=== PATIENT | female | born 1950 | race Caucasian/White ===

== ENCOUNTER 2020-07-14 14:03 | Outpatient (REF) | payer MEDICARE, SELFPAY ==
[2020-07-14 15:29] LABS: Estimated Average Glucose 97 mg/dL
[2020-07-14 15:34] LABS: Alanine Aminotransferase 9 U/L (0-31); Albumin Level 4.1 g/dL (3.5-5.0); Alkaline Phosphatase 87 U/L (39-117); Anion Gap 11 (12-20); Aspartate Amino Transferase 11 U/L (5-31); Bilirubin Total 0.4 mg/dL (0.0-1.0); Blood Urea Nitrogen 20 mg/dL (9-16); Calcium 9.4 mg/dL (8.4-10.2); Carbon Dioxide 30 mmol/L (22-29); Chloride 101 mmol/L (96-108); Estimated Glomerular Filt Rate > 60; Glucose Random 105 mg/dL (60-115); Potassium 4.7 mmol/L (3.3-5.1); Sodium 137 mmol/L (135-145); Total Protein 6.6 g/dL (6.5-8.0)
[2020-07-14 15:43] LABS: Free T4 (Free Thyroxine) 1.06 ng/dL (0.71-1.85); Thyroid Stimulating Hormone 0.85 uIU/mL (0.32-4.0)
--- NOTE | 2020-07-14 21:21 | P.CONTMS_ITS ---
History of Present Illness General Data Date of Service: 07/14/20 Reason for consult: Tms eval Requesting provider: Delvin Escobedo History of Present Illness The patient is a 70-year-old female with a long history of recurrent depression. She has a history of treatment resistant depression and eventually responded to 75 mg of Nardil and used to be a patient of Dr. Lisa Rosas. the patient had been tapering down on Nardil because of manufacturing issues from the company and perception that it was coming off the market. The patient had hoped to be able to go off MAOI but had generally been stable on Nardil without 6 side this for years. Since coming down to 30 mg the patient severely a is depressed and ruminating. She had difficulty enjoying anything was hopeless helpless and forth frequently despondent. Nardil was increased back up to 60 the patient had some lightheadedness when standing up. Patient awfully bed ridden not sure what to do with herself morbid difficult time since [facility]. She did lose structure during COVID. Her is supportive. 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 she is close with her step grandchildren Substance History: None Mental Status Exam Mental Status Exam Patient Appearance: Well Grooomed and Appropriate Patient Orientation: Person, Place, Time and Situation Level of Consciousness: Appropriate and Restless Patient Behavior: Appropriate, Talkative and Restless Mood Description: Constricted, Depressed, Blunted and Apprehensive Affect Description: Depressed, Anxious and Apprehensive Patient Cognition Impaired: No Ability to Follow Directions: Good Speech Pattern: Perseverating, Excessive and Pressured Memory Description: Intact Hallucinations: None Delusions: Not Present Thought Process: Distracted and Rumination Thought Content: positive for Obsessional Thoughts, positive for Perseveration, positive for Suicidal Ideation and negative for Homicidal Ideation Depressive Symptoms: Increased Anxiety, Insomnia and Hopelessness Judgement: Fair Assessment & Plan Assessment & Plan (1) Major depressive disorder, recurrent severe without psychotic features: Status: Acute Code(s): F33.2 - Major depressive disorder, recurrent severe without psychotic features Recommendations: Continue Nardil start Abilify 2 mg daily for augmentation. Clonazepam up to 1 mg daily for severe anxiety. Patient without history of bruno no medical contraindications to TMS still has severe anxiety irritability reactivity passive suicidality would benefit from augmentation to Nardil No history of metallic fragments above the a head or neck no history of brain surgery no history of cochlear implant cardiac pacemaker no medical contraindi cation to TMS (2) Generalized anxiety disorder: Status: Acute Code(s): F41.1 - Generalized anxiety disorder Recommendations: Continue CBT Nardil low-dose clonazepam Greater than 50% of the session was spent on counseling and/or coordination of care
== END 2020-07-14 14:04 | disposition home or self-care (01) ==
LOC: HO.LAB 14:03
PROVIDERS: PCP Internal Medicine; Visit Provider Psychiatry & Neurology Psychiatry
DX: F32.2 Major depressive disorder, single episode, severe without psychotic features (principal); F41.1 Generalized anxiety disorder; Z79.899 Other long term (current) drug therapy
CPT/HCPCS: 36415; 80053; 83036; 84439; 84443

== ENCOUNTER 2020-09-07 09:45 | Outpatient (RCR) | payer MEDICARE, SELFPAY ==
--- NOTE | 2020-07-15 21:21 | HO.TMSDAILY2 ---
TMS Daily Progress Note Daily TMS Progress Note Date of Service: 07/15/20 Week #: 1 Treatment #(04-10): 1 PHQ-9 Pre-Treatment (04-07): 19 PHQ-9 Most Recent (04-07): 19 Reviewed: TMS Tech Note Reviewed Verification: I have reviewed the TMS Visiting Housekeeper Note and agree with the contents. The patient remains a candidate to continue TMS treatment per protocol. Initial mapping completed
--- NOTE | 2020-07-16 22:17 | HO.TMSDAILY2 ---
TMS Daily Progress Note Daily TMS Progress Note Date of Service: 07/16/20 Week #: 1 Treatment #(04-10): 2 PHQ-9 Pre-Treatment (04-07): 19 PHQ-9 Most Recent (04-07): 19 Reviewed: TMS Tech Note Reviewed Verification: I have reviewed the TMS Melter Supervisor Open Hearth Furnace Note and agree with the contents. The patient remains a candidate to continue TMS treatment per protocol.
--- NOTE | 2020-07-19 22:07 | P.PNPS_ITS ---
TMS Daily Progress Note Daily TMS Progress Note Date of Service: 07/19/20 Week #: 1 Treatment #(04-10): 3 PHQ-9 Pre-Treatment (04-07): 19 PHQ-9 Most Recent (04-07): 19 Reviewed: TMS Tech Note Reviewed Verification: I have reviewed the TMS Processing Archivist Note and agree with the contents. The patient remains a candidate to continue TMS treatment per pro tocol.
--- NOTE | 2020-07-20 21:59 | P.PNPS_ITS ---
TMS Daily Progress Note Daily TMS Progress Note Date of Service: 07/20/20 Week #: 1 Treatment #(04-10): 4 PHQ-9 Pre-Treatment (04-07): 19 PHQ-9 Most Recent (04-07): 19 Reviewed: TMS Tech Note Reviewed Verification: I have reviewed the TMS Director Of Business Services Note and agree with the contents. The patient remains a candidate to continue TMS treatment per pro tocol.
--- NOTE | 2020-07-22 21:38 | HO.TMSDAILY2 ---
TMS Daily Progress Note Daily TMS Progress Note Date of Service: 07/22/20 Week #: 2 Treatment #(04-10): 6 PHQ-9 Pre-Treatment (04-07): 19 PHQ-9 Most Recent (04-07): 19 Reviewed: TMS Tech Note Reviewed Verification: I have reviewed the TMS Speech And Language Clinician Note and agree with the contents. The patient remains a candidate to continue TMS treatment per protocol.
--- NOTE | 2020-07-26 23:05 | HO.TMSDAILY2 ---
TMS Daily Progress Note Daily TMS Progress Note Date of Service: 07/26/20 Week #: 2 Treatment #(04-10): 7 PHQ-9 Pre-Treatment (04-07): 19 PHQ-9 Most Recent (04-07): 19 Reviewed: TMS Tech Note Reviewed Verification: I have reviewed the TMS Cytotechnologist/Histotechnologist Note and agree with the contents. The patient remains a candidate to continue TMS treatment per protocol.
--- NOTE | 2020-07-28 22:09 | HO.TMSDAILY2 ---
TMS Daily Progress Note Daily TMS Progress Note Date of Service: 07/29/20 Week #: 2 Treatment #(04-10): 8 PHQ-9 Pre-Treatment (04-07): 19 PHQ-9 Most Recent (04-07): 19 Reviewed: TMS Tech Note Reviewed Verification: I have reviewed the TMS School Supervisor Note and agree with the contents. The patient remains a candidate to continue TMS treatment per protocol.
--- NOTE | 2020-07-29 22:40 | P.PNPS_ITS ---
TMS Daily Progress Note Daily TMS Progress Note Date of Service: 07/29/20 Week #: 2 Treatment #(04-10): 9 PHQ-9 Pre-Treatment (04-07): 19 PHQ-9 Most Recent (04-07): 19 Reviewed: TMS Tech Note Reviewed Verification: I have reviewed the TMS Duplicating Machine Servicer Note and agree with the contents. The patient remains a candidate to continue TMS treatment per pro tocol.
--- NOTE | 2020-07-30 15:42 | P.PNPS_ITS ---
TMS Daily Progress Note Daily TMS Progress Note Date of Service: 07/30/20 Week #: 3 Treatment #(04-10): 11 PHQ-9 Pre-Treatment (04-07): 19 PHQ-9 Most Recent (04-07): 19 Reviewed: TMS Tech Note Reviewed Verification: I have reviewed the TMS Sql Server Architect Note and agree with the contents. The patient remains a candidate to continue TMS treatment per pr otocol.
--- NOTE | 2020-07-30 16:33 | P.PNPS_ITS ---
TMS Daily Progress Note Daily TMS Progress Note Date of Service: 07/30/20 Week #: 2 Treatment #(04-10): 10 PHQ-9 Pre-Treatment (04-07): 19 PHQ-9 Most Recent (04-07): 19 Reviewed: TMS Tech Note Reviewed Verification: I have reviewed the TMS Varnisher Plasticoater Note and agree with the contents. The patient remains a candidate to continue TMS treatment per pr otocol.
--- NOTE | 2020-08-02 23:08 | HO.TMSDAILY2 ---
TMS Daily Progress Note Daily TMS Progress Note Date of Service: 08/02/20 Week #: 3 Treatment #(04-10): 12 PHQ-9 Pre-Treatment (04-07): 19 PHQ-9 Most Recent (04-07): 19 Reviewed: TMS Tech Note Reviewed Verification: I have reviewed the TMS Mixer Operator Helper Hot Metal Note and agree with the contents. The patient remains a candidate to continue TMS treatment per protocol.
--- NOTE | 2020-08-03 23:05 | P.PNPS_ITS ---
TMS Daily Progress Note Daily TMS Progress Note Date of Service: 08/03/20 Week #: 3 Treatment #(04-10): 13 PHQ-9 Pre-Treatment (04-07): 19 PHQ-9 Most Recent (04-07): 19 Reviewed: TMS Tech Note Reviewed Verification: I have reviewed the TMS Machine Zipper Trimmer Note and agree with the contents. The patient remains a candidate to continue TMS treatment per pr otocol.
--- NOTE | 2020-08-04 07:52 | P.PNPS_ITS ---
TMS Daily Progress Note Daily TMS Progress Note Date of Service: 08/04/20 Week #: 3 Treatment #(04-10): 14 PHQ-9 Pre-Treatment (04-07): 19 PHQ-9 Most Recent (04-07): 19 Reviewed: TMS Tech Note Reviewed Verification: I have reviewed the TMS Geophysics Teacher Note and agree with the contents. The patient remains a candidate to continue TMS treatment per pr otocol.
--- NOTE | 2020-08-05 21:58 | HO.TMSDAILY2 ---
TMS Daily Progress Note Daily TMS Progress Note Date of Service: 08/05/20 Week #: 3 Treatment #(04-10): 15 PHQ-9 Pre-Treatment (04-07): 19 PHQ-9 Most Recent (04-07): 19 Reviewed: TMS Tech Note Reviewed Verification: I have reviewed the TMS Travertine Installer Note and agree with the contents. The patient remains a candidate to continue TMS treatment per protocol.
--- NOTE | 2020-08-06 22:59 | P.PNPS_ITS ---
TMS Daily Progress Note Daily TMS Progress Note Date of Service: 08/06/20 Week #: 4 Treatment #(04-10): 16 PHQ-9 Pre-Treatment (04-07): 19 PHQ-9 Most Recent (04-07): 19 Reviewed: TMS Tech Note Reviewed Verification: I have reviewed the TMS Briquette Machine Operator Helper Note and agree with the contents. The patient remains a candidate to continue TMS treatment per pr otocol.
--- NOTE | 2020-08-10 21:59 | HO.TMSDAILY2 ---
TMS Daily Progress Note Daily TMS Progress Note Date of Service: 08/10/20 Week #: 4 Treatment #(04-10): 17 PHQ-9 Pre-Treatment (04-07): 19 PHQ-9 Most Recent (04-07): 19 Reviewed: TMS Tech Note Reviewed Verification: I have reviewed the TMS Fire Pot Operator Note and agree with the contents. The patient remains a candidate to continue TMS treatment per protocol.
--- NOTE | 2020-08-11 21:48 | P.PNPS_ITS ---
TMS Daily Progress Note Daily TMS Progress Note Date of Service: 08/11/20 Week #: 4 Treatment #(04-10): 18 PHQ-9 Pre-Treatment (04-07): 19 PHQ-9 Most Recent (04-07): 19 Reviewed: TMS Tech Note Reviewed Verification: I have reviewed the TMS Transport Technician Note and agree with the contents. The patient remains a candidate to continue TMS treatment per pr otocol.
--- NOTE | 2020-08-12 20:45 | HO.TMSDAILY2 ---
TMS Daily Progress Note Daily TMS Progress Note Date of Service: 08/12/20 Week #: 4 Treatment #(04-10): 19 PHQ-9 Pre-Treatment (04-07): 19 PHQ-9 Most Recent (04-07): 19 Reviewed: TMS Tech Note Reviewed Verification: I have reviewed the TMS Rn Social Services Note and agree with the contents. The patient remains a candidate to continue TMS treatment per protocol.
--- NOTE | 2020-08-13 22:44 | HO.TMSDAILY2 ---
TMS Daily Progress Note Daily TMS Progress Note Date of Service: 08/13/20 Week #: 4 Treatment #(04-10): 20 PHQ-9 Pre-Treatment (04-07): 19 PHQ-9 Most Recent (04-07): 19 Reviewed: TMS Tech Note Reviewed Verification: I have reviewed the TMS Industrial Cook Note and agree with the contents. The patient remains a candidate to continue TMS treatment per protocol.
--- NOTE | 2020-08-17 21:33 | P.PNPS_ITS ---
TMS Daily Progress Note Daily TMS Progress Note Date of Service: 08/17/20 Week #: 5 Treatment #(04-10): 22 PHQ-9 Pre-Treatment (04-07): 19 PHQ-9 Most Recent (04-07): 19 Reviewed: TMS Tech Note Reviewed Verification: I have reviewed the TMS Casing Builder Note and agree with the contents. The patient remains a candidate to continue TMS treatment per pr otocol.
--- NOTE | 2020-08-18 12:19 | P.PNPS_ITS ---
TMS Daily Progress Note Daily TMS Progress Note Date of Service: 08/18/20 Week #: 4 Treatment #(04-10): 23 PHQ-9 Pre-Treatment (04-07): 19 PHQ-9 Most Recent (04-07): 19 Reviewed: TMS Tech Note Reviewed Verification: I have reviewed the TMS Supervisor Rose Grading Note and agree with the contents. The patient remains a candidate to continue TMS treatment per pr otocol.
--- NOTE | 2020-08-19 22:56 | HO.TMSDAILY2 ---
TMS Daily Progress Note Daily TMS Progress Note Date of Service: 08/19/20 Week #: 4 Treatment #(04-10): 24 PHQ-9 Pre-Treatment (04-07): 19 PHQ-9 Most Recent (04-07): 19 Reviewed: TMS Tech Note Reviewed Verification: I have reviewed the TMS Mounter Automatic Note and agree with the contents. The patient remains a candidate to continue TMS treatment per protocol.
--- NOTE | 2020-08-23 22:06 | HO.TMSDAILY2 ---
TMS Daily Progress Note Daily TMS Progress Note Date of Service: 08/23/20 Week #: 6 Treatment #(04-10): 26 PHQ-9 Pre-Treatment (04-07): 19 PHQ-9 Most Recent (04-07): 19 Reviewed: TMS Tech Note Reviewed Verification: I have reviewed the TMS Hardware Manager Note and agree with the contents. The patient remains a candidate to continue TMS treatment per protocol.
--- NOTE | 2020-08-24 23:44 | P.PNPS_ITS ---
TMS Daily Progress Note Daily TMS Progress Note Date of Service: 08/24/20 Week #: 6 Treatment #(04-10): 27 PHQ-9 Pre-Treatment (04-07): 19 PHQ-9 Most Recent (04-07): 19 Reviewed: TMS Tech Note Reviewed Verification: I have reviewed the TMS Educational Psychology Professor Note and agree with the contents. The patient remains a candidate to continue TMS treatment per pr otocol.
--- NOTE | 2020-08-25 23:23 | HO.TMSDAILY2 ---
TMS Daily Progress Note Daily TMS Progress Note Date of Service: 08/25/20 Week #: 6 Treatment #(04-10): 28 PHQ-9 Pre-Treatment (04-07): 19 PHQ-9 Most Recent (04-07): 19 Reviewed: TMS Tech Note Reviewed Verification: I have reviewed the TMS Forest Fire Fighters Dispatcher Note and agree with the contents. The patient remains a candidate to continue TMS treatment per protocol.
--- NOTE | 2020-08-27 23:16 | HO.TMSDAILY2 ---
TMS Daily Progress Note Daily TMS Progress Note Date of Service: 08/31/20 Week #: 6 Treatment #(04-10): 29 PHQ-9 Pre-Treatment (04-07): 19 PHQ-9 Most Recent (04-07): 19 Reviewed: TMS Tech Note Reviewed Verification: I have reviewed the TMS Conventional Mortgage Underwriter Note and agree with the contents. The patient remains a candidate to continue TMS treatment per protocol.
--- NOTE | 2020-08-31 23:21 | HO.TMSDAILY2 ---
TMS Daily Progress Note Daily TMS Progress Note Date of Service: 08/27/20 Week #: 6 Treatment #(04-10): 30 PHQ-9 Pre-Treatment (04-07): 19 PHQ-9 Most Recent (04-07): 19 Reviewed: TMS Tech Note Reviewed Verification: I have reviewed the TMS Drill Press Operator For Metal Note and agree with the contents. The patient remains a candidate to continue TMS treatment per protocol.
--- NOTE | 2020-08-31 23:22 | HO.TMSDAILY2 ---
TMS Daily Progress Note Daily TMS Progress Note Date of Service: 08/31/20 Week #: 7 Treatment #(04-10): 31 PHQ-9 Pre-Treatment (04-07): 19 PHQ-9 Most Recent (04-07): 19 Reviewed: TMS Tech Note Reviewed Verification: I have reviewed the TMS Certified Medication Aide Note and agree with the contents. The patient remains a candidate to continue TMS treatment per protocol.
--- NOTE | 2020-09-02 11:28 | P.PNPS_ITS ---
TMS Daily Progress Note Daily TMS Progress Note Date of Service: 09/01/20 Week #: 7 Treatment #(04-10): 32 PHQ-9 Pre-Treatment (04-07): 19 PHQ-9 Most Recent (04-07): 19 Reviewed: TMS Tech Note Reviewed Verification: I have reviewed the TMS Personnel Representative Note and agree with the contents. The patient remains a candidate to continue TMS treatment per pr otocol.
--- NOTE | 2020-09-03 22:42 | HO.TMSDAILY2 ---
TMS Daily Progress Note Daily TMS Progress Note Date of Service: 09/03/20 Week #: 7 Treatment #(04-10): 33 PHQ-9 Pre-Treatment (04-07): 19 PHQ-9 Most Recent (04-07): 19 Reviewed: TMS Tech Note Reviewed Verification: I have reviewed the TMS Soaking Tank Worker Note and agree with the contents. The patient remains a candidate to continue TMS treatment per protocol.
--- NOTE | 2020-09-03 22:46 | P.PNPS_ITS ---
TMS Daily Progress Note Daily TMS Progress Note Date of Service: 09/03/20 Week #: 7 Treatment #(04-10): 33 PHQ-9 Pre-Treatment (04-07): 19 PHQ-9 Most Recent (04-07): 19 Reviewed: TMS Tech Note Reviewed Verification: I have reviewed the TMS Personnel Coordinator Note and agree with the contents. The patient remains a candidate to continue TMS treatment per pr otocol.
--- NOTE | 2020-09-07 22:27 | P.PNPS_ITS ---
TMS Daily Progress Note Daily TMS Progress Note Date of Service: 09/07/20 Week #: 8 Treatment #(04-10): 34 PHQ-9 Pre-Treatment (04-07): 19 PHQ-9 Most Recent (04-07): 19 Reviewed: TMS Tech Note Reviewed Verification: I have reviewed the TMS Pad Machine Offbearer Note and agree with the contents. The patient remains a candidate to continue TMS treatment per pr otocol.
--- NOTE | 2020-09-09 23:06 | HO.TMSDCTER ---
TMS Discharge-Termination Chart Review Treatments Completed: 34 Initial MT%: 80% Final MT%: 120% Was Remapping Required: Yes Clinical Evaluation/Review PHQ-9 Pre-Treatment (1-): 19 PHQ-9 Post-Treatment (-): 15 NATE-7 Pre-Treatment (0-21): 14 NATE-7 Most Recent (0-21): 18 CGI-I Initial: 6 = Much Worse CGI-I Post Treatment: 4 = No Change Q-LES-Q-SF Pre-Treatment: na Q-LES-Q-SF Post-Treatment: na Adverse Effects Local Pain/Discomfort: Yes Headache: No Facial Pain: No Seizure: No Impression Impression: pt has not had response to tms Recommendations TMS: Discontinue Medication Changes: abilify Follow-up w/ Prescriber: candice
== END 2020-09-09 15:30 | disposition home or self-care (01) ==
LOC: HO.PTMS 09:45
PROVIDERS: PCP Internal Medicine; Visit Provider Psychiatry & Neurology Psychiatry
DX: F33.2 Major depressive disorder, recurrent severe without psychotic features (principal)
CPT/HCPCS: 90867; 90868; 90869

== ENCOUNTER 2020-09-08 13:06 | Inpatient (IN) | payer MEDICARE, SELFPAY ==
[2020-09-08 13:27] VITALS: BP 116/63; PULSE 76; RESP 16; TEMP 36.7; O2SAT 95; BMI 23.6
--- NOTE | 2020-09-08 14:22 | ECG_ITS ---
Test Reason : MED CLEARANCE Blood Pressure : / mmHG Vent. Rate : 072 BPM Atrial Rate : 072 BPM P-R Int : 172 ms QRS Dur : 084 ms QT Int : 382 ms P-R-T Axes : 072 060 058 degrees QTc Int : 418 ms Normal sinus rhythm Biatrial enlargement Septal infarct , age undetermined Abnormal ECG No previous ECGs available Referred By: Colette Edmonds Electronically Signed By:AL CHRISTOPHER MD
[2020-09-08 14:58] LABS: MANUAL DIFF FLAG NO
[2020-09-08 15:03] LABS: Glucose Urine UA NEG (NEG); Leukocyte Esterase Urine 1+ (NEG); Nitrite Urine NEG (NEG); UACC Culture Trigger YES; Urine Blood TRACE (NEG); Urine Ketones NEG (NEG); Urine Protein NEG (NEG-TRACE)
[2020-09-08 15:06] LABS: Appearance Urine HAZY; Color Urine YELLOW
[2020-09-08 15:07] LABS: Basophils Percent Auto 0.5 % (0-2); Eosinophils Absolute Auto 0.1 X10*3/uL (0.0-0.4); Eosinophils Percent Auto 2.5 % (0-4); Hematocrit 39.2 % (37-47); Hemoglobin 12.6 g/dl (12.0-16.0); Imm Gran Abs Auto 0.01 X10*3/uL (0.00-0.03); Imm Gran Pct Auto 0.2 % (0.0-0.4); Lymphocytes Absolute Auto 1.3 X10*3/uL (1.2-4.9); Lymphocytes Percent Auto 29.2 % (20-40); Mean Corpuscular HGB Conc 32.1 g/dl (31.0-35.0); Mean Corpuscular Hemoglobin 29.8 pg (27.0-33.0); Mean Corpuscular Volume 92.7 fL (80-98); Mean Platelet Volume 10.5 fL (9.4-12.3); Monocytes Absolute Auto 0.4 X10*3/uL (0.1-1.2); Neutrophils Absolute Auto 2.6 X10*3/uL (2.0-8.3); Neutrophils Percent Auto 58.6 % (45-73); Platelet Count 165 X10*3/uL (160-400); Red Blood Count 4.23 X10*6/uL (4.20-5.50); Red Cell Distribution Width 12.8 % (11.0-16.0); White Blood Count 4.4 X10*3/uL (4.8-10.8)
[2020-09-08 15:13] LABS: Bacteria Urine 3+ /LPF; Squamous Epithelial Cell Urine 2+ /LPF
--- NOTE | 2020-09-08 15:15 | HE.PHANOTE ---
med rec complete, no issues
[2020-09-08 15:16] LABS: COVID-19 Test Negative (Negative); IDNOW Serial# 9DD0AD1C
[2020-09-08 15:29] LABS: Ethanol < 10 mg/dL
[2020-09-08 15:31] LABS: Lipase 39 U/L (8-78)
[2020-09-08 15:32] LABS: Amphetamine Screen Urine Not Detected (Not Detect); Barbiturates, Urine Not Detected (Not Detect); Benzodiazepines Screen Urine POSITIVE (Not Detect); Cannabinoid Screen Urine Not Detected (Not Detect); Cocaine Screen Urine Not Detected (Not Detect); Opiate Screen Urine Not Detected (Not Detect); Phencyclidine Screen Urine Not Detected (Not Detect)
[2020-09-08 15:35] LABS: Alanine Aminotransferase 9 U/L (0-31); Albumin Level 4.1 g/dL (3.5-5.0); Alkaline Phosphatase 81 U/L (39-117); Anion Gap 11 (12-20); Aspartate Amino Transferase 11 U/L (5-31); Bilirubin Total 0.3 mg/dL (0.0-1.0); Blood Urea Nitrogen 16 mg/dL (9-16); Calcium 9.2 mg/dL (8.4-10.2); Carbon Dioxide 30 mmol/L (22-29); Chloride 101 mmol/L (96-108); Creatinine Clr Calc Pharmacy 64.6; Estimated Glomerular Filt Rate > 60; Glucose Random 129 mg/dL (60-115); Magnesium 2.2 mg/dL (1.6-2.6); Potassium 4.5 mmol/L (3.3-5.1); Sodium 137 mmol/L (135-145); Total Protein 6.5 g/dL (6.5-8.0)
--- NOTE | 2020-09-08 16:10 | ED.PSYCH ---
HPI - Psych General Chief Complaint: Psychiatric Symptoms Stated Complaint: phychiatric symptoms Time Seen by Provider: 09/08/20 14:22 Source: patient and family Mode of arrival: ambulatory Limitations: no limitations History of Present Illness HPI Narrative: 70-year-old female with a past medical history of generalized anxiety disorder and major depressive disorder without psychosis being followed by Dr. Escobedo presenting to the ED with complaints of increased anxiety/depression over the past few weeks that is progressively worsening. Therefore Dr. Escobedo sent the patient here for medical clearance for direct admission to [place] [id number] for anxiety and depression. She denies any SI/HI/ auditory visual hallucinations or thoughts of self injury. She denies any drug or alcohol usage. She denies recent travel or sick contacts or any other symptoms complaints or concerns at this time. MD complaint: feels depressed and anxiety Onset (ago): week(s) Duration: constant and getting worse History of same: Yes Relieving factors: none Exacerbating factors: none Associated psychiatric symptoms: depression Associated symptoms: denies other symptoms Treatments prior to arrival: none Related Data Home Medications Medication Instructions Recorded Confirmed clonazepam 0.5 mg PO BID PRN 09/08/20 09/08/20 phenelzine 15 mg PO BEDTIME 09/08/20 09/08/20 phenelzine 30 mg PO BID@0800,1200 09/08/20 09/08/20 Allergies Allergy/AdvReac Type Severity Reaction Status Date / Time levofloxacin [From Levaquin] Allergy Rash Verified 09/08/20 14:08 tyramine Allergy Hypertensio Uncoded 09/08/20 14:06 n Review of Systems Review of Systems: Constitutional : No Fever, No Chills ENT/Mouth : No Ear Pain, No Nasal Congestion, No sore throat Eyes: No Eye Pain, No Swelling, No Redness Cardiovascular : No Chest Pain, No SOB Respiratory : No Cough, No Sputum, No Dyspnea Gastrointestinal : No ingestions, No Nausea, No Vomiting, No Diarrhea, No Hematochezia, No Melena Genitourinary : No Dysuria, No Urinary Frequency, No Hematuria Musculoskeletal : No Myalgias Skin : No Skin Lesions, No rash Neuro : No Weakness, No Numbness, No Paresthesias, No Dizziness, No Headache Psych : + Anxiety, + Depression, No SI, No thoughts of self injury, No HI, No AVH, Heme/Lymph: No Lymphadenopathy Endocrine : No Polyuria, No Polydipsia Yes all other systems are reviewed and are negative [facility] Past Medical History Attestation statement: The following information was validated with the patient. Medical History Generalized anxiety disorder Social History Social History Advance Directives: No Advance Directives Information Provided: No Physical Exam Vital Signs: Vital Signs: Last Vital Signs Temp 98.1 F 09/08/20 13:27 Pulse 76 09/08/20 13:27 Resp 16 09/08/20 13:27 BP 116/63 09/08/20 13:27 Pulse Ox 95 09/08/20 13:27 Body Mass Index 23.6 vital signs have been reviewed as normal and appeared to be correct. Blood pressure normal. Heart rate normal. Respiration rate normal. Temperature normal. Oxygen saturation normal. Appearance: Alert. Oriented X3. No acute distress. Head: Normal external exam. Normocephalic. Atraumatic. No Gaviria signs noted. No raccoon eyes noted Eyes: PERRLA. EOMI. Conjunctiva and sclera normal. Eyelids normal. ENT: EAC normal. TM's Normal. Pharynx normal. Uvula midline. Moist mucous membranes. No trismus noted. No drooling noted. No muffled voice noted. Neck: Normal inspection. Neck supple. FROM. No adenopathy. Thyroid Normal. No meningeal signs. No neck mass noted. CVS: Normal heart rate and rhythm. Heart sound normal. No murmurs noted. Pulses normal throughout. Respiratory: No respiratory distress. Painless inspiration. Breath sounds normal. No wheezes/rales/rhonchi noted. Chest nontender. No accessory muscle usage noted or decreased air movement noted. Abdomen: Soft and nontender. Bowel sounds normal in all 4 quadrants. No distention noted. No organomegaly noted. No visible injury noted. Back: No CVA tenderness. Full range of motion noted. Skin: Skin warm and dry. Normal skin color. Normal skin turgor. No rashes/lesions/lacerations noted. Extremities: No lower extremity edema. Extremities exhibit normal range of motion. Extremities nontender. Neuro: Oriented X 3. No motor deficit. No sensory deficit. Reflexes normal. Psych: Appearance grossly normal, well-kept, mental status normal, speech and movement normal, speech clear, patient appears very sad and anxious along with depressed. Is cooperative. Normal thought process. Normal thought content. Normal good insight. Judgment good. 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 Escobedo presenting to the ED with complaints of increased anxiety/depression over the past few weeks that is progressively worsening. Therefore Dr. Escobedo sent the patient here for medical clearance for direct admission to [place] [address] for anxiety and depression. She denies any SI/HI/ auditory visual hallucinations or thoughts of self injury. She denies any drug or alcohol usage. Labs obtained and patient with a white blood cell count 4000. Random glucose 129. Otherwise all other labs are within normal limits. Patient positive for benzos negative for all other drugs. Negative for EtOH. Negative for COVID on 08/12/2020. Therefore patient medically cleared and will be admitted to the [facility] psych unit. Patient and at bedside understand agree with this plan. [facility] - Psych Medical Records Attestation: I reviewed the patient's medical records. Lab Data Attestation: I reviewed the patient's lab results. Result diagrams: 09/08/20 14:53 09/08/20 14:53 Labs: Lab Results 09/08/20 09/08/20 09/08/20 Range/Units 14:49 14:49 14:53 WBC 4.4 L (4.8-10.8) X10*3/uL RBC 4.23 (4.20-5.50) X10*6/uL Hgb 12.6 (12.0-16.0) g/dl Hct 39.2 (37-47) % MCV 92.7 (80-98) fL MCH 29.8 (27.0-33.0) pg MCHC 32.1 (31.0-35.0) g/dl RDW 12.8 (11.0-16.0) % Plt Count 165 (160-400) X10*3/uL MPV 10.5 (9.4-12.3) fL Immature Gran % (Auto) 0.2 (0.0-0.4) % Neut % (Auto) 58.6 (45-73) % Lymph % (Auto) 29.2 (20-40) % [place] % (Auto) 9.0 (2-11) % Eos % (Auto) 2.5 (0-4) % Baso % (Auto) 0.5 (0-2) % Lymph # (Auto) 1.3 (1.2-4.9) X10*3/uL [place] # (Auto) 0.4 (0.1-1.2) X10*3/uL Eos # (Auto) 0.1 (0.0-0.4) X10*3/uL Baso # (Auto) 0.0 (0.0-0.2) X10*3/uL Abs Immat Gran (auto) 0.01 (0.00-0.03) X10*3/uL Absolute Neuts (auto) 2.6 (2.0-8.3) X10*3/uL Absolute Nucleated RBC 0.000 (0.0-0.012) X10*3/uL Nucleated RBC % (auto) 0.0 (0.0-0.2) /100WBC Sodium (135-145) mmol/L Potassium (3.3-5.1) mmol/L Chloride (96-108) mmol/L Carbon Dioxide (22-29) mmol/L Anion Gap (12-20) BUN (9-16) mg/dL Creatinine (0.5-1.4) mg/dL Estim Creat Clear Calc Estimated GFR Random Glucose (60-115) mg/dL Calcium (8.4-10.2) mg/dL Magnesium (1.6-2.6) mg/dL Total Bilirubin (0.0-1.0) mg/dL AST (5-31) U/L ALT (0-31) U/L Alkaline Phosphatase (39-117) U/L Total Protein (6.5-8.0) g/dL Albumin (3.5-5.0) g/dL Lipase (8-78) U/L Urine Color YELLOW Urine Appearance HAZY Urine pH 6.0 (5.0-8.0) Ur Specific [place] 1.010 (1.005-1.025) Urine Protein NEG (NEG-TRACE) MG/DL Urine Glucose (UA) NEG (NEG) MG/DL Urine Ketones NEG (NEG) MG/DL Urine Blood TRACE (NEG) Urine Nitrite NEG (NEG) Ur Leukocyte Esterase 1+ H (NEG) Urine RBC 1-4 (0) /HPF Urine WBC 5-9 H (0-4) /HPF Ur Squamous Epith Cells 2+ /LPF Urine Bacteria 3+ /LPF Urine Opiates Screen Not Detected (Not Detect) Ur Barbiturates Screen Not Detected (Not Detect) Ur Phencyclidine Scrn Not Detected (Not Detect) Ur Amphetamines Screen Not Detected (Not Detect) U Benzodiazepines Scrn POSITIVE H (Not Detect) Urine Cocaine Screen Not Detected (Not Detect) U Marijuana (THC) Screen Not Detected (Not Detect) Ethyl Alcohol mg/dL COVID-19 (JOELLE) (Negative) COVID-19 Clin Com 09/08/20 09/08/20 09/08/20 Range/Units 14:53 14:53 14:53 WBC (4.8-10.8) X10*3/uL RBC (4.20-5.50) X10*6/uL Hgb (12.0-16.0) g/dl Hct (37-47) % MCV (80-98) fL MCH (27.0-33.0) pg MCHC (31.0-35.0) g/dl RDW (11.0-16.0) % Plt Count (160-400) X10*3/uL MPV (9.4-12.3) fL Immature Gran % (Auto) (0.0-0.4) % Neut % (Auto) (45-73) % Lymph % (Auto) (20-40) % [place] % (Auto) (2-11) % Eos % (Auto) (0-4) % Baso % (Auto) (0-2) % Lymph # (Auto) (1.2-4.9) X10*3/uL [place] # (Auto) (0.1-1.2) X10*3/uL Eos # (Auto) (0.0-0.4) X10*3/uL Baso # (Auto) (0.0-0.2) X10*3/uL Abs Immat Gran (auto) (0.00-0.03) X10*3/uL Absolute Neuts (auto) (2.0-8.3) X10*3/uL Absolute Nucleated RBC (0.0-0.012) X10*3/uL Nucleated RBC % (auto) (0.0-0.2) /100WBC Sodium 137 (135-145) mmol/L Potassium 4.5 (3.3-5.1) mmol/L Chloride 101 (96-108) mmol/L Carbon Dioxide 30 H (22-29) mmol/L Anion Gap 11 L (12-20) BUN 16 (9-16) mg/dL Creatinine 0.78 (0.5-1.4) mg/dL Estim Creat Clear Calc 64.6 Estimated GFR > 60 Random Glucose 129 H (60-115) mg/dL Calcium 9.2 (8.4-10.2) mg/dL Magnesium 2.2 (1.6-2.6) mg/dL Total Bilirubin 0.3 (0.0-1.0) mg/dL AST 11 (5-31) U/L ALT 9 (0-31) U/L Alkaline Phosphatase 81 (39-117) U/L Total Protein 6.5 (6.5-8.0) g/dL Albumin 4.1 (3.5-5.0) g/dL Lipase 39 (8-78) U/L Urine Color Urine Appearance Urine pH (5.0-8.0) Ur Specific [place] (1.005-1.025) Urine Protein (NEG-TRACE) MG/DL Urine Glucose (UA) (NEG) MG/DL Urine Ketones (NEG) MG/DL Urine Blood (NEG) Urine Nitrite (NEG) Ur Leukocyte Esterase (NEG) Urine RBC (0) /HPF Urine WBC (0-4) /HPF Ur Squamous Epith Cells /LPF Urine Bacteria /LPF Urine Opiates Screen (Not Detect) Ur Barbiturates Screen (Not Detect) Ur Phencyclidine Scrn (Not Detect) Ur Amphetamines Screen (Not Detect) U Benzodiazepines Scrn (Not Detect) Urine Cocaine Screen (Not Detect) U Marijuana (THC) Screen (Not Detect) Ethyl Alcohol < 10 mg/dL COVID-19 (JOELLE) (Negative) COVID-19 Clin Com 09/08/20 Range/Units 14:54 WBC (4.8-10.8) X10*3/uL RBC (4.20-5.50) X10*6/uL Hgb (12.0-16.0) g/dl Hct (37-47) % MCV (80-98) fL MCH (27.0-33.0) pg MCHC (31.0-35.0) g/dl RDW (11.0-16.0) % Plt Count (160-400) X10*3/uL MPV (9.4-12.3) fL Immature Gran % (Auto) (0.0-0.4) % Neut % (Auto) (45-73) % Lymph % (Auto) (20-40) % [place] % (Auto) (2-11) % Eos % (Auto) (0-4) % Baso % (Auto) (0-2) % Lymph # (Auto) (1.2-4.9) X10*3/uL [place] # (Auto) (0.1-1.2) X10*3/uL Eos # (Auto) (0.0-0.4) X10*3/uL Baso # (Auto) (0.0-0.2) X10*3/uL Abs Immat Gran (auto) (0.00-0.03) X10*3/uL Absolute Neuts (auto) (2.0-8.3) X10*3/uL Absolute Nucleated RBC (0.0-0.012) X10*3/uL Nucleated RBC % (auto) (0.0-0.2) /100WBC Sodium (135-145) mmol/L Potassium (3.3-5.1) mmol/L Chloride (96-108) mmol/L Carbon Dioxide (22-29) mmol/L Anion Gap (12-20) BUN (9-16) mg/dL Creatinine (0.5-1.4) mg/dL Estim Creat Clear Calc Estimated GFR Random Glucose (60-115) mg/dL Calcium (8.4-10.2) mg/dL Magnesium (1.6-2.6) mg/dL Total Bilirubin (0.0-1.0) mg/dL AST (5-31) U/L ALT (0-31) U/L Alkaline Phosphatase (39-117) U/L Total Protein (6.5-8.0) g/dL Albumin (3.5-5.0) g/dL Lipase (8-78) U/L Urine Color Urine Appearance Urine pH (5.0-8.0) Ur Specific [place] (1.005-1.025) Urine Protein (NEG-TRACE) MG/DL Urine Glucose (UA) (NEG) MG/DL Urine Ketones (NEG) MG/DL Urine Blood (NEG) Urine Nitrite (NEG) Ur Leukocyte Esterase (NEG) Urine RBC (0) /HPF Urine WBC (0-4) /HPF Ur Squamous Epith Cells /LPF Urine Bacteria /LPF Urine Opiates Screen (Not Detect) Ur Barbiturates Screen (Not Detect) Ur Phencyclidine Scrn (Not Detect) Ur Amphetamines Screen (Not Detect) U Benzodiazepines Scrn (Not Detect) Urine Cocaine Screen (Not Detect) U Marijuana (THC) Screen (Not Detect) Ethyl Alcohol mg/dL COVID-19 (JOELLE) Negative (Negative) COVID-19 Clin Com See Note ECG Data Attestation: I personally reviewed and interpreted this ECG as follows: ECG interpretation date: 09/08/20 ECG interpretation time: 14:41 Interpretation: Normal sinus rhythm and a ventricular rate of 72 with biatrial enlargement no acute ischemic changes are noted. Discharge Plan Discharge Clinical Impression: Major depressive disorder, recurrent severe without psychotic features, Generalized anxiety disorder Patient Disposition: Admitted As Inpatient Prescriptions: No Action phenelzine 15 mg Tablet 30 mg PO BID@0800,1200 RF: 0 phenelzine 15 mg Tablet 15 mg PO BEDTIME RF: 0 clonazepam 0.5 mg Tablet 0.5 mg PO BID PRN (Reason: Anxiety) RF: 0
[2020-09-08] MEDS: clonazePAM 1 MG TABLET PO (16:21)
[2020-09-08 18:18] VITALS: BP 114/56; PULSE 61; RESP 16; TEMP 36.4; O2SAT 96
--- NOTE | 2020-09-08 19:46 | PC.ADMIT ---
Patient admitted from ER; CV signed. Patient reports worsening of depression and anxiety and lack of interest, increased sleepiness. A&Ox4, calm and cooperative able to complete Admission Assessment with this RN; intermittent tearfulness during assessment; affect depressed and withdrawn. Denies SI/HI; denies thoughts of self-harm; remains hopeful with seeking treatment stating I just want to get better and have energy and again. Reports struggles with family support and family not understanding what she is going through; states positive therapeutic supports with therapist and psychiatrist. Patient contracts for safety and states she will seek out staff for assistance.
[2020-09-08] MEDS: Brexpiprazole 1 MG TABLET 0.5 MG PO (20:28)
[2020-09-09] MEDS: clonazePAM 1 MG TABLET PO ×3 (01:14→18:53)
[2020-09-09 06:31] VITALS: BP 86/48; PULSE 77; RESP 14; TEMP 36.3; O2SAT 97
[2020-09-09 07:00] VITALS: BMI 30.5
[2020-09-09 08:19] LABS: Alanine Aminotransferase 10 U/L (0-31); Albumin Level 4.1 g/dL (3.5-5.0); Alkaline Phosphatase 86 U/L (39-117); Anion Gap 9 (12-20); Aspartate Amino Transferase 15 U/L (5-31); Bilirubin Total 0.5 mg/dL (0.0-1.0); Blood Urea Nitrogen 16 mg/dL (9-16); Calcium 9.3 mg/dL (8.4-10.2); Carbon Dioxide 32 mmol/L (22-29); Chloride 103 mmol/L (96-108); Cholesterol 167 mg/dL; Estimated Glomerular Filt Rate > 60; Glucose Fasting 84 mg/dL (60-99); HDL Cholesterol 70 mg/dL; LDL Cholesterol Calculated 87 mg/dl; Potassium 4.1 mmol/L (3.3-5.1); Sodium 140 mmol/L (135-145); Total Protein 6.6 g/dL (6.5-8.0); Triglycerides 50 mg/dL
[2020-09-09 08:39] LABS: Free T4 (Free Thyroxine) 0.95 ng/dL (0.71-1.85); Thyroid Stimulating Hormone 0.81 uIU/mL (0.32-4.0)
[2020-09-09 09:08] LABS: Folate > 20.0 ng/mL (> or = 4.0); Vitamin B12 250 pg/mL (200-900)
[2020-09-09 13:00] VITALS: BP 110/55; PULSE 67; RESP 16; TEMP 36; O2SAT 96
[2020-09-09] MEDS: Brexpiprazole 1 MG TABLET 0.5 MG PO (14:09)
[2020-09-09 14:56] VITALS: BMI 23.8
--- NOTE | 2020-09-09 15:03 | P.HPPS_ITS ---
HPI Chief Complaint: Severe depression Sources of Information: patient interviewed and chart reviewed HPI Subjective Notes: Conditional Voluntary Narrative: The patient is a 70 year old female, , with no biological children, living with her , with a long history of MDD and NATE, referred from outpatient and TMS service for exacerbation of depression in the context of tapering off of Nardel and no response with TMS. The patient reported that on February 2020, her antidepressant for the last 20 years, Nardel was going to be discontinued in the [place] and her providers tried to cross-tapered off but she relapsed on her depressive symptoms elicited by exacerbation of depressed mood, severe anhedonia, anergia, exacerbation of anxiety, feelings of hopelessness and worthlessness. She denied psychotic symptoms or previous episodes of bruno. Since the patient was unable to take care of herself due to anergia and she was unable to function at her baseline, inpatient level of care was discussed. Past Psychiatric History: Her first psychiatrict contact was on her early 's with several admissions into the hospital. The patient reported that she was fairly stable on Nardel for more than 20 years. 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 she is close with her step grandchildren Diagnostics Vital Signs (24Hr): Vital Signs - 24 hr 09/08/20 18:18 09/09/20 06:31 Temperature 97.5 F 97.4 F Pulse Rate 61 77 Respiratory Rate 16 14 Blood Pressure 114/56 L 86/48 L Pulse Oximetry 96 97 Body Mass Index 23.8 Labs Results: 09/08/20 14:53 09/09/20 07:43 Labs: Laboratory Results - last 48 hr 09/08/20 09/08/20 09/08/20 14:49 14:49 14:53 WBC 4.4 L RBC 4.23 Hgb 12.6 Hct 39.2 MCV 92.7 MCH 29.8 MCHC 32.1 RDW 12.8 Plt Count 165 MPV 10.5 Immature Gran % (Auto) 0.2 Neut % (Auto) 58.6 Lymph % (Auto) 29.2 [place] % (Auto) 9.0 Eos % (Auto) 2.5 Baso % (Auto) 0.5 Lymph # (Auto) 1.3 [place] # (Auto) 0.4 Eos # (Auto) 0.1 Baso # (Auto) 0.0 Abs Immat Gran (auto) 0.01 Absolute Neuts (auto) 2.6 Absolute Nucleated RBC 0.000 Nucleated RBC % (auto) 0.0 Sodium Potassium Chloride Carbon Dioxide Anion Gap BUN Creatinine Estim Creat Clear Calc Estimated GFR Random Glucose Fasting Glucose Calcium Magnesium Total Bilirubin AST ALT Alkaline Phosphatase Total Protein Albumin Triglycerides Cholesterol LDL Cholesterol, Calc HDL Cholesterol Lipase Vitamin B12 Folate TSH Free T4 Urine Color YELLOW Urine Appearance HAZY Urine pH 6.0 Ur Specific [place] 1.010 Urine Protein NEG Urine Glucose (UA) NEG Urine Ketones NEG Urine Blood TRACE Urine Nitrite NEG Ur Leukocyte Esterase 1+ H Urine RBC 1-4 Urine WBC 5-9 H Ur Squamous Epith Cells 2+ Urine Bacteria 3+ Urine Opiates Screen Not Detected Ur Barbiturates Screen Not Detected Ur Phencyclidine Scrn Not Detected Ur Amphetamines Screen Not Detected U Benzodiazepines Scrn POSITIVE H Urine Cocaine Screen Not Detected U Marijuana (THC) Screen Not Detected Ethyl Alcohol COVID-19 (JOELLE) COVID-19 Clin Com 09/08/20 09/08/20 09/08/20 14:53 14:53 14:53 WBC RBC Hgb Hct MCV MCH MCHC RDW Plt Count MPV Immature Gran % (Auto) Neut % (Auto) Lymph % (Auto) [place] % (Auto) Eos % (Auto) Baso % (Auto) Lymph # (Auto) [place] # (Auto) Eos # (Auto) Baso # (Auto) Abs Immat Gran (auto) Absolute Neuts (auto) Absolute Nucleated RBC Nucleated RBC % (auto) Sodium 137 Potassium 4.5 Chloride 101 Carbon Dioxide 30 H Anion Gap 11 L BUN 16 Creatinine 0.78 Estim Creat Clear Calc 64.6 Estimated GFR > 60 Random Glucose 129 H Fasting Glucose Calcium 9.2 Magnesium 2.2 Total Bilirubin 0.3 AST 11 ALT 9 Alkaline Phosphatase 81 Total Protein 6.5 Albumin 4.1 Triglycerides Cholesterol LDL Cholesterol, Calc HDL Cholesterol Lipase 39 Vitamin B12 Folate TSH Free T4 Urine Color Urine Appearance Urine pH Ur Specific [place] Urine Protein Urine Glucose (UA) Urine Ketones Urine Blood Urine Nitrite Ur Leukocyte Esterase Urine RBC Urine WBC Ur Squamous Epith Cells Urine Bacteria Urine Opiates Screen Ur Barbiturates Screen Ur Phencyclidine Scrn Ur Amphetamines Screen U Benzodiazepines Scrn Urine Cocaine Screen U Marijuana (THC) Screen Ethyl Alcohol < 10 COVID-19 (JOELLE) COVID-19 Clin Com 09/08/20 09/09/20 09/09/20 14:54 07:43 07:43 WBC RBC Hgb Hct MCV MCH MCHC RDW Plt Count MPV Immature Gran % (Auto) Neut % (Auto) Lymph % (Auto) [place] % (Auto) Eos % (Auto) Baso % (Auto) Lymph # (Auto) [place] # (Auto) Eos # (Auto) Baso # (Auto) Abs Immat Gran (auto) Absolute Neuts (auto) Absolute Nucleated RBC Nucleated RBC % (auto) Sodium 140 Potassium 4.1 Chloride 103 Carbon Dioxide 32 H Anion Gap 9 L BUN 16 Creatinine 0.80 Estim Creat Clear Calc 63.0 Estimated GFR > 60 Random Glucose Fasting Glucose 84 Calcium 9.3 Magnesium Total Bilirubin 0.5 AST 15 ALT 10 Alkaline Phosphatase 86 Total Protein 6.6 Albumin 4.1 Triglycerides 50 Cholesterol 167 LDL Cholesterol, Calc 87 HDL Cholesterol 70 Lipase Vitamin B12 250 Folate > 20.0 TSH 0.81 Free T4 0.95 Urine Color Urine Appearance Urine pH Ur Specific [place] Urine Protein Urine Glucose (UA) Urine Ketones Urine Blood Urine Nitrite Ur Leukocyte Esterase Urine RBC Urine WBC Ur Squamous Epith Cells Urine Bacteria Urine Opiates Screen Ur Barbiturates Screen Ur Phencyclidine Scrn Ur Amphetamines Screen U Benzodiazepines Scrn Urine Cocaine Screen U Marijuana (THC) Screen Ethyl Alcohol COVID-19 (JOELLE) Negative COVID-19 Clin Com See Note Meds/Allergies Meds Home Medications Acetaminophen (Acetaminophen 325 Mg Tablet) 650 mg PO Q6H PRN PRN Reason: Headache/Pain Mild Scale (1-3) Al Hydroxide/Mg Hydroxide (Magnesium Hydrox/Alum Hydrox 30 Ml Oral.Susp) 30 ml PO Q6H PRN PRN Reason: Heartburn/Nausea Brexpiprazole (Brexpiprazole 1 Mg Tablet) 0.5 mg PO DAILY ROSA Last Admin: 09/09/20 14:09 Dose: 0.5 mg Documented by: Clonazepam (Clonazepam 1 Mg Tablet) 1 mg PO Q6H PRN PRN Reason: anxiety Last Admin: 09/09/20 10:38 Dose: 1 mg Documented by: Hydroxyzine HCl (Hydroxyzine Hcl 25 Mg Tablet) 25 mg PO BEDTIME PRN PRN Reason: Anxiety Magnesium Hydroxide (Milk Of Magnesia 30 Ml Oral.Susp) 30 ml PO DAILY PRN PRN Reason: Constipation Patient Own Medication ( Phenelzine 15 Mg Tabs) 2 each PO BID@0800,1200 [facility] Last Admin: 09/09/20 14:09 Dose: 2 each Documented by: Patient Own Medication ( Phenelzine 15 Mg Tabs) 1 each PO BEDTIME [facility] Last Admin: 09/08/20 20:28 Dose: 1 each Documented by: Allergies Allergies Allergy/AdvReac Type Severity Reaction Status Date / Time levofloxacin [From Levaquin] Allergy Rash Verified 09/08/20 14:08 tyramine Allergy Hypertensio Uncoded 09/08/20 14:06 n Mental Status Exam Mental Status Exam Patient Appearance: Well Grooomed Patient Orientation: Person, Place, Time and Situation Level of Consciousness: Awake Patient Behavior: Appropriate and Passive Mood Description: Withdrawn and Depressed Affect Description: Blunted Patient Cognition Impaired: No Ability to Follow Directions: Good Speech Pattern: Clear Hallucinations: None Delusions: Not Present Thought Process: Goal Oriented Thought Content: positive for Obsessional Thoughts, positive for Circumstantial and positive for Perseveration Depressive Symptoms: Increased Anxiety, Feelings of Worthlessness and Hopelessness Judgement: Fair Assessment & Plan Assessment & Plan (1) Generalized anxiety disorder: Status: Acute Code(s): F41.1 - Generalized anxiety disorder Assessment and Plan: Middle age female with NATE and MDD severe without psychosis with a severe exacerbation of her symptoms in the context of medication changes. Plan: Gather collateral Keep same treatment Consider ECT. (2) Major depressive disorder, recurrent severe without psychotic features: Status: Acute Code(s): F33.2 - Major depressive disorder, recurrent severe without psychotic features Patient educated on: diagnosis, medication risk/benefits, ECT, therapeutic strategies and medical condition Informed Consent: understands Reason for continued inpatient stay Substantial Risk for: inability to function, rapid decompensation and med/psych decompensation
[2020-09-09 18:00] VITALS: BP 101/50; PULSE 78; RESP 17; TEMP 36.6; O2SAT 98
[2020-09-09] MEDS: clonazePAM 0.5 MG TABLET PO (21:08)
[2020-09-10 09:00] VITALS: BP 97/52; PULSE 75; RESP 17; TEMP 36.9; O2SAT 95
[2020-09-10] MEDS: Brexpiprazole 1 MG TABLET 0.5 MG PO (09:13)
[2020-09-10] MEDS: clonazePAM 0.5 MG TABLET PO ×3 (09:14→21:55)
--- NOTE | 2020-09-10 09:44 | P.PNPSI_ITS ---
Subjective Subjective Date of Service: 09/10/20 Reason For Visit: Severe depression Subjective Notes: Conditional Voluntary Guardianship: No Medical Problems Affecting Mental Status: No Interim History: Pt depressed flat anxious ruminating intermittantly hopeless helpless discussed with pt and h regarding rexulti and option of uti Medication Compliance: Yes Side effects from medications: Yes (mild dec bp) Attending Groups: Yes Review of Systems Review of Systems pos urinary bladder fullness stream hesitancy Mental Status Exam Mental Status Exam Patient Appearance: Well Grooomed Patient Orientation: Person, Place, Time and Situation Level of Consciousness: Awake Patient Behavior: Appropriate and Passive Mood Description: Withdrawn, Depressed and Flat Affect Description: Depressed and Blunted Patient Cognition Impaired: No Ability to Follow Directions: Good Speech Pattern: Clear, Monotone and Soft-Spoken Hallucinations: None Delusions: Not Present Thought Process: Rumination and Goal Oriented Thought Content: positive for Obsessional Thoughts, positive for Circumstantial, positive for Perseveration and positive for Poverty of Content Depressive Symptoms: Increased Anxiety, Feelings of Worthlessness, Hopelessness, Thoughts of /Suicide and Difficulty Concentrating Judgement: Fair Judgement and Insight: difficulty taking in information Diagnostics Vital Signs (24Hr): Vital Signs - 24 hr 09/09/20 06:31 09/09/20 13:00 09/09/20 18:00 Temperature 97.4 F 96.8 F 97.9 F Pulse Rate 77 67 78 Respiratory Rate 14 16 17 Blood Pressure 86/48 L 110/55 L 101/50 L Pulse Oximetry 97 96 98 Body Mass Index 23.8 Labs Results: 09/08/20 14:53 09/09/20 07:43 Labs: Laboratory Results - last 48 hr 09/08/20 09/08/20 09/08/20 14:49 14:49 14:53 WBC 4.4 L RBC 4.23 Hgb 12.6 Hct 39.2 MCV 92.7 MCH 29.8 MCHC 32.1 RDW 12.8 Plt Count 165 MPV 10.5 Immature Gran % (Auto) 0.2 Neut % (Auto) 58.6 Lymph % (Auto) 29.2 [place] % (Auto) 9.0 Eos % (Auto) 2.5 Baso % (Auto) 0.5 Lymph # (Auto) 1.3 [place] # (Auto) 0.4 Eos # (Auto) 0.1 Baso # (Auto) 0.0 Abs Immat Gran (auto) 0.01 Absolute Neuts (auto) 2.6 Absolute Nucleated RBC 0.000 Nucleated RBC % (auto) 0.0 Sodium Potassium Chloride Carbon Dioxide Anion Gap BUN Creatinine Estim Creat Clear Calc Estimated GFR Random Glucose Fasting Glucose Calcium Magnesium Total Bilirubin AST ALT Alkaline Phosphatase Total Protein Albumin Triglycerides Cholesterol LDL Cholesterol, Calc HDL Cholesterol Lipase Vitamin B12 Folate TSH Free T4 Urine Color YELLOW Urine Appearance HAZY Urine pH 6.0 Ur Specific [place] 1.010 Urine Protein NEG Urine Glucose (UA) NEG Urine Ketones NEG Urine Blood TRACE Urine Nitrite NEG Ur Leukocyte Esterase 1+ H Urine RBC 1-4 Urine WBC 5-9 H Ur Squamous Epith Cells 2+ Urine Bacteria 3+ Urine Opiates Screen Not Detected Ur Barbiturates Screen Not Detected Ur Phencyclidine Scrn Not Detected Ur Amphetamines Screen Not Detected U Benzodiazepines Scrn POSITIVE H Urine Cocaine Screen Not Detected U Marijuana (THC) Screen Not Detected Ethyl Alcohol COVID-19 (JOELLE) COVID-19 [employer] 09/08/20 09/08/20 09/08/20 14:53 14:53 14:53 WBC RBC Hgb Hct MCV MCH MCHC RDW Plt Count MPV Immature Gran % (Auto) Neut % (Auto) Lymph % (Auto) [place] % (Auto) Eos % (Auto) Baso % (Auto) Lymph # (Auto) [place] # (Auto) Eos # (Auto) Baso # (Auto) Abs Immat Gran (auto) Absolute Neuts (auto) Absolute Nucleated RBC Nucleated RBC % (auto) Sodium 137 Potassium 4.5 Chloride 101 Carbon Dioxide 30 H Anion Gap 11 L BUN 16 Creatinine 0.78 Estim Creat Clear Calc 64.6 Estimated GFR > 60 Random Glucose 129 H Fasting Glucose Calcium 9.2 Magnesium 2.2 Total Bilirubin 0.3 AST 11 ALT 9 Alkaline Phosphatase 81 Total Protein 6.5 Albumin 4.1 Triglycerides Cholesterol LDL Cholesterol, Calc HDL Cholesterol Lipase 39 Vitamin B12 Folate TSH Free T4 Urine Color Urine Appearance Urine pH Ur Specific [place] Urine Protein Urine Glucose (UA) Urine Ketones Urine Blood Urine Nitrite Ur Leukocyte Esterase Urine RBC Urine WBC Ur Squamous Epith Cells Urine Bacteria Urine Opiates Screen Ur Barbiturates Screen Ur Phencyclidine Scrn Ur Amphetamines Screen U Benzodiazepines Scrn Urine Cocaine Screen U Marijuana (THC) Screen Ethyl Alcohol < 10 COVID-19 (JOELLE) COVID-19 [employer] 06/09/09/20 09/09/20 14:54 07:43 07:43 WBC RBC Hgb Hct MCV MCH MCHC RDW Plt Count MPV Immature Gran % (Auto) Neut % (Auto) Lymph % (Auto) [place] % (Auto) Eos % (Auto) Baso % (Auto) Lymph # (Auto) [place] # (Auto) Eos # (Auto) Baso # (Auto) Abs Immat Gran (auto) Absolute Neuts (auto) Absolute Nucleated RBC Nucleated RBC % (auto) Sodium 140 Potassium 4.1 Chloride 103 Carbon Dioxide 32 H Anion Gap 9 L BUN 16 Creatinine 0.80 Estim Creat Clear Calc 63.0 Estimated GFR > 60 Random Glucose Fasting Glucose 84 Calcium 9.3 Magnesium Total Bilirubin 0.5 AST 15 ALT 10 Alkaline Phosphatase 86 Total Protein 6.6 Albumin 4.1 Triglycerides 50 Cholesterol 167 LDL Cholesterol, Calc 87 HDL Cholesterol 70 Lipase Vitamin B12 250 Folate > 20.0 TSH 0.81 Free T4 0.95 Urine Color Urine Appearance Urine pH Ur Specific [place] Urine Protein Urine Glucose (UA) Urine Ketones Urine Blood Urine Nitrite Ur Leukocyte Esterase Urine RBC Urine WBC Ur Squamous Epith Cells Urine Bacteria Urine Opiates Screen Ur Barbiturates Screen Ur Phencyclidine Scrn Ur Amphetamines Screen U Benzodiazepines Scrn Urine Cocaine Screen U Marijuana (THC) Screen Ethyl Alcohol COVID-19 (JOELLE) Negative COVID-19 Clin Com See Note Medications Medications Current Medications Generic Name Dose Route Start Last Admin Trade Name Freq PRN Reason Stop Dose Admin Acetaminophen 650 mg 09/08/20 17:40 Acetaminophen 325 Mg Tablet PO Q6H PRN Headache/Pain Mild Scale (1-3) Al Hydroxide/Mg Hydroxide 30 ml 09/08/20 17:40 Magnesium Hydrox/Alum Hydrox 30 Ml Oral.Susp PO Q6H PRN Heartburn/Nausea Brexpiprazole 0.5 mg 09/09/20 12:00 09/09/20 14:09 Brexpiprazole 1 Mg Tablet PO 0.5 mg DAILY ROSA Administration Clonazepam 1 mg 09/08/20 15:21 09/09/20 18:53 Clonazepam 1 Mg Tablet PO 1 mg Q6H PRN Administration anxiety Hydroxyzine HCl 25 mg 09/08/20 17:40 Hydroxyzine Hcl 25 Mg Tablet PO BEDTIME PRN Anxiety Magnesium Hydroxide 30 ml 09/08/20 17:40 Milk Of Magnesia 30 Ml Oral.Susp PO DAILY PRN Constipation Patient Own 2 each 09/09/20 08:00 09/09/20 14:09 Medication ( PO 2 each Phenelzine 15 Mg BID@0800,1200 ROSA Administration Tabs) Patient Own 1 each 09/08/20 21:00 09/08/20 20:28 Medication ( PO 1 each Phenelzine 15 Mg BEDTIME ROSA Administration Tabs) Allergies Allergies Allergy/AdvReac Type Severity Reaction Status Date / Time levofloxacin [From Levaquin] Allergy Rash Verified 09/08/20 14:08 tyramine Allergy Hypertensio Uncoded 09/08/20 14:06 n Assessment & Plan Assessment & Plan (1) Generalized anxiety disorder: Status: Acute Code(s): F41.1 - Generalized anxiety disorder (2) Major depressive disorder, recurrent severe without psychotic features: Status: Acute Code(s): F33.2 - Major depressive disorder, recurrent severe without psychotic features Assessment and Plan: Middle age female with NATE and MDD severe without psychosis with a severe exacerbation of her symptoms in the context of medication changes. Plan: rexulti started for augmentation Consider ECT. given literature regarding ect given bactrin x 3 days for UTI Greater than 50% of the session was spent on counseling and/or coordination of care Reason for contiued inpatient stay Substantial Risk for: inability to function, rapid decompensation and med/psych decompensation
--- NOTE | 2020-09-10 11:00 | CA_ITS ---
Transthoracic Echocardiogram Patient (Last, First, Middle): Yaneth Mcclendon, Gender: Female Date of : 1950 Age: 70 Procedure Date: 09/10/2020 Procedure Type: Transthoracic Echocardiogram Location: [facility] Height: 167.64 cm Weight: 66.68 kg BSA: 1.75 m2 Heart Rate: bpm BP: 101 / 50 mmHg Auto Salvage Worker: NERY Verma MD: Delvin Escobedo MD Landscape Laborer: Van Peralta MD Symptoms: Abnormal ekg ? ischemic antseptal changes Study Quality: Fair ECG Rhythm: Sinus Conclusions: - Essentially normal study Findings Left Ventricle Normal left ventricular size, thickness, and systolic function. The visually estimated ejection fraction is between 65-70%. There is no evidence of regional wall motion abnormalities. Spectral Doppler is indicative of a normal filling pattern. Wall Motion Rest Echo Findings All wall segments showed normal motion. Right Ventricle Normal right ventricular cavity size and systolic function. Atria Both atria are normal in size. There is lipomatous hypertrophy of the interatrial septum. Interatrial shunt cannot be excluded. Aortic Valve Normal aortic valve structure and function. There is no aortic valve stenosis. There is no aortic valve regurgitation. Mitral Valve There is mild anterior and posterior mitral leaflet thickening. There is trace mitral valve regurgitation. There is no mitral valve stenosis. Pulmonic Valve The pulmonic valve is likely normal. There is trace pulmonic valve regurgitation. Tricuspid Valve Normal tricuspid valve structure. There is mild tricuspid valve regurgitation. The right ventricular systolic pressure is normal. The right ventricular systolic pressure is 35 mmHg. Normal right atrial pressure. There is no evidence of pulmonary hypertension. Great Vessels All visible segments of the aorta are normal in size. The pulmonary artery was not well visualized. Venous The inferior vena cava is normal in size and collapses greater than 50% with inspiration. Pericardium/Pleural There is a trivial loculated pericardial effusion overlying the left ventricle. Prior Study Comparison No prior study available for comparison. Measurements 2D Linear Measurements IVSd: 0.96 0.6-0.9/0.6-1.0 cm LVIDd: 3.85 3.9-5.3/4.2-5.9 cm LVIDd Index: 2.20 2.4-3.2/2.2-3.1 cm/m2 LVIDs: 2.31 2.0-3.6 cm LVPWd: 0.86 0.7-1.1 cm Ao Root: 3.20 2.1-3.5 cm LA Diam: 2.80 2.7-3.8/3.0-4.0 cm LAIDs Index: 1.60 1.5-2.3 cm/m2 LV Mass: 130.43 67-162/88-224 g LV Mass Index: 74.53 43-95/49-115 g/m2 LVOT Diam: 2.00 3.0+(-)1.3 cm 2D Systolic Function EF 4C: 67.00 >55% EF 2C: 75.10 >55% EF BiP: 69.50 >55% Mitral Valve MV Pk E: 1.11 MV PK A: 0.96 MV Decel Time: 264.00 E/A: 1.20 E'Lateral: 8.49 E'Medial: 8.92 E/E' Med: 12.40 E/E' Lat: 13.10 PHT: 77.00 MVA PHT: 2.86 Decel [place]: 4.20 Aortic Valve AoV Pk Perico: 1.43 AoV Mn Perico: 1.02 AoV VTI: 0.36 AoV Pk Grad: 8.00 Aov Mn Grad: 5.00 KEVIN Cont.VTI: 2.73 LVOT LVOT Pk Perico: 1.44 LVOT Mn Perico: 0.87 LVOT VTI: 0.31 LVOT Pk Grad: 8.00 LVOT Mn Grad: 4.00 LVOT Diam: 2.00 LVOT Area: 3.14 Diastolic Function MV Pk E: 1.11 MV Pk A: 0.96 E/A: 1.20 E'Medial: 8.92 E/E' Med: 12.40 E' Laterial: 8.49 E/E' Lat: 13.10 Tricuspid Valve TR Pk Perico: 2.82 TR Pk Grad: 32.00 RA Press: 3.00 RVSP: 35.00 Great Vessels Aorta Ao Root-2D: 3.20 2.0-3.7 cm Ao Asc: 3.20 2.1-3.4 cm Ao Arch: 2.90 Updated in Other Vendor System with Status of Final Van Peralta MD electronically signed on 09/10/2020 10:44:01 AM with status of Final
[2020-09-10 13:00] VITALS: BP 101/52; PULSE 84; TEMP 36.7; O2SAT 95
[2020-09-10 18:00] VITALS: BP 113/55; PULSE 83; TEMP 36.5; O2SAT 95
--- NOTE | 2020-09-10 22:27 | HO.PSYCHPN ---
Subjective Subjective Date of Service: 09/10/20 Reason For Visit: Severe depression Subjective Notes: Conditional Voluntary Guardianship: No Interim History: Patient depressed anxious ruminating. Does feel supported by being in the hospital. On Klonopin 0.5 mg twice a day Rexulti 0.5 mg daily Nardil 75 mg Medication Compliance: Yes Attending Groups: Yes Mental Status Exam Mental Status Exam Patient Appearance: Well Grooomed Patient Orientation: Person, Place, Time and Situation Level of Consciousness: Awake Patient Behavior: Appropriate and Passive Mood Description: Withdrawn, Depressed and Flat Affect Description: Depressed and Blunted Patient Cognition Impaired: No Ability to Follow Directions: Good Speech Pattern: Clear, Monotone and Soft-Spoken Hallucinations: None Delusions: Not Present Thought Process: Rumination and Goal Oriented Thought Content: positive for Obsessional Thoughts, positive for Circumstantial, positive for Perseveration and positive for Poverty of Content Depressive Symptoms: Increased Anxiety, Feelings of Worthlessness, Hopelessness, Thoughts of /Suicide and Difficulty Concentrating Judgement: Fair Judgement and Insight: difficulty taking in information Diagnostics Vital Signs (24Hr): Vital Signs - 24 hr 09/10/20 09:00 09/10/20 13:00 09/10/20 18:00 Temperature 98.5 F 98.1 F 97.7 F Pulse Rate 75 84 83 Respiratory Rate 17 Blood Pressure 97/52 L 101/52 L 113/55 L Pulse Oximetry 95 95 95 Body Mass Index 23.8 Labs Results: 09/08/20 14:53 09/09/20 07:43 Labs: Laboratory Results - last 48 hr 09/09/20 09/09/20 07:43 07:43 Sodium 140 Potassium 4.1 Chloride 103 Carbon Dioxide 32 H Anion Gap 9 L BUN 16 Creatinine 0.80 Estim Creat Clear Calc 63.0 Estimated GFR > 60 Fasting Glucose 84 Calcium 9.3 Total Bilirubin 0.5 AST 15 ALT 10 Alkaline Phosphatase 86 Total Protein 6.6 Albumin 4.1 Triglycerides 50 Cholesterol 167 LDL Cholesterol, Calc 87 HDL Cholesterol 70 Vitamin B12 250 Folate > 20.0 TSH 0.81 Free T4 0.95 Medications Medications Current Medications Generic Name Dose Route Start Last Admin Trade Name Freq PRN Reason Stop Dose Admin Acetaminophen 650 mg 09/08/20 17:40 Acetaminophen 325 Mg Tablet PO Q6H PRN Headache/Pain Mild Scale (1-3) Al Hydroxide/Mg Hydroxide 30 ml 09/08/20 17:40 Magnesium Hydrox/Alum Hydrox 30 Ml Oral.Susp PO Q6H PRN Heartburn/Nausea Brexpiprazole 0.5 mg 09/09/20 12:00 09/10/20 09:13 Brexpiprazole 1 Mg Tablet PO 0.5 mg DAILY ROSA Administration Clonazepam 0.5 mg 09/09/20 19:45 09/10/20 17:51 Clonazepam 0.5 Mg Tablet PO 0.5 mg BID@0800,1800 ROSA Administration Clonazepam 0.5 mg 09/10/20 17:06 09/10/20 21:55 Clonazepam 0.5 Mg Tablet PO 0.5 mg Q6H PRN Administration anxiety Hydroxyzine HCl 25 mg 09/08/20 17:40 Hydroxyzine Hcl 25 Mg Tablet PO BEDTIME PRN Anxiety Magnesium Hydroxide 30 ml 09/08/20 17:40 Milk Of Magnesia 30 Ml Oral.Susp PO DAILY PRN Constipation Patient Own 2 each 09/09/20 08:00 09/10/20 11:26 Medication ( PO 2 each Phenelzine 15 Mg BID@0800,1200 ROSA Administration Tabs) Patient Own 1 each 09/08/20 21:00 09/10/20 20:18 Medication ( PO 1 each Phenelzine 15 Mg BEDTIME ROSA Administration Tabs) Trimethoprim/Sulfamethoxazole 1 tab 09/10/20 10:30 09/10/20 21:55 Sulfamethox/Trimeth 800/160 1 Tab Tablet PO 09/12/20 22:31 1 tab Q12H ROSA Administration Allergies Allergies Allergy/AdvReac Type Severity Reaction Status Date / Time levofloxacin [From Levaquin] Allergy Rash Verified 09/08/20 14:08 tyramine Allergy Hypertensio Uncoded 09/08/20 14:06 n Assessment & Plan Assessment & Plan (1) Generalized anxiety disorder: Status: Acute Code(s): F41.1 - Generalized anxiety disorder (2) Major depressive disorder, recurrent severe without psychotic features: Status: Acute Code(s): F33.2 - Major depressive disorder, recurrent severe without psychotic features Assessment and Plan: Middle age female with NATE and MDD severe without psychosis with a severe exacerbation of her symptoms in the context of medication changes. Plan: rexulti started for augmentation Consider ECT. given literature regarding ect given bactrin x 3 days for UTI increase works all day to 0.5 mg twice a day Greater than 50% of the session was spent on counseling and/or coordination of care Reason for contiued inpatient stay Substantial Risk for: harm to self, inability to function and rapid decompensation
[2020-09-11] MEDS: Acetaminophen 325 MG TABLET 650 MG PO ×2 (04:35→17:31)
[2020-09-11] MEDS: clonazePAM 0.5 MG TABLET PO ×4 (04:40→19:15)
[2020-09-11 08:24] VITALS: BP 89/53; PULSE 86; TEMP 36; O2SAT 96
[2020-09-11] MEDS: Brexpiprazole 1 MG TABLET 0.5 MG PO (08:29)
--- NOTE | 2020-09-11 09:25 | HO.PSYCHPN ---
Subjective Subjective Date of Service: 09/11/20 Reason For Visit: Severe depression Interim History: pt reports she is here for Tx of depression, c/o feeling bored. denies SI. she describes her having gone off of nardil and then back on only to have the effectiveness not return. she reports she is now also on rexulti. she also has UTI. she reports some difficulty sleeping due to urinary frequency and hip pain. she was encouraged to continue UTI Tx and use of tylenol, which was effective for her last night, and reassured that over the next several nights she would likely sleep better. per staff, pt depressed with ineffective nardil, considering ECT, has UTI being treated with bactrim. Mental Status Exam Mental Status Exam Narrative: appropriately dressed and groomed. some mild PMR. cooperative. speech somewhat flat and slow, nml amount and latency and loudness. thoughts linear and logical. affect constricted. mood depressed, no SI. Diagnostics Vital Signs (24Hr): Vital Signs - 24 hr 09/10/20 13:00 09/10/20 18:00 09/11/20 08:24 Temperature 98.1 F 97.7 F 96.8 F Pulse Rate 84 83 86 Blood Pressure 101/52 L 113/55 L 89/53 L Pulse Oximetry 95 95 96 Body Mass Index 23.8 Labs Results: 09/08/20 14:53 09/09/20 07:43 Medications Medications Current Medications Generic Name Dose Route Start Last Admin Trade Name Freq PRN Reason Stop Dose Admin Acetaminophen 650 mg 09/08/20 17:40 09/11/20 04:35 Acetaminophen 325 Mg Tablet PO 650 mg Q6H PRN Administration Headache/Pain Mild Scale (1-3) Al Hydroxide/Mg Hydroxide 30 ml 09/08/20 17:40 Magnesium Hydrox/Alum Hydrox 30 Ml Oral.Susp PO Q6H PRN Heartburn/Nausea Brexpiprazole 0.5 mg 09/09/20 12:00 09/11/20 08:29 Brexpiprazole 1 Mg Tablet PO 0.5 mg DAILY ROSA Administration Clonazepam 0.5 mg 09/09/20 19:45 09/11/20 08:29 Clonazepam 0.5 Mg Tablet PO 0.5 mg BID@0800,1800 ROSA Administration Clonazepam 0.5 mg 09/10/20 17:06 09/11/20 04:40 Clonazepam 0.5 Mg Tablet PO 0.5 mg Q6H PRN Administration anxiety Hydroxyzine HCl 25 mg 09/08/20 17:40 Hydroxyzine Hcl 25 Mg Tablet PO BEDTIME PRN Anxiety Magnesium Hydroxide 30 ml 09/08/20 17:40 Milk Of Magnesia 30 Ml Oral.Susp PO DAILY PRN Constipation Patient Own 2 each 09/09/20 08:00 09/11/20 08:31 Medication ( PO 2 each Phenelzine 15 Mg BID@0800,1200 ROSA Administration Tabs) Patient Own 1 each 09/08/20 21:00 09/10/20 20:18 Medication ( PO 1 each Phenelzine 15 Mg BEDTIME ROSA Administration Tabs) Trimethoprim/Sulfamethoxazole 1 tab 09/10/20 10:30 09/10/20 21:55 Sulfamethox/Trimeth 800/160 1 Tab Tablet PO 09/12/20 22:31 1 tab Q12H ROSA Administration Allergies Allergies Allergy/AdvReac Type Severity Reaction Status Date / Time levofloxacin [From Levaquin] Allergy Rash Verified 09/08/20 14:08 tyramine Allergy Hypertensio Uncoded 09/08/20 14:06 n Assessment & Plan Assessment & Plan (1) Generalized anxiety disorder: Status: Acute Code(s): F41.1 - Generalized anxiety disorder (2) Major depressive disorder, recurrent severe without psychotic features: Status: Acute Code(s): F33.2 - Major depressive disorder, recurrent severe without psychotic features Assessment and Plan: 70 yo female with NATE and MDD severe without psychosis with a severe exacerbation of her symptoms in the context of medication changes. Plan: rexulti started for augmentation Consider ECT. given literature regarding ect given bactrin x 3 days for UTI Greater than 50% of the session was spent on counseling and/or coordination of care Reason for contiued inpatient stay Substantial Risk for: inability to function and rapid decompensation
[2020-09-11 13:00] VITALS: BP 113/56; PULSE 75; RESP 16; TEMP 36.4; O2SAT 98
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
[2020-09-11 18:26] VITALS: BP 98/61; PULSE 79; RESP 16; TEMP 36.4; O2SAT 96
[2020-09-12] MEDS: clonazePAM 0.5 MG TABLET PO ×3 (07:45→20:35)
[2020-09-12] MEDS: Brexpiprazole 1 MG TABLET 0.5 MG PO (07:45)
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
--- NOTE | 2020-09-12 11:46 | HO.PSYCHPN ---
Subjective Subjective Date of Service: 09/12/20 Reason For Visit: Severe depression Interim History: pt reports she slept very well last night, which is a big change for her. she asks if it is because she is feeling more relaxed. she also has UTI. she reports some difficulty sleeping due to urinary frequency. she was reassured that over the next several nights she would likely sleep better. she also c/o a minld head/neck tremor which occurs when she is lying in the supine position. she states that two of her relatives have reported a similar tremor to her. per staff, no notable events overnight. Mental Status Exam Mental Status Exam Narrative: appropriately dressed and groomed. some mild PMR. cooperative. speech somewhat flat and slow, nml amount and latency and loudness. thoughts linear and logical. affect constricted. mood depressed, no SI. Diagnostics Vital Signs (24Hr): Vital Signs - 24 hr 09/11/20 13:00 09/11/20 18:26 Temperature 97.6 F 97.6 F Pulse Rate 75 79 Respiratory Rate 16 16 Blood Pressure 113/56 L 98/61 Pulse Oximetry 98 96 Body Mass Index 23.8 Labs Results: 09/08/20 14:53 09/09/20 07:43 Medications Medications Current Medications Generic Name Dose Route Start Last Admin Trade Name Freq PRN Reason Stop Dose Admin Acetaminophen 650 mg 09/08/20 17:40 09/11/20 17:31 Acetaminophen 325 Mg Tablet PO 650 mg Q6H PRN Administration Headache/Pain Mild Scale (1-3) Al Hydroxide/Mg Hydroxide 30 ml 09/08/20 17:40 Magnesium Hydrox/Alum Hydrox 30 Ml Oral.Susp PO Q6H PRN Heartburn/Nausea Brexpiprazole 0.5 mg 09/09/20 12:00 09/12/20 07:45 Brexpiprazole 1 Mg Tablet PO 0.5 mg DAILY ROSA Administration Clonazepam 0.5 mg 09/09/20 19:45 09/12/20 07:45 Clonazepam 0.5 Mg Tablet PO 0.5 mg BID@0800,1800 ROSA Administration Clonazepam 0.5 mg 09/10/20 17:06 09/11/20 15:11 Clonazepam 0.5 Mg Tablet PO 0.5 mg Q6H PRN Administration anxiety Hydroxyzine HCl 25 mg 09/08/20 17:40 Hydroxyzine Hcl 25 Mg Tablet PO BEDTIME PRN Anxiety Magnesium Hydroxide 30 ml 09/08/20 17:40 Milk Of Magnesia 30 Ml Oral.Susp PO DAILY PRN Constipation Patient Own 2 each 09/09/20 08:00 09/12/20 07:44 Medication ( PO 2 each Phenelzine 15 Mg BID@0800,1200 ROSA Administration Tabs) Patient Own 1 each 09/08/20 21:00 09/11/20 20:13 Medication ( PO 1 each Phenelzine 15 Mg BEDTIME ROSA Administration Tabs) Trimethoprim/Sulfamethoxazole 1 tab 09/10/20 10:30 09/12/20 11:12 Sulfamethox/Trimeth 800/160 1 Tab Tablet PO 09/12/20 22:31 1 tab Q12H ROSA Administration Allergies Allergies Allergy/AdvReac Type Severity Reaction Status Date / Time levofloxacin [From Levaquin] Allergy Rash Verified 09/08/20 14:08 tyramine Allergy Hypertensio Uncoded 09/08/20 14:06 n Assessment & Plan Assessment & Plan (1) Generalized anxiety disorder: Status: Acute Code(s): F41.1 - Generalized anxiety disorder Assessment and Plan: This is a 70-year-old female with history of depression / anxiety admitted to inpatient psychiatric floor for management of worsening depression seen in consultation for pre-ECT evaluation. patient has no history of cardiopulmonary disease. no complaints of chest pain or sob. adequate functional capacity. EKG showing ?atrial enlargement. echo with no atrial enlargement. No obvious contraindication to proceeding with ECT treatment if patient wishes. thank you for allowing us to participate in the care of this patient Attending: Dr. Durbin Greater than 50% of the session was spent on counseling and/or coordination of care Reason for contiued inpatient stay Substantial Risk for: inability to function and rapid decompensation
[2020-09-12 13:00] VITALS: BP 111/51; PULSE 84; TEMP 28; O2SAT 94
[2020-09-12 17:52] VITALS: BP 111/58; PULSE 75; RESP 16; TEMP 36.4; O2SAT 97
[2020-09-13] MEDS: Brexpiprazole 1 MG TABLET 0.5 MG PO ×2 (08:30→21:11)
[2020-09-13] MEDS: clonazePAM 0.5 MG TABLET PO ×2 (08:30→18:24)
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
--- NOTE | 2020-09-13 10:48 | P.PNPSI_ITS ---
Subjective Subjective Date of Service: 09/13/20 Reason For Visit: Severe depression Interim History: pt reports she slept well again last night, which is a big change for her. she reports being up in the night thrice due to urinary frequency, but still feels she got a good sleep. she c/o feeling bored, but notes it is very quiet and peaceful on the unit, which she appreciates. she sta mervat that if she wins $5,000 she will buy TVs for all of the patient rooms... and she's wondering about decorations.... states she has a great appetite as well, that the food is great. c/o a lump or spasm in her left SCM now and again. MD recommended stretching exercise for SCM. no other questions complaints or requests. per staff, no notable events overnight. Mental Status Exam Mental Status Exam Narrative: appropriately dressed and groomed. some mild PMR. cooperative. speech somewhat flat, rate increased from yesterday, nml amount and latency and loudness. thoughts linear and logical. affect constricted. mood depressed, no SI. Diagnostics Vital Signs (24Hr): Vital Signs - 24 hr 09/12/20 13:00 09/12/20 17:52 Temperature 82.4 F L 97.6 F Pulse Rate 84 75 Respiratory Rate 16 Blood Pressure 111/51 L 111/58 L Pulse Oximetry 94 97 Body Mass Index 23.8 Labs Results: 09/08/20 14:53 09/09/20 07:43 Medications Medications Current Medications Generic Name Dose Route Start Last Admin Trade Name Freq PRN Reason Stop Dose Admin Acetaminophen 650 mg 09/08/20 17:40 09/11/20 17:31 Acetaminophen 325 Mg Tablet PO 650 mg Q6H PRN Administration Headache/Pain Mild Scale (1-3) Al Hydroxide/Mg Hydroxide 30 ml 09/08/20 17:40 Magnesium Hydrox/Alum Hydrox 30 Ml Oral.Susp PO Q6H PRN Heartburn/Nausea Brexpiprazole 0.5 mg 09/09/20 12:00 09/13/20 08:30 Brexpiprazole 1 Mg Tablet PO 0.5 mg DAILY ROSA Administration Clonazepam 0.5 mg 09/09/20 19:45 09/13/20 08:30 Clonazepam 0.5 Mg Tablet PO 0.5 mg BID@0800,1800 ROSA Administration Clonazepam 0.5 mg 07/02/21 17:06 09/12/20 14:10 Clonazepam 0.5 Mg Tablet PO 0.5 mg Q6H PRN Administration anxiety Hydroxyzine HCl 25 mg 09/08/20 17:40 Hydroxyzine Hcl 25 Mg Tablet PO BEDTIME PRN Anxiety Magnesium Hydroxide 30 ml 09/08/20 17:40 Milk Of Magnesia 30 Ml Oral.Susp PO DAILY PRN Constipation Patient Own 2 each 09/09/20 08:00 09/13/20 08:30 Medication ( PO 2 each Phenelzine 15 Mg BID@0800,1200 ROSA Administration Tabs) Patient Own 1 each 09/08/20 21:00 09/12/20 20:36 Medication ( PO 1 each Phenelzine 15 Mg BEDTIME ROSA Administration Tabs) Allergies Allergies Allergy/AdvReac Type Severity Reaction Status Date / Time levofloxacin [From Levaquin] Allergy Rash Verified 09/08/20 14:08 tyramine Allergy Hypertensio Uncoded 09/08/20 14:06 n Assessment & Plan Assessment & Plan (1) Generalized anxiety disorder: Status: Acute Code(s): F41.1 - Generalized anxiety disorder Assessment and Plan: 70 yo female with NATE and MDD severe without psychosis with a severe exacerbation of her symptoms in the context of medication changes. Plan: rexulti started for augmentation Consider ECT. given literature regarding ect given bactrin x 3 days for UTI Greater than 50% of the session was spent on counseling and/or coordination of care Greater than 50% of the session was spent on counseling and/or coordination of care Reason for contiued inpatient stay Substantial Risk for: inability to function
[2020-09-13 14:00] VITALS: BP 97/56; PULSE 80; RESP 18; TEMP 36.9; O2SAT 95
[2020-09-13 18:47] VITALS: BP 117/52; PULSE 78; RESP 17; TEMP 35.9; O2SAT 96
[2020-09-13] MEDS: Clotrimazole 1 % Vaginal Cream 45 GM TUBE 1 APPL VAGINAL (21:12)
[2020-09-14] MEDS: Brexpiprazole 1 MG TABLET 0.5 MG PO ×2 (08:13→21:27)
[2020-09-14] MEDS: clonazePAM 0.5 MG TABLET PO ×2 (08:14→18:44)
[2020-09-14 09:00] VITALS: BP 98/52; PULSE 79; TEMP 36.1; O2SAT 96
[2020-09-14] MEDS: Acetaminophen 325 MG TABLET 650 MG PO (11:59)
[2020-09-14 13:00] VITALS: BP 131/63; PULSE 79; TEMP 36.1; O2SAT 98
--- NOTE | 2020-09-14 16:45 | HO.PSYCHPN ---
Subjective Subjective Date of Service: 09/14/20 Reason For Visit: Severe depression Subjective Notes: Conditional Voluntary Healthcare Proxy: Yes Guardianship: No Interim History: pt less depressed remains anxious krishnamurthy affect referral to [facility] setting when more stable Mental Status Exam Mental Status Exam Narrative: appropriately dressed and groomed. some mild PMR. cooperative. speech somewhat flat, rate increased from yesterday, nml amount and latency and loudness. thinking perseverative thoughts , needs much reassurance affect constricted. mood depressed, no SI. Diagnostics Vital Signs (24Hr): Vital Signs - 24 hr 09/13/20 18:47 09/14/20 09:00 09/14/20 13:00 Temperature 96.6 F L 96.9 F 97.0 F Pulse Rate 78 79 79 Respiratory Rate 17 Blood Pressure 117/52 L 98/52 L 131/63 Pulse Oximetry 96 96 98 Body Mass Index 23.8 Labs Results: 09/08/20 14:53 09/09/20 07:43 Medications Medications Current Medications Generic Name Dose Route Start Last Admin Trade Name Freq PRN Reason Stop Dose Admin Acetaminophen 650 mg 09/08/20 17:40 09/14/20 11:59 Acetaminophen 325 Mg Tablet PO 650 mg Q6H PRN Administration Headache/Pain Mild Scale (1-3) Al Hydroxide/Mg Hydroxide 30 ml 09/08/20 17:40 Magnesium Hydrox/Alum Hydrox 30 Ml Oral.Susp PO Q6H PRN Heartburn/Nausea Brexpiprazole 0.5 mg 09/13/20 20:00 09/14/20 08:13 Brexpiprazole 1 Mg Tablet PO 0.5 mg BID ROSA Administration Clonazepam 0.5 mg 09/09/20 19:45 09/14/20 08:14 Clonazepam 0.5 Mg Tablet PO 0.5 mg BID@0800,1800 ROSA Administration Clonazepam 0.5 mg 09/10/20 17:06 09/12/20 14:10 Clonazepam 0.5 Mg Tablet PO 0.5 mg Q6H PRN Administration anxiety Clotrimazole 1 appl 09/13/20 21:00 09/13/20 21:12 Clotrimazole 1 % Vaginal Cream 45 Gm Tube VAGINAL 09/19/20 21:01 1 appl BEDTIME ROSA Administration Hydroxyzine HCl 25 mg 09/08/20 17:40 Hydroxyzine Hcl 25 Mg Tablet PO BEDTIME PRN Anxiety Magnesium Hydroxide 30 ml 09/08/20 17:40 Milk Of Magnesia 30 Ml Oral.Susp PO DAILY PRN Constipation Patient Own 2 each 09/09/20 08:00 09/14/20 12:00 Medication ( PO 2 each Phenelzine 15 Mg BID@0800,1200 ROSA Administration Tabs) Patient Own 1 each 09/08/20 21:00 09/13/20 21:13 Medication ( PO 1 each Phenelzine 15 Mg BEDTIME ROSA Administration Tabs) Allergies Allergies Allergy/AdvReac Type Severity Reaction Status Date / Time levofloxacin [From Levaquin] Allergy Rash Verified 09/08/20 14:08 tyramine Allergy Hypertensio Uncoded 09/08/20 14:06 n Assessment & Plan Assessment & Plan (1) Generalized anxiety disorder: Status: Acute Code(s): F41.1 - Generalized anxiety disorder (2) Major depressive disorder, recurrent severe without psychotic features: Status: Acute Code(s): F33.2 - Major depressive disorder, recurrent severe without psychotic features Assessment and Plan: 70 yo female with NATE and MDD severe without psychosis with a severe exacerbation of her symptoms in the context of medication changes. Plan: Continue Rexulti 0.5 mg b.i.d. number 30 day supply sent to patient's pharmacy to try and determine this will be covered does appear to be on formulary. Referral to [facility] when more stable continue Nardil Greater than 50% of the session was spent on counseling and/or coordination of care Reason for contiued inpatient stay Substantial Risk for: inability to function and rapid decompensation
[2020-09-14 18:00] VITALS: BP 100/51; PULSE 78; TEMP 36.6; O2SAT 95
[2020-09-14] MEDS: Clotrimazole 1 % Vaginal Cream 45 GM TUBE 1 APPL VAGINAL (21:27)
[2020-09-15] MEDS: Brexpiprazole 1 MG TABLET 0.5 MG PO ×2 (07:50→22:10)
[2020-09-15 09:55] VITALS: BP 96/54; PULSE 70; RESP 16; TEMP 36.5; O2SAT 97
--- NOTE | 2020-09-15 16:49 | P.PNPSI_ITS ---
Subjective Subjective Date of Service: 09/15/20 Reason For Visit: Severe depression Subjective Notes: Conditional Voluntary Healthcare Proxy: No Medical Problems Affecting Mental Status: No Interim History: Patient improved remains anxious but significantly better concentration attention less depressed no self-harming thoughts seem safe for discharge tomorrow as discussed option of discharge to [facility] Medication Compliance: Yes Side effects from medications: No Attending Groups: Yes Mental Status Exam Mental Status Exam Narrative: appropriately dressed and groomed. some mild PMR. cooperative. speech somewhat flat, rate increased from yesterday, nml amount and latency and loudness. thinking perseverative thoughts , needs much reassurance affect constricted. mood depressed, no SI. no psychotic symptoms less ruminating better insight and impulse control Diagnostics Vital Signs (24Hr): Vital Signs - 24 hr 09/14/20 18:00 09/15/20 09:55 Temperature 97.9 F 97.7 F Pulse Rate 78 70 Respiratory Rate 16 Blood Pressure 100/51 L 96/54 L Pulse Oximetry 95 97 Body Mass Index 23.8 Labs Results: 09/08/20 14:53 09/09/20 07:43 Medications Medications Current Medications Generic Name Dose Route Start Last Admin Trade Name Freq PRN Reason Stop Dose Admin Acetaminophen 650 mg 09/08/20 17:40 09/14/20 11:59 Acetaminophen 325 Mg Tablet PO 650 mg Q6H PRN Administration Headache/Pain Mild Scale (1-3) Al Hydroxide/Mg Hydroxide 30 ml 09/08/20 17:40 Magnesium Hydrox/Alum Hydrox 30 Ml Oral.Susp PO Q6H PRN Heartburn/Nausea Brexpiprazole 0.5 mg 09/13/20 20:00 09/15/20 07:50 Brexpiprazole 1 Mg Tablet PO 0.5 mg BID ROSA Administration Clonazepam 0.5 mg 09/10/20 17:06 09/12/20 14:10 Clonazepam 0.5 Mg Tablet PO 0.5 mg Q6H PRN Administration anxiety Clotrimazole 1 appl 09/13/20 21:00 09/14/20 21:27 Clotrimazole 1 % Vaginal Cream 45 Gm Tube VAGINAL 09/19/20 21:01 1 appl BEDTIME ROSA Administration Hydroxyzine HCl 25 mg 09/08/20 17:40 Hydroxyzine Hcl 25 Mg Tablet PO BEDTIME PRN Anxiety Magnesium Hydroxide 30 ml 09/08/20 17:40 Milk Of Magnesia 30 Ml Oral.Susp PO DAILY PRN Constipation Patient Own 2 each 09/09/20 08:00 09/15/20 12:56 Medication ( PO 2 each Phenelzine 15 Mg BID@0800,1200 ROSA Administration Tabs) Patient Own 1 each 09/08/20 21:00 09/14/20 21:26 Medication ( PO 1 each Phenelzine 15 Mg BEDTIME ROSA Administration Tabs) Allergies Allergies Allergy/AdvReac Type Severity Reaction Status Date / Time levofloxacin [From Levaquin] Allergy Rash Verified 09/08/20 14:08 tyramine Allergy Hypertensio Uncoded 09/08/20 14:06 n Assessment & Plan Assessment & Plan (1) Generalized anxiety disorder: Status: Acute Code(s): F41.1 - Generalized anxiety disorder (2) Major depressive disorder, recurrent severe without psychotic features: Status: Acute Code(s): F33.2 - Major depressive disorder, recurrent severe without psychotic features Assessment and Plan: 70 yo female with NATE and MDD severe without psychosis with a severe exacerbation of her symptoms in the context of medication changes. Plan: Continue Rexulti 0.5 mg b.i.d. number 30 day supply sent to patient's pharmacy to try and determine this will be covered does appear to be on formulary. patient wishes to be discharged tomorrow if feeling stable and will return to therapy and focus on [facility] at [facility] Greater than 50% of the session was spent on counseling and/or coordination of care Reason for contiued inpatient stay Substantial Risk for: inability to function and rapid decompensation
[2020-09-15 18:00] VITALS: BP 108/54; PULSE 75; RESP 17; TEMP 36.3; O2SAT 95
[2020-09-15] MEDS: Clotrimazole 1 % Vaginal Cream 45 GM TUBE 1 APPL VAGINAL (22:11)
[2020-09-15] MEDS: clonazePAM 0.5 MG TABLET PO (22:26)
[2020-09-16 07:00] VITALS: BMI 25.0
[2020-09-16] MEDS: Brexpiprazole 1 MG TABLET 0.5 MG PO (07:55)
[2020-09-16 09:00] VITALS: BP 97/50; PULSE 82; RESP 16; TEMP 36.3; O2SAT 95
--- NOTE | 2020-09-16 16:16 | P.DS_ITS ---
DS: Providers Provider Date of Service: 09/16/20 Date of admission: 09/08/20 16:35 Primary care physician: Ashok Guerrero MD Consults: 09/10/20 17:02 Consult to Hospitalist Routine Consulting Provider: Hospitalist Reason For Exam: med clearance for ect DS: Diagnosis Discharge Diagnosis (1) Generalized anxiety disorder: Status: Acute (2) Major depressive disorder, recurrent severe without psychotic features: Status: Acute DS: Medications Discharge Medications Home Medications: Home Medications Medication Instructions Recorded Confirmed phenelzine 15 mg PO BEDTIME 09/08/20 09/08/20 phenelzine 30 mg PO BID@0800,1200 09/08/20 09/08/20 Previous Rx's Medication Instructions Recorded brexpiprazole [Rexulti] 0.5 mg PO BID 30 Days #30 tab 09/14/20 clonazepam 0.5 mg PO BID #0 tab 09/16/20 Discharge Plan Discharge Patient Disposition: Home, Self-Care Discharge Diagnosis: major depression recurrent severe generalized anxiety disorder Referrals: Dr. Delvin Escobedo (Psychiatrist) [Other] - 1 Week (Discharge appointment scheduled for Sunday, September 20, 2020 @ 11:30 AM. This is an in person/office appointment.) Geetha Bah [facility] (therapists) [Other] - 1 Week (Discharge appointment scheduled for Monday, September 21, 2020 @ 2 PM via zoom.) [place] [facility] [Other] - 1 Week (Please call to inquire on attending partial program in the future if needed.) Ashok Guerrero MD [Primary Care Provider] - 1 Week Discharge Medications: New Rexulti 1 mg Tablet 0.5 mg PO BID 30 Days Qty: 30 RF: 1 Continued phenelzine 15 mg Tablet 30 mg PO BID@0800,1200 RF: 0 phenelzine 15 mg Tablet 15 mg PO BEDTIME RF: 0 Changed clonazepam 0.5 mg Tablet 0.5 mg PO BID Qty: 0 RF: 0 Discharge Orders: Discharge Order (Routine); Ordered 09/16/20 Ordered By: Delvin Escobedo Diet: other Activity on Discharge: As tolerated Stand Alone Forms: Patient Portal Discharge page Care Plan Goals: stable mood improved concentration and attention better stress tolerance Health Concerns: major depression recurrent generalized anxiety disorder Plan of Treatment: medication Nardil and Rexulti psychotherapy weekly psychiatry follow-up meditation /yoga /daily walks Assessment: patient showing improved mood cognition better able to manage emotions Patient Instructions: Low Tyramine Diet (GEN) Discharge Date/Time: 09/16/20 13:50 Mental Status Exam Mental Status Exam Narrative: Patient had a much krishnamurthy affect there was some anxiety mild depressive symptoms but was significantly relieved her concentration attention were much improved. she was able to relate how she might spend her time Patient Appearance: Well Grooomed Patient Orientation: Person, Place, Time and Situation Level of Consciousness: Appropriate Patient Behavior: Appropriate Data Data Completed and Pending Completed studies during hospitalization [Text1]: 09/08/20 14:49 Urine clean catch - Urine powell top Urine Culture - Final Klebsiella pneumoniae DS: Summary Hospital Course Hospital Course: HPI Chief Complaint: Severe depression Sources of Information: patient interviewed and chart reviewed HPI Subjective Notes: Conditional Voluntary Narrative: The patient is a 70 year old female, , with no biological children, living with her , with a long history of MDD and NATE, referred from outpatient and TMS service for exacerbation of depression in the context of tapering off of Nardel and no response with TMS. The patient reported that on February 2020, her antidepressant for the last 20 years, Nardel was going to be discontinued in the [place] and her providers tried to cross-tapered off but she relapsed on her depressive symptoms elicited by exacerbation of depressed mood, severe anhedonia, anergia, exacerbation of anxiety, feelings of hopelessness and worthlessness. She denied psychotic symptoms or previous episodes of bruno. Since the patient was unable to take care of herself due to anergia and she was unable to function at her baseline, inpatient level of care was discussed. Past Psychiatric History: Her first psychiatrict contact was on her early 20's with several admissions into the hospital. The patient reported that she was fairly stable on Nardel for more than 20 years. 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 she is close with her step grandchildren Diagnostics Vital Signs (24Hr):Vital Signs - 24 hr 09/08/20 18:18 09/09/20 06:31 Temperature 97.5 F 97.4 F Pulse Rate 61 77 Respiratory Rate 16 14 Blood Pressure 114/56 L 86/48 L Pulse Oximetry 96 97 Body Mass Index 23.8 Labs Results: 09/08/20 14:53 document embedded image 09/09/20 07:43 document embedded image Labs:Laboratory Results - last 48 hr 09/08/20 09/08/20 09/08/20 14:49 14:49 14:53 WBC 4.4 L RBC 4.23 Hgb 12.6 Hct 39.2 MCV 92.7 MCH 29.8 MCHC 32.1 RDW 12.8 Plt Count 165 MPV 10.5 Immature Gran % (Auto) 0.2 Neut % (Auto) 58.6 Lymph % (Auto) 29.2 [place] % (Auto) 9.0 Eos % (Auto) 2.5 Baso % (Auto) 0.5 Lymph # (Auto) 1.3 [place] # (Auto) 0.4 Eos # (Auto) 0.1 Baso # (Auto) 0.0 Abs Immat Gran (auto) 0.01 Absolute Neuts (auto) 2.6 Absolute Nucleated RBC 0.000 Nucleated RBC % (auto) 0.0 Sodium Potassium Chloride Carbon Dioxide Anion Gap BUN Creatinine Estim Creat Clear Calc Estimated GFR Random Glucose Fasting Glucose Calcium Magnesium Total Bilirubin AST ALT Alkaline Phosphatase Total Protein Albumin Triglycerides Cholesterol LDL Cholesterol, Calc HDL Cholesterol Lipase Vitamin B12 Folate TSH Free T4 Urine Color YELLOW Urine Appearance HAZY Urine pH 6.0 Ur Specific [place] 1.010 Urine Protein NEG Urine Glucose (UA) NEG Urine Ketones NEG Urine Blood TRACE Urine Nitrite NEG Ur Leukocyte Esterase 1+ H Urine RBC 1-4 Urine WBC 5-9 H Ur Squamous Epith Cells 2+ Urine Bacteria 3+ Urine Opiates Screen Not Detected Ur Barbiturates Screen Not Detected Ur Phencyclidine Scrn Not Detected Ur Amphetamines Screen Not Detected U Benzodiazepines Scrn POSITIVE H Urine Cocaine Screen Not Detected U Marijuana (THC) Screen Not Detected Ethyl Alcohol COVID-19 (JOELLE) COVID-19 Clin Com 09/08/20 09/08/20 09/08/20 14:53 14:53 14:53 WBC RBC Hgb Hct MCV MCH MCHC RDW Plt Count MPV Immature Gran % (Auto) Neut % (Auto) Lymph % (Auto) [place] % (Auto) Eos % (Auto) Baso % (Auto) Lymph # (Auto) [place] # (Auto) Eos # (Auto) Baso # (Auto) Abs Immat Gran (auto) Absolute Neuts (auto) Absolute Nucleated RBC Nucleated RBC % (auto) Sodium 137 Potassium 4.5 Chloride 101 Carbon Dioxide 30 H Anion Gap 11 L BUN 16 Creatinine 0.78 Estim Creat Clear Calc 64.6 Estimated GFR > 60 Random Glucose 129 H Fasting Glucose Calcium 9.2 Magnesium 2.2 Total Bilirubin 0.3 AST 11 ALT 9 Alkaline Phosphatase 81 Total Protein 6.5 Albumin 4.1 Triglycerides Cholesterol LDL Cholesterol, Calc HDL Cholesterol Lipase 39 Vitamin B12 Folate TSH Free T4 Urine Color Urine Appearance Urine pH Ur Specific [place] Urine Protein Urine Glucose (UA) Urine Ketones Urine Blood Urine Nitrite Ur Leukocyte Esterase Urine RBC Urine WBC Ur Squamous Epith Cells Urine Bacteria Urine Opiates Screen Ur Barbiturates Screen Ur Phencyclidine Scrn Ur Amphetamines Screen U Benzodiazepines Scrn Urine Cocaine Screen U Marijuana (THC) Screen Ethyl Alcohol < 10 COVID-19 (JOELLE) COVID-19 [facility] [employer] Com 09/08/20 09/09/20 09/09/20 14:54 07:43 07:43 WBC RBC Hgb Hct MCV MCH MCHC RDW Plt Count MPV Immature Gran % (Auto) Neut % (Auto) Lymph % (Auto) [place] % (Auto) Eos % (Auto) Baso % (Auto) Lymph # (Auto) [place] # (Auto) Eos # (Auto) Baso # (Auto) Abs Immat Gran (auto) Absolute Neuts (auto) Absolute Nucleated RBC Nucleated RBC % (auto) Sodium 140 Potassium 4.1 Chloride 103 Carbon Dioxide 32 H Anion Gap 9 L BUN 16 Creatinine 0.80 Estim Creat Clear Calc 63.0 Estimated GFR > 60 Random Glucose Fasting Glucose 84 Calcium 9.3 Magnesium Total Bilirubin 0.5 AST 15 ALT 10 Alkaline Phosphatase 86 Total Protein 6.6 Albumin 4.1 Triglycerides 50 Cholesterol 167 LDL Cholesterol, Calc 87 HDL Cholesterol 70 Lipase Vitamin B12 250 Folate > 20.0 TSH 0.81 Free T4 0.95 Urine Color Urine Appearance Urine pH Ur Specific [place] Urine Protein Urine Glucose (UA) Urine Ketones Urine Blood Urine Nitrite Ur Leukocyte Esterase Urine RBC Urine WBC Ur Squamous Epith Cells Urine Bacteria Urine Opiates Screen Ur Barbiturates Screen Ur Phencyclidine Scrn Ur Amphetamines Screen U Benzodiazepines Scrn Urine Cocaine Screen U Marijuana (THC) Screen Ethyl Alcohol COVID-19 (JOELLE) Negative COVID-19 Clin Com See Note Meds/Allergies Meds Home Medications Acetaminophen (Acetaminophen 325 Mg Tablet) 650 mg PO Q6H PRN PRN Reason: Headache/Pain Mild Scale (1-3) Al Hydroxide/Mg Hydroxide (Magnesium Hydrox/Alum Hydrox 30 Ml Oral.Susp) 30 ml PO Q6H PRN PRN Reason: Heartburn/Nausea Brexpiprazole (Brexpiprazole 1 Mg Tablet) 0.5 mg PO DAILY [facility] Last Admin: 09/09/20 14:09 Dose: 0.5 mg Documented by: Clonazepam (Clonazepam 1 Mg Tablet) 1 mg PO Q6H PRN PRN Reason: anxiety Last Admin: 09/09/20 10:38 Dose: 1 mg Documented by: Hydroxyzine HCl (Hydroxyzine Hcl 25 Mg Tablet) 25 mg PO BEDTIME PRN PRN Reason: Anxiety Magnesium Hydroxide (Milk Of Magnesia 30 Ml Oral.Susp) 30 ml PO DAILY PRN PRN Reason: Constipation Patient Own Medication ( Phenelzine 15 Mg Tabs) 2 each PO BID@0800,1200 [facility] Last Admin: 09/09/20 14:09 Dose: 2 each Documented by: Patient Own Medication ( Phenelzine 15 Mg Tabs) 1 each PO BEDTIME [facility] Last Admin: 09/08/20 20:28 Dose: 1 each Documented by: Allergies Allergies Allergy/AdvReac Type Severity Reaction Status Date / Time levofloxacin [From Levaquin] Allergy Rash Verified 09/08/20 14:08 tyramine Allergy Hypertensio Uncoded 09/08/20 14:06 n Mental Status Exam Mental Status Exam Patient Appearance: Well Grooomed Patient Orientation: Person, Place, Time and Situation Level of Consciousness: Awake Patient Behavior: Appropriate and Passive Mood Description: Withdrawn and Depressed Affect Description: Blunted Patient Cognition Impaired: No Ability to Follow Directions: Good Speech Pattern: Clear Hallucinations: None Delusions: Not Present Thought Process: Goal Oriented Thought Content: positive for Obsessional Thoughts, positive for Circumstantial and positive for Perseveration Depressive Symptoms: Increased Anxiety, Feelings of Worthlessness and Hopelessness Judgement: Fair Assessment & Plan Assessment & Plan (1) Generalized anxiety disorder: Status: Acute Code(s): F41.1 - Generalized anxiety disorder Assessment and Plan: Middle age female with NATE and MDD severe without psychosis with a severe exacerbation of her symptoms in the context of medication changes. Plan: Gather collateral Keep same treatment Consider ECT. (2) Major depressive disorder, recurrent severe without psychotic features: Status: Acute Code(s): F33.2 - Major depressive disorder, recurrent severe without psychotic features Patient educated on: diagnosis, medication risk/benefits, ECT, therapeutic strategies and medical condition Informed Consent: understands Reason for continued inpatient stay Substantial Risk for: inability to function, rapid decompensation and med/psych decompensation Hospital course Pt Was admitted September [address] [facility]. The patient is a 70-year-old female long history of recurrent depression who relapsed after being on Nardil for many years when and attempted taper was started. Please see above for details of psychiatric admission. Consideration was given to ECT. The patient did respond to the milieu and seemed quite stable after a number of days. She needed much reassurance and support and there were questions at times regarding her 's understanding of the situation. Education was given to the patient and her . We did rectal and transition to a partial hospital setting given the patient's significant lack of stress tolerance strategies but she had refused that it discharge and was going to return to cycled therapy and to psychiatric management with this senior mortgage underwriter. The patient was discharged on 1 mg Rexulti 75 mg Nardil clonazepam 0.5 mg 2 times a day. Patient did seem to have a full affect was much calmer her concentration and attention were significantly improved at the time of discharge. There were concerns regarding the patient not going to the partial hospital program and patient was given the number if she were to change her mind or felt she needed a higher level of care at the partial hospital. Time Spent with Patient Time attestation: Total time spent providing and/or coordinating discharge services:
== END 2020-09-16 13:50 | disposition home or self-care (01) | DRG 885 ==
LOC: HO.ED 16:26 → HO.PGERI 16:42
PROVIDERS: Physician Assistant Medical; Admitting Provider Psychiatry & Neurology Psychiatry; Emergency Provider Emergency Medicine; PCP Internal Medicine; Visit Provider Psychiatry & Neurology Psychiatry
DX: F33.2 Major depressive disorder, recurrent severe without psychotic features (principal); F41.1 Generalized anxiety disorder; Z20.822 Contact with and (suspected) exposure to COVID-19; Z87.891 Personal history of nicotine dependence; Z79.899 Other long term (current) drug therapy
CPT/HCPCS: 36415; 80053; 80061; 80307; 81001; 81003; 82077; 82607; 82746; 83690; 83735; 84439; 84443; 85025; 87086; 87088; 87186; 87635; 93005; 93306; 99285

== ENCOUNTER 2020-09-22 15:09 | Inpatient (IN) | payer MEDICARE, SELFPAY ==
--- NOTE | ~2020-09-22 | CT_ITS ---
EXAMINATION: CT HEAD WITHOUT CONTRAST CLINICAL INFORMATION: Worsening tremor, attention problems. COMPARISON: None TECHNIQUE: Contiguous axial imaging was performed from the skull base to vertex without intravenous administration of contrast. Coronal and sagittal reformatted images were obtained. This CT examination was performed using dose optimization techniques as appropriate, variously including the following: *Automated exposure control *Adjustment of mA and/or kV according to patient size (this includes techniques or standardized protocols for targeted exams where dose is matched to indication/reason for exam; i.e. extremities or head) *Use of iterative reconstruction technique DLP: 691 mGy-cm FINDINGS: There is no evidence of acute intracranial hemorrhage or territorial infarction. No abnormal mass effect or midline shift is seen. Mcdaniel to white matter differentiation is well preserved. No extra-axial fluid collections are identified. The ventricles are normal in size. There is no abnormal attenuation within the brain parenchyma. The osseous structures and soft tissues are normal. Moderate mucosal thickening is seen at the base of the right maxillary sinus. Multiple overhead 6 then into the base of the right maxillary sinus. A retention cyst versus inflammatory polyp seen along the posteromedial margin of the left sphenoid sinus measuring 1.8 cm (image 13, series 2). There are no air-fluid levels. The mastoid air cells are clear. CT/CT head/brain wo con IMPRESSION: 1. No acute intracranial abnormality. 2. Inflammatory changes in the paranasal sinuses as detailed above.
[2020-09-22 16:01] LABS: COVID-19 Test Negative (Negative)
[2020-09-22 16:46] VITALS: BP 121/56; PULSE 79; RESP 17; TEMP 36.6; O2SAT 96
[2020-09-22] MEDS: clonazePAM 0.5 MG TABLET PO (19:49)
[2020-09-22] MEDS: hydrOXYzine HCL 25 MG TABLET PO (21:41)
[2020-09-22] MEDS: traZODone HCL 50 MG TABLET PO (21:41)
[2020-09-22 22:44] LABS: Glucose Urine UA NEG (NEG); Leukocyte Esterase Urine NEG (NEG); Nitrite Urine NEG (NEG); Urine Blood TRACE (NEG); Urine Ketones NEG (NEG); Urine Protein NEG (NEG-TRACE)
[2020-09-22 22:45] LABS: Appearance Urine HAZY; Color Urine YELLOW
[2020-09-22 22:51] LABS: Bacteria Urine 4+ /LPF; Squamous Epithelial Cell Urine 1+ /LPF
[2020-09-22] MEDS: QUEtiapine Fumarate 25 MG TABLET 12.5 MG PO (23:33)
[2020-09-23] MEDS: clonazePAM 0.5 MG TABLET PO ×3 (08:05→20:18)
[2020-09-23 10:00] VITALS: BMI 23.3
[2020-09-23] MEDS: QUEtiapine Fumarate 25 MG TABLET 12.5 MG PO (13:12)
--- NOTE | 2020-09-23 13:35 | HO.PSYADMNOT ---
HPI Chief Complaint: screening Sources of Information: patient interviewed, chart reviewed and crisis/core team assessment reviewed HPI Subjective Notes: Conditional Voluntary Narrative: The patient is a 70 year old female, , living with her , readmitted after been discharged a few days ago for depressive symptoms. Apparently, after discharge, she couldn't fill her Rexulti, her copayment was over $700 and she couldn't afford it. She reported exacerbation of depressive symptoms elicitied by depressed mood, anhedonia, lack of energy, poor sleep, poor appetite, feelings of worthlesness and hopelessness and now, recently, passive suicidal thoughts without a clear plan. We discussed her diagnosis and treatment options. She stated that since Nardel was re-started, she has not been at baseline and so far, medication management has not helped. She denies acute psychotic symptoms Past Psychiatric History: Her first psychiatrict contact was on her early 's with several admissions into the hospital. The patient reported that she was fairly stable on Nardel for more than 20 years. 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 she is close with her step grandchildren Diagnostics Vital Signs (24Hr): Vital Signs - 24 hr 09/22/20 16:46 Temperature 97.8 F Pulse Rate 79 Respiratory Rate 17 Blood Pressure 121/56 L Pulse Oximetry 96 Body Mass Index 23.3 Labs Labs: Laboratory Results - last 48 hr 09/22/20 09/22/20 15:40 22:00 Urine Color YELLOW Urine Appearance HAZY Urine pH 6.0 Ur Specific [place] 1.010 Urine Protein NEG Urine Glucose (UA) NEG Urine Ketones NEG Urine Blood TRACE Urine Nitrite NEG Ur Leukocyte Esterase NEG Urine RBC 1-4 Urine WBC 1-4 Ur Squamous Epith Cells 1+ Urine Bacteria 4+ COVID-19 (JOELLE) Negative COVID-19 Clin Com See Note Meds/Allergies Meds Home Medications Acetaminophen (Acetaminophen 325 Mg Tablet) 650 mg PO Q6H PRN PRN Reason: Headache/Pain Mild Scale (1-3) Al Hydroxide/Mg Hydroxide (Magnesium Hydrox/Alum Hydrox 30 Ml Oral.Susp) 30 ml PO Q6H PRN PRN Reason: Heartburn/Nausea Clonazepam (Clonazepam 0.5 Mg Tablet) 0.5 mg PO TID [facility] Last Admin: 09/23/20 08:05 Dose: 0.5 mg Documented by: Hydroxyzine HCl (Hydroxyzine Hcl 25 Mg Tablet) 25 mg PO BEDTIME PRN PRN Reason: Anxiety Last Admin: 09/22/20 21:41 Dose: 25 mg Documented by: Magnesium Hydroxide (Milk Of Magnesia 30 Ml Oral.Susp) 30 ml PO DAILY PRN PRN Reason: Constipation Pt Own Phenelzine 15 (Mg) 1 each PO BEDTIME [facility] Last Admin: 09/22/20 22:17 Dose: 1 each Documented by: Pt Own Phenelzine 15 (Mg) 2 each PO BID@0800,1200 [facility] Last Admin: 09/23/20 12:01 Dose: 2 each Documented by: Quetiapine Fumarate (Quetiapine Fumarate 25 Mg Tablet) 12.5 mg PO Q4H PRN PRN Reason: Anxiety Last Admin: 09/23/20 13:12 Dose: 12.5 mg Documented by: Trazodone HCl (Trazodone Hcl 50 Mg Tablet) 50 mg PO BEDTIME PRN PRN Reason: Insomnia Last Admin: 09/22/20 21:41 Dose: 50 mg Documented by: Allergies Allergies Allergy/AdvReac Type Severity Reaction Status Date / Time levofloxacin [From Levaquin] Allergy Rash Verified 09/08/20 14:08 tyramine Allergy Hypertensio Uncoded 09/08/20 14:06 n Mental Status Exam Mental Status Exam Patient Appearance: Well Grooomed Patient Orientation: Person, Place, Time and Situation Level of Consciousness: Awake Patient Behavior: Appropriate, Cooperative and Passive Mood Description: Withdrawn and Depressed Affect Description: Constricted Patient Cognition Impaired: No Ability to Follow Directions: Good Speech Pattern: Clear Memory Description: Intact Hallucinations: None Delusions: Not Present Thought Process: Slowed Thinking Thought Content: positive for Poverty of Content Depressive Symptoms: Increased Anxiety, Insomnia, Diff. Making Decisions, Difficulty Sleeping, Changes in Appetite and Crying Spells Judgement: Fair Assessment & Plan Assessment & Plan (1) Major depressive disorder, recurrent severe without psychotic features: Status: Acute Code(s): F33.2 - Major depressive disorder, recurrent severe without psychotic features Assessment and Plan: Adult female with MDD severe with severe neurovegetative symptoms that has not improved with medication management. Plan: 1. Keep same treatment. 2. Consider ECT. 3. Gather collateral information. 4. Family meeting . Patient educated on: diagnosis, medication risk/benefits and ECT Reason for continued inpatient stay Substantial Risk for: inability to function, stable for discharge and med/psych decompensation
[2020-09-23 18:00] VITALS: BP 116/64; PULSE 85; RESP 16; TEMP 36.1; O2SAT 97
[2020-09-24] MEDS: hydrOXYzine HCL 25 MG TABLET PO (03:35)
[2020-09-24 06:00] VITALS: BP 106/56; PULSE 80; RESP 14; TEMP 36.5; O2SAT 95
[2020-09-24 06:31] LABS: MANUAL DIFF FLAG NO
[2020-09-24 06:44] LABS: Basophils Percent Auto 0.9 % (0-2); Eosinophils Absolute Auto 0.2 X10*3/uL (0.0-0.4); Eosinophils Percent Auto 4.5 % (0-4); Hematocrit 39.1 % (37-47); Hemoglobin 12.3 g/dl (12.0-16.0); Imm Gran Abs Auto 0.02 X10*3/uL (0.00-0.03); Imm Gran Pct Auto 0.6 % (0.0-0.4); Lymphocytes Absolute Auto 1.3 X10*3/uL (1.2-4.9); Lymphocytes Percent Auto 40.2 % (20-40); Mean Corpuscular HGB Conc 31.5 g/dl (31.0-35.0); Mean Corpuscular Hemoglobin 29.3 pg (27.0-33.0); Mean Corpuscular Volume 93.1 fL (80-98); Mean Platelet Volume 10.2 fL (9.4-12.3); Monocytes Absolute Auto 0.4 X10*3/uL (0.1-1.2); Monocytes Percent Auto 10.9 % (2-11); Neutrophils Absolute Auto 1.4 X10*3/uL (2.0-8.3); Neutrophils Percent Auto 42.9 % (45-73); Platelet Count 196 X10*3/uL (160-400); Red Cell Distribution Width 13.3 % (11.0-16.0); White Blood Count 3.3 X10*3/uL (4.8-10.8)
[2020-09-24 07:21] LABS: Alanine Aminotransferase 40 U/L (0-31); Alkaline Phosphatase 89 U/L (39-117); Anion Gap 10 (12-20); Aspartate Amino Transferase 18 U/L (5-31); Bilirubin Total 0.5 mg/dL (0.0-1.0); Blood Urea Nitrogen 20 mg/dL (9-16); Calcium 9.3 mg/dL (8.4-10.2); Carbon Dioxide 29 mmol/L (22-29); Chloride 103 mmol/L (96-108); Creatinine Clr Calc Pharmacy 64.6; Estimated Glomerular Filt Rate > 60; Glucose Fasting 89 mg/dL (60-99); Potassium 4.2 mmol/L (3.3-5.1); Sodium 138 mmol/L (135-145); Total Protein 6.5 g/dL (6.5-8.0)
--- NOTE | 2020-09-24 08:00 | ECG_ITS ---
Test Reason : PRE OP ECT Blood Pressure : / mmHG Vent. Rate : 065 BPM Atrial Rate : 065 BPM P-R Int : 160 ms QRS Dur : 086 ms QT Int : 390 ms P-R-T Axes : 068 054 056 degrees QTc Int : 405 ms Normal sinus rhythm Possible Left atrial enlargement Septal infarct (cited on or before 08-SEP-2020) Abnormal ECG When compared with ECG of 08-SEP-2020 14:41, No significant change was found Referred By: Delvin Escobedo Electronically Signed By:Ritesh Ferro
[2020-09-24] MEDS: Acetaminophen 325 MG TABLET 650 MG PO (09:20)
[2020-09-24] MEDS: QUEtiapine Fumarate 25 MG TABLET 12.5 MG PO ×2 (09:21→12:16)
[2020-09-24] MEDS: clonazePAM 0.5 MG TABLET PO ×3 (09:21→20:37)
--- NOTE | 2020-09-24 10:54 | PC.NURSE ---
Patient is alert and oriented x 4. She reports 10/10 Depression and 10/10 Anxiety. Yaneth states, This is the lowest I've ever been. She presents with full body shakes and is tearful throughout the morning hours. Yaneth reports feeling her current medication regime is not effectively treating her anxiety and depression symptoms. She reports significant anxiety about the possibility of starting ECT and then waiting all weekend to have a procedure. Yaneth reports there was tension in the home prior to coming back into the hospital. She reports her , Royal, did not want her to come back into the hospital and made a big deal about it, stating to her You're not going. I'm not driving you. Yaneth reports she told Don she would drive herself to the hospital. Yaneth states, He just doesn't understand what I'm going through. I wish I was as strong as him. Or You. Yaneth reports anxiety about People on the outside getting wind of it. (referring to her hospitalization/depression) She states I'll just lie about it. I'll have to tell Don to lie.
[2020-09-24 12:20] VITALS: BP 138/73; PULSE 72
[2020-09-24 13:33] VITALS: BP 98/50; PULSE 89
--- NOTE | 2020-09-24 21:46 | P.PNPSI_ITS ---
Subjective Subjective Date of Service: 09/24/20 Reason For Visit: screening Subjective Notes: Conditional Voluntary Guardianship: No Interim History: Patient anxious tremulous ruminating remains severely depressed. Participated in meeting with her and brothers has decided to go forward with ECT tremulous poor attention Mental Status Exam Mental Status Exam Patient Appearance: Well Grooomed Patient Orientation: Person, Place, Time and Situation Level of Consciousness: Awake Patient Behavior: Appropriate, Cooperative and Passive Mood Description: Withdrawn and Depressed Affect Description: Constricted Patient Cognition Impaired: No Speech Pattern: Clear Memory Description: Recent Impaired Hallucinations: None Delusions: Not Present Thought Process: Rumination and Slowed Thinking Thought Content: positive for Poverty of Content and positive for Tangential Depressive Symptoms: Increased Anxiety, Insomnia, Diff. Making Decisions, Difficulty Sleeping, Changes in Appetite and Crying Spells Judgement: Fair Diagnostics Vital Signs (24Hr): Vital Signs - 24 hr 09/24/20 06:00 09/24/20 12:20 09/24/20 13:33 Temperature 97.7 F Pulse Rate 80 72 89 Respiratory Rate 14 Blood Pressure 106/56 L 138/73 98/50 L Pulse Oximetry 95 Body Mass Index 23.3 Labs Results: 09/24/20 06:18 09/24/20 06:18 Labs: Laboratory Results - last 48 hr 09/22/20 09/24/20 09/24/20 22:00 06:18 06:18 WBC 3.3 L RBC 4.20 Hgb 12.3 Hct 39.1 MCV 93.1 MCH 29.3 MCHC 31.5 RDW 13.3 Plt Count 196 MPV 10.2 Immature Gran % (Auto) 0.6 H Neut % (Auto) 42.9 L Lymph % (Auto) 40.2 H [place] % (Auto) 10.9 Eos % (Auto) 4.5 H Baso % (Auto) 0.9 Lymph # (Auto) 1.3 [place] # (Auto) 0.4 Eos # (Auto) 0.2 Baso # (Auto) 0.0 Abs Immat Gran (auto) 0.02 Absolute Neuts (auto) 1.4 L Absolute Nucleated RBC 0.000 Nucleated RBC % (auto) 0.0 Sodium 138 Potassium 4.2 Chloride 103 Carbon Dioxide 29 Anion Gap 10 L BUN 20 H Creatinine 0.78 Estim Creat Clear Calc 64.6 Estimated GFR > 60 Fasting Glucose 89 Calcium 9.3 Total Bilirubin 0.5 AST 18 ALT 40 H Alkaline Phosphatase 89 Total Protein 6.5 Albumin 4.0 Urine Color YELLOW Urine Appearance HAZY Urine pH 6.0 Ur Specific [place] 1.010 Urine Protein NEG Urine Glucose (UA) NEG Urine Ketones NEG Urine Blood TRACE Urine Nitrite NEG Ur Leukocyte Esterase NEG Urine RBC 1-4 Urine WBC 1-4 Ur Squamous Epith Cells 1+ Urine Bacteria 4+ Medications Medications Current Medications Generic Name Dose Route Start Last Admin Trade Name Carlosq PRN Reason Stop Dose Admin Acetaminophen 650 mg 09/22/20 16:22 09/24/20 09:20 Acetaminophen 325 Mg Tablet PO 650 mg Q6H PRN Administration Headache/Pain Mild Scale (1-3) Al Hydroxide/Mg Hydroxide 30 ml 09/22/20 16:22 Magnesium Hydrox/Alum Hydrox 30 Ml Oral.Susp PO Q6H PRN Heartburn/Nausea Clonazepam 0.5 mg 09/22/20 21:00 09/24/20 20:37 Clonazepam 0.5 Mg Tablet PO 0.5 mg TID ROSA Administration Hydroxyzine HCl 25 mg 09/22/20 16:22 09/24/20 03:35 Hydroxyzine Hcl 25 Mg Tablet PO 25 mg BEDTIME PRN Administration Anxiety Magnesium Hydroxide 30 ml 09/22/20 16:22 Milk Of Magnesia 30 Ml Oral.Susp PO DAILY PRN Constipation Pt Own Phenelzine 15 1 each 09/22/20 21:00 09/24/20 20:37 Mg PO 1 each BEDTIME ROSA Administration Pt Own Phenelzine 15 2 each 09/23/20 08:00 09/24/20 11:41 Mg PO 2 each BID@0800,1200 ROSA Administration Quetiapine Fumarate 12.5 mg 09/22/20 22:17 09/24/20 09:21 Quetiapine Fumarate 25 Mg Tablet PO 12.5 mg Q4H PRN Administration Anxiety Quetiapine Fumarate 25 mg 09/24/20 21:45 Quetiapine Fumarate 25 Mg Tablet PO BEDTIME ROSA Trazodone HCl 50 mg 09/22/20 16:22 09/22/20 21:41 Trazodone Hcl 50 Mg Tablet PO 50 mg BEDTIME PRN Administration Insomnia Allergies Allergies Allergy/AdvReac Type Severity Reaction Status Date / Time levofloxacin [From Levaquin] Allergy Rash Verified 09/08/20 14:08 tyramine Allergy Hypertensio Uncoded 09/08/20 14:06 n Assessment & Plan Assessment & Plan (1) Major depressive disorder, recurrent severe without psychotic features: Status: Acute Code(s): F33.2 - Major depressive disorder, recurrent severe without psychotic features Assessment and Plan: Adult female with MDD severe with severe neurovegetative symptoms that has not improved with medication management. Plan\ Patient and family able to give informed consent low-dose Seroquel started continue Nardil head CT scan . Greater than 50% of the session was spent on counseling and/or coordination of care Reason for contiued inpatient stay Substantial Risk for: inability to function and rapid decompensation
[2020-09-25 06:00] VITALS: BP 112/54; PULSE 69; RESP 12; TEMP 37.1; O2SAT 95
[2020-09-25] MEDS: clonazePAM 0.5 MG TABLET PO ×3 (07:49→20:42)
[2020-09-25] MEDS: QUEtiapine Fumarate 25 MG TABLET 12.5 MG PO ×2 (07:49→13:38)
--- NOTE | 2020-09-25 10:49 | PM.GPSY.PN ---
Subjective/Objective Subjective Current Medications: Active Medications Generic Name Dose Route Start Last Admin Trade Name Antonio PRN Reason Stop Dose Admin Acetaminophen 650 mg 09/22/20 16:22 09/24/20 09:20 Acetaminophen 325 Mg Tablet PO 650 mg Q6H PRN Administration Headache/Pain Mild Scale (1-3) Al Hydroxide/Mg Hydroxide 30 ml 09/22/20 16:22 Magnesium Hydrox/Alum Hydrox 30 Ml Oral.Susp PO Q6H PRN Heartburn/Nausea Clonazepam 0.5 mg 09/22/20 21:00 09/25/20 07:49 Clonazepam 0.5 Mg Tablet PO 0.5 mg TID ROSA Administration Hydroxyzine HCl 25 mg 09/22/20 16:22 09/24/20 03:35 Hydroxyzine Hcl 25 Mg Tablet PO 25 mg BEDTIME PRN Administration Anxiety Magnesium Hydroxide 30 ml 09/22/20 16:22 Milk Of Magnesia 30 Ml Oral.Susp PO DAILY PRN Constipation Pt Own Phenelzine 15 1 each 09/22/20 21:00 09/24/20 20:37 Mg PO 1 each BEDTIME ROSA Administration Pt Own Phenelzine 15 2 each 09/23/20 08:00 09/25/20 07:50 Mg PO 2 each BID@0800,1200 ROSA Administration Quetiapine Fumarate 12.5 mg 09/22/20 22:17 09/24/20 09:21 Quetiapine Fumarate 25 Mg Tablet PO 12.5 mg Q4H PRN Administration Anxiety Quetiapine Fumarate 25 mg 09/24/20 21:45 09/25/20 04:07 Quetiapine Fumarate 25 Mg Tablet PO Not Given BEDTIME ROSA Quetiapine Fumarate 12.5 mg 09/25/20 08:30 09/25/20 07:49 Quetiapine Fumarate 25 Mg Tablet PO 12.5 mg BID@0830,1330 ROSA Administration Trazodone HCl 50 mg 09/22/20 16:22 09/22/20 21:41 Trazodone Hcl 50 Mg Tablet PO 50 mg BEDTIME PRN Administration Insomnia Data Labs CBC & Chem 7: 09/24/20 06:18 09/24/20 06:18 Labs: Laboratory Results - last 48 hr 09/24/20 09/24/20 06:18 06:18 WBC 3.3 L RBC 4.20 Hgb 12.3 Hct 39.1 MCV 93.1 MCH 29.3 MCHC 31.5 RDW 13.3 Plt Count 196 MPV 10.2 Immature Gran % (Auto) 0.6 H Neut % (Auto) 42.9 L Lymph % (Auto) 40.2 H [place] % (Auto) 10.9 Eos % (Auto) 4.5 H Baso % (Auto) 0.9 Lymph # (Auto) 1.3 [place] # (Auto) 0.4 Eos # (Auto) 0.2 Baso # (Auto) 0.0 Abs Immat Gran (auto) 0.02 Absolute Neuts (auto) 1.4 L Absolute Nucleated RBC 0.000 Nucleated RBC % (auto) 0.0 Sodium 138 Potassium 4.2 Chloride 103 Carbon Dioxide 29 Anion Gap 10 L BUN 20 H Creatinine 0.78 Estim Creat Clear Calc 64.6 Estimated GFR > 60 Fasting Glucose 89 Calcium 9.3 Total Bilirubin 0.5 AST 18 ALT 40 H Alkaline Phosphatase 89 Total Protein 6.5 Albumin 4.0
[2020-09-25 13:41] VITALS: BP 113/54; PULSE 84; O2SAT 95
[2020-09-25] MEDS: hydrOXYzine HCL 10 MG TABLET PO ×2 (16:44→20:42)
[2020-09-25 18:23] VITALS: BP 89/52; PULSE 69; RESP 18; TEMP 36.9; O2SAT 96
[2020-09-25] MEDS: QUEtiapine Fumarate 25 MG TABLET PO (20:42)
--- NOTE | 2020-09-25 20:48 | HO.PSYCHPN ---
Subjective Subjective Date of Service: 09/25/20 Reason For Visit: screening Subjective Notes: Conditional Voluntary Healthcare Proxy: Yes Guardianship: No Medical Problems Affecting Mental Status: No Interim History: admitted for 2nd time, xs anxiety/ xs depression now anticipatory anxiety around fears re decision to start ECT Sunday Reassure by information/ company for provider now just stay with me till Sunday Medication Compliance: Yes Side effects from medications: No Attending Groups: Yes Review of Systems Acute medical concerns: No Mental Status Exam Mental Status Exam Narrative: very anxious, very depressed unsure easily about what path to take - much anticipatory anxiety Patient Appearance: Well Grooomed Patient Orientation: Person, Place, Time and Situation Level of Consciousness: Awake Patient Behavior: Appropriate and Anxious Mood Description: Depressed and Anxious Affect Description: Constricted, Fearful and Anxious Patient Cognition Impaired: No Ability to Follow Directions: Excellent Speech Pattern: Clear Memory Description: Intact and Normal for Patient Hallucinations: None Delusions: Not Present Thought Process: Intact and Rumination Thought Content: positive for Intact and positive for Goal Oriented Depressive Symptoms: Increased Anxiety, Diff. Making Decisions, Crying Spells, Hopelessness, Feelings of Guilt, Unhappiness and Difficulty Concentrating Judgement: Fair Diagnostics Vital Signs (24Hr): Vital Signs - 24 hr 09/25/20 06:00 09/25/20 13:41 09/25/20 18:23 Temperature 98.7 F 98.5 F Pulse Rate 69 84 69 Respiratory Rate 12 18 Blood Pressure 112/54 L 113/54 L 89/52 L Pulse Oximetry 95 95 96 Body Mass Index 23.3 Labs Results: 09/24/20 06:18 09/24/20 06:18 Labs: Laboratory Results - last 48 hr 09/24/20 09/24/20 06:18 06:18 WBC 3.3 L RBC 4.20 Hgb 12.3 Hct 39.1 MCV 93.1 MCH 29.3 MCHC 31.5 RDW 13.3 Plt Count 196 MPV 10.2 Immature Gran % (Auto) 0.6 H Neut % (Auto) 42.9 L Lymph % (Auto) 40.2 H [place]re[place] % (Auto) 10.9 Eos % (Auto) 4.5 H Baso % (Auto) 0.9 Lymph # (Auto) 1.3 [place] # (Auto) 0.4 Eos # (Auto) 0.2 Baso # (Auto) 0.0 Abs Immat Gran (auto) 0.02 Absolute Neuts (auto) 1.4 L Absolute Nucleated RBC 0.000 Nucleated RBC % (auto) 0.0 Sodium 138 Potassium 4.2 Chloride 103 Carbon Dioxide 29 Anion Gap 10 L BUN 20 H Creatinine 0.78 Estim Creat Clear Calc 64.6 Estimated GFR > 60 Fasting Glucose 89 Calcium 9.3 Total Bilirubin 0.5 AST 18 ALT 40 H Alkaline Phosphatase 89 Total Protein 6.5 Albumin 4.0 Imaging Radiology Impressions: ITS Impressions Head CT 09/25/20 09:10 IMPRESSION: 1. No acute intracranial abnormality. 2. Inflammatory changes in the paranasal sinuses as detailed above. Medications Medications Current Medications Generic Name Dose Route Start Last Admin Trade Name Freq PRN Reason Stop Dose Admin Acetaminophen 650 mg 09/22/20 16:22 09/24/20 09:20 Acetaminophen 325 Mg Tablet PO 650 mg Q6H PRN Administration Headache/Pain Mild Scale (1-3) Al Hydroxide/Mg Hydroxide 30 ml 09/22/20 16:22 Magnesium Hydrox/Alum Hydrox 30 Ml Oral.Susp PO Q6H PRN Heartburn/Nausea Clonazepam 0.5 mg 09/22/20 21:00 09/25/20 20:42 Clonazepam 0.5 Mg Tablet PO 0.5 mg TID ROSA Administration Hydroxyzine HCl 25 mg 09/22/20 16:22 09/24/20 03:35 Hydroxyzine Hcl 25 Mg Tablet PO 25 mg BEDTIME PRN Administration Anxiety Hydroxyzine HCl 10 mg 09/25/20 15:00 09/25/20 20:42 Hydroxyzine Hcl 10 Mg Tablet PO 10 mg TID ROSA Administration Magnesium Hydroxide 30 ml 09/22/20 16:22 Milk Of Magnesia 30 Ml Oral.Susp PO DAILY PRN Constipation Pt Own Phenelzine 15 1 each 09/22/20 21:00 09/25/20 20:42 Mg PO 1 each BEDTIME ROSA Administration Pt Own Phenelzine 15 2 each 09/23/20 08:00 09/25/20 11:52 Mg PO 2 each BID@0800,1200 ROSA Administration Quetiapine Fumarate 12.5 mg 09/22/20 22:17 09/24/20 09:21 Quetiapine Fumarate 25 Mg Tablet PO 12.5 mg Q4H PRN Administration Anxiety Quetiapine Fumarate 25 mg 09/24/20 21:45 09/25/20 20:42 Quetiapine Fumarate 25 Mg Tablet PO 25 mg BEDTIME ROSA Administration Quetiapine Fumarate 12.5 mg 09/25/20 08:30 09/25/20 13:38 Quetiapine Fumarate 25 Mg Tablet PO 12.5 mg BID@0830,1330 ROAS Administration Trazodone HCl 50 mg 09/22/20 16:22 09/22/20 21:41 Trazodone Hcl 50 Mg Tablet PO 50 mg BEDTIME PRN Administration Insomnia Allergies Allergies Allergy/AdvReac Type Severity Reaction Status Date / Time levofloxacin [From Levaquin] Allergy Rash Verified 09/08/20 14:08 tyramine Allergy Hypertensio Uncoded 09/08/20 14:06 n Assessment & Plan Assessment & Plan (1) Major depressive disorder, recurrent severe without psychotic features: Status: Acute Code(s): F33.2 - Major depressive disorder, recurrent severe without psychotic features Assessment and Plan: Adult female with MDD severe with severe neurovegetative symptoms that has not improved with medication management. Plan\ Patient and family able to give informed consent low-dose Seroquel started continue Nardil head CT scan . (2) Generalized anxiety disorder: Status: Acute Code(s): F41.1 - Generalized anxiety disorder Assessment and Plan: discussed trial of low dose hydroxyzine 10mg tid for anxiety over weekend- Greater than 50% of the session was spent on counseling and/or coordination of care Reason for contiued inpatient stay Substantial Risk for: inability to function and rapid decompensation
[2020-09-26] MEDS: QUEtiapine Fumarate 25 MG TABLET 12.5 MG PO ×2 (05:24→13:43)
[2020-09-26 06:00] VITALS: BP 89/51; PULSE 69; RESP 12; TEMP 36.6; O2SAT 95
[2020-09-26] MEDS: clonazePAM 0.5 MG TABLET PO ×2 (08:31→15:41)
[2020-09-26] MEDS: hydrOXYzine HCL 10 MG TABLET PO ×2 (08:31→15:41)
[2020-09-26 08:32] VITALS: BP 88/51; PULSE 87; RESP 18; TEMP 36.6; O2SAT 95
--- NOTE | 2020-09-26 11:08 | HO.PSYCHPN ---
Subjective Subjective Date of Service: 09/26/20 Reason For Visit: screening Subjective Notes: Conditional Voluntary Healthcare Proxy: No Guardianship: No Medical Problems Affecting Mental Status: No Interim History: Patient very anxious about her ECT pending as she has never done it We discussed dcing seroquel due to affect on her bp and trying higher hydroxyzine dose for anxiety Medication Compliance: Yes Side effects from medications: Yes (lower bp after seroquel running low bp ) Attending Groups: Yes Review of Systems Review of Systems dizzy and light headed Mental Status Exam Mental Status Exam Patient Appearance: Well Grooomed and Appropriate Patient Orientation: Person, Place, Time and Situation Level of Consciousness: Awake Patient Behavior: Appropriate, Dependent and Passive Mood Description: Anxious Affect Description: Apprehensive Patient Cognition Impaired: No Ability to Follow Directions: Good Speech Pattern: Clear Memory Description: Intact Hallucinations: None Thought Process: Intact Thought Content: positive for Perseveration and positive for Preoccupation Depressive Symptoms: Increased Anxiety, Muscle Tension and Hopelessness Judgement: Fair Diagnostics Vital Signs (24Hr): Vital Signs - 24 hr 09/25/20 13:41 09/25/20 18:23 09/26/20 06:00 Temperature 98.5 F 97.9 F Pulse Rate 84 69 69 Respiratory Rate 18 12 Blood Pressure 113/54 L 89/52 L 89/51 L Pulse Oximetry 95 96 95 09/26/20 08:32 Temperature 97.9 F Pulse Rate 87 Respiratory Rate 18 Blood Pressure 88/51 L Pulse Oximetry 95 Body Mass Index 23.3 Labs Results: 09/24/20 06:18 09/24/20 06:18 Imaging Radiology Impressions: ITS Impressions Head CT 09/25/20 09:10 IMPRESSION: 1. No acute intracranial abnormality. 2. Inflammatory changes in the paranasal sinuses as detailed above. Medications Medications Current Medications Generic Name Dose Route Start Last Admin Trade Name Freq PRN Reason Stop Dose Admin Acetaminophen 650 mg 09/22/20 16:22 09/24/20 09:20 Acetaminophen 325 Mg Tablet PO 650 mg Q6H PRN Administration Headache/Pain Mild Scale (1-3) Al Hydroxide/Mg Hydroxide 30 ml 09/22/20 16:22 Magnesium Hydrox/Alum Hydrox 30 Ml Oral.Susp PO Q6H PRN Heartburn/Nausea Clonazepam 0.5 mg 09/22/20 21:00 09/26/20 08:31 Clonazepam 0.5 Mg Tablet PO 0.5 mg TID ROSA Administration Hydroxyzine HCl 25 mg 09/22/20 16:22 09/24/20 03:35 Hydroxyzine Hcl 25 Mg Tablet PO 25 mg BEDTIME PRN Administration Anxiety Hydroxyzine HCl 10 mg 09/25/20 15:00 09/26/20 08:31 Hydroxyzine Hcl 10 Mg Tablet PO 10 mg TID ROSA Administration Magnesium Hydroxide 30 ml 09/22/20 16:22 Milk Of Magnesia 30 Ml Oral.Susp PO DAILY PRN Constipation Pt Own Phenelzine 15 1 each 09/22/20 21:00 09/25/20 20:42 Mg PO 1 each BEDTIME ROSA Administration Pt Own Phenelzine 15 2 each 09/23/20 08:00 09/26/20 08:31 Mg PO 2 each BID@0800,1200 ROSA Administration Quetiapine Fumarate 12.5 mg 09/22/20 22:17 09/26/20 05:24 Quetiapine Fumarate 25 Mg Tablet PO 12.5 mg Q4H PRN Administration Anxiety Quetiapine Fumarate 25 mg 09/24/20 21:45 09/25/20 20:42 Quetiapine Fumarate 25 Mg Tablet PO 25 mg BEDTIME ROSA Administration Quetiapine Fumarate 12.5 mg 09/25/20 08:30 09/26/20 08:33 Quetiapine Fumarate 25 Mg Tablet PO Not Given BID@0830,1330 ROSA Trazodone HCl 50 mg 09/22/20 16:22 09/22/20 21:41 Trazodone Hcl 50 Mg Tablet PO 50 mg BEDTIME PRN Administration Insomnia Allergies Allergies Allergy/AdvReac Type Severity Reaction Status Date / Time levofloxacin [From Levaquin] Allergy Rash Verified 09/08/20 14:08 tyramine Allergy Hypertensio Uncoded 09/08/20 14:06 n Assessment & Plan Assessment & Plan (1) Major depressive disorder, recurrent severe without psychotic features: Status: Acute Code(s): F33.2 - Major depressive disorder, recurrent severe without psychotic features Assessment and Plan: seroquel does not seem to be helping anxiety and just dropping bp lower (2) Generalized anxiety disorder: Status: Acute Code(s): F41.1 - Generalized anxiety disorder Assessment and Plan: discussed trial of low dose hydroxyzine will inc to 20mg bid (not night as has other then and am gets nardil/clonazepam) for anxiety over weekend- Greater than 50% of the session was spent on counseling and/or coordination of care Reason for contiued inpatient stay Substantial Risk for: inability to function and rapid decompensation
[2020-09-26 13:51] VITALS: BP 125/58; PULSE 67; O2SAT 96
[2020-09-26 15:38] VITALS: BP 112/56; PULSE 68; O2SAT 94
[2020-09-26 18:00] VITALS: BP 119/61; PULSE 63; RESP 16; TEMP 36.4; O2SAT 95
[2020-09-26] MEDS: QUEtiapine Fumarate 25 MG TABLET PO (20:53)
[2020-09-26] MEDS: hydrOXYzine HCL 25 MG TABLET PO (20:59)
[2020-09-27] VITALS (12 sets, daily range): BP systolic 98–177; BP diastolic 36–81; PULSE 57–92; RESP 12–20; TEMP 36–36.6; O2SAT 93–98
--- NOTE | 2020-09-27 06:58 | MHC.SHP ---
Pre-Procedural Eval Section A Date of Service: 09/27/20 The patient is an INPATIENT: Yes Changes since office visit: No Cold of Flu in the past 2 weeks, No New Medical Problems, No Changes in Medication and No Patient answered all questions The History & Physical has been completed within 30 days and I have reviewed it.: Yes Section B Chief Complaint: screening Details of Present Illness: Depression that has failed several medication trails Relevant Family History (Specify if Yes): No Relevant Social History: None Present Medications: see Short Stay Collaborative assessment Medical History: No relevant PMH History of Previous Operations: No relevant previous surgery Allergies: Allergies Allergy/AdvReac Type Severity Reaction Status Date / Time levofloxacin [From Levaquin] Allergy Rash Verified 09/08/20 14:08 tyramine Allergy Hypertensio Uncoded 09/08/20 14:06 n Review of Systems Sugical H&P ROS: Negative: Constitution, Cardiovascular, Respiratory, Neurological, Psychiatric, Hem-Onc, Allergic/Immunologic, Gastrointestinal, Genitourinary, Musculoskeletal, Integumentary, Endocrine and Eyes/Ears/Nose/Throat Exam Surgical H&P Exam: Normal: HEENT, Normal: Heart, Normal: Lungs, Normal: Extremities, Normal: Abdomen, Normal: Skin and Normal: Neurological Plan Diagnosis/Plan: Unchanged I have reviewed the history and physical and performed a pertinent physical examination on my patient. No changes have occurred unless specified.
--- NOTE | 2020-09-27 07:00 | HO.ECTPROC ---
ECT Procedure Note Diagnosis/Treatment Date of Service: 09/27/20 Diagnosis: Major Depressive Disorder Current Treatment Number: 1 Treatment: Series Interval Clinical Notes: The patient remains depressed even thought that several courses of medication trials with limited effect. ECT Settings Device: THYMATRON DGx Electrode Placement: Right Unilateral Program/Pulse Width: 0.25 Energy Percent: 70 Seizure Duration By EEG (in seconds): 35 By Motor Observation (in seconds): 11 Medications Administration General Anesthetic: Etomidate (14) Muscle Relaxant: Succinylcholine (100) Ancillary Medications Analgesics: Torodol - Pre ECT Miscillaneous Medications: Propofol Airway Management Airway Management: Bag Mask Ventilation Treatment Recommendations No Changes Recommended: No change Pt Tolerated Procedure w/o Issue: Yes
--- NOTE | 2020-09-27 07:15 | HO.ANESPROP2 ---
[facility] Active Problems Active Problems: All Active Problems (Updated 09/08/20 @ 16:26 by ROBIN Lacy) Generalized anxiety disorder (Acute) Major depressive disorder, recurrent severe without psychotic features (Acute) Past Medical History Medical History Generalized anxiety disorder Family History Family History Mother Breast cancer HTN (hypertension) Surgical History Surgical History History of appendectomy Social History Social History Household Members: Spouse Housing: House Do you presently have visiting nurse or other home services: No Alcohol intake: never Patient Tobacco Use Status: Never used Tobacco Smoked in Last 30 Days: No e-Cigarette/Vaping Use: Never Used Patient Interested in Nicotine Replacement: No Patient Given Instructions on How to Stop Smoking: No Second Hand Smoke Exposure: No Use of substances other than those prescribed or required for medical reasons: No Currently Displaying Signs/Symptoms of Drug Intoxication Withdrawal: No Any prior treatment program specific to substance use: No Have you been hit, kicked, punched, or otherwise hurt by someone within the past year? If so, by whom?: No Do you feel safe in your current relationship?: Yes Is there a partner from a previous relationship who is making you feel unsafe now?: No Are you made to feel afraid or neglected: No Congregational Healthcare Practices: Quaker Advance Directives: No Advance Directives Information Provided: No Advance Directives on File: No Do you have thoughts of harming others: None Do you have a plan to hurt others: No Plan Recently lost weight without trying: Yes How much weight loss: 2-13 pounds Eating poorly because of decreased appetite: Yes Nutrition screen score: 4 Nutrition Risks: No Nutritional Risk Patient : No : No Poor oral hygiene: No service: No Sexual orientation: Straight/Heterosexual Meds Allergies Allergy/AdvReac Type Severity Reaction Status Date / Time levofloxacin [From Levaquin] Allergy Rash Verified 09/08/20 14:08 tyramine Allergy Hypertensio Uncoded 09/08/20 14:06 n Active Medications: Current Medications Generic Name Dose Route Start Last Admin Trade Name Freq PRN Reason Stop Dose Admin Acetaminophen 650 mg 09/22/20 16:22 09/24/20 09:20 Acetaminophen 325 Mg Tablet PO 650 mg Q6H PRN Administration Headache/Pain Mild Scale (1-3) Al Hydroxide/Mg Hydroxide 30 ml 09/22/20 16:22 Magnesium Hydrox/Alum Hydrox 30 Ml Oral.Susp PO Q6H PRN Heartburn/Nausea Clonazepam 0.5 mg 09/22/20 21:00 09/26/20 21:01 Clonazepam 0.5 Mg Tablet PO Not Given TID ROSA Hydroxyzine HCl 25 mg 09/22/20 16:22 09/26/20 20:59 Hydroxyzine Hcl 25 Mg Tablet PO 25 mg BEDTIME PRN Administration Anxiety Hydroxyzine HCl 10 mg 09/26/20 16:30 09/26/20 16:07 Hydroxyzine Hcl 10 Mg Tablet PO Not Given BID@1300,1630 ROSA Magnesium Hydroxide 30 ml 09/22/20 16:22 Milk Of Magnesia 30 Ml Oral.Susp PO DAILY PRN Constipation Pt Own Phenelzine 15 1 each 09/22/20 21:00 09/26/20 20:56 Mg PO 1 each BEDTIME ROSA Administration Pt Own Phenelzine 15 2 each 09/23/20 08:00 09/26/20 11:43 Mg PO 2 each BID@0800,1200 ROSA Administration Quetiapine Fumarate 12.5 mg 09/22/20 22:17 09/26/20 05:24 Quetiapine Fumarate 25 Mg Tablet PO 12.5 mg Q4H PRN Administration Anxiety Quetiapine Fumarate 25 mg 09/24/20 21:45 09/26/20 20:53 Quetiapine Fumarate 25 Mg Tablet PO 25 mg BEDTIME ROSA Administration Home Medications Medication Instructions Recorded Confirmed Last Taken Type phenelzine 15 mg PO BEDTIME 09/08/20 09/08/20 09/07/20 History phenelzine 30 mg PO BID@0800,1200 09/08/20 09/08/20 09/08/20 History Exam Exam Date and Time: September 27, 202015 Height,Weight and Vital Signs: Height 5 ft 6 in Weight 65.7 kg Last Vital Signs Temp 97.1 F 09/27/20 06:30 Pulse 62 09/27/20 06:30 Resp 20 09/27/20 06:30 BP 105/36 L 09/27/20 06:30 Pulse Ox 98 09/27/20 06:30 Pertinent Lab Results Pertinent Lab Results: Laboratory Tests 09/22/20 09/22/20 09/24/20 15:40 22:00 06:18 WBC 3.3 L RBC 4.20 Hgb 12.3 Hct 39.1 MCV 93.1 MCH 29.3 MCHC 31.5 RDW 13.3 Plt Count 196 MPV 10.2 Immature Gran % (Auto) 0.6 H Neut % (Auto) 42.9 L Lymph % (Auto) 40.2 H [place] % (Auto) 10.9 Eos % (Auto) 4.5 H Baso % (Auto) 0.9 Lymph # (Auto) 1.3 [place] # (Auto) 0.4 Eos # (Auto) 0.2 Baso # (Auto) 0.0 Abs Immat Gran (auto) 0.02 Absolute Neuts (auto) 1.4 L Absolute Nucleated RBC 0.000 Nucleated RBC % (auto) 0.0 Sodium Potassium Chloride Carbon Dioxide Anion Gap BUN Creatinine Estim Creat Clear Calc Estimated GFR Fasting Glucose Calcium Total Bilirubin AST ALT Alkaline Phosphatase Total Protein Albumin Urine Color YELLOW Urine Appearance HAZY Urine pH 6.0 Ur Specific [place] 1.010 Urine Protein NEG Urine Glucose (UA) NEG Urine Ketones NEG Urine Blood TRACE Urine Nitrite NEG Ur Leukocyte Esterase NEG Urine RBC 1-4 Urine WBC 1-4 Ur Squamous Epith Cells 1+ Urine Bacteria 4+ COVID-19 (JOELLE) Negative COVID-19 Clin Com See Note 09/24/20 06:18 WBC RBC Hgb Hct MCV MCH MCHC RDW Plt Count MPV Immature Gran % (Auto) Neut % (Auto) Lymph % (Auto) [place] % (Auto) Eos % (Auto) Baso % (Auto) Lymph # (Auto) [place] # (Auto) Eos # (Auto) Baso # (Auto) Abs Immat Gran (auto) Absolute Neuts (auto) Absolute Nucleated RBC Nucleated RBC % (auto) Sodium 138 Potassium 4.2 Chloride 103 Carbon Dioxide 29 Anion Gap 10 L BUN 20 H Creatinine 0.78 Estim Creat Clear Calc 64.6 Estimated GFR > 60 Fasting Glucose 89 Calcium 9.3 Total Bilirubin 0.5 AST 18 ALT 40 H Alkaline Phosphatase 89 Total Protein 6.5 Albumin 4.0 Urine Color Urine Appearance Urine pH Ur Specific [place] Urine Protein Urine Glucose (UA) Urine Ketones Urine Blood Urine Nitrite Ur Leukocyte Esterase Urine RBC Urine WBC Ur Squamous Epith Cells Urine Bacteria COVID-19 (JOELLE) COVID-19 Clin Com Airway Mallampati Class: II TM Dist: >3cm Neck ROM: Full Assessment and Plan Assessment Anesthesia Assessment: Anesthesia Plan Discussed and Chart Reviewed Final Anesthetic Review NPO: Yes ASA Class: II Final Preanesthetic Review: No Changes in Pt Med Stat, Meds/Allgs Chart Reviewed, Consent Obtained/Reviewed and Anes Risks/Benef Reviewed Patient Risk: Low Procedure Risk: Low Assessment/Block/Sedation in SS: Assess/Block/Sedation-SS Anesthetic Plan Anesthetic Plan: GA Disposition: Standard PACU
--- NOTE | 2020-09-27 08:33 | PC.NURSE ---
PATIENT STATES FEELING FINE AND IS ALERT/ORIENTED X'S 3. NO COMPLAINTS OF PAIN/DISCOMFORT AT THIS TIME.
--- NOTE | 2020-09-27 09:41 | HO.PSYCHPN ---
Subjective Subjective Date of Service: 09/27/20 Reason For Visit: screening Subjective Notes: Conditional Voluntary Interim History: The patient has been depressed with severe neurovegetative symptoms. She had her first ECT today. So far, no new symptoms, still very dysphyoric. Review of Systems Acute medical concerns: No Medical Review of Systems: unchanged Mental Status Exam Mental Status Exam Patient Appearance: Well Grooomed Patient Orientation: Person, Place, Time and Situation Level of Consciousness: Awake Patient Behavior: Appropriate and Cooperative Mood Description: Withdrawn and Depressed Affect Description: Constricted Patient Cognition Impaired: No Ability to Follow Directions: Good Speech Pattern: Clear Memory Description: Intact Hallucinations: None Delusions: Not Present Thought Process: Linear Thought Content: positive for Poverty of Content Depressive Symptoms: Increased Anxiety, Difficulty Sleeping, Hopelessness and Feelings of Guilt Judgement: Fair Diagnostics Vital Signs (24Hr): Vital Signs - 24 hr 09/26/20 13:51 09/26/20 15:38 09/26/20 18:00 Temperature 97.6 F Pulse Rate 67 68 63 Respiratory Rate 16 Blood Pressure 125/58 L 112/56 L 119/61 Pulse Oximetry 96 94 95 09/27/20 05:28 09/27/20 05:51 09/27/20 06:30 Temperature 97.5 F 97.5 F 97.1 F Pulse Rate 58 58 62 Respiratory Rate 18 18 20 Blood Pressure 152/58 H 152/58 H 105/36 L Pulse Oximetry 95 95 98 09/27/20 07:30 09/27/20 07:35 09/27/20 07:39 Temperature 97.9 F 96.8 F Pulse Rate 57 70 61 Respiratory Rate 16 18 18 Blood Pressure 177/81 H 105/36 L 100/53 L Pulse Oximetry 98 94 93 09/27/20 07:45 09/27/20 07:50 09/27/20 08:10 Temperature Pulse Rate 92 70 64 Respiratory Rate 18 18 18 Blood Pressure 133/50 L 117/53 L 114/49 L Pulse Oximetry 93 95 95 09/27/20 08:25 09/27/20 08:40 Temperature 97.2 F Pulse Rate 61 63 Respiratory Rate 18 18 Blood Pressure 113/55 L 107/52 L Pulse Oximetry 94 95 Body Mass Index 23.3 Labs Results: 09/24/20 06:18 09/24/20 06:18 Imaging Radiology Impressions: ITS Impressions Head CT 09/25/20 09:10 IMPRESSION: 1. No acute intracranial abnormality. 2. Inflammatory changes in the paranasal sinuses as detailed above. Medications Medications Current Medications Generic Name Dose Route Start Last Admin Trade Name Freq PRN Reason Stop Dose Admin Acetaminophen 650 mg 09/22/20 16:22 09/24/20 09:20 Acetaminophen 325 Mg Tablet PO 650 mg Q6H PRN Administration Headache/Pain Mild Scale (1-3) Al Hydroxide/Mg Hydroxide 30 ml 09/22/20 16:22 Magnesium Hydrox/Alum Hydrox 30 Ml Oral.Susp PO Q6H PRN Heartburn/Nausea Clonazepam 0.5 mg 09/22/20 21:00 09/26/20 21:01 Clonazepam 0.5 Mg Tablet PO Not Given TID ROSA Hydroxyzine HCl 25 mg 09/22/20 16:22 09/26/20 20:59 Hydroxyzine Hcl 25 Mg Tablet PO 25 mg BEDTIME PRN Administration Anxiety Hydroxyzine HCl 10 mg 09/26/20 16:30 09/26/20 16:07 Hydroxyzine Hcl 10 Mg Tablet PO Not Given BID@1300,1630 ROSA Lactated Ringer's 500 mls @ 20 mls/hr 09/27/20 07:15 Lr IVCONT .Q24H ROSA Magnesium Hydroxide 30 ml 09/22/20 16:22 Milk Of Magnesia 30 Ml Oral.Susp PO DAILY PRN Constipation Pt Own Phenelzine 15 1 each 09/22/20 21:00 09/26/20 20:56 Mg PO 1 each BEDTIME ROSA Administration Pt Own Phenelzine 15 2 each 09/23/20 08:00 09/26/20 11:43 Mg PO 2 each BID@0800,1200 ROSA Administration Quetiapine Fumarate 12.5 mg 09/22/20 22:17 09/26/20 05:24 Quetiapine Fumarate 25 Mg Tablet PO 12.5 mg Q4H PRN Administration Anxiety Quetiapine Fumarate 25 mg 09/24/20 21:45 09/26/20 20:53 Quetiapine Fumarate 25 Mg Tablet PO 25 mg BEDTIME ROSA Administration Allergies Allergies Allergy/AdvReac Type Severity Reaction Status Date / Time levofloxacin [From Levaquin] Allergy Rash Verified 09/08/20 14:08 tyramine Allergy Hypertensio Uncoded 09/08/20 14:06 n Assessment & Plan Assessment & Plan (1) Major depressive disorder, recurrent severe without psychotic features: Status: Acute Code(s): F33.2 - Major depressive disorder, recurrent severe without psychotic features Assessment and Plan: seroquel does not seem to be helping anxiety and just dropping bp lower (2) Generalized anxiety disorder: Status: Acute Code(s): F41.1 - Generalized anxiety disorder Assessment and Plan: discussed trial of low dose hydroxyzine will inc to 20mg bid (not night as has other then and am gets nardil/clonazepam) for anxiety over weekend- Greater than 50% of the session was spent on counseling and/or coordination of care Reason for contiued inpatient stay Substantial Risk for: inability to function, rapid decompensation and med/psych decompensation
[2020-09-27] MEDS: QUEtiapine Fumarate 25 MG TABLET 12.5 MG PO (12:07)
[2020-09-27] MEDS: hydrOXYzine HCL 10 MG TABLET PO (14:13)
[2020-09-27] MEDS: clonazePAM 0.5 MG TABLET PO ×2 (14:13→21:21)
[2020-09-27] MEDS: QUEtiapine Fumarate 25 MG TABLET PO (21:21)
[2020-09-28] MEDS: clonazePAM 0.5 MG TABLET PO ×3 (09:26→21:02)
[2020-09-28 10:00] VITALS: BP 102/58; PULSE 68; TEMP 36.7; O2SAT 98
[2020-09-28] MEDS: hydrOXYzine HCL 10 MG TABLET PO (16:49)
[2020-09-28 17:46] VITALS: BP 115/58; PULSE 68; RESP 18; TEMP 36.7; O2SAT 95
[2020-09-28] MEDS: QUEtiapine Fumarate 25 MG TABLET PO (21:02)
--- NOTE | 2020-09-28 22:26 | HO.PSYCHPN ---
Subjective Subjective Date of Service: 09/28/20 Reason For Visit: screening Subjective Notes: Conditional Voluntary Guardianship: No Medical Problems Affecting Mental Status: No Interim History: Patient significantly calmer tolerated 1st ECT well remains quite depressed Medication Compliance: Yes Side effects from medications: No Mental Status Exam Mental Status Exam Patient Appearance: Well Grooomed Patient Orientation: Person, Place, Time and Situation Level of Consciousness: Awake Patient Behavior: Appropriate and Cooperative Mood Description: Withdrawn and Depressed Affect Description: Constricted Patient Cognition Impaired: No Ability to Follow Directions: Good Speech Pattern: Clear Memory Description: Intact Hallucinations: None Delusions: Not Present Thought Process: Linear Thought Content: positive for Poverty of Content Depressive Symptoms: Increased Anxiety, Difficulty Sleeping, Hopelessness and Feelings of Guilt Judgement: Fair Diagnostics Vital Signs (24Hr): Vital Signs - 24 hr 09/28/20 10:00 09/28/20 17:46 Temperature 98.0 F 98.0 F Pulse Rate 68 68 Respiratory Rate 18 Blood Pressure 102/58 L 115/58 L Pulse Oximetry 98 95 Body Mass Index 23.3 Labs Results: 09/24/20 06:18 09/24/20 06:18 Imaging Radiology Impressions: ITS Impressions Head CT 09/25/20 09:10 IMPRESSION: 1. No acute intracranial abnormality. 2. Inflammatory changes in the paranasal sinuses as detailed above. Medications Medications Current Medications Generic Name Dose Route Start Last Admin Trade Name Freq PRN Reason Stop Dose Admin Acetaminophen 650 mg 09/22/20 16:22 09/24/20 09:20 Acetaminophen 325 Mg Tablet PO 650 mg Q6H PRN Administration Headache/Pain Mild Scale (1-3) Al Hydroxide/Mg Hydroxide 30 ml 09/22/20 16:22 Magnesium Hydrox/Alum Hydrox 30 Ml Oral.Susp PO Q6H PRN Heartburn/Nausea Clonazepam 0.5 mg 09/22/20 21:00 09/28/20 21:02 Clonazepam 0.5 Mg Tablet PO 0.5 mg TID ROSA Administration Clonazepam 0.5 mg 09/27/20 13:48 Clonazepam 0.5 Mg Tablet PO TID PRN Anxiety Hydroxyzine HCl 25 mg 09/22/20 16:22 09/26/20 20:59 Hydroxyzine Hcl 25 Mg Tablet PO 25 mg BEDTIME PRN Administration Anxiety Hydroxyzine HCl 10 mg 09/26/20 16:30 09/28/20 16:49 Hydroxyzine Hcl 10 Mg Tablet PO 10 mg BID@1300,1630 ROSA Administration Lactated Ringer's 500 mls @ 20 mls/hr 09/27/20 07:15 09/28/20 09:28 Lr IVCONT Not Given .Q24H ROSA Magnesium Hydroxide 30 ml 09/22/20 16:22 Milk Of Magnesia 30 Ml Oral.Susp PO DAILY PRN Constipation Pt Own Phenelzine 15 1 each 09/22/20 21:00 09/28/20 21:01 Mg PO 1 each BEDTIME ROSA Administration Pt Own Phenelzine 15 2 each 09/23/20 08:00 09/28/20 12:51 Mg PO 2 each BID@0800,1200 ROSA Administration Quetiapine Fumarate 12.5 mg 09/22/20 22:17 09/27/20 12:07 Quetiapine Fumarate 25 Mg Tablet PO 12.5 mg Q4H PRN Administration Anxiety Quetiapine Fumarate 25 mg 09/24/20 21:45 09/28/20 21:02 Quetiapine Fumarate 25 Mg Tablet PO 25 mg BEDTIME ROSA Administration Allergies Allergies Allergy/AdvReac Type Severity Reaction Status Date / Time levofloxacin [From Levaquin] Allergy Rash Verified 09/08/20 14:08 tyramine Allergy Hypertensio Uncoded 09/08/20 14:06 n Assessment & Plan Assessment & Plan (1) Major depressive disorder, recurrent severe without psychotic features: Status: Acute Code(s): F33.2 - Major depressive disorder, recurrent severe without psychotic features Assessment and Plan: Continue ECT (2) Generalized anxiety disorder: Status: Acute Code(s): F41.1 - Generalized anxiety disorder Greater than 50% of the session was spent on counseling and/or coordination of care Reason for contiued inpatient stay Substantial Risk for: inability to function and rapid decompensation
[2020-09-29] VITALS (11 sets, daily range): BP systolic 104–136; BP diastolic 48–75; PULSE 53–70; RESP 12–17; TEMP 36–36.5; O2SAT 94–99
--- NOTE | 2020-09-29 07:05 | MHC.SHP ---
Pre-Procedural Eval Section A Date of Service: 09/29/20 The patient is an INPATIENT: Yes Changes since office visit: Yes Changes in Medication and Yes Patient answered all questions; No Cold of Flu in the past 2 weeks and No New Medical Problems The History & Physical has been completed within 30 days and I have reviewed it.: Yes Section B Chief Complaint: screening Allergies: Allergies Allergy/AdvReac Type Severity Reaction Status Date / Time levofloxacin [From Levaquin] Allergy Rash Verified 09/08/20 14:08 tyramine Allergy Hypertensio Uncoded 09/08/20 14:06 n Plan I have reviewed the history and physical and performed a pertinent physical examination on my patient. No changes have occurred unless specified.
--- NOTE | 2020-09-29 07:18 | HO.ANESPROP2 ---
[facility] Active Problems Active Problems: All Active Problems (Updated 09/08/20 @ 16:26 by ROBIN Lacy) Generalized anxiety disorder (Acute) Major depressive disorder, recurrent severe without psychotic features (Acute) Past Medical History Medical History Generalized anxiety disorder Family History Family History Mother Breast cancer HTN (hypertension) Surgical History Surgical History History of appendectomy Social History Social History Household Members: Spouse Housing: House Do you presently have visiting nurse or other home services: No Alcohol intake: never Patient Tobacco Use Status: Never used Tobacco Smoked in Last 30 Days: No e-Cigarette/Vaping Use: Never Used Patient Interested in Nicotine Replacement: No Patient Given Instructions on How to Stop Smoking: No Second Hand Smoke Exposure: No Use of substances other than those prescribed or required for medical reasons: No Currently Displaying Signs/Symptoms of Drug Intoxication Withdrawal: No Any prior treatment program specific to substance use: No Have you been hit, kicked, punched, or otherwise hurt by someone within the past year? If so, by whom?: No Do you feel safe in your current relationship?: Yes Is there a partner from a previous relationship who is making you feel unsafe now?: No Are you made to feel afraid or neglected: No Buddhist Healthcare Practices: Yazidism Advance Directives: No Advance Directives Information Provided: No Advance Directives on File: No Do you have thoughts of harming others: None Do you have a plan to hurt others: No Plan Recently lost weight without trying: Yes How much weight loss: 2-13 pounds Eating poorly because of decreased appetite: Yes Nutrition screen score: 4 Nutrition Risks: No Nutritional Risk Patient : No : No Poor oral hygiene: No service: No Sexual orientation: Straight/Heterosexual Meds Allergies Allergy/AdvReac Type Severity Reaction Status Date / Time levofloxacin [From Levaquin] Allergy Rash Verified 09/08/20 14:08 tyramine Allergy Hypertensio Uncoded 09/08/20 14:06 n Active Medications: Current Medications Generic Name Dose Route Start Last Admin Trade Name Freq PRN Reason Stop Dose Admin Acetaminophen 650 mg 09/22/20 16:22 09/24/20 09:20 Acetaminophen 325 Mg Tablet PO 650 mg Q6H PRN Administration Headache/Pain Mild Scale (1-3) Al Hydroxide/Mg Hydroxide 30 ml 09/22/20 16:22 Magnesium Hydrox/Alum Hydrox 30 Ml Oral.Susp PO Q6H PRN Heartburn/Nausea Clonazepam 0.5 mg 09/22/20 21:00 09/28/20 21:02 Clonazepam 0.5 Mg Tablet PO 0.5 mg TID ROSA Administration Clonazepam 0.5 mg 09/27/20 13:48 Clonazepam 0.5 Mg Tablet PO TID PRN Anxiety Hydroxyzine HCl 25 mg 09/22/20 16:22 09/26/20 20:59 Hydroxyzine Hcl 25 Mg Tablet PO 25 mg BEDTIME PRN Administration Anxiety Hydroxyzine HCl 10 mg 09/28/20 22:30 Hydroxyzine Hcl 10 Mg Tablet PO BID@1300,1630 PRN Anxiety Magnesium Hydroxide 30 ml 09/22/20 16:22 Milk Of Magnesia 30 Ml Oral.Susp PO DAILY PRN Constipation Pt Own Phenelzine 15 1 each 09/22/20 21:00 09/28/20 21:01 Mg PO 1 each BEDTIME ROAS Administration Pt Own Phenelzine 15 2 each 09/23/20 08:00 09/28/20 12:51 Mg PO 2 each BID@0800,1200 ROSA Administration Quetiapine Fumarate 12.5 mg 09/22/20 22:17 09/27/20 12:07 Quetiapine Fumarate 25 Mg Tablet PO 12.5 mg Q4H PRN Administration Anxiety Quetiapine Fumarate 25 mg 09/24/20 21:45 09/28/20 21:02 Quetiapine Fumarate 25 Mg Tablet PO 25 mg BEDTIME ROSA Administration Home Medications Medication Instructions Recorded Confirmed Last Taken Type phenelzine 15 mg PO BEDTIME 09/08/20 09/08/20 09/07/20 History phenelzine 30 mg PO BID@0800,1200 09/08/20 09/08/20 09/08/20 History Exam Exam Date and Time: September 29, 202018 Height,Weight and Vital Signs: Height 5 ft 6 in Weight 65.7 kg Last Vital Signs Temp 97.2 F 09/29/20 06:42 Pulse 65 09/29/20 06:42 Resp 16 09/29/20 06:42 BP 105/48 L 09/29/20 06:42 Pulse Ox 96 09/29/20 06:42 Pertinent Lab Results Pertinent Lab Results: Laboratory Tests 09/22/20 09/22/20 09/24/20 15:40 22:00 06:18 WBC 3.3 L RBC 4.20 Hgb 12.3 Hct 39.1 MCV 93.1 MCH 29.3 MCHC 31.5 RDW 13.3 Plt Count 196 MPV 10.2 Immature Gran % (Auto) 0.6 H Neut % (Auto) 42.9 L Lymph % (Auto) 40.2 H [place] % (Auto) 10.9 Eos % (Auto) 4.5 H Baso % (Auto) 0.9 Lymph # (Auto) 1.3 [place] # (Auto) 0.4 Eos # (Auto) 0.2 Baso # (Auto) 0.0 Abs Immat Gran (auto) 0.02 Absolute Neuts (auto) 1.4 L Absolute Nucleated RBC 0.000 Nucleated RBC % (auto) 0.0 Sodium Potassium Chloride Carbon Dioxide Anion Gap BUN Creatinine Estim Creat Clear Calc Estimated GFR Fasting Glucose Calcium Total Bilirubin AST ALT Alkaline Phosphatase Total Protein Albumin Urine Color YELLOW Urine Appearance HAZY Urine pH 6.0 Ur Specific [place] 1.010 Urine Protein NEG Urine Glucose (UA) NEG Urine Ketones NEG Urine Blood TRACE Urine Nitrite NEG Ur Leukocyte Esterase NEG Urine RBC 1-4 Urine WBC 1-4 Ur Squamous Epith Cells 1+ Urine Bacteria 4+ COVID-19 (JOELLE) Negative COVID-19 Clin Com See Note 09/24/20 06:18 WBC RBC Hgb Hct MCV MCH MCHC RDW Plt Count MPV Immature Gran % (Auto) Neut % (Auto) Lymph % (Auto) [place] % (Auto) Eos % (Auto) Baso % (Auto) Lymph # (Auto) [place] # (Auto) Eos # (Auto) Baso # (Auto) Abs Immat Gran (auto) Absolute Neuts (auto) Absolute Nucleated RBC Nucleated RBC % (auto) Sodium 138 Potassium 4.2 Chloride 103 Carbon Dioxide 29 Anion Gap 10 L BUN 20 H Creatinine 0.78 Estim Creat Clear Calc 64.6 Estimated GFR > 60 Fasting Glucose 89 Calcium 9.3 Total Bilirubin 0.5 AST 18 ALT 40 H Alkaline Phosphatase 89 Total Protein 6.5 Albumin 4.0 Urine Color Urine Appearance Urine pH Ur Specific [place] Urine Protein Urine Glucose (UA) Urine Ketones Urine Blood Urine Nitrite Ur Leukocyte Esterase Urine RBC Urine WBC Ur Squamous Epith Cells Urine Bacteria COVID-19 (JOELLE) COVID-19 Clin Com Airway Mallampati Class: II (False teeth on top front) TM Dist: >3cm Neck ROM: Full Heart: RRR Lungs: CTa Assessment and Plan Assessment Anesthesia Assessment: Anesthesia Plan Discussed and Chart Reviewed Final Anesthetic Review NPO: Yes ASA Class: III Final Preanesthetic Review: No Changes in Pt Med Stat and Consent Obtained/Reviewed Patient Risk: Intermediate Procedure Risk: Intermediate Anesthetic Plan Anesthetic Plan: GA Disposition: Standard PACU
--- NOTE | 2020-09-29 08:12 | PC.NURSE ---
Dr. Rogers and Dr. Escobedo aware that patient received last nights dose of Klonopin 0.5mg PO at 2102.
[2020-09-29] MEDS: clonazePAM 0.5 MG TABLET PO ×3 (09:38→21:07)
--- NOTE | 2020-09-29 15:37 | MHC.CLN ---
NUTRITION FOLLOW UP PATIENT REPORTS THAT SHE IS EATING WELL. CONFIRMED WITH STAFF. NO NEW NUTRITION INTERVENTIONS.
[2020-09-29] MEDS: QUEtiapine Fumarate 25 MG TABLET PO (21:07)
--- NOTE | 2020-09-29 21:54 | HO.ECTPROC ---
ECT Procedure Note Diagnosis/Treatment Date of Service: 09/29/20 Diagnosis: Major Depressive Disorder Previous ECT Date: 09/27/20 Current Treatment Number: 2 Treatment: Series Interval Clinical Notes: pt less distraught remains flat ECT Settings Device: THYMATRON DGx Electrode Placement: Right Unilateral Program/Pulse Width: 0.25 Energy Percent: 75 Seizure Duration By EEG (in seconds): 55 Medications Administration General Anesthetic: Etomidate (14) Muscle Relaxant: Succinylcholine (100) Ancillary Medications Miscillaneous Medications: Flumazenil Airway Management Airway Management: Bag Mask Ventilation Treatment Recommendations No Changes Recommended: No change Pt Tolerated Procedure w/o Issue: Yes
[2020-09-30 06:00] VITALS: BP 95/45; PULSE 62; RESP 16; TEMP 36.1; O2SAT 96
[2020-09-30 07:00] VITALS: BMI 22.6
[2020-09-30] MEDS: clonazePAM 0.5 MG TABLET PO ×2 (08:42→14:54)
[2020-09-30 18:00] VITALS: BP 109/53; PULSE 73; RESP 16; TEMP 36.2; O2SAT 97
[2020-09-30] MEDS: QUEtiapine Fumarate 25 MG TABLET PO (21:02)
--- NOTE | 2020-09-30 22:22 | HO.PSYCHPN ---
Subjective Subjective Date of Service: 09/30/20 Reason For Visit: screening Subjective Notes: Conditional Voluntary Guardianship: No Interim History: Patient calmer future oriented seems to be tolerating ECT seen with patient without significant cognitive impairment Medication Compliance: Yes Attending Groups: Intermittent Mental Status Exam Mental Status Exam Patient Appearance: Well Grooomed Patient Orientation: Person, Place, Time and Situation Level of Consciousness: Awake Patient Behavior: Appropriate and Cooperative Mood Description: Withdrawn and Depressed Affect Description: Constricted Patient Cognition Impaired: No Ability to Follow Directions: Good Speech Pattern: Clear Memory Description: Intact Hallucinations: None Delusions: Not Present Thought Process: Linear Thought Content: positive for Poverty of Content Depressive Symptoms: Increased Anxiety, Difficulty Sleeping, Hopelessness and Feelings of Guilt Judgement: Fair Diagnostics Vital Signs (24Hr): Vital Signs - 24 hr 09/30/20 06:00 09/30/20 18:00 Temperature 97.0 F 97.2 F Pulse Rate 62 73 Respiratory Rate 16 16 Blood Pressure 95/45 L 109/53 L Pulse Oximetry 96 97 Body Mass Index 22.6 Labs Results: 09/24/20 06:18 09/24/20 06:18 Imaging Radiology Impressions: ITS Impressions Head CT 09/25/20 09:10 IMPRESSION: 1. No acute intracranial abnormality. 2. Inflammatory changes in the paranasal sinuses as detailed above. Medications Medications Current Medications Generic Name Dose Route Start Last Admin Trade Name Freq PRN Reason Stop Dose Admin Acetaminophen 650 mg 09/22/20 16:22 09/24/20 09:20 Acetaminophen 325 Mg Tablet PO 650 mg Q6H PRN Administration Headache/Pain Mild Scale (1-3) Al Hydroxide/Mg Hydroxide 30 ml 09/22/20 16:22 Magnesium Hydrox/Alum Hydrox 30 Ml Oral.Susp PO Q6H PRN Heartburn/Nausea Clonazepam 0.5 mg 09/22/20 21:00 09/30/20 21:05 Clonazepam 0.5 Mg Tablet PO Not Given TID ROSA Clonazepam 0.5 mg 09/27/20 13:48 Clonazepam 0.5 Mg Tablet PO TID PRN Anxiety Hydroxyzine HCl 25 mg 09/22/20 16:22 09/26/20 20:59 Hydroxyzine Hcl 25 Mg Tablet PO 25 mg BEDTIME PRN Administration Anxiety Hydroxyzine HCl 10 mg 09/28/20 22:30 Hydroxyzine Hcl 10 Mg Tablet PO BID@1300,1630 PRN Anxiety Magnesium Hydroxide 30 ml 09/22/20 16:22 Milk Of Magnesia 30 Ml Oral.Susp PO DAILY PRN Constipation Pt Own Phenelzine 15 1 each 09/22/20 21:00 09/30/20 21:02 Mg PO 1 each BEDTIME ROSA Administration Pt Own Phenelzine 15 2 each 09/23/20 08:00 09/30/20 12:04 Mg PO 2 each BID@0800,1200 ROSA Administration Quetiapine Fumarate 12.5 mg 09/22/20 22:17 09/27/20 12:07 Quetiapine Fumarate 25 Mg Tablet PO 12.5 mg Q4H PRN Administration Anxiety Quetiapine Fumarate 25 mg 09/24/20 21:45 09/30/20 21:02 Quetiapine Fumarate 25 Mg Tablet PO 25 mg BEDTIME ROSA Administration Allergies Allergies Allergy/AdvReac Type Severity Reaction Status Date / Time levofloxacin [From Levaquin] Allergy Rash Verified 09/08/20 14:08 tyramine Allergy Hypertensio Uncoded 09/08/20 14:06 n Assessment & Plan Assessment & Plan (1) Major depressive disorder, recurrent severe without psychotic features: Status: Acute Code(s): F33.2 - Major depressive disorder, recurrent severe without psychotic features Assessment and Plan: Continue ECT low-dose Seroquel Nardil (2) Generalized anxiety disorder: Status: Acute Code(s): F41.1 - Generalized anxiety disorder Greater than 50% of the session was spent on counseling and/or coordination of care Reason for contiued inpatient stay Substantial Risk for: inability to function and rapid decompensation
[2020-10-01] VITALS (11 sets, daily range): BP systolic 96–122; BP diastolic 49–72; PULSE 52–80; RESP 14–18; TEMP 36–36.9; O2SAT 94–98
--- NOTE | 2020-10-01 07:27 | MHC.SHP ---
Pre-Procedural Eval Section A Date of Service: 10/01/20 The patient is an INPATIENT: Yes Changes since office visit: Yes Patient answered all questions; No Cold of Flu in the past 2 weeks, No New Medical Problems and No Changes in Medication The History & Physical has been completed within 30 days and I have reviewed it.: Yes Section B Chief Complaint: screening Allergies: Allergies Allergy/AdvReac Type Severity Reaction Status Date / Time levofloxacin [From Levaquin] Allergy Rash Verified 09/08/20 14:08 tyramine Allergy Hypertensio Uncoded 09/08/20 14:06 n Plan I have reviewed the history and physical and performed a pertinent physical examination on my patient. No changes have occurred unless specified.
--- NOTE | 2020-10-01 07:28 | HO.ECTPROC ---
ECT Procedure Note Diagnosis/Treatment Date of Service: 10/01/20 Diagnosis: Major Depressive Disorder Previous ECT Date: 09/29/20 Current Treatment Number: 3 Treatment: Series Interval Clinical Notes: pt doing well no c/o side effects ECT Settings Device: THYMATRON DGx Electrode Placement: Right Unilateral Program/Pulse Width: 0.50 Energy Percent: 75 Seizure Duration By EEG (in seconds): 41 Medications Administration General Anesthetic: Etomidate (14) Muscle Relaxant: Succinylcholine (100) Ancillary Medications Miscillaneous Medications: Propofol (30 mg ) Airway Management Airway Management: Bag Mask Ventilation Treatment Recommendations Program/Pulse Width: 0.25 Pt Tolerated Procedure w/o Issue: Yes
--- NOTE | 2020-10-01 07:35 | P.CONAN_ITS ---
FORMERLY [facility], [facility] Active Problems Active Problems: All Active Problems (Updated 09/08/20 @ 16:26 by ROBIN Lacy) Generalized anxiety disorder (Acute) Major depressive disorder, recurrent severe without psychotic features (Acute) Past Medical History Medical History Generalized anxiety disorder Family History Family History Mother Breast cancer HTN (hypertension) Surgical History Surgical History History of appendectomy Social History Social History Household Members: Spouse Housing: House Do you presently have visiting nurse or other home services: No Alcohol intake: never Patient Tobacco Use Status: Never used Tobacco Smoked in Last 30 Days: No e-Cigarette/Vaping Use: Never Used Patient Interested in Nicotine Replacement: No Patient Given Instructions on How to Stop Smoking: No Second Hand Smoke Exposure: No Use of substances other than those prescribed or required for medical reasons: No Currently Displaying Signs/Symptoms of Drug Intoxication Withdrawal: No Any prior treatment program specific to substance use: No Have you been hit, kicked, punched, or otherwise hurt by someone within the past year? If so, by whom?: No Do you feel safe in your current relationship?: Yes Is there a partner from a previous relationship who is making you feel unsafe now?: No Are you made to feel afraid or neglected: No [facility] Practices: [facility] Advance Directives: No Advance Directives Information Provided: No Advance Directives on File: No Do you have thoughts of harming others: None Do you have a plan to hurt others: No Plan Recently lost weight without trying: Yes How much weight loss: 2-13 pounds Eating poorly because of decreased appetite: Yes Nutrition screen score: 4 Nutrition Risks: No Nutritional Risk Patient : No : No Poor oral hygiene: No service: No Sexual orientation: Straight/Heterosexual Meds Allergies Allergy/AdvReac Type Severity Reaction Status Date / Time levofloxacin [From Levaquin] Allergy Rash Verified 09/08/20 14:08 tyramine Allergy Hypertensio Uncoded 09/08/20 14:06 n Active Medications: Current Medications Generic Name Dose Route Start Last Admin Trade Name Freq PRN Reason Stop Dose Admin Acetaminophen 650 mg 09/22/20 16:22 09/24/20 09:20 Acetaminophen 325 Mg Tablet PO 650 mg Q6H PRN Administration Headache/Pain Mild Scale (1-3) Al Hydroxide/Mg Hydroxide 30 ml 09/22/20 16:22 Magnesium Hydrox/Alum Hydrox 30 Ml Oral.Susp PO Q6H PRN Heartburn/Nausea Clonazepam 0.5 mg 09/22/20 21:00 09/30/20 21:05 Clonazepam 0.5 Mg Tablet PO Not Given TID ROSA Clonazepam 0.5 mg 09/27/20 13:48 Clonazepam 0.5 Mg Tablet PO TID PRN Anxiety Hydroxyzine HCl 25 mg 09/22/20 16:22 09/26/20 20:59 Hydroxyzine Hcl 25 Mg Tablet PO 25 mg BEDTIME PRN Administration Anxiety Hydroxyzine HCl 10 mg 09/28/20 22:30 Hydroxyzine Hcl 10 Mg Tablet PO BID@1300,1630 PRN Anxiety Magnesium Hydroxide 30 ml 09/22/20 16:22 Milk Of Magnesia 30 Ml Oral.Susp PO DAILY PRN Constipation Pt Own Phenelzine 15 1 each 09/22/20 21:00 09/30/20 21:02 Mg PO 1 each BEDTIME ROSA Administration Pt Own Phenelzine 15 2 each 09/23/20 08:00 09/30/20 12:04 Mg PO 2 each BID@0800,1200 ROSA Administration Quetiapine Fumarate 12.5 mg 09/22/20 22:17 09/27/20 12:07 Quetiapine Fumarate 25 Mg Tablet PO 12.5 mg Q4H PRN Administration Anxiety Quetiapine Fumarate 25 mg 09/24/20 21:45 09/30/20 21:02 Quetiapine Fumarate 25 Mg Tablet PO 25 mg BEDTIME ROSA Administration Home Medications Medication Instructions Recorded Confirmed Last Taken Type phenelzine 15 mg PO BEDTIME 09/08/20 09/08/20 09/07/20 History phenelzine 30 mg PO BID@0800,1200 09/08/20 09/08/20 09/08/20 History Exam Exam Date and Time: October 01, 2020 0735 Height,Weight and Vital Signs: Height 5 ft 6 in Weight 63.7 kg Last Vital Signs Temp 97.7 F 10/01/20 06:45 Pulse 65 10/01/20 06:45 Resp 18 10/01/20 06:45 BP 102/49 L 10/01/20 06:45 Pulse Ox 96 10/01/20 06:45 Pertinent Lab Results Pertinent Lab Results: Laboratory Tests 09/22/20 09/22/20 09/24/20 15:40 22:00 06:18 WBC 3.3 L RBC 4.20 Hgb 12.3 Hct 39.1 MCV 93.1 MCH 29.3 MCHC 31.5 RDW 13.3 Plt Count 196 MPV 10.2 Immature Gran % (Auto) 0.6 H Neut % (Auto) 42.9 L Lymph % (Auto) 40.2 H [place] % (Auto) 10.9 Eos % (Auto) 4.5 H Baso % (Auto) 0.9 Lymph # (Auto) 1.3 [place] # (Auto) 0.4 Eos # (Auto) 0.2 Baso # (Auto) 0.0 Abs Immat Gran (auto) 0.02 Absolute Neuts (auto) 1.4 L Absolute Nucleated RBC 0.000 Nucleated RBC % (auto) 0.0 Sodium Potassium Chloride Carbon Dioxide Anion Gap BUN Creatinine Estim Creat Clear Calc Estimated GFR Fasting Glucose Calcium Total Bilirubin AST ALT Alkaline Phosphatase Total Protein Albumin Urine Color YELLOW Urine Appearance HAZY Urine pH 6.0 Ur Specific [place] 1.010 Urine Protein NEG Urine Glucose (UA) NEG Urine Ketones NEG Urine Blood TRACE Urine Nitrite NEG Ur Leukocyte Esterase NEG Urine RBC 1-4 Urine WBC 1-4 Ur Squamous Epith Cells 1+ Urine Bacteria 4+ COVID-19 (JOELLE) Negative COVID-19 Clin Com See Note 09/24/20 06:18 WBC RBC Hgb Hct MCV MCH MCHC RDW Plt Count MPV Immature Gran % (Auto) Neut % (Auto) Lymph % (Auto) [place] % (Auto) Eos % (Auto) Baso % (Auto) Lymph # (Auto) [place] # (Auto) Eos # (Auto) Baso # (Auto) Abs Immat Gran (auto) Absolute Neuts (auto) Absolute Nucleated RBC Nucleated RBC % (auto) Sodium 138 Potassium 4.2 Chloride 103 Carbon Dioxide 29 Anion Gap 10 L BUN 20 H Creatinine 0.78 Estim Creat Clear Calc 64.6 Estimated GFR > 60 Fasting Glucose 89 Calcium 9.3 Total Bilirubin 0.5 AST 18 ALT 40 H Alkaline Phosphatase 89 Total Protein 6.5 Albumin 4.0 Urine Color Urine Appearance Urine pH Ur Specific [place] Urine Protein Urine Glucose (UA) Urine Ketones Urine Blood Urine Nitrite Ur Leukocyte Esterase Urine RBC Urine WBC Ur Squamous Epith Cells Urine Bacteria COVID-19 (JOELLE) COVID-19 Clin Com Airway Mallampati Class: II TM Dist: >3cm Neck ROM: Full Assessment and Plan Assessment Anesthesia Assessment: Anesthesia Plan Discussed and Chart Reviewed Final Anesthetic Review NPO: Yes ASA Class: II Final Preanesthetic Review: No Changes in Pt Med Stat, Meds/Allgs Chart Reviewed, Consent Obtained/Reviewed and Anes Risks/Benef Reviewed Patient Risk: Low Procedure Risk: Low Assessment/Block/Sedation in SS: Assess/Block/Sedation-SS Anesthetic Plan Anesthetic Plan: GA Disposition: Standard PACU
[2020-10-01] MEDS: Acetaminophen 325 MG TABLET 650 MG PO (09:18)
[2020-10-01] MEDS: clonazePAM 0.5 MG TABLET PO ×3 (09:20→20:56)
[2020-10-01] MEDS: QUEtiapine Fumarate 25 MG TABLET PO (20:56)
--- NOTE | 2020-10-01 23:38 | HO.PSYCHPN ---
Subjective Subjective Date of Service: 10/02/20 Reason For Visit: screening Subjective Notes: Conditional Voluntary Guardianship: No Medical Problems Affecting Mental Status: Yes Interim History: Patient calmer more future focused was agitated tolerating ECT less reactive and irritable Diagnostics Vital Signs (24Hr): Vital Signs - 24 hr 10/01/20 06:00 10/01/20 06:45 10/01/20 07:48 Temperature 97.7 F 97.4 F Pulse Rate 65 52 Respiratory Rate 14 18 16 Blood Pressure 102/49 L 117/52 L Pulse Oximetry 96 98 10/01/20 07:53 10/01/20 07:58 10/01/20 08:03 Temperature Pulse Rate 57 58 66 Respiratory Rate 18 18 18 Blood Pressure 113/53 L 117/72 122/51 L Pulse Oximetry 97 95 95 10/01/20 08:19 10/01/20 08:34 10/01/20 09:00 Temperature 97 F 97.2 F 96.8 F Pulse Rate 63 62 64 Respiratory Rate 18 18 16 Blood Pressure 111/61 110/64 Pulse Oximetry 94 95 97 10/01/20 17:55 10/01/20 20:33 Temperature 98.5 F 96.9 F Pulse Rate 76 80 Respiratory Rate 16 18 Blood Pressure 117/56 L 96/53 L Pulse Oximetry 95 95 Body Mass Index 22.6 Labs Results: 09/24/20 06:18 09/24/20 06:18 Imaging Radiology Impressions: ITS Impressions Head CT 09/25/20 09:10 IMPRESSION: 1. No acute intracranial abnormality. 2. Inflammatory changes in the paranasal sinuses as detailed above. Medications Medications Current Medications Generic Name Dose Route Start Last Admin Trade Name Freq PRN Reason Stop Dose Admin Acetaminophen 650 mg 09/22/20 16:22 10/01/20 09:18 Acetaminophen 325 Mg Tablet PO 650 mg Q6H PRN Administration Headache/Pain Mild Scale (1-3) Al Hydroxide/Mg Hydroxide 30 ml 09/22/20 16:22 Magnesium Hydrox/Alum Hydrox 30 Ml Oral.Susp PO Q6H PRN Heartburn/Nausea Clonazepam 0.5 mg 09/22/20 21:00 10/01/20 20:56 Clonazepam 0.5 Mg Tablet PO 0.5 mg TID ROSA Administration Clonazepam 0.5 mg 09/27/20 13:48 Clonazepam 0.5 Mg Tablet PO TID PRN Anxiety Hydroxyzine HCl 25 mg 09/22/20 16:22 09/26/20 20:59 Hydroxyzine Hcl 25 Mg Tablet PO 25 mg BEDTIME PRN Administration Anxiety Hydroxyzine HCl 10 mg 09/28/20 22:30 Hydroxyzine Hcl 10 Mg Tablet PO BID@1300,1630 PRN Anxiety Magnesium Hydroxide 30 ml 09/22/20 16:22 Milk Of Magnesia 30 Ml Oral.Susp PO DAILY PRN Constipation Pt Own Phenelzine 15 1 each 09/22/20 21:00 10/01/20 20:57 Mg PO 1 each BEDTIME ROSA Administration Pt Own Phenelzine 15 2 each 09/23/20 08:00 10/01/20 12:00 Mg PO 2 each BID@0800,1200 ROSA Administration Quetiapine Fumarate 12.5 mg 09/22/20 22:17 09/27/20 12:07 Quetiapine Fumarate 25 Mg Tablet PO 12.5 mg Q4H PRN Administration Anxiety Quetiapine Fumarate 25 mg 09/24/20 21:45 10/01/20 20:56 Quetiapine Fumarate 25 Mg Tablet PO 25 mg BEDTIME ROSA Administration Allergies Allergies Allergy/AdvReac Type Severity Reaction Status Date / Time levofloxacin [From Levaquin] Allergy Rash Verified 09/08/20 14:08 tyramine Allergy Hypertensio Uncoded 09/08/20 14:06 n Assessment & Plan Assessment & Plan (1) Major depressive disorder, recurrent severe without psychotic features: Status: Acute Code(s): F33.2 - Major depressive disorder, recurrent severe without psychotic features Assessment and Plan: Continue ECT low-dose Seroquel Nardil improving starting discharge plan (2) Generalized anxiety disorder: Status: Acute Code(s): F41.1 - Generalized anxiety disorder Greater than 50% of the session was spent on counseling and/or coordination of care Reason for contiued inpatient stay Substantial Risk for: inability to function and rapid decompensation
--- NOTE | 2020-10-02 00:59 | HO.PSYCHPN ---
Subjective Subjective Date of Service: 10/02/20 Reason For Visit: screening Subjective Notes: Conditional Voluntary Guardianship: No Interim History: HER PATIENT PLEASANT COOPERATIVE COME FUTURE ORIENTED GRADUALLY IMPROVING MOOD AND STRESS TOLERANCE Medication Compliance: Yes Mental Status Exam Mental Status Exam Patient Appearance: Well Grooomed Patient Orientation: Person, Place, Time and Situation Level of Consciousness: Awake Patient Behavior: Appropriate and Cooperative Mood Description: Withdrawn and Depressed Affect Description: Constricted Patient Cognition Impaired: No Ability to Follow Directions: Good Speech Pattern: Clear Memory Description: Intact Hallucinations: None Delusions: Not Present Thought Process: Linear Thought Content: positive for Poverty of Content Depressive Symptoms: Increased Anxiety, Difficulty Sleeping, Hopelessness and Feelings of Guilt Judgement: Fair Diagnostics Vital Signs (24Hr): Vital Signs - 24 hr 10/01/20 06:00 10/01/20 06:45 10/01/20 07:48 Temperature 97.7 F 97.4 F Pulse Rate 65 52 Respiratory Rate 14 18 16 Blood Pressure 102/49 L 117/52 L Pulse Oximetry 96 98 10/01/20 07:53 10/01/20 07:58 10/01/20 08:03 Temperature Pulse Rate 57 58 66 Respiratory Rate 18 18 18 Blood Pressure 113/53 L 117/72 122/51 L Pulse Oximetry 97 95 95 10/01/20 08:19 10/01/20 08:34 10/01/20 09:00 Temperature 97 F 97.2 F 96.8 F Pulse Rate 63 62 64 Respiratory Rate 18 18 16 Blood Pressure 111/61 110/64 Pulse Oximetry 94 95 97 10/01/20 17:55 10/01/20 20:33 Temperature 98.5 F 96.9 F Pulse Rate 76 80 Respiratory Rate 16 18 Blood Pressure 117/56 L 96/53 L Pulse Oximetry 95 95 Body Mass Index 22.6 Labs Results: 09/24/20 06:18 09/24/20 06:18 Imaging Radiology Impressions: ITS Impressions Head CT 09/25/20 09:10 IMPRESSION: 1. No acute intracranial abnormality. 2. Inflammatory changes in the paranasal sinuses as detailed above. Medications Medications Current Medications Generic Name Dose Route Start Last Admin Trade Name Freq PRN Reason Stop Dose Admin Acetaminophen 650 mg 09/22/20 16:22 10/01/20 09:18 Acetaminophen 325 Mg Tablet PO 650 mg Q6H PRN Administration Headache/Pain Mild Scale (1-3) Al Hydroxide/Mg Hydroxide 30 ml 09/22/20 16:22 Magnesium Hydrox/Alum Hydrox 30 Ml Oral.Susp PO Q6H PRN Heartburn/Nausea Clonazepam 0.5 mg 09/22/20 21:00 10/01/20 20:56 Clonazepam 0.5 Mg Tablet PO 0.5 mg TID ROSA Administration Clonazepam 0.5 mg 09/27/20 13:48 Clonazepam 0.5 Mg Tablet PO TID PRN Anxiety Hydroxyzine HCl 25 mg 09/22/20 16:22 09/26/20 20:59 Hydroxyzine Hcl 25 Mg Tablet PO 25 mg BEDTIME PRN Administration Anxiety Hydroxyzine HCl 10 mg 09/28/20 22:30 Hydroxyzine Hcl 10 Mg Tablet PO BID@1300,1630 PRN Anxiety Magnesium Hydroxide 30 ml 09/22/20 16:22 Milk Of Magnesia 30 Ml Oral.Susp PO DAILY PRN Constipation Pt Own Phenelzine 15 1 each 09/22/20 21:00 10/01/20 20:57 Mg PO 1 each BEDTIME ROSA Administration Pt Own Phenelzine 15 2 each 09/23/20 08:00 10/01/20 12:00 Mg PO 2 each BID@0800,1200 ROSA Administration Quetiapine Fumarate 12.5 mg 09/22/20 22:17 09/27/20 12:07 Quetiapine Fumarate 25 Mg Tablet PO 12.5 mg Q4H PRN Administration Anxiety Quetiapine Fumarate 25 mg 09/24/20 21:45 10/01/20 20:56 Quetiapine Fumarate 25 Mg Tablet PO 25 mg BEDTIME ROSA Administration Allergies Allergies Allergy/AdvReac Type Severity Reaction Status Date / Time levofloxacin [From Levaquin] Allergy Rash Verified 09/08/20 14:08 tyramine Allergy Hypertensio Uncoded 09/08/20 14:06 n Assessment & Plan Assessment & Plan (1) Major depressive disorder, recurrent severe without psychotic features: Status: Acute Code(s): F33.2 - Major depressive disorder, recurrent severe without psychotic features Assessment and Plan: Continue ECT low-dose Seroquel Nardil improving starting (2) Generalized anxiety disorder: Status: Acute Code(s): F41.1 - Generalized anxiety disorder Greater than 50% of the session was spent on counseling and/or coordination of care Reason for contiued inpatient stay Substantial Risk for: inability to function and rapid decompensation
[2020-10-02 08:15] VITALS: BP 95/52; PULSE 76; RESP 17; TEMP 36.4; O2SAT 94
[2020-10-02] MEDS: clonazePAM 0.5 MG TABLET PO ×2 (08:24→21:36)
--- NOTE | 2020-10-02 14:32 | HO.PSYCHPN ---
Subjective Subjective Date of Service: 10/02/20 Reason For Visit: screening Interim History: reports she is slowly improving. Reports he was extremely depressed and talked about treatment with [facility] and challenges around dosing and tapering and also manufacturing considerations. Has had 3 ECT treatments and feels that her mood is less up and down, she is isolating less and feeling more hopeful. 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 Reports sleep is largely okay. Appetite okay. Is socializing. Medication Compliance: Yes Review of Systems Review of Systems Unremarkable Mental Status Exam Mental Status Exam Narrative: pleasant and engaged. Fairly presented. Organized. Mood restricted but reports she is getting brighter. No SI. Future oriented. No HI. No psychosis. No agitation. Insight and judgment fair Diagnostics Vital Signs (24Hr): Vital Signs - 24 hr 10/01/20 17:55 10/01/20 20:33 10/02/20 08:15 Temperature 98.5 F 96.9 F 97.5 F Pulse Rate 76 80 76 Respiratory Rate 16 18 17 Blood Pressure 117/56 L 96/53 L 95/52 L Pulse Oximetry 95 95 94 Body Mass Index 22.6 Labs Results: 09/24/20 06:18 09/24/20 06:18 Imaging Radiology Impressions: ITS Impressions Head CT 09/25/20 09:10 IMPRESSION: 1. No acute intracranial abnormality. 2. Inflammatory changes in the paranasal sinuses as detailed above. Medications Medications Current Medications Generic Name Dose Route Start Last Admin Trade Name Freq PRN Reason Stop Dose Admin Acetaminophen 650 mg 09/22/20 16:22 10/01/20 09:18 Acetaminophen 325 Mg Tablet PO 650 mg Q6H PRN Administration Headache/Pain Mild Scale (1-3) Al Hydroxide/Mg Hydroxide 30 ml 09/22/20 16:22 Magnesium Hydrox/Alum Hydrox 30 Ml Oral.Susp PO Q6H PRN Heartburn/Nausea Clonazepam 0.5 mg 09/27/20 13:48 Clonazepam 0.5 Mg Tablet PO TID PRN Anxiety Hydroxyzine HCl 25 mg 09/22/20 16:22 09/26/20 20:59 Hydroxyzine Hcl 25 Mg Tablet PO 25 mg BEDTIME PRN Administration Anxiety Hydroxyzine HCl 10 mg 09/28/20 22:30 Hydroxyzine Hcl 10 Mg Tablet PO BID@1300,1630 PRN Anxiety Magnesium Hydroxide 30 ml 09/22/20 16:22 Milk Of Magnesia 30 Ml Oral.Susp PO DAILY PRN Constipation Pt Own Phenelzine 15 1 each 09/22/20 21:00 10/01/20 20:57 Mg PO 1 each BEDTIME ROSA Administration Pt Own Phenelzine 15 2 each 09/23/20 08:00 10/02/20 11:45 Mg PO 2 each BID@0800,1200 ROSA Administration Quetiapine Fumarate 12.5 mg 09/22/20 22:17 09/27/20 12:07 Quetiapine Fumarate 25 Mg Tablet PO 12.5 mg Q4H PRN Administration Anxiety Quetiapine Fumarate 25 mg 09/24/20 21:45 10/01/20 20:56 Quetiapine Fumarate 25 Mg Tablet PO 25 mg BEDTIME ROSA Administration Allergies Allergies Allergy/AdvReac Type Severity Reaction Status Date / Time levofloxacin [From Levaquin] Allergy Rash Verified 09/08/20 14:08 tyramine Allergy Hypertensio Uncoded 09/08/20 14:06 n Assessment & Plan Assessment & Plan (1) Major depressive disorder, recurrent severe without psychotic features: Status: Acute Code(s): F33.2 - Major depressive disorder, recurrent severe without psychotic features Assessment and Plan: no changes as per primary team's treatment plan on 10/02/2023, which was: Continue ECT low-dose Seroquel Nardil improving starting (2) Generalized anxiety disorder: Status: Acute Code(s): F41.1 - Generalized anxiety disorder Greater than 50% of the session was spent on counseling and/or coordination of care Reason for contiued inpatient stay Substantial Risk for: inability to function
[2020-10-02 18:00] VITALS: BP 157/68; PULSE 69; RESP 18; TEMP 36.7; O2SAT 95
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
[2020-10-02] MEDS: QUEtiapine Fumarate 25 MG TABLET PO (21:36)
--- NOTE | 2020-10-03 14:59 | HO.PSYCHPN ---
Subjective Subjective Date of Service: 10/03/20 Reason For Visit: screening Interim History: reports she is slowly improving- attributes this to ECT and looking forward to 4th session tomorrow. As noted her mood is less tearful and down and she is more social. Reports sleep is largely okay. Appetite okay. Review of Systems Review of Systems Unremarkable Yes all other systems are reviewed and are negative Mental Status Exam Mental Status Exam Narrative: pleasant and engaged. Fairly presented. Organized. Mood restricted but reports she is getting brighter. No SI. Future oriented. No HI. No psychosis. No agitation. Insight and judgment fair Patient Appearance: Well Grooomed Patient Orientation: Person, Place, Time and Situation Level of Consciousness: Awake Patient Behavior: Appropriate and Cooperative Mood Description: Withdrawn and Depressed Affect Description: Constricted Patient Cognition Impaired: No Ability to Follow Directions: Good Speech Pattern: Clear Memory Description: Intact Diagnostics Vital Signs (24Hr): Vital Signs - 24 hr 10/02/20 18:00 Temperature 98.1 F Pulse Rate 69 Respiratory Rate 18 Blood Pressure 157/68 H Pulse Oximetry 95 Body Mass Index 22.6 Labs Results: 09/24/20 06:18 09/24/20 06:18 Imaging Radiology Impressions: ITS Impressions Head CT 09/25/20 09:10 IMPRESSION: 1. No acute intracranial abnormality. 2. Inflammatory changes in the paranasal sinuses as detailed above. Medications Medications Current Medications Generic Name Dose Route Start Last Admin Trade Name Freq PRN Reason Stop Dose Admin Acetaminophen 650 mg 09/22/20 16:22 10/01/20 09:18 Acetaminophen 325 Mg Tablet PO 650 mg Q6H PRN Administration Headache/Pain Mild Scale (1-3) Al Hydroxide/Mg Hydroxide 30 ml 09/22/20 16:22 Magnesium Hydrox/Alum Hydrox 30 Ml Oral.Susp PO Q6H PRN Heartburn/Nausea Clonazepam 0.5 mg 09/27/20 13:48 10/02/20 21:36 Clonazepam 0.5 Mg Tablet PO 0.5 mg TID PRN Administration Anxiety Hydroxyzine HCl 25 mg 09/22/20 16:22 09/26/20 20:59 Hydroxyzine Hcl 25 Mg Tablet PO 25 mg BEDTIME PRN Administration Anxiety Hydroxyzine HCl 10 mg 09/28/20 22:30 Hydroxyzine Hcl 10 Mg Tablet PO BID@1300,1630 PRN Anxiety Magnesium Hydroxide 30 ml 09/22/20 16:22 Milk Of Magnesia 30 Ml Oral.Susp PO DAILY PRN Constipation Pt Own Phenelzine 15 1 each 09/22/20 21:00 10/02/20 21:36 Mg PO 1 each BEDTIME ROSA Administration Pt Own Phenelzine 15 2 each 09/23/20 08:00 10/03/20 12:09 Mg PO 2 each BID@0800,1200 ROSA Administration Quetiapine Fumarate 12.5 mg 09/22/20 22:17 09/27/20 12:07 Quetiapine Fumarate 25 Mg Tablet PO 12.5 mg Q4H PRN Administration Anxiety Quetiapine Fumarate 25 mg 09/24/20 21:45 10/02/20 21:36 Quetiapine Fumarate 25 Mg Tablet PO 25 mg BEDTIME ROSA Administration Allergies Allergies Allergy/AdvReac Type Severity Reaction Status Date / Time levofloxacin [From Levaquin] Allergy Rash Verified 09/08/20 14:08 tyramine Allergy Hypertensio Uncoded 09/08/20 14:06 n Assessment & Plan Assessment & Plan (1) Major depressive disorder, recurrent severe without psychotic features: Status: Acute Code(s): F33.2 - Major depressive disorder, recurrent severe without psychotic features Assessment and Plan: no changes as per primary team's treatment plan on 10/02/2023, which was: Continue ECT low-dose Seroquel Nardil improving starting (2) Generalized anxiety disorder: Status: Acute Code(s): F41.1 - Generalized anxiety disorder Greater than 50% of the session was spent on counseling and/or coordination of care Reason for contiued inpatient stay Substantial Risk for: harm to self and rapid decompensation
[2020-10-03 18:00] VITALS: BP 121/59; PULSE 63; TEMP 36.4; O2SAT 96
[2020-10-03] MEDS: QUEtiapine Fumarate 25 MG TABLET PO (20:55)
[2020-10-04] VITALS (9 sets, daily range): BP systolic 90–127; BP diastolic 50–59; PULSE 50–83; RESP 15–18; TEMP 36.2–36.8; O2SAT 94–98
--- NOTE | 2020-10-04 07:06 | P.CONAN_ITS ---
[facility] Active Problems Active Problems: All Active Problems (Updated 09/08/20 @ 16:26 by ROBIN Lacy) Generalized anxiety disorder (Acute) Major depressive disorder, recurrent severe without psychotic features (Acute) Past Medical History Medical History Generalized anxiety disorder Family History Family History Mother Breast cancer HTN (hypertension) Surgical History Surgical History History of appendectomy Social History Social History Household Members: Spouse Housing: House Do you presently have visiting nurse or other home services: No Alcohol intake: never Patient Tobacco Use Status: Never used Tobacco Smoked in Last 30 Days: No e-Cigarette/Vaping Use: Never Used Patient Interested in Nicotine Replacement: No Patient Given Instructions on How to Stop Smoking: No Second Hand Smoke Exposure: No Use of substances other than those prescribed or required for medical reasons: No Currently Displaying Signs/Symptoms of Drug Intoxication Withdrawal: No Any prior treatment program specific to substance use: No Have you been hit, kicked, punched, or otherwise hurt by someone within the past year? If so, by whom?: No Do you feel safe in your current relationship?: Yes Is there a partner from a previous relationship who is making you feel unsafe now?: No Are you made to feel afraid or neglected: No Hindu Healthcare Practices: Jainism Advance Directives: No Advance Directives Information Provided: No Advance Directives on File: No Do you have thoughts of harming others: None Do you have a plan to hurt others: No Plan Recently lost weight without trying: Yes How much weight loss: 2-13 pounds Eating poorly because of decreased appetite: Yes Nutrition screen score: 4 Nutrition Risks: No Nutritional Risk Patient : No : No Poor oral hygiene: No service: No Sexual orientation: Straight/Heterosexual Meds Allergies Allergy/AdvReac Type Severity Reaction Status Date / Time levofloxacin [From Levaquin] Allergy Rash Verified 09/08/20 14:08 tyramine Allergy Hypertensio Uncoded 09/08/20 14:06 n Active Medications: Current Medications Generic Name Dose Route Start Last Admin Trade Name Freq PRN Reason Stop Dose Admin Acetaminophen 650 mg 09/22/20 16:22 10/01/20 09:18 Acetaminophen 325 Mg Tablet PO 650 mg Q6H PRN Administration Headache/Pain Mild Scale (1-3) Al Hydroxide/Mg Hydroxide 30 ml 09/22/20 16:22 Magnesium Hydrox/Alum Hydrox 30 Ml Oral.Susp PO Q6H PRN Heartburn/Nausea Clonazepam 0.5 mg 09/27/20 13:48 10/02/20 21:36 Clonazepam 0.5 Mg Tablet PO 0.5 mg TID PRN Administration Anxiety Hydroxyzine HCl 25 mg 09/22/20 16:22 09/26/20 20:59 Hydroxyzine Hcl 25 Mg Tablet PO 25 mg BEDTIME PRN Administration Anxiety Hydroxyzine HCl 10 mg 09/28/20 22:30 Hydroxyzine Hcl 10 Mg Tablet PO BID@1300,1630 PRN Anxiety Magnesium Hydroxide 30 ml 09/22/20 16:22 Milk Of Magnesia 30 Ml Oral.Susp PO DAILY PRN Constipation Pt Own Phenelzine 15 1 each 09/22/20 21:00 10/03/20 20:55 Mg PO 1 each BEDTIME ROSA Administration Pt Own Phenelzine 15 2 each 09/23/20 08:00 10/03/20 12:09 Mg PO 2 each BID@0800,1200 ROSA Administration Quetiapine Fumarate 12.5 mg 09/22/20 22:17 09/27/20 12:07 Quetiapine Fumarate 25 Mg Tablet PO 12.5 mg Q4H PRN Administration Anxiety Quetiapine Fumarate 25 mg 09/24/20 21:45 10/03/20 20:55 Quetiapine Fumarate 25 Mg Tablet PO 25 mg BEDTIME ROSA Administration Home Medications Medication Instructions Recorded Confirmed Last Taken Type phenelzine 15 mg PO BEDTIME 09/08/20 10/01/20 09/07/20 History phenelzine 30 mg PO BID@0800,1200 09/08/20 10/01/20 09/08/20 History Exam Exam Date and Time: October 04, 2020705 Height,Weight and Vital Signs: Height 5 ft 6 in Weight 63.7 kg Last Vital Signs Temp 98.2 F 10/04/20 06:28 Pulse 69 10/04/20 06:28 Resp 16 10/04/20 06:28 BP 90/51 L 10/04/20 06:28 Pulse Ox 96 10/04/20 06:28 Pertinent Lab Results Pertinent Lab Results: Laboratory Tests 09/22/20 09/22/20 09/24/20 15:40 22:00 06:18 WBC 3.3 L RBC 4.20 Hgb 12.3 Hct 39.1 MCV 93.1 MCH 29.3 MCHC 31.5 RDW 13.3 Plt Count 196 MPV 10.2 Immature Gran % (Auto) 0.6 H Neut % (Auto) 42.9 L Lymph % (Auto) 40.2 H [place] % (Auto) 10.9 Eos % (Auto) 4.5 H Baso % (Auto) 0.9 Lymph # (Auto) 1.3 [place] # (Auto) 0.4 Eos # (Auto) 0.2 Baso # (Auto) 0.0 Abs Immat Gran (auto) 0.02 Absolute Neuts (auto) 1.4 L Absolute Nucleated RBC 0.000 Nucleated RBC % (auto) 0.0 Sodium Potassium Chloride Carbon Dioxide Anion Gap BUN Creatinine Estim Creat Clear Calc Estimated GFR Fasting Glucose Calcium Total Bilirubin AST ALT Alkaline Phosphatase Total Protein Albumin Urine Color YELLOW Urine Appearance HAZY Urine pH 6.0 Ur Specific [place] 1.010 Urine Protein NEG Urine Glucose (UA) NEG Urine Ketones NEG Urine Blood TRACE Urine Nitrite NEG Ur Leukocyte Esterase NEG Urine RBC 1-4 Urine WBC 1-4 Ur Squamous Epith Cells 1+ Urine Bacteria 4+ COVID-19 ([facility]ELLE) Negative COVID-19 Clin Com See Note 09/24/20 06:18 WBC RBC Hgb Hct MCV MCH MCHC RDW Plt Count MPV Immature Gran % (Auto) Neut % (Auto) Lymph % (Auto) [place] % (Auto) Eos % (Auto) Baso % (Auto) Lymph # (Auto) [place] # (Auto) Eos # (Auto) Baso # (Auto) Abs Immat Gran (auto) Absolute Neuts (auto) Absolute Nucleated RBC Nucleated RBC % (auto) Sodium 138 Potassium 4.2 Chloride 103 Carbon Dioxide 29 Anion Gap 10 L BUN 20 H Creatinine 0.78 Estim Creat Clear Calc 64.6 Estimated GFR > 60 Fasting Glucose 89 Calcium 9.3 Total Bilirubin 0.5 AST 18 ALT 40 H Alkaline Phosphatase 89 Total Protein 6.5 Albumin 4.0 Urine Color Urine Appearance Urine pH Ur Specific [place] Urine Protein Urine Glucose (UA) Urine Ketones Urine Blood Urine Nitrite Ur Leukocyte Esterase Urine RBC Urine WBC Ur Squamous Epith Cells Urine Bacteria COVID-19 ([facility]ELLE) COVID-19 Clin Com Airway Mallampati Class: II TM Dist: >3cm Neck ROM: Full Heart: rrr Lungs: cta Assessment and Plan Assessment Anesthesia Assessment: Anesthesia Plan Discussed and Chart Reviewed Final Anesthetic Review NPO: Yes ASA Class: III Final Preanesthetic Review: No Changes in Pt Med Stat and Consent Obtained/Reviewed Patient Risk: Intermediate Procedure Risk: Intermediate Anesthetic Plan Anesthetic Plan: GA Disposition: Standard PACU
--- NOTE | 2020-10-04 07:09 | MHC.SHP ---
Pre-Procedural Eval Section A Date of Service: 10/04/20 The patient is an INPATIENT: Yes Changes since office visit: No Cold of Flu in the past 2 weeks, No New Medical Problems, No Changes in Medication and No Patient answered all questions The History & Physical has been completed within 30 days and I have reviewed it.: Yes Section B Chief Complaint: screening Allergies: Allergies Allergy/AdvReac Type Severity Reaction Status Date / Time levofloxacin [From Levaquin] Allergy Rash Verified 09/08/20 14:08 tyramine Allergy Hypertensio Uncoded 09/08/20 14:06 n Plan I have reviewed the history and physical and performed a pertinent physical examination on my patient. No changes have occurred unless specified.
--- NOTE | 2020-10-04 07:30 | HO.ECTPROC ---
ECT Procedure Note Diagnosis/Treatment Date of Service: 10/04/20 Diagnosis: Major Depressive Disorder Previous ECT Date: 10/01/20 Current Treatment Number: 4 Treatment: Series Interval Clinical Notes: The patient reported improvement of her dysphoria, mild headache with the last ECT. ECT Settings Device: THYMATRON DGx Electrode Placement: Right Unilateral Program/Pulse Width: 0.50 Energy Percent: 75 Seizure Duration By EEG (in seconds): 49 By Motor Observation (in seconds): 19 Medications Administration General Anesthetic: Etomidate (12) Muscle Relaxant: Succinylcholine (100) Ancillary Medications Miscillaneous Medications: Propofol (30) Airway Management Airway Management: Bag Mask Ventilation Treatment Recommendations No Changes Recommended: No change Pt Tolerated Procedure w/o Issue: Yes
--- NOTE | 2020-10-04 17:57 | HO.PSYCHPN ---
Subjective Subjective Date of Service: 10/04/20 Reason For Visit: screening Subjective Notes: Conditional Voluntary Guardianship: No Medical Problems Affecting Mental Status: No Interim History: pt calm cooperative feeling much better with ect Medication Compliance: Yes Side effects from medications: No Attending Groups: Yes Mental Status Exam Mental Status Exam Narrative: pleasant and engaged. Fairly presented. Organized. Mood restricted but reports she is getting brighter. No SI. Future oriented. No HI. No psychosis. No agitation. Insight and judgment fair Patient Appearance: Well Grooomed Patient Orientation: Person, Place, Time and Situation Level of Consciousness: Awake Patient Behavior: Appropriate and Cooperative Mood Description: Withdrawn and Depressed Affect Description: Constricted Patient Cognition Impaired: No Ability to Follow Directions: Good Speech Pattern: Clear Memory Description: Intact Diagnostics Vital Signs (24Hr): Vital Signs - 24 hr 10/03/20 18:00 10/04/20 06:08 10/04/20 06:28 Temperature 97.6 F 97.5 F 98.2 F Pulse Rate 63 75 69 Respiratory Rate 17 16 Blood Pressure 121/59 L 98/51 L 90/51 L Pulse Oximetry 96 94 96 10/04/20 07:49 10/04/20 07:54 10/04/20 07:59 Temperature 97.1 F Pulse Rate 50 83 72 Respiratory Rate 15 17 18 Blood Pressure 124/53 L 104/53 L 104/53 L Pulse Oximetry 98 97 95 10/04/20 08:04 10/04/20 08:20 10/04/20 09:03 Temperature 97.1 F 97.6 F Pulse Rate 68 67 72 Respiratory Rate 16 16 16 Blood Pressure 112/50 L 112/50 L 115/59 L Pulse Oximetry 95 96 95 Body Mass Index 22.6 Labs Results: 09/24/20 06:18 09/24/20 06:18 Imaging Radiology Impressions: ITS Impressions Head CT 09/25/20 09:10 IMPRESSION: 1. No acute intracranial abnormality. 2. Inflammatory changes in the paranasal sinuses as detailed above. Medications Medications Current Medications Generic Name Dose Route Start Last Admin Trade Name Freq PRN Reason Stop Dose Admin Acetaminophen 650 mg 09/22/20 16:22 10/01/20 09:18 Acetaminophen 325 Mg Tablet PO 650 mg Q6H PRN Administration Headache/Pain Mild Scale (1-3) Al Hydroxide/Mg Hydroxide 30 ml 09/22/20 16:22 Magnesium Hydrox/Alum Hydrox 30 Ml Oral.Susp PO Q6H PRN Heartburn/Nausea Clonazepam 0.5 mg 09/27/20 13:48 10/02/20 21:36 Clonazepam 0.5 Mg Tablet PO 0.5 mg TID PRN Administration Anxiety Hydroxyzine HCl 25 mg 09/22/20 16:22 09/26/20 20:59 Hydroxyzine Hcl 25 Mg Tablet PO 25 mg BEDTIME PRN Administration Anxiety Hydroxyzine HCl 10 mg 09/28/20 22:30 Hydroxyzine Hcl 10 Mg Tablet PO BID@1300,1630 PRN Anxiety Magnesium Hydroxide 30 ml 09/22/20 16:22 Milk Of Magnesia 30 Ml Oral.Susp PO DAILY PRN Constipation Pt Own Phenelzine 15 1 each 09/22/20 21:00 10/03/20 20:55 Mg PO 1 each BEDTIME ROSA Administration Pt Own Phenelzine 15 2 each 09/23/20 08:00 10/04/20 13:55 Mg PO 2 each BID@0800,1200 ROSA Administration Quetiapine Fumarate 12.5 mg 09/22/20 22:17 09/27/20 12:07 Quetiapine Fumarate 25 Mg Tablet PO 12.5 mg Q4H PRN Administration Anxiety Quetiapine Fumarate 25 mg 09/24/20 21:45 10/03/20 20:55 Quetiapine Fumarate 25 Mg Tablet PO 25 mg BEDTIME ROSA Administration Allergies Allergies Allergy/AdvReac Type Severity Reaction Status Date / Time levofloxacin [From Levaquin] Allergy Rash Verified 09/08/20 14:08 tyramine Allergy Hypertensio Uncoded 09/08/20 14:06 n Assessment & Plan Assessment & Plan (1) Major depressive disorder, recurrent severe without psychotic features: Status: Acute Code(s): F33.2 - Major depressive disorder, recurrent severe without psychotic features Assessment and Plan: improved mood and stability consider d/c tomm outpt ect and php (2) Generalized anxiety disorder: Status: Acute Code(s): F41.1 - Generalized anxiety disorder Greater than 50% of the session was spent on counseling and/or coordination of care Reason for contiued inpatient stay Substantial Risk for: inability to function and rapid decompensation
[2020-10-04] MEDS: QUEtiapine Fumarate 25 MG TABLET PO (21:35)
[2020-10-05 06:00] VITALS: BP 118/58; PULSE 75; RESP 18; TEMP 35.8; O2SAT 93
--- NOTE | 2020-10-05 11:37 | PM.PSYDC ---
DS: Providers Provider Date of Service: 10/05/20 Date of admission: 09/22/20 15:09 Date of discharge: 10/05/20 Admitting clinician: Delvin Escobedo Attending physician on admission: Delvin Escobedo Consults: 09/23/20 11:46 Consult to Hospitalist Routine Consulting Provider: Hospitalist Reason For Exam: medical clearance 09/24/20 22:38 Consult to Neurology Routine Consulting Provider: [facility] Reason for consultation: tremor /attentional st memory problems depression DS: Diagnosis Discharge Diagnosis (1) Major depressive disorder, recurrent severe without psychotic features: Status: Acute (2) Generalized anxiety disorder: Status: Acute DS: Medications Discharge Medications Home Medications: Home Medications Medication Instructions Recorded Confirmed phenelzine 15 mg tablet 15 mg PO BEDTIME 09/08/20 10/08/20 phenelzine 15 mg tablet 30 mg PO BID@0800,1200 09/08/20 10/08/20 Previous Rx's Medication Instructions Recorded hydroxyzine HCl 25 mg tablet 25 mg PO BEDTIME PRN 30 Days #45 10/05/20 tab quetiapine 25 mg tablet 25 mg PO BEDTIME 30 Days #45 tab 10/05/20 clonazepam 0.5 mg tablet (Klonopin) 0.5 mg PO TID PRN 7 Days #21 tab 10/08/20 Mental Status Exam Mental Status Exam Narrative: Well-developed, well-nourished female, in no apparent distress. Sitting up at a table during encounter. Patient Appearance: Well Grooomed and Appropriate Patient Orientation: Person, Place, Time and Situation Level of Consciousness: Awake, Appropriate and Alert Patient Behavior: Appropriate and Cooperative Mood Description: Appropriate and Anxious Affect Description: Appropriate, Anxious and Flat Patient Cognition Impaired: No Ability to Follow Directions: Excellent Speech Pattern: Clear and Appropriate Memory Description: Episodic Impaired (Patient receiving scheduled ECT treatments, which appears to have affected memory at times.) Hallucinations: None Delusions: Not Present Thought Process: Intact and Goal Oriented Thought Content: positive for Intact, positive for Preoccupation, negative for Suicidal Ideation or negative for Homicidal Ideation Depressive Symptoms: Increased Anxiety, Diff. Making Decisions, Increased Fatigue and Loss of Energy Judgement: Fair Data Imaging Diagnostic Imaging Impressions Head CT 09/25/20 09:10 IMPRESSION: 1. No acute intracranial abnormality. 2. Inflammatory changes in the paranasal sinuses as detailed above. DS: Summary Hospital Course Hospital Course: [address] [address] Psychiatry Admission Note (In) Signed Patient: Yaneth Mcclendon MR#: [id number] : 1950 Acct:[id number] Age/Sex: 70 / F Loc: HO.PGERI 183-1 ?? ? Attending Dr: Delvin Escobedo MD cc: ~ HPI Chief Complaint: SEVERE DEPRESSION AND ANXIETY Sources of Information: patient interviewed, chart reviewed and crisis/core team assessment reviewed HPI Subjective Notes: Conditional Voluntary Narrative: The patient is a 70 year old female, , living with her , readmitted after been discharged a few days ago for depressive symptoms.? Apparently, after discharge, she couldn't fill her Rexulti, her copayment was over $700 and she couldn't afford it.? She reported exacerbation of depressive symptoms elicitied by depressed mood, anhedonia, lack of energy, poor sleep, poor appetite, feelings of worthlesness and hopelessness and now, recently, passive suicidal thoughts without a clear plan. We discussed her diagnosis and treatment options.? She stated that since Nardel was re-started, she has not been at baseline and so far, medication management has not helped. She denies acute psychotic symptoms Past Psychiatric History: Her first psychiatrict contact was on her early 20's with several admissions into the hospital.? The patient reported that she was fairly stable on Nardel for more than 20 years. She had TMS more than 30 sessions in [id number] with limited improvement Medical Evaluation Reviewed: Hospitalist Gracie Pending (direct admission) [facility] Medical History? Generalized anxiety disorder Surgical History? 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 09/22/20 16:46 Temperature 97.8 F Pulse Rate 79 Respiratory Rate 17 Blood Pressure 121/56 L Pulse Oximetry 96 Body Mass Index ? 23.3? Labs Labs: Laboratory Results - last 48 hr ? 09/22/20 09/22/20 ? 15:40 22:00 Urine Color ? ?YELLOW Urine Appearance ? ?HAZY Urine pH ? ?6.0 Ur Specific [place] ? ?1.010 Urine Protein ? ?NEG Urine Glucose (UA) ? ?NEG Urine Ketones ? ?NEG Urine Blood ? ?TRACE Urine Nitrite ? ?NEG Ur Leukocyte Esterase ? ?NEG Urine RBC ? ?1-4 Urine WBC ? ?1-4 Ur Squamous Epith Cells ? ?1+ Urine Bacteria ? ?4+ COVID-19 (JOELLE) ?Negative ? COVID-19 Clin Com ?See Note ? Meds/Allergies Meds Home Medications Acetaminophen (Acetaminophen 325 Mg Tablet)? 650 mg PO Q6H PRN PRN Reason: Headache/Pain Mild Scale (1-3) Al Hydroxide/Mg Hydroxide (Magnesium Hydrox/Alum Hydrox 30 Ml Oral.Susp)? 30 ml PO Q6H PRN PRN Reason: Heartburn/Nausea Clonazepam (Clonazepam 0.5 Mg Tablet)? 0.5 mg PO TID [facility] Last Admin: 09/23/20 08:05 Dose:? 0.5 mg Documented by: Hydroxyzine HCl (Hydroxyzine Hcl 25 Mg Tablet)? 25 mg PO BEDTIME PRN PRN Reason: Anxiety Last Admin: 09/22/20 21:41 Dose:? 25 mg Documented by: Magnesium Hydroxide (Milk Of Magnesia 30 Ml Oral.Susp)? 30 ml PO DAILY PRN PRN Reason: Constipation Pt Own Phenelzine 15 (Mg)? 1 each PO BEDTIME [facility] Last Admin: 09/22/20 22:17 Dose:? 1 each Documented by: Pt Own Phenelzine 15 (Mg)? 2 each PO BID@0800,1200 [facility] Last Admin: 09/23/20 12:01 Dose:? 2 each Documented by: Quetiapine Fumarate (Quetiapine Fumarate 25 Mg Tablet)? 12.5 mg PO Q4H PRN PRN Reason: Anxiety Last Admin: 09/23/20 13:12 Dose:? 12.5 mg Documented by: Trazodone HCl (Trazodone Hcl 50 Mg Tablet)? 50 mg PO BEDTIME PRN PRN Reason: Insomnia Last Admin: 09/22/20 21:41 Dose:? 50 mg Documented by: Allergies Allergies Allergy/AdvReac Type Severity Reaction Status Date / Time levofloxacin [From Levaquin] Allergy ? Rash Verified 09/08/20 14:08 tyramine Allergy ? Hypertensio Uncoded 09/08/20 14:06 ? ? ? n ? ? Mental Status Exam Mental Status Exam Patient Appearance: Well Grooomed Patient Orientation: Person, Place, Time and Situation Level of Consciousness: Awake Patient Behavior: Appropriate, Cooperative and Passive Mood Description: Withdrawn and Depressed Affect Description: Constricted Patient Cognition Impaired: No Ability to Follow Directions: Good Speech Pattern: Clear Memory Description: Intact Hallucinations: None Delusions: Not Present Thought Process: Slowed Thinking Thought Content: positive for Poverty of Content Depressive Symptoms: Increased Anxiety, Insomnia, Diff. Making Decisions, Difficulty Sleeping, Changes in Appetite and Crying Spells Judgement: Fair Assessment & Plan Assessment & Plan (1) Major depressive disorder, recurrent severe without psychotic features: ?Status:?Acute ?Code(s): F33.2 - Major depressive disorder, recurrent severe without psychotic features ?Assessment and Plan: Adult female with MDD severe with severe neurovegetative symptoms that has not improved with medication management. Plan: 1. Keep same treatment. 2. Consider ECT. 3. Gather collateral information. 4. Family meeting . Patient educated on: diagnosis, medication risk/benefits and ECT Reason for continued inpatient stay Substantial Risk for: inability to function, stable for discharge and med/psych decompensation HOSPITAL COURSE THE PAT[facility]OLUNTARY. AT 1ST THE PATIENT'S WAS QUITE UPSET THAT SHE HAD BEEN HOSPITALIZE SO SOON AFTER HER INITIAL HOSPITALIZATION EVENTUALLY A MEETING WAS HELD WITH THE PATIENT HER AND 2 BROTHERS AND DIAGNOSIS IN POTENTIAL TREATMENT PLANS WERE REVIEWED. THE PATIENT HAD BEEN SIGNIFICANTLY IMPAIRED DEPRESSED ANXIOUS RUMINATING UNABLE TO TOLERATE BEING ALONE WITH INTRUSIVE ANXIETY AGITATION HOPELESSNESS AND HELPLESSNESS. SHE WAS STARTED ON LOW-DOSE QUETIAPINE WHICH SHE DID TOLERATE. CLONAZEPAM WAS ALSO STARTED ON A SCHEDULED BASIS. GIVEN LENGTH OF TIME PATIENT HAD BEEN DEPRESSED AND GIVEN THAT SHE WAS ON AN MAO INHIBITOR WHICH LIMITS TREATMENT OPTIONS EXTENSIVE DISCUSSION WAS HELD REGARDING TREATMENT WITH ECT. THE PATIENT HAD FAILED TMS . THE PATIENT WAS SUCCESSFULLY TREATEDWITH FOUR RIGHT UNILATERAL ECT TREATMENTS. SHE WAS TREATED WITH A TIME IN A 12 MG SUCCINYLCHOLINE 100 MG PROPOFOL 30 MG SEIZURE DURATION OF 49 SECONDS BY EEG THE PLAN WAS TO DO CONTINUE A GOODE TREATMENT AN OUTPATIENT PATIENT AND WERE ON BOARD WITH THIS. SHE DID SHOW A SIGNIFICANT IMPROVEMENT WITH COMBINATION OF ECT TREATMENT NARDIL AND LOW-DOSE SEROQUEL SHE HAS ALSO BEEN REFERRED TO THE [facility] PATIENT WAS MUCH CALMER FUTURE ORIENTED PLEASANT WITH MILD RESIDUAL DEPRESSIVE AND ANXIETY SYMPTOMS AT THE TIME OF DISCHARGE SHE DID DO A LOT OF PLANNING AND THINKING OF HOW HE SHE COULD STRUCTURE HER TIME OUTPATIENT Time Spent with Patient Time attestation: Total time spent providing and/or coordinating discharge services: Discharge Plan Discharge Patient Disposition: Home, Self-Care Discharge Diagnosis: major depression recurrent severe generalized anxiety disorder Referrals: Dr. Delvin Escobedo [Other] - 1 Week (Appointment with psychiatrist scheduled for October @ 11:30 AM in person/ in office.) Geetha NOGUERA (therapists) [Other] - 1 Week (T/kolton spoke with therapists via phone on 10/04/20, she requested Yaneth call her directly or email her to schedule next appointment. T/w spoke with Yaneth and she is in agreement.) [facility] [Other] - 1 Week (PHP will be through telehealth, T/w spoke with Mayra who scheduled intake appointment for , October 07, 2020. They will email link to Yaneth.) Outpatient ECT [facility] [Other] - 1 Week (ECT outpatient appointment scheduled for tomorrow 10/06/20 @ 7 AM.) Discharge Medications: New quetiapine 25 mg Tablet 25 mg PO BEDTIME 30 Days Qty: 45 RF: 2 hydroxyzine HCl 25 mg Tablet 25 mg PO BEDTIME PRN (Reason: Anxiety) 30 Days Qty: 45 RF: 1 Continued phenelzine 15 mg Tablet 30 mg PO BID@0800,1200 RF: 0 phenelzine 15 mg Tablet 15 mg PO BEDTIME RF: 0 Discontinued Rexulti 1 mg Tablet 0.5 mg PO BID 30 Days Qty: 30 RF: 1 clonazepam 0.5 mg Tablet 0.5 mg PO BID Qty: 0 RF: 0 No Action clonazepam [Klonopin] 0.5 mg tablet 0.5 mg PO TID PRN (Reason: anxiety) 7 Days Qty: 21 RF: 0 Discharge Orders: Discharge Order (Routine); Ordered 10/05/20 Ordered By: Delvin Escobedo Diet: advance to usual diet Activity on Discharge: no driving Stand Alone Forms: Patient Portal Discharge page, Community Support Care Plan Goals: stable mood management of anxiety Health Concerns: major depression recurrent generalized anxiety Plan of Treatment: ect scheduled 10/06 come 6 am short stay surgery medication partial hospital ind therapy Assessment: much improved Patient Instructions: Low Tyramine Diet (DC) Discharge Date/Time: 10/05/20 13:20
== END 2020-10-05 13:20 | disposition home or self-care (01) | DRG 885 ==
LOC: HO.PGERI 15:11
PROVIDERS: Internal Medicine; Psychiatry & Neurology Psychiatry; Admitting Provider Psychiatry & Neurology Psychiatry; Visit Provider Psychiatry & Neurology Psychiatry
PROC: GZB4ZZZ Other Electroconvulsive Therapy (ICD-10-PCS; CPT 90870; principal; 2020-09-27 07:30)
DX: F33.2 Major depressive disorder, recurrent severe without psychotic features (principal); R45.851 Suicidal ideations; F41.1 Generalized anxiety disorder; T50.906A Underdosing of unspecified drugs, medicaments and biological substances, initial encounter; Z91.120 Patient's intentional underdosing of medication regimen due to financial hardship; Y92.9 Unspecified place or not applicable; Z20.822 Contact with and (suspected) exposure to COVID-19; Z79.899 Other long term (current) drug therapy
CPT/HCPCS: 36415; 70450; 80053; 81001; 85025; 87635; 90870; 93005; C9803; J0330; J1885; J2405

== ENCOUNTER 2020-10-06 06:08 | Day surgery (SDC) | payer MEDICARE, SELFPAY ==
[2020-10-06] VITALS (8 sets, daily range): BP systolic 105–128; BP diastolic 48–69; PULSE 56–73; RESP 16–20; TEMP 36.2–36.4; O2SAT 95–99; BMI 22.8
--- NOTE | 2020-10-06 06:54 | P.CONAN_ITS ---
[facility] Active Problems Active Problems: All Active Problems (Updated 09/08/20 @ 16:26 by ROBIN Lcay) Generalized anxiety disorder (Acute) Major depressive disorder, recurrent severe without psychotic features (Acute) Past Medical History Medical History Generalized anxiety disorder Family History Family History Mother Breast cancer HTN (hypertension) Family history of problems with anesthesia: No Surgical History Surgical History History of appendectomy History of Problems with Anesthesia: No Social History Social History Household Members: Spouse Housing: House Do you presently have visiting nurse or other home services: No Alcohol intake: never Patient Tobacco Use Status: Never used Tobacco e-Cigarette/Vaping Use: Never Used Second Hand Smoke Exposure: No Advance Directives: No Advance Directives Information Provided: Yes Recently lost weight without trying: No service: No Sexual orientation: Straight/Heterosexual Meds Allergies Allergy/AdvReac Type Severity Reaction Status Date / Time levofloxacin [From Levaquin] Allergy Rash Verified 09/08/20 14:08 tyramine Allergy Hypertensio Uncoded 09/08/20 14:06 n Active Medications: Current Medications Generic Name Dose Route Start Last Admin Trade Name Freq PRN Reason Stop Dose Admin Lactated Ringer's 1,000 mls @ 50 mls/hr 10/06/20 07:00 Lr IVCONT .Q20H [facility] Home Medications Medication Instructions Recorded Confirmed Last Taken Type phenelzine 15 mg tablet 15 mg PO BEDTIME 09/08/20 10/01/20 09/07/20 History phenelzine 15 mg tablet 30 mg PO BID@0800,1200 09/08/20 10/01/20 09/08/20 History Exam Exam Date and Time: October 06, 2020 0654 Height,Weight and Vital Signs: Height 5 ft 7 in Weight 66.224 kg Last Vital Signs Temp 97.1 F 10/06/20 06:24 Pulse 68 10/06/20 06:24 Resp 18 10/06/20 06:24 BP 114/58 L 10/06/20 06:24 Pulse Ox 96 10/06/20 06:24 Airway Mallampati Class: II TM Dist: >3cm Neck ROM: Full Heart: rrr Lungs: cta Assessment and Plan Final Anesthetic Review Family History of Problems with Anesthesia: No History of Problems with Anesthesia: No NPO: Yes ASA Class: III Final Preanesthetic Review: No Changes in Pt Med Stat, Meds/Allgs Chart Reviewed and Consent Obtained/Reviewed Patient Risk: Intermediate Procedure Risk: Intermediate Anesthetic Plan Anesthetic Plan: GA Disposition: Standard PACU
--- NOTE | 2020-10-06 07:05 | MHC.SHP ---
Pre-Procedural Eval Section A Date of Service: 10/06/20 The patient is an INPATIENT: No Changes since office visit: Yes Patient answered all questions; No Cold of Flu in the past 2 weeks, No New Medical Problems and No Changes in Medication The History & Physical has been completed within 30 days and I have reviewed it.: Yes Section B Chief Complaint: Severe Depression Allergies: Allergies Allergy/AdvReac Type Severity Reaction Status Date / Time levofloxacin [From Levaquin] Allergy Rash Verified 09/08/20 14:08 tyramine Allergy Hypertensio Uncoded 09/08/20 14:06 n Plan I have reviewed the history and physical and performed a pertinent physical examination on my patient. No changes have occurred unless specified.
--- NOTE | 2020-10-06 07:26 | HO.ECTPROC ---
ECT Procedure Note Diagnosis/Treatment Date of Service: 10/06/20 Current Treatment Number: 5 Treatment: Series Interval Clinical Notes: pt doing well discharged to home ECT Settings Device: THYMATRON DGx Electrode Placement: Right Unilateral Program/Pulse Width: 0.50 Energy Percent: 100 Seizure Duration By EEG (in seconds): 49 Medications Administration General Anesthetic: Etomidate (14) Muscle Relaxant: Succinylcholine (100) Airway Management Airway Management: Bag Mask Ventilation Treatment Recommendations Program/Pulse Width: 0.25
== END 2020-10-06 08:55 | disposition home or self-care (01) ==
PROVIDERS: PCP Internal Medicine; Visit Provider Psychiatry & Neurology Psychiatry
PROC: (CPT 90870; principal; 2020-10-06 07:00)
DX: F33.2 Major depressive disorder, recurrent severe without psychotic features (principal); F41.1 Generalized anxiety disorder; Z79.899 Other long term (current) drug therapy; Z88.8 Allergy status to other drugs, medicaments and biological substances
CPT/HCPCS: 90870; J0330

== ENCOUNTER 2020-10-20 06:02 | Day surgery (SDC) | payer MEDICARE, SELFPAY ==
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
--- NOTE | 2020-10-19 12:39 | HO.PHPPROGNO ---
Subjective Subjective Date of Service: 10/20/20 Reason For Visit: depression Interim History: The patient reported that she remains depressed, she is back on Nardil 75 mg with no side effects. She is scheduled for ECT tomorrow AM and we will discuss at the end of the week if we have to increase her antidepressant. So far, she is dysphoric but no evidence of safety concerns, attending to the PHP Review of Systems Acute medical concerns: No Medical Review of Systems: unchanged Mental Status Exam Mental Status Exam Patient Appearance: Well Grooomed Patient Orientation: Person, Place, Time and Situation Level of Consciousness: Awake Patient Behavior: Appropriate Mood Description: Calm and Depressed Affect Description: Constricted Patient Cognition Impaired: No Ability to Follow Directions: Good Speech Pattern: Clear Memory Description: Intact Hallucinations: None Delusions: Not Present Thought Process: Intact and Goal Oriented Thought Content: positive for Circumstantial Depressive Symptoms: Increased Anxiety, Insomnia and Diff. Making Decisions Judgement: Fair Assessment & Plan Assessment & Plan (1) Generalized anxiety disorder: Status: Acute Code(s): F41.1 - Generalized anxiety disorder (2) Major depressive disorder, recurrent severe without psychotic features: Status: Acute Code(s): F33.2 - Major depressive disorder, recurrent severe without psychotic features Assessment and Plan: Middle age female with a long history of MDD severe on MAO inhibitors and ECT, referred to [facility] after inpatient treatment. Plan: Keep Nardil on 75 mg ECT Patient educated on: diagnosis, medication risk/benefits, ECT and therapeutic strategies Informed Consent: understands Reason for contiued partial hosp. stay Substantial Risk for: inability to function, rapid decompensation and med/psych decompensation Certification I certify that partial hospital treatment is medically necessary due to the symptoms and problems resulting from the patient's mental illness and the failure to treat the patient at the partial hospital level of care would likely result in the patient requiring inpatient psychiatric care which could not be prevented at a less intensive level of care. Greater than 50% of the session was spent on counseling and/or coordination of care Discharge Plan Discharge Patient Disposition: Home, Self-Care Referrals: Ashok Guerrero MD [Primary Care Provider] - 1 Week Discharge Medications: No Action phenelzine 15 mg Tablet 30 mg PO BID@0800,1200 RF: 0 phenelzine 15 mg Tablet 15 mg PO BEDTIME RF: 0 quetiapine 25 mg Tablet 25 mg PO BEDTIME 30 Days Qty: 45 RF: 2 hydroxyzine HCl 25 mg Tablet 25 mg PO BEDTIME PRN (Reason: Anxiety) 30 Days Qty: 45 RF: 1 clonazepam [Klonopin] 0.5 mg tablet 0.5 mg PO TID PRN (Reason: anxiety) 7 Days Qty: 21 RF: 0 Telehealth Telehealth Location of provider rendering services: practice address Location of patient: address on file Patient Identification confirmed using: Name, : Yes Telehealth method: video Patient verbally consented to treatment: Yes Patient verbally consented to billing insurance company: Yes Patient informed of any privacy concerns related to visit: No Time spent with patient (mins): 15
[2020-10-20] VITALS (9 sets, daily range): BP systolic 109–158; BP diastolic 54–82; PULSE 44–76; RESP 16–18; TEMP 36.4–36.6; O2SAT 94–99; BMI 25.7
--- NOTE | 2020-10-20 07:00 | MHC.SHP ---
Pre-Procedural Eval Section A Date of Service: 10/20/20 The patient is an INPATIENT: No Changes since office visit: No Cold of Flu in the past 2 weeks, No New Medical Problems, No Changes in Medication and No Patient answered all questions The History & Physical has been completed within 30 days and I have reviewed it.: Yes Section B Chief Complaint: depression Allergies: Allergies Allergy/AdvReac Type Severity Reaction Status Date / Time levofloxacin [From Levaquin] Allergy Rash Verified 09/08/20 14:08 phenelzine Allergy Unknown Verified 10/19/20 10:13 tyramine Allergy Hypertensio Uncoded 09/08/20 14:06 n Plan I have reviewed the history and physical and performed a pertinent physical examination on my patient. No changes have occurred unless specified.
--- NOTE | 2020-10-20 07:31 | HO.ANESPROP2 ---
[facility] Active Problems Active Problems: All Active Problems (Updated 09/08/20 @ 16:26 by ROBIN Lacy) Generalized anxiety disorder (Acute) Major depressive disorder, recurrent severe without psychotic features (Acute) Past Medical History Medical History Generalized anxiety disorder Family History Family History Mother Breast cancer HTN (hypertension) Family history of problems with anesthesia: No Surgical History Surgical History History of appendectomy History of Problems with Anesthesia: No Social History Social History Household Members: Spouse Housing: House Do you presently have visiting nurse or other home services: No Alcohol intake: never Patient Tobacco Use Status: Never used Tobacco e-Cigarette/Vaping Use: Never Used Second Hand Smoke Exposure: No Are you DNR?: No Advance Directives: No Advance Directives Information Provided: Yes Recently lost weight without trying: No service: No Sexual orientation: Straight/Heterosexual Meds Allergies Allergy/AdvReac Type Severity Reaction Status Date / Time levofloxacin [From Levaquin] Allergy Rash Verified 09/08/20 14:08 phenelzine Allergy Unknown Verified 10/19/20 10:13 tyramine Allergy Hypertensio Uncoded 09/08/20 14:06 n Home Medications Medication Instructions Recorded Confirmed Last Taken Type phenelzine 15 mg tablet 15 mg PO BEDTIME 09/08/20 10/08/20 10/07/20 22:00 History phenelzine 15 mg tablet 30 mg PO BID@0800,1200 09/08/20 10/08/20 10/08/20 08:00 History Exam Exam Date and Time: October 20, 202031 Height,Weight and Vital Signs: Height 5 ft 6 in Weight 72.364 kg Last Vital Signs Temp 97.6 F 10/20/20 06:58 Pulse 76 10/20/20 06:58 Resp 16 10/20/20 06:58 BP 109/59 L 10/20/20 06:58 Pulse Ox 97 10/20/20 06:58 Airway Mallampati Class: II TM Dist: >3cm Neck ROM: Full Assessment and Plan Assessment Anesthesia Assessment: Anesthesia Plan Discussed Final Anesthetic Review Family History of Problems with Anesthesia: No History of Problems with Anesthesia: No NPO: Yes ASA Class: II Final Preanesthetic Review: No Changes in Pt Med Stat, Meds/Allgs Chart Reviewed, Consent Obtained/Reviewed and Anes Risks/Benef Reviewed Patient Risk: Low Procedure Risk: Low Assessment/Block/Sedation in SS: Assess/Block/Sedation-SS Anesthetic Plan Anesthetic Plan: GA Disposition: Standard PACU
--- NOTE | 2020-10-20 07:44 | P.PCN_ITS ---
ECT Procedure Note Diagnosis/Treatment Date of Service: 10/20/20 Diagnosis: Major Depressive Disorder Treatment: Maintenance Interval Clinical Notes: The patient remains depressed, attending to [facility], no new medication changes ECT Settings Device: THYMATRON DGx Electrode Placement: Right Unilateral Program/Pulse Width: 0.50 Energy Percent: 100 Seizure Duration By EEG (in seconds): 45 By Motor Observation (in seconds): 15 Medications Administration General Anesthetic: Etomidate (16) Muscle Relaxant: Succinylcholine (100) Ancillary Medications Analgesics: Torodol - Pre ECT Anti-emetics: Zofran - Pre ECT Miscillaneous Medications: Propofol Airway Management Airway Management: Bag Mask Ventilation Treatment Recommendations No Changes Recommended: No change Pt Tolerated Procedure w/o Issue: Yes
== END 2020-10-20 09:41 | disposition home or self-care (01) ==
LOC: HO.SSS 06:03
PROVIDERS: PCP Internal Medicine; Visit Provider Psychiatry & Neurology Psychiatry
PROC: (CPT 90870; principal; 2020-10-20 07:00)
DX: F33.2 Major depressive disorder, recurrent severe without psychotic features (principal); F41.1 Generalized anxiety disorder; Z79.899 Other long term (current) drug therapy
CPT/HCPCS: 90870; J0330

== ENCOUNTER 2020-10-22 05:56 | Day surgery (SDC) | payer MEDICARE, SELFPAY ==
[2020-10-22 06:19] VITALS: BP 122/57; PULSE 71; RESP 16; TEMP 36.2; O2SAT 95; BMI 24.2
--- NOTE | 2020-10-22 07:07 | MHC.SHP ---
Pre-Procedural Eval Section A Date of Service: 10/22/20 The patient is an INPATIENT: No Changes since office visit: No Cold of Flu in the past 2 weeks, No New Medical Problems, No Changes in Medication and No Patient answered all questions The History & Physical has been completed within 30 days and I have reviewed it.: Yes Section B Chief Complaint: depression Allergies: Allergies Allergy/AdvReac Type Severity Reaction Status Date / Time levofloxacin [From Levaquin] Allergy Rash Verified 09/08/20 14:08 phenelzine Allergy Unknown Verified 10/19/20 10:13 tyramine Allergy Hypertensio Uncoded 09/08/20 14:06 n Plan I have reviewed the history and physical and performed a pertinent physical examination on my patient. No changes have occurred unless specified.
--- NOTE | 2020-10-22 07:11 | HO.ANESPROP2 ---
[facility] Active Problems Active Problems: All Active Problems (Updated 09/08/20 @ 16:26 by ROBIN Lacy) Generalized anxiety disorder (Acute) Major depressive disorder, recurrent severe without psychotic features (Acute) Past Medical History Medical History Generalized anxiety disorder Family History Family History Mother Breast cancer HTN (hypertension) Family history of problems with anesthesia: No Surgical History Surgical History History of appendectomy History of Problems with Anesthesia: No Social History Social History Household Members: Spouse Housing: House Do you presently have visiting nurse or other home services: No Alcohol intake: never Patient Tobacco Use Status: Never used Tobacco e-Cigarette/Vaping Use: Never Used Second Hand Smoke Exposure: No Are you DNR?: No Advance Directives: No Advance Directives Information Provided: Yes Recently lost weight without trying: No service: No Sexual orientation: Straight/Heterosexual Meds Allergies Allergy/AdvReac Type Severity Reaction Status Date / Time levofloxacin [From Levaquin] Allergy Rash Verified 09/08/20 14:08 phenelzine Allergy Unknown Verified 10/19/20 10:13 tyramine Allergy Hypertensio Uncoded 09/08/20 14:06 n Home Medications Medication Instructions Recorded Confirmed Last Taken Type phenelzine 15 mg tablet 15 mg PO BEDTIME 09/08/20 10/08/20 10/07/20 22:00 History phenelzine 15 mg tablet 30 mg PO BID@0800,1200 09/08/20 10/08/20 10/08/20 08:00 History Exam Exam Date and Time: October 22, 2020 0711 Height,Weight and Vital Signs: Height 5 ft 6 in Weight 68.039 kg Last Vital Signs Temp 97.2 F 10/22/20 06:19 Pulse 71 10/22/20 06:19 Resp 16 10/22/20 06:19 BP 122/57 L 10/22/20 06:19 Pulse Ox 95 10/22/20 06:19 Airway Mallampati Class: II TM Dist: >3cm Neck ROM: Full Assessment and Plan Assessment Anesthesia Assessment: Anesthesia Plan Discussed and Chart Reviewed Final Anesthetic Review Family History of Problems with Anesthesia: No History of Problems with Anesthesia: No NPO: Yes ASA Class: II Final Preanesthetic Review: No Changes in Pt Med Stat, Meds/Allgs Chart Reviewed, Consent Obtained/Reviewed and Anes Risks/Benef Reviewed Patient Risk: Low Procedure Risk: Low Assessment/Block/Sedation in SS: Assess/Block/Sedation-SS Anesthetic Plan Anesthetic Plan: GA Disposition: Standard PACU
--- NOTE | 2020-10-22 07:37 | P.PCN_ITS ---
ECT Procedure Note Diagnosis/Treatment Date of Service: 10/22/20 Diagnosis: Major Depressive Disorder Previous ECT Date: 10/20/20 Treatment: Series Interval Clinical Notes: The patient remains depressed, she is still attending to [facility] ECT Settings Device: THYMATRON DGx Electrode Placement: Right Unilateral Program/Pulse Width: 0.50 Energy Percent: 100 Seizure Duration By EEG (in seconds): 31 By Motor Observation (in seconds): 24 Medications Administration General Anesthetic: Etomidate (12) Muscle Relaxant: Succinylcholine (100) Ancillary Medications Analgesics: Torodol - Pre ECT Anti-emetics: Zofran - Pre ECT Miscillaneous Medications: Propofol and Midazolam Airway Management Airway Management: Bag Mask Ventilation Treatment Recommendations No Changes Recommended: No change Pt Tolerated Procedure w/o Issue: Yes
[2020-10-22 07:50] VITALS: BP 173/71; PULSE 47; RESP 16; TEMP 37.2; O2SAT 99
[2020-10-22 07:55] VITALS: BP 140/69; PULSE 52; RESP 17; O2SAT 99
[2020-10-22 08:00] VITALS: BP 138/72; PULSE 59; RESP 16; O2SAT 99
[2020-10-22 08:05] VITALS: BP 132/57; PULSE 54; RESP 16; O2SAT 97
[2020-10-22 08:21] VITALS: BP 135/61; PULSE 57; O2SAT 95
== END 2020-10-22 08:44 | disposition home or self-care (01) ==
PROVIDERS: PCP Internal Medicine; Visit Provider Psychiatry & Neurology Psychiatry
PROC: (CPT 90870; principal; 2020-10-22 08:00)
DX: F33.2 Major depressive disorder, recurrent severe without psychotic features (principal); F41.1 Generalized anxiety disorder; Z79.899 Other long term (current) drug therapy; Z88.8 Allergy status to other drugs, medicaments and biological substances
CPT/HCPCS: 90870; J0330

== ENCOUNTER 2020-10-25 05:59 | Day surgery (SDC) | payer MEDICARE, SELFPAY ==
[2020-10-25] VITALS (9 sets, daily range): BP systolic 106–141; BP diastolic 48–72; PULSE 47–73; RESP 12–16; TEMP 36.1–36.5; O2SAT 95–100; BMI 25.7; BMI 25.8
--- NOTE | 2020-10-25 06:46 | HO.ANESPROP2 ---
[facility] Active Problems Active Problems: All Active Problems (Updated 09/08/20 @ 16:26 by ROBIN Lacy) Generalized anxiety disorder (Acute) Major depressive disorder, recurrent severe without psychotic features (Acute) Past Medical History Medical History Generalized anxiety disorder Family History Family History Mother Breast cancer HTN (hypertension) Family history of problems with anesthesia: No Surgical History Surgical History History of appendectomy History of Problems with Anesthesia: No Social History Social History Household Members: Spouse Housing: House Do you presently have visiting nurse or other home services: No Alcohol intake: never Patient Tobacco Use Status: Never used Tobacco e-Cigarette/Vaping Use: Never Used Second Hand Smoke Exposure: No Advance Directives: No Advance Directives Information Provided: Yes service: No Sexual orientation: Straight/Heterosexual Meds Allergies Allergy/AdvReac Type Severity Reaction Status Date / Time levofloxacin [From Levaquin] Allergy Rash Verified 09/08/20 14:08 phenelzine Allergy Unknown Verified 10/19/20 10:13 tyramine Allergy Hypertensio Uncoded 09/08/20 14:06 n Active Medications: Current Medications Generic Name Dose Route Start Last Admin Trade Name Freq PRN Reason Stop Dose Admin Lactated Ringer's 1,000 mls @ 50 mls/hr 10/25/20 06:45 Lr IVCONT .Q20H [facility] Home Medications Medication Instructions Recorded Confirmed Last Taken Type phenelzine 15 mg tablet 15 mg PO BEDTIME 09/08/20 10/08/20 10/07/20 22:00 History phenelzine 15 mg tablet 30 mg PO BID@0800,1200 09/08/20 10/08/20 10/08/20 08:00 History Exam Exam Date and Time: October 25, 2020 0646 Height,Weight and Vital Signs: Height 5 ft 6 in Weight 72.5 kg Last Vital Signs Temp 97 F 10/25/20 06:29 Pulse 64 10/25/20 06:29 Resp 16 10/25/20 06:29 BP 119/62 10/25/20 06:29 Pulse Ox 97 10/25/20 06:29 Airway Mallampati Class: II (Missing 2 teeth) TM Dist: >3cm Neck ROM: Full Heart: rrr Lungs: cta bl Assessment and Plan Assessment Anesthesia Assessment: Anesthesia Plan Discussed and Chart Reviewed Final Anesthetic Review Family History of Problems with Anesthesia: No History of Problems with Anesthesia: No ASA Class: III Final Preanesthetic Review: No Changes in Pt Med Stat and Consent Obtained/Reviewed Patient Risk: Intermediate Procedure Risk: Intermediate Anesthetic Plan Anesthetic Plan: GA Disposition: Standard PACU
--- NOTE | 2020-10-25 06:54 | MHC.SHP ---
Pre-Procedural Eval Section A Date of Service: 10/25/20 The patient is an INPATIENT: No Changes since office visit: No Cold of Flu in the past 2 weeks, No New Medical Problems, No Changes in Medication and No Patient answered all questions The History & Physical has been completed within 30 days and I have reviewed it.: Yes Section B Chief Complaint: depression Allergies: Allergies Allergy/AdvReac Type Severity Reaction Status Date / Time levofloxacin [From Levaquin] Allergy Rash Verified 09/08/20 14:08 phenelzine Allergy Unknown Verified 10/19/20 10:13 tyramine Allergy Hypertensio Uncoded 09/08/20 14:06 n Plan I have reviewed the history and physical and performed a pertinent physical examination on my patient. No changes have occurred unless specified.
--- NOTE | 2020-10-25 07:22 | MHC.SHP ---
Pre-Procedural Eval Section A Date of Service: 10/25/20 The patient is an INPATIENT: No Changes since office visit: No Cold of Flu in the past 2 weeks, No New Medical Problems, No Changes in Medication and No Patient answered all questions The History & Physical has been completed within 30 days and I have reviewed it.: Yes Section B Chief Complaint: depression Details of Present Illness: Depressed after stopping Nardil, admitted inpatient and PHP Relevant Family History (Specify if Yes): No Relevant Social History: None Present Medications: None Medical History: No relevant PMH History of Previous Operations: No relevant previous surgery Allergies: Allergies Allergy/AdvReac Type Severity Reaction Status Date / Time levofloxacin [From Levaquin] Allergy Rash Verified 09/08/20 14:08 phenelzine Allergy Unknown Verified 10/19/20 10:13 tyramine Allergy Hypertensio Uncoded 09/08/20 14:06 n Review of Systems Sugical H&P ROS: Negative: Constitution, Cardiovascular, Respiratory, Neurological, Psychiatric, Hem-Onc, Allergic/Immunologic, Gastrointestinal, Genitourinary, Musculoskeletal, Integumentary, Endocrine and Eyes/Ears/Nose/Throat Exam Surgical H&P Exam: Normal: HEENT, Normal: Heart, Normal: Lungs, Normal: Extremities, Normal: Abdomen, Normal: Skin and Normal: Neurological Plan Diagnosis/Plan: Unchanged I have reviewed the history and physical and performed a pertinent physical examination on my patient. No changes have occurred unless specified.
--- NOTE | 2020-10-25 07:23 | HO.ECTPROC ---
ECT Procedure Note Diagnosis/Treatment Date of Service: 10/25/20 Diagnosis: Major Depressive Disorder Previous ECT Date: 10/22/20 Treatment: Series Interval Clinical Notes: The patient reported mild improvement of dysphoria, no side effects with the last ECT. ECT Settings Device: THYMATRON DGx Electrode Placement: Right Unilateral Program/Pulse Width: 0.50 Energy Percent: 100 Seizure Duration By EEG (in seconds): 63 By Motor Observation (in seconds): 12 Medications Administration General Anesthetic: Etomidate (14) Muscle Relaxant: Succinylcholine (100) Ancillary Medications Miscillaneous Medications: Propofol (30) Airway Management Airway Management: Bag Mask Ventilation Treatment Recommendations No Changes Recommended: No change Pt Tolerated Procedure w/o Issue: Yes
[2020-10-25] MEDS: Lactated Ringers 1,000 ML 50 ML IVCONT (07:34)
== END 2020-10-25 09:20 | disposition home or self-care (01) ==
PROVIDERS: PCP Internal Medicine; Visit Provider Psychiatry & Neurology Psychiatry
PROC: (CPT 90870; principal; 2020-10-25 07:30)
DX: F33.8 Other recurrent depressive disorders (principal); F34.1 Dysthymic disorder; Z79.899 Other long term (current) drug therapy
CPT/HCPCS: 90870; J0330

== ENCOUNTER 2020-10-27 06:00 | Day surgery (SDC) | payer MEDICARE, SELFPAY ==
[2020-10-27] VITALS (9 sets, daily range): BP systolic 103–131; BP diastolic 51–73; PULSE 56–70; RESP 18; TEMP 35.8–36.4; O2SAT 96–98; BMI 24.2
--- NOTE | 2020-10-27 06:42 | HO.ANESPROP2 ---
[facility] Active Problems Active Problems: All Active Problems (Updated 09/08/20 @ 16:26 by ROBIN Lacy) Generalized anxiety disorder (Acute) Major depressive disorder, recurrent severe without psychotic features (Acute) Past Medical History Medical History Generalized anxiety disorder Family History Family History Mother Breast cancer HTN (hypertension) Family history of problems with anesthesia: No Surgical History Surgical History History of appendectomy History of Problems with Anesthesia: No Social History Social History Household Members: Spouse Housing: House Do you presently have visiting nurse or other home services: No Alcohol intake: never Patient Tobacco Use Status: Never used Tobacco e-Cigarette/Vaping Use: Never Used Second Hand Smoke Exposure: No Are you DNR?: No Advance Directives: No Advance Directives Information Provided: Yes service: No Sexual orientation: Straight/Heterosexual Meds Allergies Allergy/AdvReac Type Severity Reaction Status Date / Time levofloxacin [From Levaquin] Allergy Rash Verified 09/08/20 14:08 phenelzine Allergy Unknown Verified 10/19/20 10:13 tyramine Allergy Hypertensio Uncoded 09/08/20 14:06 n Home Medications Medication Instructions Recorded Confirmed Last Taken Type phenelzine 15 mg tablet 15 mg PO BEDTIME 09/08/20 10/08/20 10/07/20 22:00 History phenelzine 15 mg tablet 30 mg PO BID@0800,1200 09/08/20 10/08/20 10/08/20 08:00 History Exam Exam Date and Time: October 27, 2020 0643 Height,Weight and Vital Signs: Height 5 ft 6 in Weight 68.039 kg Last Vital Signs Temp 97.5 F 10/27/20 06:16 Pulse 68 10/27/20 06:16 Resp 18 10/27/20 06:16 BP 103/51 L 10/27/20 06:16 Pulse Ox 98 10/27/20 06:16 Airway Mallampati Class: II TM Dist: >3cm Neck ROM: Full Heart: rrr Lungs: cta Assessment and Plan Assessment Anesthesia Assessment: Anesthesia Plan Discussed and Chart Reviewed Final Anesthetic Review Family History of Problems with Anesthesia: No History of Problems with Anesthesia: No NPO: Yes ASA Class: III Final Preanesthetic Review: No Changes in Pt Med Stat, Meds/Allgs Chart Reviewed, Consent Obtained/Reviewed and Anes Risks/Benef Reviewed Patient Risk: Intermediate Procedure Risk: Intermediate Anesthetic Plan Anesthetic Plan: GA Disposition: Standard PACU
--- NOTE | 2020-10-27 06:53 | MHC.SHP ---
Pre-Procedural Eval Section A Date of Service: 10/27/20 The patient is an INPATIENT: No Changes since office visit: Yes Cold of Flu in the past 2 weeks, Yes New Medical Problems, Yes Changes in Medication and Yes Patient answered all questions The History & Physical has been completed within 30 days and I have reviewed it.: Yes Section B Chief Complaint: depression Allergies: Allergies Allergy/AdvReac Type Severity Reaction Status Date / Time levofloxacin [From Levaquin] Allergy Rash Verified 09/08/20 14:08 phenelzine Allergy Unknown Verified 10/19/20 10:13 tyramine Allergy Hypertensio Uncoded 09/08/20 14:06 n Plan I have reviewed the history and physical and performed a pertinent physical examination on my patient. No changes have occurred unless specified.
--- NOTE | 2020-10-27 07:13 | HO.ECTPROC ---
ECT Procedure Note Diagnosis/Treatment Date of Service: 10/27/20 Treatment: Series Interval Clinical Notes: Less dysphoric, still depressed but much better ECT Settings Device: THYMATRON DGx Electrode Placement: Right Unilateral Program/Pulse Width: 0.50 Energy Percent: 100 Seizure Duration By EEG (in seconds): 40 By Motor Observation (in seconds): 12 Medications Administration General Anesthetic: Etomidate (14) Muscle Relaxant: Succinylcholine (100) Ancillary Medications Analgesics: Torodol - Pre ECT Anti-emetics: Zofran - Pre ECT Miscillaneous Medications: Propofol (30) Airway Management Airway Management: Bag Mask Ventilation Treatment Recommendations No Changes Recommended: No change Pt Tolerated Procedure w/o Issue: Yes
== END 2020-10-27 09:00 | disposition home or self-care (01) ==
PROVIDERS: PCP Internal Medicine; Visit Provider Psychiatry & Neurology Psychiatry
PROC: (CPT 90870; principal; 2020-10-27 08:30)
DX: F33.2 Major depressive disorder, recurrent severe without psychotic features (principal); F41.1 Generalized anxiety disorder; Z88.8 Allergy status to other drugs, medicaments and biological substances
CPT/HCPCS: 90870; J0330

== ENCOUNTER 2020-10-29 08:30 | Outpatient (RCR) | payer MEDICARE, SELFPAY ==
[2020-10-08 14:57] VITALS: BMI 23.2
--- NOTE | 2020-10-11 08:35 | PC.ADMIT ---
Patient is a 70 year old female who was referred by [facility] where she was admitted for severe depression and anxiety which required ECT treatment. Patient is at [facility] as a step down for treatment for ongoing depression and anxiety and to learn healthier coping skills and learn to develop daily routine and structure. Patient is alert and oriented x4. calm and cooperative. Presents with depressed mood, flat affect. Denied SI. Denied substance use. Patient has the crisis number if needed. Patient gave verbal permission to email her a copy of her safety plan. Medications reconciled with patient and /5 d/c plan. Patient reports taking medications as prescribed. Medication education provided.
--- NOTE | 2020-10-12 13:52 | P.PNPSP_ITS ---
Subjective Subjective Date of Service: 10/12/20 Reason For Visit: Major Depression Subjective Notes: [place] Warning Guardianship: No Medical Problems Affecting Mental Status: No Interim History: Yaneth reports depression symptoms are improved, but that she is currently feeling 'overwhelmed and anxious . Reports continues with difficulty sleeping, guilt, and some intermitted confusion - impaired memory, which she attributes to the ECT. Denies thoughts of SI or self harm, no safety concerns at this time. Reports the klonopin is helping somewhat with anxiety symptoms. Medication Compliance: Yes Side effects from medications: No Attending Groups: Yes Review of Systems Acute medical concerns: No Medical Review of Systems: unchanged Review of Systems Review of Systems Patient reports she had fallen recently and received 4 sutures over her right eye. Ecchymosis noted surrounding eye. Yes all other systems are reviewed and are negative Constitutional: Reports difficulty sleeping Eyes: Reports no additional eye complaints Reports as per HPI Cardiovascular: Reports no additional cardiovascular complaints Respiratory: Reports no additional respiratory complaints Gastrointestinal: Reports no additional gastrointestinal complaints Genitourinary: Reports no additional female genitourinary complaints Musculoskeletal: Reports no additional musculoskeletal complaints Skin/Breast: Reports change in pigmentation (bruising surrounding right eye, and bandage above eye present.) Reports confusion (intermittent) and Reports memory loss (intermittent) Psychiatric: Reports abnormal sleep pattern, Reports anxiety, Reports confusion (intermittent), Reports depression, Reports difficulty concentrating and Reports memory loss (intermittent) Hematologic/Lymphatic: Reports no additional hematologic/lymphatic complaints Allergic/Immunologic: Reports no additional allergic/immunologic complaints Mental Status Exam Mental Status Exam Narrative: Well-developed, well-nourished female, in no apparent distress. Patient Appearance: Well Grooomed and Appropriate Patient Orientation: Person, Place, Time and Situation Level of Consciousness: Awake and Appropriate Patient Behavior: Appropriate and Cooperative Mood Description: Appropriate, Depressed and Anxious Affect Description: Appropriate, Depressed and Anxious Patient Cognition Impaired: No Ability to Follow Directions: Excellent Speech Pattern: Appropriate, Spontaneous Speech and Soft-Spoken Memory Description: Episodic Impaired (attributes to recent ECT treatments) Hallucinations: None Delusions: Not Present Thought Process: Intact Thought Content: positive for Intact and positive for Goal Oriented Depressive Symptoms: Increased Anxiety, Insomnia, Difficulty Sleeping, Loss of Int. in Activity, Feelings of Worthlessness, Feelings of Guilt and Difficulty Concentrating Judgement: Fair Diagnostics Vital Signs (24Hr): Body Mass Index 23.2 Assessment & Plan Assessment & Plan (1) Generalized anxiety disorder: Status: Acute Code(s): F41.1 - Generalized anxiety disorder Assessment and Plan: Patient reports ongoing anxiety symptoms. A review of her current medications, including p.r.n. Klonopin, p.r.n. Seroquel, p.r.n. hydroxyzine reviewed. Patient encouraged to utilize p.r.n. medications as appropriate. Symptom management Education provided. (2) Major depressive disorder, recurrent severe without psychotic features: Status: Acute Code(s): F33.2 - Major depressive disorder, recurrent severe without psychotic features Assessment and Plan: Patient reports a decrease in depressive symptoms, however she continues with some dysphoria. She reports that this Sunday is her last ECT treatment. Educat ion regarding ECT side effects as well as medication side effects provided. is Satisfied with current medication regimen, denies thoughts of harm to self or others. No safety concerns. No refills needed. Assessment and Plan: Continue current medications as ordered, as she is reporting some improvement regarding depression. No safety concerns. Will continue to follow up as per protocol. Patient educated on: diagnosis, medication risk/benefits, ECT and therapeutic strategies Informed Consent: understands Reason for contiued partial hosp. stay Substantial Risk for: inability to function and med/psych decompensation Certification I certify that partial hospital treatment is medically necessary due to the symptoms and problems resulting from the patient's mental illness and the failure to treat the patient at the partial hospital level of care would likely result in the patient requiring inpatient psychiatric care which could not be prevented at a less intensive level of care. Greater than 50% of the session was spent on counseling and/or coordination of care Discharge Plan Discharge Attending provider: Santy Gamez Medications: No Action phenelzine 15 mg Tablet 30 mg PO BID@0800,1200 RF: 0 phenelzine 15 mg Tablet 15 mg PO BEDTIME RF: 0 quetiapine 25 mg Tablet 25 mg PO BEDTIME 30 Days Qty: 45 RF: 2 hydroxyzine HCl 25 mg Tablet 25 mg PO BEDTIME PRN (Reason: Anxiety) 30 Days Qty: 45 RF: 1 clonazepam [Klonopin] 0.5 mg tablet 0.5 mg PO TID PRN (Reason: anxiety) 7 Days Qty: 21 RF: 0 Stand Alone Forms: Patient Portal Discharge page Telehealth Telehealth Location of provider rendering services: practice address Location of patient: address on file Patient Identification confirmed using: Name, : Yes Telehealth method: video Patient verbally consented to treatment: Yes Patient verbally consented to billing insurance company: Yes Patient informed of any privacy concerns related to visit: Yes Time spent with patient (mins): 20
--- NOTE | 2020-10-12 14:03 | PC.NURSE ---
Case opened in clinical team meeting
--- NOTE | 2020-10-18 16:24 | HO.PHPPROGNO ---
Subjective Subjective Date of Service: 10/18/20 Reason For Visit: Major Depression Subjective Notes: [place] Warning Guardianship: No Medical Problems Affecting Mental Status: No Interim History: Ms. Troy Martin reports I'm okay today. She then elaborated that she feels increased depression over the past few days. Denies any SI, no thoughts of harm to self or others. She also stated that she is still unclear regarding her medications, stating, I need some help sorting them out . We reviewed each medication, including intended purpose, dose, and schedule. Patient reports increased anxiety, and says she has been utilizing her prn clonazepam. She is looking forward to her ECT scheduled for this Sunday, as she feels it is helping. Medication Compliance: Yes Side effects from medications: No Attending Groups: Yes Review of Systems Acute medical concerns: No Medical Review of Systems: unchanged Review of Systems Review of Systems Yes all other systems are reviewed and are negative Mental Status Exam Mental Status Exam Narrative: Well developed, well nourished female, in no apparent distress. Appropriately dressed and groomed. Patient Appearance: Well Grooomed and Appropriate Patient Orientation: Person, Place, Time and Situation Level of Consciousness: Appropriate Patient Behavior: Appropriate, Anxious and Good Eye Contact Mood Description: Appropriate, Depressed and Anxious Affect Description: Appropriate, Depressed, Anxious and Nervous Patient Cognition Impaired: No Ability to Follow Directions: Good Speech Pattern: Clear and Appropriate Memory Description: Episodic Impaired Hallucinations: None Delusions: Not Present Thought Process: Intact Thought Content: positive for Intact Depressive Symptoms: Increased Anxiety, Diff. Making Decisions, Feelings of Worthlessness, Hopelessness, Feelings of Guilt and Difficulty Concentrating Judgement: Fair Diagnostics Vital Signs (24Hr): Body Mass Index 23.2 Assessment & Plan Assessment & Plan (1) Generalized anxiety disorder: Status: Acute Code(s): F41.1 - Generalized anxiety disorder Assessment and Plan: Patient reports she has been feeling increased anxiety. She has been utilizing her p.r.n. medications with positive affect. (2) Major depressive disorder, recurrent severe without psychotic features: Status: Acute Code(s): F33.2 - Major depressive disorder, recurrent severe without psychotic features Assessment and Plan: Patient reports she has been experiencing increased depressive symptoms over the past 3 or 4 days. Patient has been taking medications as prescribed, including phenelzine. She is looking forward to continuing ECT, as she feels that it is helping to alleviate some of her depressive symptoms. Although dysphoric, she states she has no thoughts of harm to self or others. Assessment and Plan: 1. Continue current medications as scheduled. 2. No refills needed at this time. 3. Continue to support and educate regarding medications as well as ECT. 4. Will follow-up as per protocol. Patient educated on: diagnosis, medication risk/benefits, ECT and therapeutic strategies Informed Consent: understands Reason for contiued partial hosp. stay Substantial Risk for: inability to function and med/psych decompensation Certification I certify that partial hospital treatment is medically necessary due to the symptoms and problems resulting from the patient's mental illness and the failure to treat the patient at the partial hospital level of care would likely result in the patient requiring inpatient psychiatric care which could not be prevented at a less intensive level of care. Greater than 50% of the session was spent on counseling and/or coordination of care Discharge Plan Discharge Attending provider: Santy Gamez Medications: No Action phenelzine 15 mg Tablet 30 mg PO BID@0800,1200 RF: 0 phenelzine 15 mg Tablet 15 mg PO BEDTIME RF: 0 quetiapine 25 mg Tablet 25 mg PO BEDTIME 30 Days Qty: 45 RF: 2 hydroxyzine HCl 25 mg Tablet 25 mg PO BEDTIME PRN (Reason: Anxiety) 30 Days Qty: 45 RF: 1 clonazepam [Klonopin] 0.5 mg tablet 0.5 mg PO TID PRN (Reason: anxiety) 7 Days Qty: 21 RF: 0 Stand Alone Forms: Patient Portal Discharge page Telehealth Telehealth Location of provider rendering services: practice address Location of patient: address on file Patient Identification confirmed using: Name, : Yes Telehealth method: video Patient verbally consented to treatment: Yes Patient verbally consented to billing insurance company: Yes Patient informed of any privacy concerns related to visit: Yes Time spent with patient (mins): 15
--- NOTE | 2020-10-22 08:45 | PC.NURSE ---
The client called to inform us that she will be out today, Sunday, and Sunday for ECT treatments
--- NOTE | 2020-10-29 12:50 | HO.PHPPROGNO ---
Subjective Subjective Date of Service: 10/29/20 Reason For Visit: Major Depression Subjective Notes: [place] Warning Guardianship: No Medical Problems Affecting Mental Status: No Interim History: Yaneth reports that she is ?doing okay, I feel good today ?. She does report that her memory is still ?spotty? due to recent ECT treatments. She says that her mood has greatly improved, and she feels ready for discharge from [facility]. Denies any thought of harm to self or others, no safety concerns. Medication Compliance: Yes Side effects from medications: No Attending Groups: Yes Review of Systems Acute medical concerns: No Medical Review of Systems: unchanged Mental Status Exam Mental Status Exam Narrative: Well-developed, well-nourished female, in no apparent distress. Appropriately dressed and groomed, fully attentive during encounter. Speech articulate. Patient Appearance: Well Grooomed and Appropriate Patient Orientation: Person, Place, Time and Situation Level of Consciousness: Awake, Appropriate and Alert Patient Behavior: Appropriate and Cooperative Mood Description: Appropriate Affect Description: Appropriate Patient Cognition Impaired: No Ability to Follow Directions: Excellent Speech Pattern: Clear and Coherent Memory Description: Recent Impaired (Due to recent ECT treatments.) Hallucinations: None Delusions: Not Present Thought Process: Intact, Goal Oriented and Linear Thought Content: positive for Intact, positive for Goal Oriented, positive for Linear and positive for Logical Depressive Symptoms: Diff. Making Decisions Judgement: Good Diagnostics Vital Signs (24Hr): Body Mass Index 23.2 Assessment & Plan Assessment & Plan (1) Generalized anxiety disorder: Status: Acute Code(s): F41.1 - Generalized anxiety disorder Assessment and Plan: Reports overall improvement in her anxiety symptoms, and that she has not needed to use her p.r.n. Klonopin lately. (2) Major depressive disorder, recurrent severe without psychotic features: Status: Acute Code(s): F33.2 - Major depressive disorder, recurrent severe without psychotic features Assessment and Plan: Patient reports overall feeling decrease symptoms of depression and anxiety. States she found groups helpful. No thoughts of harm to self or others, no safety concerns. Reports she does have some intermittent memory loss, which she attributes to recent ECT treatments. States she has a follow-up appointment with her outpatient psychiatrist scheduled for next week. Does not need any refills. Assessment and Plan: 1. Patient appears stable for discharge from [facility]. No safety concerns at this time. No refills for medications needed at this time. 2. Patient to continue current medications, has outpatient provider appointment scheduled for next week. Patient educated on: diagnosis, medication risk/benefits, ECT and therapeutic strategies Informed Consent: understands Reason for contiued partial hosp. stay Substantial Risk for: stable for discharge Certification I certify that partial hospital treatment is medically necessary due to the symptoms and problems resulting from the patient's mental illness and the failure to treat the patient at the partial hospital level of care would likely result in the patient requiring inpatient psychiatric care which could not be prevented at a less intensive level of care. Greater than 50% of the session was spent on counseling and/or coordination of care Discharge Plan Discharge Attending provider: Santy Gamez Additional Instructions: Chel Bah [facility] 11/02/20 3pm, Dr Escobedo 11/09/20 3:30 pm Medications: No Action phenelzine 15 mg Tablet 30 mg PO BID@0800,1200 RF: 0 phenelzine 15 mg Tablet 15 mg PO BEDTIME RF: 0 quetiapine 25 mg Tablet 25 mg PO BEDTIME 30 Days Qty: 45 RF: 2 hydroxyzine HCl 25 mg Tablet 25 mg PO BEDTIME PRN (Reason: Anxiety) 30 Days Qty: 45 RF: 1 clonazepam [Klonopin] 0.5 mg tablet 0.5 mg PO TID PRN (Reason: anxiety) 7 Days Qty: 21 RF: 0 Stand Alone Forms: Patient Portal Discharge page Telehealth Telehealth Location of provider rendering services: practice address Patient Identification confirmed using: Name, : Yes Telehealth method: video Patient verbally consented to treatment: Yes Patient verbally consented to billing insurance company: Yes Patient informed of any privacy concerns related to visit: Yes Time spent with patient (mins): 15
--- NOTE | 2020-10-29 15:53 | PC.NURSE ---
Addendum entered by Sarai Juarez [facility] 10/29/20 15:57: Chel Bah [facility] Original Note: I called and left a message with Chel Bah [facility] re clients discharge from PHP
== END 2020-11-01 07:21 | disposition home or self-care (01) ==
LOC: HO.PHPA 08:30
PROVIDERS: Visit Provider Psychiatry & Neurology Psychiatry
DX: F33.2 Major depressive disorder, recurrent severe without psychotic features (principal); F41.1 Generalized anxiety disorder; Z79.899 Other long term (current) drug therapy
CPT/HCPCS: 90791; 90853

== ENCOUNTER 2020-11-19 06:09 | Day surgery (SDC) | payer MEDICARE, SELFPAY ==
[2020-11-19] VITALS (8 sets, daily range): BP systolic 109–135; BP diastolic 53–66; PULSE 52–75; RESP 14–19; TEMP 35.9–36.4; O2SAT 93–97; BMI 25.8
--- NOTE | 2020-11-19 06:55 | P.CONAN_ITS ---
[facility] Active Problems Active Problems: All Active Problems (Updated 09/08/20 @ 16:26 by ROBIN Lacy) Generalized anxiety disorder (Acute) Major depressive disorder, recurrent severe without psychotic features (Acute) Past Medical History Medical History Generalized anxiety disorder Family History Family History Mother Breast cancer HTN (hypertension) Family history of problems with anesthesia: No Surgical History Surgical History History of appendectomy History of Problems with Anesthesia: No Social History Social History Household Members: Spouse Housing: House Do you presently have visiting nurse or other home services: No Alcohol intake: never Patient Tobacco Use Status: Never used Tobacco e-Cigarette/Vaping Use: Never Used Second Hand Smoke Exposure: No Advance Directives: No Advance Directives Information Provided: Yes service: No Sexual orientation: Straight/Heterosexual Meds Allergies Allergy/AdvReac Type Severity Reaction Status Date / Time levofloxacin [From Levaquin] Allergy Rash Verified 09/08/20 14:08 phenelzine Allergy Unknown Verified 10/19/20 10:13 tyramine Allergy Hypertensio Uncoded 09/08/20 14:06 n Active Medications: Current Medications Generic Name Dose Route Start Last Admin Trade Name Freq PRN Reason Stop Dose Admin Lactated Ringer's 1,000 mls @ 50 mls/hr 11/19/20 07:00 Lr IVCONT .Q20H [facility] Home Medications Medication Instructions Recorded Confirmed Last Taken Type phenelzine 15 mg tablet 15 mg PO BEDTIME 09/08/20 10/08/20 10/07/20 22:00 History phenelzine 15 mg tablet 30 mg PO BID@0800,1200 09/08/20 10/08/20 10/08/20 08:00 History Exam Exam Date and Time: November 19, 2020 0655 Airway Mallampati Class: II TM Dist: >3cm Neck ROM: Full Heart: rrr Lungs: cta Assessment and Plan Assessment Anesthesia Assessment: Anesthesia Plan Discussed and Chart Reviewed Final Anesthetic Review Family History of Problems with Anesthesia: No History of Problems with Anesthesia: No NPO: Yes ASA Class: III Final Preanesthetic Review: No Changes in Pt Med Stat, Meds/Allgs Chart Reviewed and Consent Obtained/Reviewed Patient Risk: Intermediate Procedure Risk: Intermediate Anesthetic Plan Anesthetic Plan: GA Disposition: Standard PACU
--- NOTE | 2020-11-19 07:47 | MHC.SHP ---
Pre-Procedural Eval Section A Date of Service: 11/19/20 The patient is an INPATIENT: No Changes since office visit: Yes Patient answered all questions; No Cold of Flu in the past 2 weeks, No New Medical Problems and No Changes in Medication Section B Chief Complaint: major depressive disorder Details of Present Illness: recurrent depression Relevant Social History: None Present Medications: see Short Stay Collaborative assessment Medical History: No relevant PMH History of Previous Operations: Relevant previous surgery/procedure and date(s) (hx ect) Allergies: Allergies Allergy/AdvReac Type Severity Reaction Status Date / Time levofloxacin [From Levaquin] Allergy Rash Verified 09/08/20 14:08 phenelzine Allergy Unknown Verified 10/19/20 10:13 tyramine Allergy Hypertensio Uncoded 09/08/20 14:06 n Review of Systems Sugical H&P ROS: Negative: Constitution, Cardiovascular and Respiratory Exam Surgical H&P Exam: Normal: HEENT, Normal: Heart and Normal: Lungs Plan Diagnosis/Plan: Unchanged I have reviewed the history and physical and performed a pertinent physical examination on my patient. No changes have occurred unless specified.
--- NOTE | 2020-11-19 20:07 | HO.ECTPROC ---
ECT Procedure Note Diagnosis/Treatment Date of Service: 11/19/20 Diagnosis: Major Depressive Disorder Previous ECT Date: 10/27/20 Treatment: Maintenance Interval Clinical Notes: pt has been feeling stable no c/o side effects ECT Settings Device: THYMATRON DGx Electrode Placement: Right Unilateral Program/Pulse Width: 0.50 Energy Percent: 100 Seizure Duration By EEG (in seconds): 67 Medications Administration General Anesthetic: Etomidate (14) Muscle Relaxant: Succinylcholine (100) Ancillary Medications Analgesics: Torodol - Pre ECT Anti-emetics: Zofran - Pre ECT Miscillaneous Medications: Propofol (30) Airway Management Airway Management: Bag Mask Ventilation Treatment Recommendations Energy Percent: 65 Notes: cont maintenance ect Pt Tolerated Procedure w/o Issue: Yes
== END 2020-11-19 09:36 | disposition home or self-care (01) ==
PROVIDERS: PCP Internal Medicine; Visit Provider Psychiatry & Neurology Psychiatry
PROC: (CPT 90870; principal; 2020-11-19 07:30)
DX: F33.9 Major depressive disorder, recurrent, unspecified (principal); F41.1 Generalized anxiety disorder
CPT/HCPCS: 90870; J0330

== ENCOUNTER 2020-12-15 06:01 | Day surgery (SDC) | payer MEDICARE, SELFPAY ==
[2020-12-15] VITALS (9 sets, daily range): BP systolic 115–133; BP diastolic 54–64; PULSE 53–80; RESP 16–18; TEMP 36.2; O2SAT 95–99; BMI 26.3
--- NOTE | 2020-12-15 06:59 | MHC.SHP ---
Pre-Procedural Eval Section A Date of Service: 12/15/20 The patient is an INPATIENT: No Changes since office visit: No Cold of Flu in the past 2 weeks, No New Medical Problems, No Changes in Medication and No Patient answered all questions The History & Physical has been completed within 30 days and I have reviewed it.: Yes Section B Chief Complaint: Severe Depression Allergies: Allergies Allergy/AdvReac Type Severity Reaction Status Date / Time levofloxacin [From Levaquin] Allergy Rash Verified 09/08/20 14:08 phenelzine Allergy Unknown Verified 10/19/20 10:13 tyramine Allergy Hypertensio Uncoded 09/08/20 14:06 n Plan I have reviewed the history and physical and performed a pertinent physical examination on my patient. No changes have occurred unless specified.
--- NOTE | 2020-12-15 07:09 | HO.ANESPROP2 ---
[facility] Active Problems Active Problems: All Active Problems (Updated 09/08/20 @ 16:26 by ROBIN Lacy) Generalized anxiety disorder (Acute) Major depressive disorder, recurrent severe without psychotic features (Acute) Past Medical History Medical History Generalized anxiety disorder Family History Family History Mother Breast cancer HTN (hypertension) Family history of problems with anesthesia: No Surgical History Surgical History History of appendectomy History of Problems with Anesthesia: No Social History Social History Household Members: Spouse Housing: House Do you presently have visiting nurse or other home services: No Alcohol intake: never Patient Tobacco Use Status: Never used Tobacco e-Cigarette/Vaping Use: Never Used Second Hand Smoke Exposure: No Advance Directives: No Advance Directives Information Provided: Yes service: No Sexual orientation: Straight/Heterosexual Meds Allergies Allergy/AdvReac Type Severity Reaction Status Date / Time levofloxacin [From Levaquin] Allergy Rash Verified 09/08/20 14:08 phenelzine Allergy Unknown Verified 10/19/20 10:13 tyramine Allergy Hypertensio Uncoded 09/08/20 14:06 n Home Medications Medication Instructions Recorded Confirmed Last Taken Type phenelzine 15 mg tablet 15 mg PO BEDTIME 09/08/20 10/08/20 10/07/20 22:00 History phenelzine 15 mg tablet 30 mg PO BID@0800,1200 09/08/20 10/08/20 10/08/20 08:00 History Exam Exam Date and Time: December 15, 2020 0709 Height,Weight and Vital Signs: Height 5 ft 6 in Weight 73.936 kg Airway Mallampati Class: II TM Dist: >3cm Neck ROM: Full Heart: rrr Lungs: cta Assessment and Plan Assessment Anesthesia Assessment: Anesthesia Plan Discussed and Chart Reviewed Final Anesthetic Review Family History of Problems with Anesthesia: No History of Problems with Anesthesia: No NPO: Yes ASA Class: III Final Preanesthetic Review: No Changes in Pt Med Stat, Meds/Allgs Chart Reviewed and Consent Obtained/Reviewed Patient Risk: Intermediate Procedure Risk: Intermediate Anesthetic Plan Anesthetic Plan: GA Disposition: Standard PACU
--- NOTE | 2020-12-15 07:27 | HO.ECTPROC ---
ECT Procedure Note Diagnosis/Treatment Date of Service: 12/15/20 Diagnosis: Major Depressive Disorder Previous ECT Date: 12/01/20 Treatment: Maintenance Interval Clinical Notes: The patient denies dysphoria, stable at this time. No side effects with previous ECT. ECT Settings Device: THYMATRON DGx Electrode Placement: Right Unilateral Program/Pulse Width: 0.50 Energy Percent: 100 Seizure Duration By EEG (in seconds): 45 By Motor Observation (in seconds): 31 Medications Administration General Anesthetic: Etomidate (14) Muscle Relaxant: Succinylcholine (100) Ancillary Medications Analgesics: Torodol - Pre ECT Anti-emetics: Zofran - Pre ECT Miscillaneous Medications: Propofol (30) Airway Management Airway Management: Bag Mask Ventilation Treatment Recommendations No Changes Recommended: No change Pt Tolerated Procedure w/o Issue: Yes
== END 2020-12-15 10:31 | disposition home or self-care (01) ==
PROVIDERS: PCP Internal Medicine; Visit Provider Psychiatry & Neurology Psychiatry
PROC: (CPT 90870; principal; 2020-12-15 07:00)
DX: F33.9 Major depressive disorder, recurrent, unspecified (principal); Z79.899 Other long term (current) drug therapy; Z88.8 Allergy status to other drugs, medicaments and biological substances
CPT/HCPCS: 90870; J0330; J1885; J2405

== ENCOUNTER 2021-02-02 06:00 | Day surgery (SDC) | payer MEDICARE, SELFPAY ==
[2021-02-02] VITALS (11 sets, daily range): BP systolic 117–147; BP diastolic 48–73; PULSE 69–104; RESP 16–20; TEMP 36.3–36.9; O2SAT 93–98; BMI 26.6
--- NOTE | 2021-02-02 07:08 | MHC.SHP ---
Pre-Procedural Eval Section A Date of Service: 02/02/21 The patient is an INPATIENT: No Section B Chief Complaint: major depressive disorder Details of Present Illness: recurrent depression Relevant Family History (Specify if Yes): No Relevant Social History: None Present Medications: None (maoi) Allergies: Allergies Allergy/AdvReac Type Severity Reaction Status Date / Time levofloxacin [From Levaquin] Allergy Rash Verified 09/08/20 14:08 phenelzine Allergy Unknown Verified 10/19/20 10:13 tyramine Allergy Hypertensio Uncoded 09/08/20 14:06 n Review of Systems Sugical H&P ROS: Negative: Constitution, Cardiovascular and Respiratory Exam Surgical H&P Exam: Normal: HEENT, Normal: Heart and Normal: Lungs Plan Diagnosis/Plan: Unchanged I have reviewed the history and physical and performed a pertinent physical examination on my patient. No changes have occurred unless specified.
--- NOTE | 2021-02-02 07:26 | HO.ECTPROC ---
ECT Procedure Note Diagnosis/Treatment Date of Service: 02/02/21 Diagnosis: Major Depressive Disorder Treatment: Maintenance Interval Clinical Notes: pt has generally been stable some recent inc depressive sx ECT Settings Device: THYMATRON DGx Electrode Placement: Right Unilateral Program/Pulse Width: 0.50 Energy Percent: 100 Seizure Duration By EEG (in seconds): 72 Medications Administration General Anesthetic: Etomidate Muscle Relaxant: Succinylcholine Ancillary Medications Miscillaneous Medications: Propofol Airway Management Airway Management: Bag Mask Ventilation Treatment Recommendations Program/Pulse Width: 0.25 Notes: pt confused post ect change pw to .25 given reassurance ruth 0.5 mg
[2021-02-02] MEDS: LORazepam 0.5 MG TABLET PO (08:32)
--- NOTE | 2021-02-02 08:40 | P.CONAN_ITS ---
[facility] Active Problems Active Problems: All Active Problems (Updated 09/08/20 @ 16:26 by ROBIN Lacy) Generalized anxiety disorder (Acute) Major depressive disorder, recurrent severe without psychotic features (Acute) Past Medical History Medical History Generalized anxiety disorder Functional capacity: independent ambulation Patient : No Family History Family History Mother Breast cancer HTN (hypertension) Family history of problems with anesthesia: No Surgical History Surgical History History of appendectomy History of Problems with Anesthesia: No Social History Social History Household Members: Spouse Housing: House Do you presently have visiting nurse or other home services: No Alcohol intake: never Patient Tobacco Use Status: Never used Tobacco e-Cigarette/Vaping Use: Never Used Second Hand Smoke Exposure: No Use of substances other than those prescribed or required for medical reasons: No Are you DNR?: No Advance Directives: No Advance Directives Information Provided: Yes service: No Sexual orientation: Straight/Heterosexual Meds Allergies Allergy/AdvReac Type Severity Reaction Status Date / Time levofloxacin [From Levaquin] Allergy Rash Verified 09/08/20 14:08 phenelzine Allergy Unknown Verified 10/19/20 10:13 tyramine Allergy Hypertensio Uncoded 09/08/20 14:06 n Home Medications Medication Instructions Recorded Confirmed Last Taken Type phenelzine 15 mg tablet 15 mg PO BEDTIME 09/08/20 10/08/20 10/07/20 22:00 History phenelzine 15 mg tablet 30 mg PO BID@0800,1200 09/08/20 10/08/20 10/08/20 08:00 History Exam Exam Date and Time: February 02, 2021 0840 Height,Weight and Vital Signs: Height 5 ft 6 in Weight 74.843 kg Last Vital Signs Temp 98.4 F 02/02/21 07:32 Pulse 95 02/02/21 08:35 Resp 18 02/02/21 08:35 BP 146/66 H 02/02/21 08:35 Pulse Ox 95 02/02/21 08:35 Airway Mallampati Class: II TM Dist: >3cm Heart: RRR Lungs: CTA Assessment and Plan Final Anesthetic Review Family History of Problems with Anesthesia: No History of Problems with Anesthesia: No Final Preanesthetic Review: No Changes in Pt Med Stat Patient Risk: Low Procedure Risk: Low Anesthetic Plan Anesthetic Plan: GA Disposition: Standard PACU
--- NOTE | 2021-02-02 08:42 | HO.POSTANES ---
Post Anesthesia Evaluation Post Anesthesia Evaluation Vital Signs: Vital Signs Temp Pulse Resp BP Pulse Ox 02/02/21 08:35 95 18 146/66 H 95 02/02/21 08:20 100 18 137/70 94 02/02/21 08:05 103 H 20 141/73 H 94 02/02/21 07:50 104 H 18 142/62 H 94 02/02/21 07:45 92 18 136/62 93 02/02/21 07:40 76 18 124/48 L 96 02/02/21 07:35 77 18 117/61 95 02/02/21 07:32 98.4 F 69 20 125/59 L 96 02/02/21 06:20 97.4 F 92 16 136/65 96 Anesthesia: General Mental Status: Awake Pain Control: Satisfactory Nausea/Vomiting: None Hydration: Adequate Anesthesia-Related Issues: No Anes. Related Issues
== END 2021-02-02 09:24 | disposition home or self-care (01) ==
PROVIDERS: PCP Internal Medicine; Visit Provider Psychiatry & Neurology Psychiatry
PROC: (CPT 90870; principal; 2021-02-02 15:30)
DX: F33.9 Major depressive disorder, recurrent, unspecified (principal); Z79.899 Other long term (current) drug therapy; Z88.8 Allergy status to other drugs, medicaments and biological substances; Z87.891 Personal history of nicotine dependence
CPT/HCPCS: 90870; J0330; J1885; J2405

== ENCOUNTER 2021-02-09 06:00 | Day surgery (SDC) | payer MEDICARE, SELFPAY ==
[2021-02-09] VITALS (7 sets, daily range): BP systolic 120–152; BP diastolic 56–71; PULSE 58–72; RESP 16–20; TEMP 36.2–36.4; O2SAT 92–96; BMI 26.9
--- NOTE | 2021-02-09 06:51 | HO.ANESPROP2 ---
COUNT INCLUDES THE [facility] Active Problems Active Problems: All Active Problems (Updated 09/08/20 @ 16:26 by ROBIN Lacy) Generalized anxiety disorder (Acute) Major depressive disorder, recurrent severe without psychotic features (Acute) Past Medical History Medical History Generalized anxiety disorder Family History Family History Mother Breast cancer HTN (hypertension) Family history of problems with anesthesia: No Surgical History Surgical History History of appendectomy History of Problems with Anesthesia: No Social History Social History Household Members: Spouse Housing: House Do you presently have visiting nurse or other home services: No Alcohol intake: never Patient Tobacco Use Status: Never used Tobacco e-Cigarette/Vaping Use: Never Used Second Hand Smoke Exposure: No Advance Directives: No Advance Directives Information Provided: Yes service: No Sexual orientation: Straight/Heterosexual Meds Allergies Allergy/AdvReac Type Severity Reaction Status Date / Time levofloxacin [From Levaquin] Allergy Rash Verified 09/08/20 14:08 phenelzine Allergy Unknown Verified 10/19/20 10:13 tyramine Allergy Hypertensio Uncoded 09/08/20 14:06 n Active Medications: Current Medications Lactated Ringer's (Lr) 1,000 mls @ 50 mls/hr IVCONT .Q20H [facility] Home Medications Medication Instructions Recorded Confirmed Last Taken Type phenelzine 15 mg tablet 15 mg PO BEDTIME 09/08/20 10/08/20 10/07/20 22:00 History phenelzine 15 mg tablet 30 mg PO BID@0800,1200 09/08/20 10/08/20 10/08/20 08:00 History Exam Exam Date and Time: February 09, 2021 0651 Height,Weight and Vital Signs: Height 5 ft 6 in Weight 75.75 kg Last Vital Signs Temp 97.1 F 02/09/21 06:29 Pulse 72 02/09/21 06:29 Resp 16 02/09/21 06:29 BP 124/66 02/09/21 06:29 Pulse Ox 96 02/09/21 06:29 Airway Mallampati Class: II TM Dist: >3cm Neck ROM: Full Heart: rrr Lungs: cta Assessment and Plan Assessment Anesthesia Assessment: Anesthesia Plan Discussed and Chart Reviewed Final Anesthetic Review Family History of Problems with Anesthesia: No History of Problems with Anesthesia: No NPO: Yes ASA Class: III Final Preanesthetic Review: No Changes in Pt Med Stat, Meds/Allgs Chart Reviewed and Consent Obtained/Reviewed Patient Risk: Intermediate Procedure Risk: Intermediate Anesthetic Plan Anesthetic Plan: GA Disposition: Standard PACU
--- NOTE | 2021-02-09 07:07 | MHC.SHP ---
Pre-Procedural Eval Section A Date of Service: 02/09/21 The patient is an INPATIENT: No Changes since office visit: Yes Cold of Flu in the past 2 weeks, Yes New Medical Problems, Yes Changes in Medication and Yes Patient answered all questions The History & Physical has been completed within 30 days and I have reviewed it.: Yes Section B Chief Complaint: depression Allergies: Allergies Allergy/AdvReac Type Severity Reaction Status Date / Time levofloxacin [From Levaquin] Allergy Rash Verified 09/08/20 14:08 phenelzine Allergy Unknown Verified 10/19/20 10:13 tyramine Allergy Hypertensio Uncoded 09/08/20 14:06 n Plan I have reviewed the history and physical and performed a pertinent physical examination on my patient. No changes have occurred unless specified.
--- NOTE | 2021-02-09 07:28 | HO.ECTPROC ---
ECT Procedure Note Diagnosis/Treatment Date of Service: 02/09/21 Diagnosis: Major Depressive Disorder Previous ECT Date: 02/02/21 Treatment: Maintenance Interval Clinical Notes: The patient reported exacerbation of depression in the recent weeks. No new symptoms, no side effects with the past ECT. ECT Settings Device: THYMATRON DGx Electrode Placement: Right Unilateral Program/Pulse Width: 0.50 Energy Percent: 100 Seizure Duration By EEG (in seconds): 0 (not detected by EEG but seizure activity seen until 28s) By Motor Observation (in seconds): 22 Medications Administration General Anesthetic: Etomidate (14) Muscle Relaxant: Succinylcholine (100) Ancillary Medications Analgesics: Torodol - Pre ECT Anti-emetics: Zofran - Pre ECT Miscillaneous Medications: Propofol Airway Management Airway Management: Bag Mask Ventilation Treatment Recommendations No Changes Recommended: No change Pt Tolerated Procedure w/o Issue: Yes
[2021-02-09] MEDS: LORazepam 1 MG TABLET PO (09:20)
== END 2021-02-09 09:43 | disposition home or self-care (01) ==
PROVIDERS: PCP Internal Medicine; Visit Provider Psychiatry & Neurology Psychiatry
PROC: (CPT 90870; principal; 2021-02-09 07:30)
DX: F33.8 Other recurrent depressive disorders (principal); Z79.899 Other long term (current) drug therapy; Z88.8 Allergy status to other drugs, medicaments and biological substances; Z87.891 Personal history of nicotine dependence
CPT/HCPCS: 90870; J0330; J1885; J2405

== ENCOUNTER → 2021-02-11 07:41 | Day surgery (SDC) | payer MEDICARE, SELFPAY ==
[2021-02-11 07:57] LABS: COVID-19 Test Positive (Negative)
== END ==
PROVIDERS: Visit Provider Psychiatry & Neurology Psychiatry
DX: F33.3 Major depressive disorder, recurrent, severe with psychotic symptoms (principal); Z53.09 Procedure and treatment not carried out because of other contraindication; U07.1 COVID-19
CPT/HCPCS: 36415; 87635

== ENCOUNTER → 2022-01-13 10:05 | Outpatient (BNVA) | payer MEDICARE, SELFPAY | PROVIDERS: PCP Internal Medicine; Visit Provider Psychiatry & Neurology Psychiatry | DX: F33.2 Major depressive disorder, recurrent severe without psychotic features (principal); F41.1 Generalized anxiety disorder | CPT/HCPCS: 90833; 99212 ==

== ENCOUNTER → 2022-03-01 13:23 | Outpatient (BNVA) | payer MEDICARE, SELFPAY | PROVIDERS: PCP Internal Medicine; Visit Provider Psychiatry & Neurology Psychiatry | DX: F41.1 Generalized anxiety disorder (principal); F33.41 Major depressive disorder, recurrent, in partial remission | CPT/HCPCS: 90833; 99212 ==

== ENCOUNTER → 2022-08-03 13:27 | Outpatient (BNVA) | payer MEDICARE, SELFPAY | PROVIDERS: PCP Internal Medicine; Visit Provider Psychiatry & Neurology Psychiatry | DX: F41.1 Generalized anxiety disorder (principal); F33.42 Major depressive disorder, recurrent, in full remission; M16.10 Unilateral primary osteoarthritis, unspecified hip | CPT/HCPCS: 90833; 99212 ==

== ENCOUNTER 2022-09-19 11:25 | Outpatient (AMB) | payer MEDICARE, SELFPAY ==
--- NOTE | 2022-09-19 11:28 | AM.OFFWIN_ITS ---
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 Patient Tobacco Use Status: Never used Tobacco Allergies levofloxacin [From Levaquin] Allergy (Verified 09/19/22 11:48) Rash phenelzine Allergy (Verified 09/19/22 11:48) Unknown tyramine Allergy (Uncoded 09/19/22 11:48) Hypertension HPI HPI Comments History of Present Illness Details 72-year-old female who presents for your blockage. Patient states that she feels that her ears have been blocked for several days. Right greater than left. She tried drops at home with out significant relief. [facility] Medical History (Updated 09/12/22 @ 20:33 by Delvin Escobedo MD) Generalized anxiety disorder Major depressive disorder, recurrent, in full remission Surgical History History of appendectomy Family History Mother Breast cancer HTN (hypertension) Social History Household Members: Spouse Housing: House Do you presently have visiting nurse or other home services: No Alcohol intake: never Patient Tobacco Use Status: Never used Tobacco e-Cigarette/Vaping Use: Never Used Second Hand Smoke Exposure: No service: No Sexual orientation: Straight/Heterosexual Review of Systems Const All systems reviewed & are unremarkable except as noted in HPI and below ENT Details: Ear blockage bilaterally. Physical Exam Vital Signs: Last Vital Signs Temp 96.1 F L 09/19/22 11:31 Pulse 86 09/19/22 11:31 BP 128/60 09/19/22 11:31 Pulse Ox 95 09/19/22 11:31 Oxygen Delivery Method Room Air 09/19/22 11:31 Const Other: Cerumen impaction bilaterally. Unable to visualize TM. General: cooperative, healthy appearing, comfortable and no acute distress Limitations: no limitations Assessment & Plan Assessment & Plan (1) Cerumen impaction: Code(s): H61.20 - Impacted cerumen, unspecified ear Plan 72-year-old female who presents for your blockage. VSS. Exam patient's insulin oriented no acute distress. Exam was notable for bilateral cerumen impaction right greater than left. Unable to visualize TM. Ear flush with mild success. Manual removal cerumen occurred in the successful. Repeat examination showed tympanic membrane intact bilaterally. Discharge instructions, follow up and treatment are discussed with patient in my usual fashion. Alternatives in treatment are also discussed. The patient will return for worsening symptoms or as needed. Advised that any labs/imaging ordered will be followed up on and contact made if further treatment needed. Counseled that patient's condition may require further evaluation and/or treatme nt. Symptoms of concern for worsening disorder discussed in detail in my customary manner. Patient does verbalize understanding of the plan, there are no apparent barriers to communication. The patient is given the opportunity to ask questions and have them answered to his/her satisfaction Orders: Orders AMB Cerumen Removal Today H61.23 - Impacted cerumen, bilateral Patient Instructions: You were seen an evaluated in the urgent care for your ear blockage. Your ears were flushed and wax was manually removed. You may experience fullness for the next 24-48 hours. You may trail an anti-histamine such as benadry, ceterizine (Zyrtec), or claritin. Over the counter ear drops can be purchased to help soften your ear wax. You should return to urgent care or the emergency department if you experience any new or worsening symptoms such as worsen pain, fever, hearing loss or any concerning symptoms not mentioned above. Coding Level of Care Code New Pt Level 3 (25298) Diagnoses Cerumen impaction H61.20
--- OUTSIDE RECORDS SUMMARY | 2022-09-19 11:28 | XMS_ITS | Continuity of Care Document ---
Author Name Unknown Organization [facility] Address [address] [place] [address]- Care Team Providers Care Case Picker Name Role Phone Ashok Guerrero MD Primary Care Physician Encounter [facility] Date(s): 08/07/22 - 09/06/22 [facility] [address] [place], [place] [address] Allergies, Adverse Reactions, Alerts Substance Reaction Severity Status epinephrine 1 Persistent Mild Resolved Levaquin pruritis rash Active 1headache, elevated bp Immunizations Given and Recorded Vaccine Date Status Refusal Reason influenza virus vaccine, inactivated 01/18/22 Michael rded influenza virus vaccine, inactivated 01/11/21 Michael rded influenza virus vaccine, inactivated 1 12/08/19 Gi juhi influenza virus vaccine, inactivated 01/08/18 Michael rded influenza virus vaccine, inactivated 12/22/16 Give n influenza virus vaccine, inactivated 02/23/16 Michael rded influenza virus vaccine, inactivated 2 03/11/13 Re corded influenza virus vaccine, inactivated 3 03/29/12 Gi juhi SARS-CoV-2 mRNA ([id number]) vax 08/04/21 Recorded SARS-CoV-2 (COVID-19) mRNA BNT-162b2 vac 03/10/21 Recorded SARS-CoV-2 (COVID-19) mRNA BNT-162b2 vac 07/02/20 Recorded SARS-CoV-2 (COVID-19) mRNA BNT-162b2 vac 06/09/20 Recorded tetanus/diphtheria/pertussis, acel(Tdap) 10/09/20 Given tetanus/diphtheria/pertussis, acel(Tdap) 09/08/09 Given zoster vaccine, inactivated 09/17/19 Recorded zoster vaccine, inactivated 04/08/19 Recorded pneumococcal 13-valent vaccine 06/29/18 Recorded Varicella Virus Vaccine 10/25/12 Recorded pneumococcal 23-valent vaccine 10/25/12 Recorded Zoster Vaccine Live 10/25/12 Recorded 1Result Comment: [facility] [id number] 2Location History: [facility] 3Admin Note: vis sheet given. Medications clonazePAM 0.5 mg oral tablet See Instructions, PRN Anxiety, one half or 1 tablet By Mouth 3 times a day, 0 Refills, Maintenance,09/02/20 14:32:00 EDT, Tablet, Partial fill upon patient request if the prescription is for a schedule II opioid drug. Start Date: 09/02/20 Status: Ordered Fish Oil 1000 mg oral capsule 1 capsule = 1,000 mg, By Mouth, 2 times a day, 0 Refills, Maintenance, 04/25/19 14:34:00 EST, Capsule Start Date: 04/25/19 Status: Ordered meloxicam 15 mg oral tablet 1 tablet = 15 mg, By Mouth, Daily, # 30 tablet, 0 Refills, Maintenance, 07/04/22 9:22:00 EDT, Tablet, Partial fill upon patient request if the prescription is for a schedule II opioid drug. Start Date: 07/04/22 Status: Ordered Nardil 15 mg oral tablet See Instructions, 5 tablet daily, # 60 each, 11 Refills Start Date: 10/08/06 Status: Ordered tiZANidine 2 mg oral tablet 2 mg, 1, tablet, By Mouth, 3 times a day, PRN, # 90 tablet, Refills 0, Maintenance, muscle pain or spasm, 08/08/22 7:39:00 EDT, Partial fill upon patient request if the prescription is for a scheduleII opioid drug. Start Date: 08/08/22 Status: Ordered Problem List Condition Confirmation Course Effective Dates Status Health St atus Informant Family history of breast disorder Confirmed Active Anxiety with depression Confirmed Active Severe obesity Confirmed Active Social History Social History Type Response Smoking Status Never smoker; Tobacc o user in household: No entered on: 06/05/13 Sex Female Patient Care team information Care Team Personnel Name: Ashok Guerrero MD Position: S Physician - Primary Care Member Role: PCP Address: Address: [address] [place] [address] Adult [place] [address]- [place] Care Team Related Persons Name: BETTIEBEKAHAKOSUA GLOVER Address: home [address] [place] [address]
[2022-09-19 11:31] VITALS: BP 128/60; PULSE 86; TEMP 35.6; O2SAT 95
== END 2022-09-19 12:25 | disposition home or self-care (01) ==
PROVIDERS: PCP Internal Medicine; Visit Provider Physician Assistant
DX: H61.21 Impacted cerumen, right ear (principal)
CPT/HCPCS: 99203

== ENCOUNTER 2022-11-14 15:04 | Outpatient (AMB) | payer MEDICARE, SELFPAY ==
--- OUTSIDE RECORDS SUMMARY | 2022-11-14 15:07 | XMS_ITS | Continuity of Care Document ---
Author Name Unknown Organization [facility] Address [address] [place] [address]- Care Team Providers Care Processing Engineer Name Role Phone Cesar STACK, Ashok Monroy Primary Care Physician [phone] [place] [facility] 10/[place]/22 [facility] [address] [place], [place] [address] Allergies, Adverse Reactions, Alerts Substance Reaction [...] inactivated 3 03/29/12 Gi juhi SARS-CoV-2 mRNA ([id number]-tfjc-[id number]) vax 08/04/21 Recorded SARS-CoV-2 (COVID-19) mRNA BNT-162b2 [...] Vaccine Live 10/25/12 Recorded 1Result Comment: [facility] [id number] 2Location History: [facility] 3Admin Note: vis sheet given. Medications clonazePAM [...] Primary Care Member Role: PCP Address: Address: [address] [place] [address] Adult & [place] [address]- Care Team Related Persons Name: AKOSUA HENDERSON Address: home [address] [place] [address]
--- OUTSIDE RECORDS SUMMARY | 2022-11-14 15:07 | XMS_ITS | Continuity of Care Document ---
Author Name Unknown Organization [facility] Address [address] [place] [address]- Care Team Providers Care Therapeutic Recreation Leader Name Role Phone Cesar STACK, Ashok Monroy Primary Care Physician [place] [facility] Date(s): 08/24/22 - 09/23/[address] [address] Attending Physician: Admmilana, Cristal Admitting Physician: AdmtrCristal Referring Physician: Admtr, Ar8 Allergies, Adverse Reactions, Alerts Substance Reaction Severity [...] inactivated 3 03/29/12 Gi juhi SARS-CoV-2 mRNA ([id number]-tfyj-atvhm) vax 08/04/21 Recorded SARS-CoV-2 (COVID-19) mRNA BNT-162b2 vac 03/10/21 Recorded SARS-CoV-2 (COVID-19) mRNA BNT-162b2 vac 07/02/20 Recorded SARS-CoV-2 (COVID-19) mRNA BNT-162b2 vac 06/09/20 Recorded tetanus/diphtheria/pertussis, acel(Tdap) 7/31/21 Given tetanus/diphtheria/pertussis, acel(Tdap) 09/08/09 Given zoster vaccine, inactivated 09/17/19 Recorded zoster vaccine, inactivated 04/08/19 Recorded pneumococcal 13-valent vaccine 06/29/18 Recorded Varicella Virus Vaccine 10/25/12 Recorded pneumococcal 23-valent vaccine 10/25/12 Recorded Zoster Vaccine Live 10/25/12 Recorded 1Result Comment: [facility] [id number] 2[facility] History[facility] 3Admin Note: vis sheet [...] Primary Care Member Role: PCP Address: Address: [address] [place] [address] Adult & [place] [address]- Care Team Related Persons Name: AKOSUA HENDERSON Address: home [address] [place] [address]
--- OUTSIDE RECORDS SUMMARY | 2022-11-14 15:07 | XMS_ITS | Continuity of Care Document ---
Author Name Unknown Organization [facility] Address [address] [place] [address]- Care Team Providers Care Photogrammetric Engineer Name Role Phone Ashok Guerrero MD Primary Care Physician [place] [facility](s): 09/22/22 - 10/22/22 [facility] [address] [place], [place] [address] Attending Physician: Admtr, [id number] Admitting Physician: Admtr, Cristal Referring Physician: Admtr, Ar8 Allergies, Adverse Reactions, [...] inactivated 3 03/29/12 Gi juhi SARS-CoV-2 mRNA ([id number]-awyxv) vax 08/04/21 Recorded SARS-CoV-2 (COVID-19) mRNA BNT-162b2 [...] Zoster Vaccine Live 10/25/12 Recorded 1Result Comment: [facility] [id number] 2Location History: [facility] 3Admin Note: vis sheet [...] household: No entered on: 06/05/13 Sex Female EKG study * Event Display: EKG Authored Date: Laboratory * Event Display: Non BH Lab Results Authored Date: * Event Display: Laboratory Result Scanned Authored Date: Patient Care team information Care Team Personnel Name: Ashok Guerrero MD Position: S Physician - Primary Care Member Role: PCP Address: Address: [address] [place] [address] Adult & [place] [address]- Care Team Related Persons Name: AKOSUA HENDERSON Address: home [address] [place] [address]
--- OUTSIDE RECORDS SUMMARY | 2022-11-14 15:07 | XMS_ITS | Continuity of Care Document ---
Author Name Unknown Organization [facility] Address [address] [place] [address]- Care Team Providers Care Carbon Paper Coating Machine Setter Name Role Phone Cesar STACK, Ashok Monroy Primary Care Physician [phone] [place] [facility] [place] - 10/17/[address] [address]- Encounter Diagnosis Pain in right hip(Final) - Discharge Disposition: A-D/C Home Attending Physician: Rosalio Pascal V Admitting Physician: Rosalio Pascal V Referring Physician: Rosalio Pascal V Allergies, Adverse Reactions, Alerts Substance Reaction Severity [...] inactivated 3 03/29/12 Gi juhi SARS-CoV-2 mRNA ([id number]-[id number]) vax 08/04/21 Recorded SARS-CoV-2 (COVID-19) mRNA BNT-162b2 [...] Zoster Vaccine Live 10/25/12 Recorded 1Result Comment: [facility] [id number] 2Location History: [facility] 3Admin Note: vis sheet [...] Primary Care Member Role: PCP Address: Address: [address] [place] [address] Adult & [place] [address]- Care Team Related Persons Name: AKOSUA HENDERSON Address: home [address] [place] [address]
--- OUTSIDE RECORDS SUMMARY | 2022-11-14 15:07 | XMS_ITS | Continuity of Care Document ---
Author Name Unknown Organization [facility] Address [address] [place] [address]- Care Team Providers Care Meat Pumper Name Role Phone Cesar STACK, Ashok Monroy Primary Care Physician [phone] Encounter [facility] Date(s): 09/22/22 - 09/29/22 [facility] [address] [place], [place] [address] Attending Physician: Luis Enrique Westbrook MD Allergies, Adverse Reactions, Alerts Substance Reaction Severity [...] inactivated 3 03/29/12 Gi juhi SARS-CoV-2 mRNA (dhyfjop-xnyq-obmjc) vax 08/04/21 Recorded SARS-CoV-2 (COVID-19) mRNA BNT-162b2 [...] Zoster Vaccine Live 10/25/12 Recorded 1Result Comment: [facility] [id number] 2Location History: [facility] 3Admin Note: vis sheet [...] depression Confirmed Active Severe obesity Confirmed Active Vital Signs Most recent to oldest [Reference Range]: 1 Height 66.14 cm (09/22/22 2:06 PM) Weight 75.0 kg (09/22/22 2:06 PM) Oxygen Saturation [94-100 %] 96 % (09/22/22 2:06 PM) Pulse Rate [55-90 bpm] 77 bpm (09/22/22 2:06 PM) Body Mass Index [18.5-24.99 kg/m2] 171.4 5 kg/m2 *>HHI* (09/22/22 2:06 PM) Blood Pressure [90-138/55-84 mm Hg] 110/ 62mm Hg (09/22/22 2:06 PM) Mode of Delivery (Oxygen) Room air (09/22/22 2:06 PM) Blood pressure sites Arm, left (09/22/22 2:06 PM) Social History Social History Type Response Smoking Status Never smoker; Tobacc o user in household: No entered on: 06/05/13 Sex Female Patient Care team information Care Team Personnel Name: Ashok Guerrero MD Position: S Physician - Primary Care Member Role: PCP Address: Address: [address] [place] [address] Adult [place] [address]- Care Team Related Persons Name: AKOSUA HENDERSON Address: home [address] [place] [address]
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
== END 2022-11-14 16:56 | disposition home or self-care (01) ==
LOC: HO.HOP 15:04
PROVIDERS: PCP Internal Medicine; Visit Provider Psychiatry & Neurology Psychiatry
DX: F33.42 Major depressive disorder, recurrent, in full remission (principal); F41.1 Generalized anxiety disorder
CPT/HCPCS: 90833; 99213

== ENCOUNTER → 2022-11-14 15:04 | Outpatient (BNVA) | payer MEDICARE, SELFPAY | PROVIDERS: PCP Internal Medicine; Visit Provider Psychiatry & Neurology Psychiatry | DX: F33.42 Major depressive disorder, recurrent, in full remission (principal); F41.1 Generalized anxiety disorder; Z79.899 Other long term (current) drug therapy | CPT/HCPCS: 90833; 99212 ==

== ENCOUNTER 2023-04-16 17:46 | Outpatient (AMB) | payer MEDICARE, SELFPAY ==
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
== END 2023-04-16 17:47 | disposition home or self-care (01) ==
LOC: HO.HOP 17:46
PROVIDERS: PCP Internal Medicine; Visit Provider Psychiatry & Neurology Psychiatry
DX: F33.42 Major depressive disorder, recurrent, in full remission (principal); F41.1 Generalized anxiety disorder
CPT/HCPCS: 90833; 99213

== ENCOUNTER → 2023-04-16 17:46 | Outpatient (BNVA) | payer MEDICARE, SELFPAY | PROVIDERS: PCP Internal Medicine; Visit Provider Psychiatry & Neurology Psychiatry | DX: F33.42 Major depressive disorder, recurrent, in full remission (principal); F41.1 Generalized anxiety disorder; Z79.899 Other long term (current) drug therapy | CPT/HCPCS: 99212 ==

== ENCOUNTER 2023-05-07 13:04 | Outpatient (REF) | payer MEDICARE, SELFPAY | END 2023-05-07 13:05 | disposition home or self-care (01) | LOC: HO.SH 13:04 | PROVIDERS: Visit Provider Internal Medicine | DX: Z01.118 Encounter for examination of ears and hearing with other abnormal findings (principal); H90.41 Sensorineural hearing loss, unilateral, right ear, with unrestricted hearing on the contralateral side; H93.11 Tinnitus, right ear | CPT/HCPCS: 92557; 92567 ==

== ENCOUNTER 2023-07-13 16:02 | Outpatient (AMB) | payer MEDICARE, SELFPAY ==
[2023-07-13 16:07] VITALS: BP 118/64; PULSE 77; TEMP 36.5; O2SAT 97; BMI 28.2
--- NOTE | 2023-07-13 16:07 | AM.OFFWIN_ITS ---
Intake Vital Signs 07/13/23 16:07 Height 5 ft 5 in Weight 169 lb 8 oz BMI 28.2 BP 118/64 Blood Pressure Location Lt brachial Position Sitting Pulse 77 Pulse Source Pulse Oximeter Temp 97.7 F Temp Source Oral Pulse Oximetry (%) 97 Oxygen Delivery Method Room Air Intake Visit Reasons: EP sinus congestion/pain Intake Note: Pt presents to the office today for c/o sinus congestion and sinus pressure that started 2 days ago. Patient Tobacco Use Status: Never used Tobacco Allergies levofloxacin [From Levaquin] Allergy (Verified 07/13/23 16:11) Rash tyramine Allergy (Uncoded 07/13/23 16:11) Hypertension HPI HPI Comments History of Present Illness Details 73 y/o female patient presents to [facility] in clinic with c/o Sinus pressure, headaches, and mouth pain ~ 2 days now. Reports frontal headaches and pain on the back of her teeth. Pt has been stressed and worried lately and unable to sleep. She is scheduled to have Hip replacement surgery in 2 weeks. She is very anxious and worried. [facility] Medical History (Updated 09/12/22 @ 20:33 by Delvin Escobedo MD) Major depressive disorder, recurrent, in full remission Generalized anxiety disorder Surgical History History of appendectomy Family History Mother Breast cancer HTN (hypertension) Social History Household Members: Spouse Housing: House Do you presently have visiting nurse or other home services: No Alcohol intake: never Comment: fell 2-3 weeks ago Patient Tobacco Use Status: Never used Tobacco e-Cigarette/Vaping Use: Never Used Second Hand Smoke Exposure: No service: No Sexual orientation: Straight/Heterosexual Review of Systems Const All systems reviewed & are unremarkable except as noted in HPI and below Physical Exam Vital Signs: Last Vital Signs Temp 97.7 F 07/13/23 16:07 Pulse 77 07/13/23 16:07 BP 118/64 07/13/23 16:07 Pulse Ox 97 07/13/23 16:07 Oxygen Delivery Method Room Air 07/13/23 16:07 BMI result Body Mass Index 28.2 Const General: no acute distress and lethargic Orientation/consciousness: patient oriented x3 and lethargic HEENT Head: Yes normocephalic Ears: external ears normal and TM abnormal bulging and with fluid behind the TM bilateral; not bullous, not dull, not with effusion, not erythematous, not perforated and not retracted General nose exam: Abnormal mucous membranes and turbinates present boggy and erythematous Face and sinus: Yes sinus tenderness Mouth: moist mucous membranes Throat: Yes posterior oropharynx normal Resp Effort & Inspection: normal respiratory effort, able to speak in complete sentences, no audible wheezes and no cough Auscultation: clear to auscultation bilaterally, no crackles, no rales, no rhonchi and no wheezes Cardio Rate: regular rate Rhythm: regular rhythm Neuro General: patient oriented x3 Assessment & Plan Assessment & Plan (1) Sinus pressure: Code(s): J34.89 - Other specified disorders of nose and nasal sinuses Plan: - Decongestants - Acetaminophen for pain relief - Advised to obtain enough sleep at night - She may call her Mental health provider for advise regarding her anxiety. Medications: New fluticasone propionate 50 mcg/actuation administer into each nostril 1 spray intranasal DAILY PRN 16 grams 0RF allergy symptoms J34.89 - Other specified disorders of nose and nasal sinuses acetaminophen 1,000 mg (2 x 500 mg) PO Q6H PRN 30 caps 0RF headache R51.9 - Headache, unspecified Coding Level of Care Code Est Pt Level 3 (69472) Diagnoses Sinus pressure J34.89 Time Spent (min) 15
== END 2023-07-13 17:13 | disposition home or self-care (01) ==
PROVIDERS: PCP Internal Medicine; Visit Provider Nurse Practitioner Family
DX: J34.89 Other specified disorders of nose and nasal sinuses (principal)
CPT/HCPCS: 99213

== ENCOUNTER 2023-07-16 13:42 | Outpatient (AMB) | payer MEDICARE, SELFPAY ==
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
== END 2023-07-16 14:59 | disposition home or self-care (01) ==
LOC: HO.HOP 13:42
PROVIDERS: PCP Internal Medicine; Visit Provider Psychiatry & Neurology Psychiatry
DX: F33.42 Major depressive disorder, recurrent, in full remission (principal); F41.1 Generalized anxiety disorder; M16.10 Unilateral primary osteoarthritis, unspecified hip
CPT/HCPCS: 90833; 99213

== ENCOUNTER → 2023-07-16 13:42 | Outpatient (BNVA) | payer MEDICARE, SELFPAY | PROVIDERS: PCP Internal Medicine; Visit Provider Psychiatry & Neurology Psychiatry | DX: F33.42 Major depressive disorder, recurrent, in full remission (principal); F41.1 Generalized anxiety disorder; M16.10 Unilateral primary osteoarthritis, unspecified hip | CPT/HCPCS: 99212 ==

== ENCOUNTER 2023-08-27 13:27 | Outpatient (AMB) | payer MEDICARE, SELFPAY ==
--- OUTSIDE RECORDS SUMMARY | 2023-08-27 13:29 | XMS_ITS | Continuity of Care Document ---
Author Organization [facility] Address [address] [place] [address]- Care Team Providers Care Stock Clerk Self Service [employer] Name Role Phone Ashok Guerrero MD Primary Care Physician [place] [facility] 12/04/22 - 01/03/23 [facility] [address] [place], [place] [address] Allergies, Adverse Reactions, Alerts Substance Reaction [...] inactivated 3 03/29/12 Gi juhi SARS-CoV-2 mRNA ([id number]) vax 08/04/21 Recorded SARS-CoV-2 (COVID-19) mRNA BNT-162b2 [...] Zoster Vaccine Live 10/25/12 Recorded 1Result Comment: [facility] [id number] 2Location History: sarah 3Admin Note: vis sheet [...] Primary Care Member Role: PCP Address: Address: [address] [place] [address] Adult & Pediatric Medicine [place], [place] [address] Name: Teresa Myers Position: [facility] Member Role: Primary Care Nurse Care Team Related Persons Name: AKOSUA HENDERSON Address: home [address] [place] [address]
--- OUTSIDE RECORDS SUMMARY | 2023-08-27 13:29 | XMS_ITS | Continuity of Care Document ---
Author Organization [facility] Address [address] [place] [address]- Care Team Providers Care Paid Search Marketing Strategist Name Role Phone Cesar STACK, Ashok Monroy Primary Care Physician [phone] Encounter [facility] [place] Date(s): 02/14/23 - 03/16/23 [facility] [address] [place], [place] [address] Allergies, Adverse Reactions, Alerts Substance Reaction Severity Status Levaquin pruritis rash Active epinephrine 1 Persistent Mild Resolved 1headache, elevated bp Immunizations Given and Recorded Vaccine Date Status Refusal Reason SARS-CoV-2(COVID-19)mRNA-LNP vac([id number]) 12/27/22 Recorded influenza virus vaccine, inactivated 12/01/22 Michael rded influenza virus vaccine, inactivated 01/18/22 Michael rded influenza virus vaccine, inactivated 01/11/21 Michael rded influenza virus vaccine, inactivated 1 12/08/19 Gi juhi influenza virus vaccine, inactivated 01/08/18 Michael rded influenza virus vaccine, inactivated 12/22/16 Give n influenza virus vaccine, inactivated 02/23/16 Michael rded influenza virus vaccine, inactivated 2 03/11/13 Re corded influenza virus vaccine, inactivated 3 03/29/12 Gi juhi SARS-CoV-2 mRNA ([id number]) vax 08/04/21 Recorded SARS-CoV-2 (COVID-19) mRNA BNT-162b2 [...] Zoster Vaccine Live 10/25/12 Recorded 1Result Comment: [facility] [id number] 2Location History: [facility] 3Admin Note: vis sheet given. Medications Aerochamber See Instructions, # 1 each, Maintenance, Use as directed with all inhalors. Dx: acute bronchitis with bronchospasm, 03/01/23 12:59:00 EST, Supply, 166.14, cm, 03/01/23 12:03:00 EST, Height, 75, kg, 01/30/23 13:42:00 EST, Dry Weight Start Date: 03/01/23 Status: Ordered albuterol CFC free 90 mcg/inh inhalation aerosol 1, puffs, Inhalation, Every 4 hours, PRN, use with spacer chamber. May increase to 1 puff every 2 hours if needed, but avoid taking 2 puffs together., # 1 each, Refills 0, Tot. Refills 0, Maintenance, 03/01/23 12:59:00 EST, Route to Pharmacy Electro... Start Date: 03/01/23 Stop Date: 03/31/23 Status: Ordered Azithromycin 5 Day Dose Pack 250 mg oral tablet See Instructions, as directed on package labeling 2 tablets first day then 1 tablet daily for 4 more days, # 6 tablet, 0 Refills, Maintenance, 03/01/23 12:59:00 EST, Tablet, [facility] # [facility], Partial fill upon patient request if the prescription i... Start Date: 03/01/23 Status: Ordered clonazePAM 0.5 mg oral tablet See Instructions, [...] EST, Capsule Start Date: 04/25/19 Status: Ordered Nardil 15 mg oral tablet See Instructions, 4 tablets by mouth daily, # 60 each, 11 Refills Start Date: 10/08/06 Status: Ordered Problem List Condition Confirmation Course Effective Dates Status Health St atus Informant Family history of breast disorder Confirmed Active Anxiety with depression Confirmed Active Social History Social History Type Response Smoking Status Never smoker; Tobacc o user in household: No entered on: 06/05/13 Sex Female Patient Care team information Care Team Personnel Name: Ashok Guerrero MD Position: [facility] Physician - Primary Care Member Role: PCP Address: Address: [address] [place] [address] Adult & Pediatric [place], [place] [address] Name: Teresa Myers Position: [facility] Member Role: Primary Care Nurse Care Team Related Persons Name: AKOSUA HENDERSON Address: home [address] [place] [address]
--- OUTSIDE RECORDS SUMMARY | 2023-08-27 13:29 | XMS_ITS | Continuity of Care Document ---
Author Organization [facility] Address [address] [place] [address]- Care Team Providers Care Veterinarian Assistant Name Role Phone Ashok Guerrero MD Primary [facility] Phys[id number] Date[facility]/17/[facility] - 05/17/23 [facility] [address] [place] [address]- [place] Allergies, Adverse Reactions, Alerts Substance Reaction Severity Status epinephrine 1 Persistent Mild Resolved Levaquin pruritis rash Active 1headache, elevated bp Immunizations Given and Recorded Vaccine Date Status Refusal Reason RSV vaccine preF3, recombinant 1 04/25/23 Recorded SARS-CoV-2(COVID-19)mRNA-LNP vac([id number]) 12/27/22 Recorded influenza virus vaccine, inactivated 12/01/22 Michael rded influenza virus vaccine, inactivated 01/18/22 Michael rded influenza virus vaccine, inactivated 01/11/21 Michael rded influenza virus vaccine, inactivated 2 12/08/19 Gi juhi influenza virus vaccine, inactivated 01/08/18 Michael rded influenza virus vaccine, inactivated 12/22/16 Give n influenza virus vaccine, inactivated 02/23/16 Michael rded influenza virus vaccine, inactivated 3 03/11/13 Re corded influenza virus vaccine, inactivated 4 03/29/12 Gi juhi SARS-CoV-2 mRNA ([id number]-ieet-coyyj) vax 08/04/21 Recorded SARS-CoV-2 (COVID-19) mRNA BNT-162b2 [...] Zoster Vaccine Live 10/25/12 Recorded 1Result Comment: [facility]04/25/2023] [facility] 2Result Comment: [facility] [id number] 3[facility] 4Admin Note: vis sheet given. Medications Aerochamber See [...] Primary Care Member Role: PCP Address: Address: [address] [place] [address] Adult [place] [address]- Care Team Related Persons Name: AKOSUA HENDERSON Address: home [address] [place] [address]
--- OUTSIDE RECORDS SUMMARY | 2023-08-27 13:29 | XMS_ITS | Continuity of Care Document ---
Author Organization [facility] Address [address] [place] [address]- Care Team Providers Care Raw Mill Operator Name Role Phone Ashok Guerrero MD Primary Care Physician Encounter [facility] Date(s): 03/01/23 - 03/31/23 [facility] [address] [place], [place] [address] Allergies, Adverse Reactions, Alerts Substance Reaction Severity Status epinephrine 1 Persistent Mild Resolved Levaquin pruritis rash Active 1headache, elevated bp Immunizations Given and Recorded Vaccine Date Status Refusal Reason SARS-CoV-2(COVID-19)mRNA-LNP vac([id number]) 12/27/22 Recorded influenza virus vaccine, inactivated 12/01/22 [...] inactivated 3 03/29/12 Gi juhi SARS-CoV-2 mRNA ([id number]) vax 08/04/21 Recorded SARS-CoV-2 (COVID-19) mRNA BNT-162b2 [...] Zoster Vaccine Live 10/25/12 Recorded 1Result Comment: [facility] [id number] 2Location History[facility] 3Admin Note: vis sheet [...] Date: 03/01/23 Stop Date: 03/31/23 Status: Ordered Augmentin 875 mg-125 mg oral tablet 1 tablet, By Mouth, Every 12 hours, for 10 days, # 20 tablet, 0 Refills, Acute 04/07/23 13:04:00 EST, 03/28/23 13:04:00 EST, Tablet, [facility] # [facility], Partial fill upon patient request if the prescription is for a schedule II opioid drug., 166.14,... Start Date: 03/28/23 Stop Date: 04/07/23 Status: Ordered Azithromycin 5 Day Dose Pack [...] Care team information Care Team Personnel Name: Cesar STACK, Ashok Monroy Position: S Physician - Primary Care Member Role: PCP Address: Address: [address] [place] [address] Adult [place] [address]- Care Team Related Persons Name: AKOSUA HENDERSON Address: home [address] [place] [address]
--- OUTSIDE RECORDS SUMMARY | 2023-08-27 13:29 | XMS_ITS | Continuity of Care Document ---
Author Organization [facility] Address [address] [place] [address]- Care Team Providers Care Drier Belt Conveyor Name Role Phone Ashok Guerrero MD Primary Care Physician [phone] [place] [facility] [place]02[place]23 [place] 04/01/23 [facility] [address] [place], [place] [address] Allergies, Adverse Reactions, Alerts Substance Reaction Severity Status epinephrine 1 Persistent Mild Resolved Levaquin pruritis rash Active 1headache, elevated bp Immunizations Given and Recorded Vaccine Date Status Refusal Reason SARS-CoV-2(COVID-19)mRNA-LNP vac([id number]) 12/27/22 Recorded influenza virus vaccine, inactivated 12/01/22 [...] inactivated 3 03/29/12 Gi juhi SARS-CoV-2 mRNA ([id number]) vax 08/04/21 Recorded SARS-CoV-2 (COVID-19) mRNA BNT-162b2 [...] Zoster Vaccine Live 10/25/12 Recorded 1Result Comment: [facility] [place] 2] [id number] 2[facility] 3Admin Note: vis sheet [...] Primary Care Member Role: PCP Address: Address: [address] [place] [address] Adult [place] [address]- Care Team Related Persons Name: AKOSUA HENDERSON Address: [address] [place] [address]
--- OUTSIDE RECORDS SUMMARY | 2023-08-27 13:29 | XMS_ITS | Continuity of Care Document ---
Author Organization [facility] Address [address] [place] [address]- Care Team Providers Care Knot Cutter Name Role Phone Cesar STACK, Ashok Monroy Primary Care Physician Encounter [facility] [place] Date(s): 03/22/23 - 04/21/23 [facility] [address] [place], [place] [address] Allergies, Adverse Reactions, Alerts Substance Reaction Severity Status epinephrine 1 Persistent Mild Resolved Levaquin pruritis rash Active 1headache, elevated bp Immunizations Given and Recorded Vaccine Date Status Refusal Reason SARS-CoV-2(COVID-19)mRNA-LNP vac([id number]) 12/27/22 Recorded influenza virus vaccine, inactivated 12/01/22 [...] inactivated 3 03/29/12 Gi juhi SARS-CoV-2 mRNA ([id number]-yiut-shqbi) vax 08/04/21 Recorded SARS-CoV-2 (COVID-19) mRNA BNT-162b2 [...] Zoster Vaccine Live 10/25/12 Recorded 1Result Comment: [facility] [id number] 2Location History[facility] 3Admin Note: vis sheet [...] Primary Care Member Role: PCP Address: Address: [address] [place] [address] Adult [place] [address]- Care Team Related Persons Name: AKOSUA HENDERSON Address: [address] [place] [address]
--- OUTSIDE RECORDS SUMMARY | 2023-08-27 13:29 | XMS_ITS | Continuity of Care Document ---
Author Organization [facility] ter Address [address] [place] [id number]- Care Team Providers Care Deputy Building Guard Name Role Phone Ashok Guerrero MD Primary Care Physician Encounter [facility] [place], [place] Date(s): 07/26/23 - 07/26/[address] [id number] Discharge Disposition: A-Transfer VNA/Home Health Attending Physician: Asad Roy MD Admitting Physician: Asad Roy MD Referring Physician: Asad Roy MD Allergies, Adverse Reactions, Alerts Substance Reaction Severity Status epinephrine 1 Persistent Mild Active Levaquin pruritis rash Active 1headache, elevated bp Immunizations Given and Recorded Vaccine Date Status Refusal Reason RSV vaccine preF3, recombinant 1 04/25/23 Recorded SARS-CoV-2(COVID-19)mRNA-LNP vac([id number]) 12/27/22 Recorded influenza virus vaccine, inactivated 12/01/22 [...] inactivated 4 03/29/12 Gi juhi SARS-CoV-2 mRNA (jowuwut-[id number]) vax 08/04/21 Recorded SARS-CoV-2 (COVID-19) mRNA BNT-162b2 [...] Vaccine Live 10/25/12 Recorded 1Result Comment: [04/25/2023] mo giron 2Result Comment: [facility] [place] [phone] 3Location History: [facility] 4Admin Note: vis sheet given. Medications acetaminophen 325 mg oral tablet 650 mg, By Mouth, Every 6 hours, May take OTC not to exceed 3000 mg/day, Refills 0, Maintenance, 07/25/23 7:23:00 EDT, Partial fill upon patient request if the prescription is for a schedule II opioid drug. Start Date: 07/25/23 Status: Ordered Acetaminophen Tablet 650 mg, Tablet, By Mouth, 07/26/23 17:00:00 EDT, Stop date 07/26/23 17:00:00 EDT Start Date: 07/26/23 Stop Date: 07/26/23 Status: Completed Aerochamber See Instructions, # 1 each, Maintenance, Use as directed with all inhalors. Dx: acute bronchitis with bronchospasm, 03/01/23 12:59:00 EST, Supply, 166.14, cm, 03/01/23 12:03:00 EST, Height, 75, kg, 01/30/23 13:42:00 EST, Dry Weight Start Date: 03/01/23 Status: Ordered Aspirin Tablet 325 mg, By Mouth, 2 times a day, Refills 0, Maintenance, 07/25/23 7:23:00 EDT, Partial fill upon patient request if the prescription is for a schedule II opioid drug. Start Date: 07/25/23 Status: Ordered celecoxib 200 mg oral capsule = 200 mg, By Mouth, Daily, 0 Refills, Maintenance, 07/25/23 7:23:00 EDT, Capsule, Partial fill uponpatient request if the prescription is for a schedule II opioid drug. Start Date: 07/25/23 Status: Ordered ciclopirox 0.77% topical cream 0 Refills, Maintenance, 07/09/23 18:46:00 EDT, Partial fill upon patient request if the prescription is for a schedule II opioid drug. Start Date: 07/09/23 Status: Ordered Clobetasol (Eqv-Temovate) 0.05% topical cream 0 Refills, Maintenance, 07/09/23 18:46:00 EDT, Partial fill upon patient request if the prescription is for a schedule II opioid drug. Start Date: 07/09/23 Status: Ordered clonazePAM 0.5 mg oral tablet See Instructions, PRN Anxiety, one half or 1 tablet By Mouth 3 times a day, 0 Refills, Maintenance,09/02/20 14:32:00 EDT, Tablet, Partial fill upon patient request if the prescription is for a schedule II opioid drug. Start Date: 09/02/20 Status: Ordered Colace Capsule 100 mg, 1, capsule, By Mouth, 2 times a day, Refills 0, Maintenance, 07/25/23 7:23:00 EDT, Partial fill upon patient request if the prescription is for a schedule II opioid drug. Start Date: 07/25/23 Status: Ordered MiraLax Powder 1 pack/packet = 17 Gm, By Mouth, Daily, PRN Constipation, 0 Refills, Maintenance, 07/25/23 7:23:00 EDT, Powder, Partial fill upon patient request if the prescription is for a schedule II opioid drug. Start Date: 07/25/23 Status: Ordered Nardil 15 mg oral tablet See Instructions, 2 tablet by mouth twice daily, # 120 each, 11 Refills Start Date: 10/08/06 Status: Ordered oxyCODONE 5 mg oral tablet See Instructions, PRN, 1-2 tablets By Mouth Every 4 hours, # 84 tablet, Refills 0, Tot. Refills 0, Acute 08/01/23 7:05:00 EDT, Pain , Severe, 07/25/23 7:04:00 EDT, Instructions Replace Required Details, Route to Pharmacy Electronically, [facility]... Start Date: 07/25/23 Stop Date: 08/01/23 Status: Ordered oxyCODONE 5 mg oral tablet 5 mg, Tablet, By Mouth, Every 4 hours for 7 days, PRN for Pain , Moderate, Routine, 07/24/23 7:57:00 EDT, Stop date 07/31/23 7:56:00 EDT Start Date: 07/24/23 Stop Date: 07/27/23 Status: Discontinued pantoprazole 40 mg oral delayed release tablet = 40 mg, By Mouth, Daily, 0 Refills, Maintenance, 07/25/23 7:23:00 EDT, EC Tablet Start Date: 07/25/23 Status: Ordered senna 187 mg oral tablet 1 tablet = 8.6 mg, By Mouth, Daily at bedtime, PRN as needed for constipation, 0 Refills, Maintenance, 07/25/23 7:23:00 EDT, Tablet, Partial fill upon patient request if the prescription is for a schedule II opioid drug. Start Date: 07/25/23 Status: Ordered Problem List Condition Confirmation Course Effective Dates Status H ealth Status Informant Family history of breast disorder Confirmed Active Lichen planus Confirmed Active Anxiety with depression Confirmed Active Osteoarthritis of left hip Confirmed Active Tinnitus Confirmed Active Results Radiology Reports * Exam Date Time Procedure Performing Provider Status 07/24/23 10:03 AM Pelvis 1 or 2 Views Yumiko Hinkle; Alejandra (Verified) Notes: (Pelvis 1 or 2 Views) Reason For Exam: Postop Prosthesis RESULT: Pelvis 1 or 2 Views Pelvis 1 or 2 Views Reason: Postop Prosthesis; Clinical Question(s): Status of Hip Prosthesis; Special Instructions: LEFT Hip - To be done in PACU COMPARISON: 02/04/2014. FINDINGS: A single postop portable frontal view of the pelvis shows evidence of a cementless total left hip arthroplasty with the acetabular and femoral components noted to be in excellent position. Minimal expected postoperative changes are noted laterally. Advanced degenerative change right hip. Mild degenerative change visualized portion of the lower lumbosacral spine. Please refer to the operative report for more details. IMPRESSION: Satisfactory postoperative appearance of a cementless total left hip arthroplasty as described above. WSN: [id number] Ordering Physician: Rosalio Webb V Dictated By: Braden Patel MD, V Dictated Date/Time: 07/24/23 10:16 a Reviewed By: Braden Patel MD, V Signed By: Braden Patel MD, V Signed Date/Time: 07/24/23 10:16 am Transcribed By: MAXINE Transcribed Date/Time: 07/24/23 10:14 am Vital Signs Most recent to oldest [Reference Range]: 1 2 3 Height 165 cm (07/26/23 7:03 AM) 165 cm (07/26/23 3:56 AM) 165 cm (07/25/23 7:22 PM) Oxygen Saturation [94-100 %] 96 % (07/26/23 7:03 AM) 95 % (07/26/23 3:56 AM) 96 % (07/25/23 7:22 PM) Pulse Rate [55-90 bpm] 68 bpm (07/26/23 7:03 AM) 69 bpm (07/26/23 3:56 AM) 78 bpm (07/25/23 7:22 PM) Blood Pressure [90-138/55-84 mm Hg] 117/51mm Hg (07/26/23 7:03 AM) 107/51mm Hg (07/26/23 3:56 AM) 110/51mm Hg (07/25/23 7:22 PM) Respiratory Rate [16-30 br/min] 18 br/min (07/26/23 10:12 AM) 18 br/min (07/26/23 10:10 AM) 18 br/min (07/26/23 9:12 AM) Temperature [96.8-100.4 DegF] 97.8 DegF (07/26/23 7:03 AM) 98.0 DegF (07/26/23 3:56 AM) 98.0 DegF (07/25/23 7:22 PM) Mode of Delivery (Oxygen) Room air (07/26/23 7:03 AM) Room air (07/26/23 3:56 AM) Room air (07/25/23 7:22 PM) Blood pressure sites Arm, right (07/26/23 7:03 AM) Arm, right (07/25/23 2:32 PM) Arm, right (07/25/23 10:35 AM) Temperature Route Oral (07/26/23 7:03 AM) Oral (07/26/23 3:56 AM) Oral (07/25/23 7:22 PM) Dry Weight 76.5 kg (07/24/23 6:12 AM) Social History Social History Type Response Smoking Status Never smoker; Tobacc o user in household: No entered on: 06/05/13 Sex Female History and physical note * Event Display: History and Physical Hospital Authored Date: * Abraham BARROS, Clive: MODIFY Event Display: History and Physical Hospital Authored Date: [id number] SURGICAL HISTORY AND PHYSICAL DATE: 07/24/2023 PRIMARY DIAGNOSIS: Osteoarthritis of the left hip. REASON FOR ADMISSION: The patient is being admitted for left total hip arthroplasty with Dr. Benson 07/24/2023. HISTORY OF PRESENT ILLNESS: The patient is a 73-year-old female presenting today with left-sided hip pain. Her pain has been going on for about 2-1/2 years and has been getting progressively worse. Her pain level is 6/10 in intensity at rest, increasing to 10/10 in intensity with weightbearing activities. She reports significant activity limitations, which include difficulty walking any prolongeddistances, pivoting and stairs. She has difficulty getting in and out of the car and chair and transitioning from sit to stand. She has received an intra-articular injection, which provided her with modest relief. She has been taking naproxen for discomfort with minimal relief. She reports significant activity limitations, which include difficulty walking any prolonged distances, pivoting and stairs. She has difficulty getting in and out of the car and chair and transitioning from sit to stand.She states that she is now ready for left total hip arthroplasty with Dr. Roy on 07/24/2023. PAST MEDICAL HISTORY: 1. Osteoarthritis of the left hip. 2. Anxiety with depression, currently taking MAOI. 3. Lichen planus. 4. Tinnitus. 5. History of hypotension after appendectomy. PAST SURGICAL HISTORY: 1. Appendectomy. 2. Amblyopia surgery as a child. CURRENT MEDICATION LIST: 1. Nardil MAOI 30 mg at 8:30 in the morning and 6:00 p.m. 2. Clobetasol topical oil as needed. 3. Clonazepam 0.5 mg daily as needed for anxiety. 4. Fluticasone nasal spray twice weekly. 5. Sunshine as needed for allergies. 6. Fish oil, which she had stopped in preparation for the surgery. 7. L-methylfolate 15 mg once a day, which the patient has stopped in preparation for the surgery. 8. Metronidazole gel 0.75% every day as needed to affected areas. ALLERGIES: The patient is allergic to LEVAQUIN, which causes rash and EPINEPHRINE. SOCIAL HISTORY: The patient is retired. She is and lives at home with her . She denies any use of tobacco products, alcohol use or illicit drug use. PHYSICIANS: Her primary care provider is Dr. Ashok Guerrero. REVIEW OF SYSTEMS: Negative with the exception of HPI. PHYSICAL EXAMINATION: VITAL SIGNS: Height 65 inches tall, weight 168 pounds, temperature 97.3, blood pressure 116/73, pulse 60. GENERAL: The patient is alert and oriented. Normal insight, affect, and grooming. HEENT: Normocephalic. Conjunctivae pink. Sclerae are anicteric. SKIN: Intact without rash or lesions. Nails without clubbing or cyanosis. NECK: Supple. Trachea midline. No lymphadenopathy. CHEST: Lungs are clear to auscultation bilaterally. Breathing is unlabored. CARDIOVASCULAR: Heart has a regular rate and rhythm with normal S1, S2. No murmurs, rubs or gallopsappreciated. No JVD. Carotid pulses without bruits. ABDOMEN: Soft, nontender with normal bowel sounds. No hepatosplenomegaly or masses noted. No bruitsappreciated. EXTREMITIES: The patient has negative straight leg raise test bilaterally. Bilateral knees with full range of motion, no pain, no crepitus. Left hip has very limited and painful range of motion with pain referred to the groin. Motor sensation screening is intact. Calves supple and nontender. Ankle motion is satisfactory. Pedal pulse palpable bilaterally. Skin on her feet is intact. PREOPERATIVE DIAGNOSTIC DATA: EKG reads normal sinus rhythm at 70 beats per minute. Orthopedic x-rays demonstrate end-stage osteoarthritis of the left hip. There is etnv-co-[id number] articulation, subchondral sclerosis and osteophyte formation. LABORATORY DATA: CBC and coagulation studies within normal limits. A1c 5.4. Chemistry panel demonstrates bicarbonate level of 30. ASSESSMENT AND PLAN: The patient has advanced osteoarthritis of the left hip and is now scheduled for left total hip arthroplasty with Dr. Roy on 07/24/2023. The patient was seen by the medical consultative preoperative clinic, who stated that the patient is at low risk for perioperative cardiovascular and pulmonary complications. They recommended involving a pharmacist at [facility] for choice of analgesic postoperatively, which was done. This case was discussed thoroughly with Carlo Medina, [facility] inpatient pharmacist, who stated that the patient should avoid tramadol completely due to the drug interaction and the patient should be started on oxycodone postoperatively for pain as it wouldhave the least amount of interactions. The patient will receive intravenous tranexamic acid. She will be on aspirin postoperatively for DVT prophylaxis. She will not receive any tramadol. We will useoxycodone only postoperatively for pain. Discharge plan will be to home the next day. The patient is not a candidate for same day discharge. The patient has been counseled regarding the risks and bene fits of proposed surgery. All questions have been answered and she acknowledges understanding. The patient wished to proceed with surgery. Prescriptions for aspirin, Colace, Celebrex, pantoprazole and Zofran were given to her at this office visit. The patient will require prescriptions for pain medications prior to discharge. The patient will receive 1 week of in-home physical therapy postoperatively. CONTACTS: Her , [employer], with cell phone number of [phone]. Dictated by: Clive Rosario N.P. Signing Clinician: Asad Roy M.D. Dictated: 07/16/2023 11:13:28 Transcribed: 06:36:35 AM Transcribed by: IVAN DocID: [id number] PRELIMINARY REPORT UNLESS MANUALLY/ELECTRONICALLY SIGNED EKG study * Event Display: ECG 12-Lead Authored Date: Please click on pdf link to open report * Event Display: ECG 12-Lead Authored Date: Ventricular Rate: 69 BPM Atrial Rate: 69 BPM P-R Interval: 174 ms QRS Duration: 82 ms Q-T Interval: 410 ms QTC Calculation(Bazett): 439 ms P [place]: 58 degrees R [place]: 48 degrees T [place]: 46 degrees Normal sinus rhythm Normal ECG When compared with ECG of 09-JUL-2023 14:54, No significant change was found Confirmed by Asad Bernal ([id number]) on 07/26/2023 8:17:59 AM [place]: Asad Bernal Cardiology * Event Display: Cardiac Rhythm Strips Authored Date: Hospital Progress note * Mayra Gonzalez RN: PERFORM, SIGN, VERIFY Event Display: Progress Note Hospital Authored Date: Patient: MATA GRANDE Age: 73 years Sex: Female : 1950 Associated Diagnoses: None Author: Mayra Gonzalez RN Findings Problem Related to Alteration in Musculoskeletal : Alteration in Musculoskeletal Func/new 07/26/2023 12:00 EDT Alteration in Musculoskeletal Related to Mobility, Orthopedic Procedure, Total joint replacement, Other: L NATALIE-07/23 Goals & Outcomes, Musculoskeletal Affected extremity will maintain color/motion/sensation, Pt able to perform ADL's to best of ability, Pt demonstrates precautions/exercise/ transfers per protocol, Pt will ambulate safely with assistive device, Pt will be free from complications of immobility, Pt will demonstrate ability to participate in ADL's, Pt will report acceptable level of comfort/painrelief Interventions, Musculoskeletal Monitor patients ambulation status, monitor Color/Motion/Sensation, Assist with repositioning, Encourage deep breathing & coughing exercises, Obtain assistive devices as needed, Teach & Encourage use of Incentive spirometer, Teach Pt/caregiver on exercises, Teach pt/caregiver on use of pain scale, Teach Pt/caregiver complications of immobility BH Goals/Interventions, Musculoskeletal Yes Musculoskeletal, Problem Start 07/24/2023 13:23 Reviewed Plan with, Musculoskeletal Patient Patient Progression, Musculoskeletal Pt progressing according to plan . Evaluation P-as per musculoskeletal plan of care I- as per updated plan of care E- Alert and oriente x4, POD 2 left total hip replacement. PT cleared her for home today. She has asurgical aquacel that is clean, dry and intact to the left hip. She is able to recal 3/3 hip precautions. She is steady on her feet using a walker. She had a suppository this morning that produced a bowel movement as she was previously 07/20. She stated she feels better. Oxycodone 5mg po q 4hours for pain is providing acceptable levels of pain relief. Her vitals are stable. Discharge instructions reviewed and she verbalized understanding. She will be going home with [facility] for services. IV taken out and no complications.. * Abraham FORM DESIGNER, Zulfiya: PERFORM, SIGN, VERIFY Event Display: Progress Note Hospital Authored Date: [id number] Patient: MATA GRANDE Age: 73 years Sex: Female : 1950 Associated Diagnoses: None Author: Clive Rosario NP Ortho POD 2 s/p Left NATALIE S: no c/o CP, SOB, N/V, +flatus, voiding well. Pain is well-controlled on current regimen 2 out of 10. Electrolytes stable. Patient did not do well with PT session yesterday and needed to stay overnight. Another PT/OT sessions pending today. Patient ambulated 50 feet with supervision yesterday. O: Vitals Temperature 97.8 (07:05) Systolic Blood Pressure 117 (07:05) Diastolic Blood Pressure 51 (07:05) Pulse 68 (07:05) SpO2 96 (07:05) Respiratory Rate 17 (07:05) Last 24 Hours Basic Metabolic Panel: Sodium: 134 mmol/L (07/26/23) Potassium (POC): 4.4 mmol/L (07/26/23) Phosphorus: ------ Magnesium: ------ BUN (POC) POC Cartridge: 19 mg/dL (07/26/23) Creatinine-Blood: 0.85 mg/dL (07/26/23) Creatinine Clearance: ------ Additional - Last 24 Hours Anion Gap: 9 (07/26/23) Bicarbonate Level: 26 mmol/L (07/26/23) BUN: BUN (07/26/23) Chloride: 99 mmol/L (07/26/23) Creatinine, Blood: Creatinine, Blood (07/26/23) Est Creatinine Clearance: 54.54 (07/26/23) Estimated GFR Creatinine: 73 ML/MIN/1.73 M2 (07/26/23) Surgical Pathology: Surgical Pathology (07/25/23) General: alert, lucid, in NAD Heart: RRR, normal S1S2 Lungs: CTAb Abdomen: obese, soft NT BS hypo active Neurovascular: calves soft NT, +DF/+PF Dressing: CDI A/P: 73 year old female with history of anxiety and depression now s/p Left NATALIE POD 2 Pain: Continue with Tylenol, Celebrex and oxycodone Anxiety/depression: Continue with as needed clonazepam and Nardil Hyperkalemia: Resolved DVT prophylaxis: Aspirin WBAT/ PT/OT/Hip precautions Discharge home today pending PT/OT clearance Case discussed with Dr. Roy * Renetta Barnes RN: PERFORM, VERIFY, SIGN Event Display: Progress Note Hospital Authored Date: [id number] Patient: MATA GRANDE Age: 73 years Sex: Female : 1950 Associated Diagnoses: None Author: Renetta Barnes RN Findings Problem Related to Alteration in Comfort : Alteration in Comfort/new 07/26/2023 4:44 EDT Alteration in Comfort Related to Disease process, Surgery, Other: L NATALIE-07/23 Goals & Outcomes: Comfort Pt will report acceptable level of comfort & pain control, Pt will state importance of adhering to pain strategy regime, Pt will demonstrate necessary skills to manage pain, Non-verbal indicators will indicate comfort/pain control Interventions Implemented: Comfort Assess pain using appropriate pain scale/tools, Assess aggravating factors & prevent them accordingly, Assess alleviating factors & promote them accordingly BH Goals/Interventions, Comfort Yes Comfort, Problem Start 07/26/2023 4:45 Reviewed plan with, Comfort Patient Patient Progression, Comfort Pt progressing according to plan Comfort, Problem Ongoing Yes . Alteration in Gastrointestinal : Alteration in Gastrointestinal Func/new 07/26/2023 4:44 EDT Alteration in GI status Related to Constipation Goals & Outcomes, Gastrointestinal Establish a regular pattern of elimination for pt, Nutritional intake is adequate for metabolic needs, Pt will achieve normal/improved fluid balance, Pt will have a bowel movement prior to discharge, Pt will maintain adequate GI function appropriate for pt, Ptwill maintain normal elimination patterns, Pt will resume/maintain adequate hemodynamic status, Pt w ill tolerate age appropriate diet prior to discharge, Pt will experience progressive wound healing,Pt will not experience s/s of infection prior to discharge Interventions, Gastrointestinal Assess/monitor abdomen for distention, tenderness, Assess/monitor abdominal girth & bowel function, Assess/monitor bowel pattern, bowel sounds, flatus, Assess/monitor number of bowel movements, Assess/monitor color, quantity, quality, consistency of stoo, Assess/monitor pt for nausea, vomiting, Assess/monitor effects of re-hydration, Assess/monitor intake &output, Assess if pt tolerating diet, DVT prophylaxis as ordered, Elevate HOB to facilitate lung expansion, prevent aspiration, Establish toileting schedule for patient, Taking PO: Encourage/monitor intake & swallowing ability, Teach Pt/caregiver diet & give copy of dietary instructions, Teach Pt/caregiver on bowel elimination interventions, Teach Pt/caregiver re: importance of bowel regime, Teach Pt/caregiver re: nutritional intake & dietary restrict, Teach/encourage deep breath & cough exercises, Teach/encourage use of incentive spirometer, Monitor bowel status for signs of constipation, Monitor & document reponse to anti-constipation meds, Incision care as ordered Goals/Interventions, Gastrointestinal Yes Gastrointestinal, Problem Start 07/26/2023 4:45 Reviewed plan with, Gastrointestinal Patient Patient Progression, Gastrointestinal Pt progressing according to plan . Alteration in Musculoskeletal : Alteration in Musculoskeletal Func/new 07/26/2023 4:44 EDT Alteration in Musculoskeletal Related to Mobility, Orthopedic Procedure, Total joint replacement, Other: L NATALIE-07/23 Goals & Outcomes, Musculoskeletal Affected extremity will maintain color/motion/sensation, Pt able to perform ADL's to best of ability, Pt demonstrates precautions/exercise/ transfers per protocol, Pt will ambulate safely with assistive device, Pt will be free from complications of immobility, Pt will demonstrate ability to participate in ADL's, Pt will report acceptable level of comfort/painrelief Interventions, Musculoskeletal Monitor patients ambulation status, monitor Color/Motion/Sensation, Assist with repositioning, Encourage deep breathing & coughing exercises, Obtain assistive devices as needed, Teach & Encourage use of Incentive spirometer, Teach Pt/caregiver on ADL's & adaptive equipment, Teach Pt/caregiver on exercises, Teach pt/caregiver on use of pain scale, Teach Pt /caregiver complications of immobility, Teach Pt/caregiver techniques to increase mobility, Teach Pt/caregiver on safety precautions, Incision care as ordered, Assist pt out of bed keeping legs abducted at all times, Avoid extreme internal and/or external rotation, Have pt view Total Hip Replacement video every day, Maintain hip in abduction/neutral/slight ext. rotation, [place] Pt/caregiver to Total Hip Replacement protocol, Place Total Hip portrait consultant at foot of bed, Instruct pt on gait training Goals/Interventions, Musculoskeletal Yes Musculoskeletal, Problem Start 07/24/2023 13:23 Reviewed Plan with, Musculoskeletal Patient Patient Progression, Musculoskeletal Pt progressing according to plan . Nursing Data Vital Signs : VITAL SIGNS SECTION 07/26/2023 3:56 EDT Early Warning Score 3.00 07/26/2023 3:56 EDT Temperature 98.0 DegF Temperature Route Oral Pulse Rate 69 bpm Respiratory Rate 18 br/min Systolic Blood Pressure 107 mm Hg Diastolic Blood Pressure 51 mm Hg L Mean Arterial Pressure 70 mm Hg Pulse Pressure 56 mm Hg Oxygen Saturation 95 % Mode of Delivery (Oxygen) Room air 07/25/2023 19:22 EDT Temperature 98.0 DegF Temperature Route Oral Pulse Rate 78 bpm Respiratory Rate 18 br/min Systolic Blood Pressure 110 mm Hg Diastolic Blood Pressure 51 mm Hg L Mean Arterial Pressure 71 mm Hg Pulse Pressure 59 mm Hg Oxygen Saturation 96 % Mode of Delivery (Oxygen) Room air . Narrative/Incidental Pt is a 73yo F, admitted for a L NATALIE on 07/24/23 with . Pt is A+Ox3, VSS, +CSM, +PP, strongD/P flexion, lung sounds clear. Pt reports 4-7/10 pain, with positive relief from Tylenol q 6hr, and 5mg Oxycodone q 4hr, will continue to monitor and manage pain levels. Pt has +BSx4, abd is s/nt/nd, no N/V, last BM 07/20, pt educated on constipation protocol, scheduled bowel medication of Colace and senna admin this evening as well as 30mL MOM PRN, pt is on a regular diet and is tolerating well.Pt is OOB with 1 assist and walker, and is voiding cyu in the BR with no issues. Pt has an Aquacel dressing on L hip that is C/D/I. Will continue DVT prophylaxis with Cboots on bilaterally, and 325mgASA BID. Discharge Information Case Management Discharge Plan : Case Management Discharge Plan Data 07/24/2023 12:19 EDT Discharge Level of Care at Discharge Homehealth/VNA Discharge VNA/Hospice/Home Care [facility] [phone] Name of Agency #1 [facility] [phone] Agency Machine Binding Folder #1 intake Service Categories #1 Physical Therapy, Correction Service Comments #1 Agency will contact you within 24-48 hrs to arrange a visit Rehabilitation Discharge : Rehab Discharge Index 07/25/2023 14:56 EDT Walker: distance >50 07/25/2023 13:30 EDT Transfer tub/shower OT Plan Supervision 07/25/2023 10:10 EDT Transfer tub/shower OT Plan Supervision 07/25/2023 8:20 EDT Walker: distance 10-20 07/24/2023 15:33 EDT Comments on treatment indicated 73F left total hip arthroplasty with Dr. Benson 07/24/2023.THP WBAT. PT for strength, endurance, ambulation, balance, stairs. Rec home c serv Distance pt will ambulate 50 ft Full chart review completed Yes Hospital course Hospital course Other findings see comment Plan of care PT Gait training, Transfer training, Therapeutic exercise, Functional Activities, Balance training 07/24/2023 14:50 EDT Comments on treatment indicated OT to address ADL's, transfers, safety, AE edu,precautions Full chart review completed Yes Hospital course PROCEDURE: Pt s/p left total hip arthroplasty with Dr. Roy on 07/24/2023. Transfer tub/shower OT Plan Supervision Note * Mayra Gonzalez RN: PERFORM Event Display: Discharge/Transfer Note Hospital Authored Date: Nursing Discharge Note Entered On: 07/26/2023 14:03 EDT Performed On: 07/26/2023 14:03 EDT by Mayra Gonzalez RN Nursing Discharge Note 2 Discharge Time : 07/26/2023 14:09 EDT Mayra Gonzalez RN - 07/26/2023 14:09 EDT Discharge Level of Care at Discharge : Homehealth/VNA Discharge VNA/Hospice/Home Care(v001) : [facility] [phone] Patient Left Unit Via : Wheelchair Patient Accompanied Off Unit with : Other: PCT DC Instructions Provided & Signed by Pt : Yes Patient Understands D/C Instructions : Yes Patient Instructions Discharge Signed : Yes Did Pt have Specialty Bed or Wound Vac : No Mayra Gonzalez RN - 07/26/2023 14:03 EDT * Mayra Gonzalez RN: PERFORM Event Display: Patient Education/Instruction Authored Date: [id number] Inpatient Adult Discharge Instructions. [address] [id number] Name: MATA HENDERSON : 1950?? Visit: 07/26/2023 08:53?? Current Date: 07/26/2023 13:11 ?? Account: [id number]?? Inpatient Adult Discharge Instructions We would like to thank you for allowing us to assist you with your healthcare needs. The following includes patient education materials and information regarding your injury/illness. Our entire staffstrives to provide an excellent experience for our patients and their families. PLEASE ENSURE YOU FOLLOW-UP PER THE INSTRUCTIONS BELOW! ?? YOUR OPINION IS IMPORTANT TO US! Please complete the survey you may receive by mail or email. Your feedback will be used to make improvements to the healthcare experiences of our patients and their families. Surveys are administered by [employer]. ?? If further treatment with your primary care physician or another doctor is recommended, it is important for you to keep the appointment. Call your primary care physician or return to the Emergency Department immediately if your condition worsens, fails to improve, or new symptoms develop. If you need to find a doctor, you can call [facility] [employer] for a referral at [phone] or toll free at [phone]) or log in to [email or web address].. ?? [facility], in keeping with [facility] guidance, no longer requires face masks for staff, patientsor visitors in most situations. Similiar to time spent indoors at other locations, there is the chance that you were exposed to repiratory viruses during your time with us (such as flu or COVID-19). If you develop symptoms concerning for a viral respiratory infection, please seek testing (and treatment if indicated) from your medical provider or home test kit. ?? You can view and manage your care through the patient portal or by using a health care sima of your choosing. [employer] is a website that allows you to securely view your medical information including your hospital discharge summary, office visit summaries, medications and follow-up visits. You can also request appointments, renew medications, and request access to your medical information using a health care sima of your choosing, or just ask a question. You can enroll at [email or web address] or register during your next office visit. You have been discharged from [facility], Patient Care Unit: SW7??. If you have any questions regarding these instructions, including results of studies pending, afteryou leave, please call us and we will be happy to assist you 02/10. [facility] Your Care Team Attending Physician Asad Roy MD?? Consulting Providers Asad Roy MD?? Discharging Providers Abraham BARROS, Clive Your Diagnosis Osteoarthritis of left hip Tests Performed Below is a partial list of the tests performed during your hospitalization. You may have had other tests and procedures not included in this list. Please discuss all test results with your provider. BUN CBC Creatinine Electrolytes HOLD LAVENDER TUBE Potassium Level XR Pelvis 1 or 2 Views BUN?? CBC?? Creatinine?? Electrolytes?? Primary Care Provider Ashok Guerrero MD? Advance Directive Health Care Proxy on File Yes - Health Care Proxy Discharge Vitals Temperature: 97.8 DegF Height: 165 cm Pulse Rate: 68 bpm ?? Respiratory Rate: 18 br/min ?? Systolic Blood Pressure: 117 mm Hg ?? Diastolic Blood Pressure:??51 mm Hg??Low ?? Oxygen Saturation: 96 % ?? Studies Pending All studies ordered during this hospital stay have been completed unless listed below. Please discuss all pending results with your provider listed above in these instructions. ?? BUN?? CBC?? Creatinine?? Electrolytes?? What to do next Instructions From Your Doctor ?? Orders?? Unit Discharge Criteria Met, ??07/26/23 9:04:00 EDT?? Prescriptions??, ??07/26/23 9:04:00 EDT , ??07/25/23 7:42:00 EDT?? You Need to Schedule the Following Appointments Follow Up with??[facility] When:??Within Within two weeks Discharge Medications FROILAN MATA HENDERSON :1950 Visit Date:07/26/2023 Medications: Please continue your medications until treatment is completed or stopped by your provider. Medications not listed below should be discontinued. Discuss any questions related to medications with your provider. What How Much When Instructions Next Dose Unchanged Aspirin (Aspirin Tablet) 325 Milligram Oral Twice a day Due 07/25 3pm Unchanged Celecoxib (celecoxib 200 mg oral capsule) 200 Milligram Oral Daily Due 07/26 9am Unchanged Ciclopirox Topical (ciclopirox 0.77% topical cream) Unchanged Clobetasol Topical (Clobetasol (Eqv-Temovate) 0.05% topical cream) Unchanged Clonazepam (clonazePAM 0.5 mg oral tablet) See instructions one half or 1 tablet By Mouth 3 times a day, As needed for Anxiety ?? as needed Unchanged Docusate (Colace Capsule) 100 Milligram Oral Twice a day Due 07/25 9pm Unchanged Durable Medical Equipment (Aerochamber) See instructions Use as directed with all inhalors. Dx: acute bronchitis with bronchospasm ?? Unchanged Oxycodone (oxyCODONE 5 mg oral tablet) See instructions 1-2 tablets By Mouth Every 4 hours, As needed for Pain , Severe ?? Pickup at [facility] 3 Due 07/25 1pm or after as needed for pain Unchanged Pantoprazole (pantoprazole 40 mg oral delayed release tablet) 40 Milligram Oral Daily Due 07/26 9am Unchanged Phenelzine (Nardil 15 mg oral tablet) See Instructions 2 tablet by mouth twice daily ?? Due 07/25?? 9pm Unchanged Polyethylene Glycol 3350 (MiraLax Powder) 17 gram Oral Daily as needed for Constipation As needed for constipation Unchanged Senna (senna 187 mg oral tablet) 1 tab(s) Oral Daily at Bedtime as needed for as needed for constipation Due 07/25 9pm Pharmacy Information [facility]: [address], [place] [id number] [phone] Prescription Given During Visit Oxycodone (oxyCODONE 5 mg oral tablet) - , # 84 tablet, 0 Refills, 1-2 tablets By Mouth Every 4 hours, [facility], [address] [place] [address] [phone]?? Laboratory Results Below is a partial list of the most recent Laboratory test results done prior to this discharge. You may have had other tests and procedures not included in this list. Please discuss all test resultswith your provider. Est Creatinine Clearance - 54.54 mL/min (07/26/2023) 75208 (07/24/2023) ? ?Surgical Pathology - Patient Name: MATA GRANDE
Lab
Patient : 1950 (Age: 73)
Collection Date: 07/24/2023
Accession Date: 07/24/2023
Sign Out Date: 07/25/2023

Tissue Source:
1:LEFT FEMORAL HEAD

Final Diagnosis:
Femoral head, left, excision:
- Femoral head with degenerative changes of articular cartilaginous surface and eburnation consistent with severe osteoarthritis (gross examination). <b r/>

Primary Pathologist:Rush Shelton M.D.
electronically signed o ut by: Rush Shelton M.D. / ARETHA

Clinical History:<br/& gt;Osteoarthritis left hip

Gross Description:
Received in formalin labeled left femoral head is a 4.8 x 4.8 x 4.5 cm femoral head in continuity with 2.0 cm of femoral neck, which displays a flat resection margin. Thearticular surface is root-red, smooth to ragged with focal areas of eburnation and a moderate amountof osteophytic growth. Sectioning reveals yellow-red, trabeculated bone surrounded by cortical bone, ranging from 0.2 cm to <0.1 cm in the areas of eburnation. No masses orlesions are identified. The specimen is for gross examination only. (CE)*<br/ >

Phone #: [phone], On-Call Pathologist: carmen alicea;nbsp;[id number] BUN (07/26/2023) ???BUN - 19 mg/dL CBC (07/25/2023) ???WBC - 9.1 k/mm3???RBC - 3.94 m/mm3???Hgb - 11.5 Gm/dL???Hct - 35.8 %???MCV - 90.9 femtoliters???MCH - 29.2 pg???MCHC - 32.1 g/dL???Platelet Count - 160 k/mm3???RDW-SD - 43.0 femtoliters???MPV - 10.4 femtoliters???Nucleated RBC (Automated) - 0.0 #/100 WBC'S???Abs. NRBC - 0.0 k/mm3 Creatinine (07/26/2023) ???Creatinine-Blood - 0.85 mg/dL???Estimated GFR Creatinine - 73 ML/MIN/1.73 M2 Electrolytes (07/26/2023) ???Sodium - 134 mmol/L???Potassium - 4.4 mmol/L???Chloride - 99 mmol/L???Bicarbonate Level - 26 mmol/L???Anion Gap - 9 HOLD LAVENDER TUBE (07/25/2023) ???Hold Lavender Top - SPECIMEN DISCARDED AFTER 24 HOURS. Potassium Level (07/25/2023) ???Potassium - 4.4 mmol/L Allergies (NKA means No Known Allergies) epinephrine Levaquin??(pruritis, rash) Problems Active Problems??(7) Anxiety?? Anxiety with depression?? Depression?? Family history of breast disorder?? Lichen planus?? Osteoarthritis of left hip?? Tinnitus?? Education Materials Below is the list of Educational Leaflet Providered with your Discharge Instructions. [employer] Patient Education - Total Hip Replacement Discharge Instructions?? Valuables and Belongings I fully understand and agree that [facility] accepts no responsibility for all my personal property including clothing, toilet articles, radios, jewelry, dentures, hearing aids, rings, money, or any other property that is in my possession or is brought to me after admission. I understand certain valuables may be placed in a hospital safe for a short period of time. I understand that the hospital is not liable for loss or damage due to accident, fire, or other natural occurrence while said property is in the safe. I accept full responsibility for any personal property that I keep with me, and will not hold the hospital responsible in case of loss or disappearance. I acknowledge that i have been encouraged to send valuables and belongings home. ?? Date for Pt to Sign Valuables/Belongings: 07/24/23 10:44:00 ?? Other Discharge Information ? Case Management Discharge Plan?? Discharge Plan?? Discharge Agency Information?? Discharge Level of Care at Discharge: Homehealth/VNA Name of Agency #1: [facility] [phone] Discharge VNA/Hospice/Home Care: [facility] [phone] Agency Machine Binding Folder #1: intake ?? Service Categories #1: Physical Therapy, Correction ?? Service Comments #1: Agency will contact you within 24-48 hrs to arrange a visit ?? Pulmonary Rehab Status?? Pulmonary Rehab Discharge Status?? Respiratory Rate: 18 br/min ? Common Emergency Awareness Tips IS IT A STROKE? Act FAST and Check for these signs: FACE Does the face look uneven? ARM Does one arm drift down? SPEECH Does their speech sound strange? TIME Call at any sign of stroke ?? Heart Attack Signs Chest discomfort: Most heart attacks involve discomfort in the center of the chest and lasts more than a few minutes, or goes away and comes back. It can feel like uncomfortable pressure, squeezing, fullness or pain. Discomfort in upper body: Symptoms can include pain or discomfort in one or both arms, back, neck, jaw or stomach. Shortness of breath: With or without discomfort. Other signs: Breaking out in a cold sweat, nausea, or lightheaded. Remember, MINUTES DO MATTER. If you experience any of these heart attack warning signs, call to get immediate medical attention! ?? Smoking can increase your chances of developing chronic health problems and can cause harmful effects to other family members in your house. If you smoke, you are strongly encouraged to quit. Please call [employer] at [phone] or [phone] ([phone]) or log in to [email or web address] for referrals to smoking cessation programs. ?? 988 Suicide & Crisis Lifeline is available 02/10 if you or someone you know needs to find a reason to keep living. By calling 988 you'll be connected to a skilled, trained counselor at a crisis center in your area. INPATIENT DISCHARGE INSTRUCTIONS SIGNATURE PAGE MATA GRANDE Location:[facility] Registration Date and Time:07/26/2023 08:53 EDT Primary Care Physician: Cesar STACK, Ashok Monroy, Attending Physician: Manuela STCAK, Asad Sethi, I MATA GRANDE, have received the above patient education materials/instructions and have verbalized understanding. If ambulance or transport services are being used I further acknowledge being given a choice of service. ?? If you need to contact me, please call me at this number: . Patient/Tick Sewer Name: Patient/Tick Sewer Signature: Relationship to Patient: Witness Name/Signature: Date: * Clive Rosario NP: VERIFY, MODIFY, SIGN, PERFORM, SIGN Event Display: Discharge/Transfer Note Hospital Authored Date: [id number] Patient: MATA GRANDE [facility]: [id number] Age: 73 years Sex: Female : 1950 Associated Diagnoses: None Author: Abraham BARROS, Zulfiya Discharge Summary Admission Date: 07/24/2023 Discharge Date: 07/26/2023 Admitting Diagnosis: Left hip osteoarthritis Discharge Diagnosis: Left hip osteoarthritis Final Diagnosis: Left hip osteoarthritis Procedure: Left total hip arthroplasty Surgeon: Dr. Asad Roy Past Medical History: 1. Osteoarthritis of the left hip. 2. Anxiety with depression, currently taking MAOI. 3. Lichen planus. 4. Tinnitus. 5. History of hypotension after appendectomy. Orthopedics: The patient is status post left total hip arthroplasty. It is anticipated that she will be discharged home today pending PT, OT clearance. The patient is doing well from a surgical standpoint. Her incision is healing well. Neurovascular status is intact. Calves are supple and nontender. The patient is weight bearing as tolerated. Making good progress with Physical Therapy and Occupational therapy. Supervision with ambulation walking 50 feet, ambulating with a walker. Pain is well controlled on her current regimen, Acetaminophen 650 mg every 6 hours, Celebrex and oxycodone 5-10 mgevery 4 hours as needed. Patient is tolerating this well. She will be sent home with a prescriptionfor this medication. Prescription: Oxycodone 5 mg tablet, 1-2 tablets every 4 hours as needed for severe pain, 7 days # 84 Hospital course: Relatively uneventful medically. Patient found to be slightly hyperkalemic with potassium level 5.3, recheck 4.4. Patient is voiding spontaneously. + bowel sounds. all morning bowel medications will be given in anticipation of a BM prior to discharge. No other issues. No calf tenderness. Current Medication List: Acetaminophen (acetaminophen 325 mg oral tablet) 650 Milligram By Mouth Every 6 hours May take OTC not to exceed 3000 mg/day Aspirin (Aspirin Tablet) 325 Milligram By Mouth 2 times a day Celecoxib (celecoxib 200 mg oral capsule) 200 Milligram By Mouth Daily Clonazepam (clonazePAM 0.5 mg oral tablet) See Instructions as needed Anxiety one half or 1 tablet By Mouth 3 times a day Docusate (Colace Capsule) 100 Milligram 1 capsule By Mouth 2 times a day Durable Medical Equipment (Aerochamber) See Instructions Use as directed with all inhalors.Dx: acute bronchitis with bronchospasm Oxycodone (oxyCODONE 5 mg oral tablet) See Instructions as needed 1-2 tablets By Mouth Every 4 hours Pain , Severe Pantoprazole (pantoprazole 40 mg oral delayed release tablet) 40 Milligram By Mouth Daily Phenelzine (Nardil 15 mg oral tablet) See Instructions 2 tablet by mouth twice daily Polyethylene Glycol 3350 (MiraLax Powder) 1 pack/packet 17 gram By Mouth Daily as needed Constipation Senna (senna 187 mg oral tablet) 1 tab(s) 8.6 Milligram By Mouth Daily at bedtime as needed as needed for constipation Allergies (Active and Proposed Allergies Only) epinephrine (Severity: Persistent Mild, Onset: Unknown) Comments: headache, elevated bp Levaquin (Severity: Unknown severity, Onset: Unknown) Reactions: rash, pruritis Current Labs: BLOOD COUNT & DIFF WBC 9.1 k/mm3 () 07/25/2023 00:41 RBC 3.94 m/mm3 (Low) 07/25/2023 00:41 Hgb 11.5 Gm/dL (Low) 07/25/2023 00:41 Hct 35.8 % () 07/25/2023 00:41 MCV 90.9 femtoliters () 07/25/2023 00:41 MCH 29.2 pg () 07/25/2023 00:41 MCHC 32.1 g/dL (Low) 07/25/2023 00:41 Platelet Count 160 k/mm3 () 07/25/2023 00:41 RDW-SD 43.0 femtoliters () 07/25/2023 00:41 MPV 10.4 femtoliters () 07/25/2023 00:41 Nucleated RBC (Automated) 0.0 #/100 WBC'S () 07/25/2023 00:41 Abs. NRBC 0.0 k/mm3 () 07/25/2023 00:41 CHEM GENERAL Sodium 134 mmol/L () 07/26/2023 03:16 Potassium 4.4 mmol/L () 07/26/2023 03:16 Chloride 99 mmol/L () 07/26/2023 03:16 Bicarbonate Level 26 mmol/L () 07/26/2023 03:16 Anion Gap 9 () 07/26/2023 03:16 BUN 19 mg/dL () 07/26/2023 03:16 Creatinine-Blood 0.85 mg/dL () 07/26/2023 03:16 Estimated GFR Creatinine 73 ML/MIN/1.73 M2 () 07/26/2023 03:16 URINE OTHER Est Creatinine Clearance 54.54 mL/min () 07/26/2023 04:21 DVT prophylaxis ASA EC 325 mg po bid x 30 days Disposition: Anticipates being discharged today to home. Follow up at [facility] in 2 weeks, patient is aware of this. The patient has an Aquacel dressing in place. She may shower with it and the dressing can be discontinued on POD 14. Discharge Plan Discharge Disposition Discharge: home with VNA. Home Health Face to Face I certify that this patient is under my care and that I or an allowed non- physician practitioner working with me, had a [id number] encounter with the patient on this date: 07/25/2023. The encounter with the patient was in whole, or in part, for the following medical condition, whichis the primary reason for home health care: Osteoarthritis of left hip. Physical Therapy: Functional mobility training, Home exercise program to strengthen, increase ROM, Falls prevention training. Occupational Therapy: ADL Management, Fall prevention training, Energy conservation. Homebound due to: Inability to leave home without assistance/supervision, Inability to ambulate without assistance, Pain, decreased strength, and endurance, Unsteady gait, Impaired transfers, Inability to negotiate stairs. Physician Signature: Manuela STACK, Asad Morales RN, Beth Martinez: PERFORM Event Display: Patient Education/Instruction Authored Date: [id number] Inpatient Adult Discharge Instructions. [address] [id number] Name: MATA HENDERSON : 1950?? Visit: 07/24/2023 12:14?? Current Date: 07/25/2023 09:03 ?? Account: [id number]?? Inpatient Adult Discharge Instructions We would like to thank you for allowing us to assist you with your healthcare needs. The following includes patient education materials and information regarding your injury/illness. Our entire staffstrives to provide an excellent experience for our patients and their families. PLEASE ENSURE YOU FOLLOW-UP PER THE INSTRUCTIONS BELOW! ?? YOUR OPINION IS IMPORTANT TO US! Please complete the survey you may receive by mail or email. Your feedback will be used to make improvements to the healthcare experiences of our patients and their families. Surveys are administered by [employer] ?? If further treatment with your primary care physician or another doctor is recommended, it is important for you to keep the appointment. Call your primary care physician or return to the Emergency Department immediately if your condition worsens, fails to improve, or new symptoms develop. If you need to find a doctor, you can call [facility] [employer] for a referral at [phone] or toll free at [phone]) or log in to [email or web address].. ?? [facility], in keeping with [facility] guidance, no longer requires face masks for staff, patientsor visitors in most situations. Similiar to time spent indoors at other locations, there is the chance that you were exposed to repiratory viruses during your time with us (such as flu or COVID-19). If you develop symptoms concerning for a viral respiratory infection, please seek testing (and treatment if indicated) from your medical provider or home test kit. ?? You can view and manage your care through the patient portal or by using a health care sima of your choosing. [employer] is a website that allows you to securely view your medical information including your hospital discharge summary, office visit summaries, medications and follow-up visits. You can also request appointments, renew medications, and request access to your medical information using a health care sima of your choosing, or just ask a question. You can enroll at [email or web address] or register during your next office visit. You have been discharged from [facility], Patient Care Unit: SW7??. If you have any questions regarding these instructions, including results of studies pending, afteryou leave, please call us and we will be happy to assist you 02/10. [facility] Your Care Team Attending Physician Manuela STACK, Asad Sethi?? Consulting Providers Manuela STACK, Asad Sethi?? Discharging Providers Abraham BARROS, Clive Your Diagnosis Osteoarthritis of left hip Tests Performed Below is a partial list of the tests performed during your hospitalization. You may have had other tests and procedures not included in this list. Please discuss all test results with your provider. BUN CBC Creatinine Electrolytes HOLD LAVENDER TUBE Potassium Level XR Pelvis 1 or 2 Views BUN?? CBC?? Creatinine?? Electrolytes?? Pathology Tissue Request ()?? Primary Care Provider Cesar STACK, Ashok Monroy? Advance Directive Health Care Proxy on File Yes - Health Care Proxy Discharge Vitals Temperature: 97.4 DegF Height: 165 cm Pulse Rate: 76 bpm ?? Respiratory Rate: 16 br/min ?? Systolic Blood Pressure: 122 mm Hg ?? Diastolic Blood Pressure:??53 mm Hg??Low ?? Oxygen Saturation: 98 % ?? Studies Pending All studies ordered during this hospital stay have been completed unless listed below. Please discuss all pending results with your provider listed above in these instructions. ?? BUN?? CBC?? Creatinine?? Electrolytes?? Pathology Tissue Request ()?? What to do next Instructions From Your Doctor ?? Orders?? Unit Discharge Criteria Met, ??07/25/23 7:42:00 EDT?? Prescriptions??, ??07/25/23 7:42:00 EDT?? You Need to Schedule the Following Appointments Follow Up with??[facility] When:??Within Within two weeks Discharge Medications MATA GRANDE :1950 Visit Date:07/24/2023 Medications: Please continue your medications until treatment is completed or stopped by your provider. Medications not listed below should be discontinued. Discuss any questions related to medications with your provider. What How Much When Instructions Next Dose New Acetaminophen (acetaminophen 325 mg oral tablet) 650 Milligram Oral Every 6 hours May take OTC not to exceed 3000 mg/ day ?? (for pain) Next dose due New Aspirin (Aspirin Tablet) 325 Milligram Oral Twice a day Take twice a day for 30 days to prevent blood clots 07/24 at 9:00PM New Celecoxib (celecoxib 200 mg oral capsule) 200 Milligram Oral Daily 07/25 at 9:00AM New Docusate (Colace Capsule) 100 Milligram Oral Twice a day stool softner 07/24 at 9:00PM New Oxycodone (oxyCODONE 5 mg oral tablet) See instructions 1-2 tablets By Mouth Every 4 hours, As needed for Pain , Severe ?? Pickup at [facility] 3 You may take for moderate to severe pain.?? Next dose due New Pantoprazole (pantoprazole 40 mg oral delayed release tablet) 40 Milligram Oral Daily to prevent stomach upset 07/25 at 9:00AM New Polyethylene Glycol 3350 (MiraLax Powder) 17 gram Oral Daily as needed for Constipation You may take OTC for constipation New Senna (senna 187 mg oral tablet) 1 tab(s) Oral Daily at Bedtime as needed for as needed for constipation You may take OTC for constipation Unchanged Ciclopirox Topical (ciclopirox 0.77% topical cream) Unchanged Clobetasol Topical (Clobetasol (Eqv-Temovate) 0.05% topical cream) Unchanged Clonazepam (clonazePAM 0.5 mg oral tablet) See instructions one half or 1 tablet By Mouth 3 times a day, As needed for Anxiety ?? you may take as usual Unchanged Durable Medical Equipment (Aerochamber) See instructions Use as directed with all inhalors. Dx: acute bronchitis with bronchospasm ?? Unchanged Phenelzine (Nardil 15 mg oral tablet) See Instructions 2 tablet by mouth twice daily ?? 07/24 at 9:00PM Pharmacy Information [facility] 3: [address], [place] [id number] [phone] ?? What How Much When Comments Stop Taking Fexofenadine (Sunshine Allergy 60 mg oral tablet) 1 tab(s) Oral Twice a day as needed for as needed for allergy symptoms Stop Taking l-methylfolate (l-methylfolate 15 mg oral tablet) 15 Milligram Oral Daily Stop Taking [place]-3 Polyunsaturated Fatty Acids (Fish Oil 1000 mg oral capsule) 1 capsule Oral Twice a day Prescription Given During Visit Oxycodone (oxyCODONE 5 mg oral tablet) - , # 84 tablet, 0 Refills, 1-2 tablets By Mouth Every 4 hours, [facility], [address] [place] [phone]?? Laboratory Results Below is a partial list of the most recent Laboratory test results done prior to this discharge. You may have had other tests and procedures not included in this list. Please discuss all test resultswith your provider. Est Creatinine Clearance - 59.43 mL/min (07/25/2023) BUN (07/25/2023) ???BUN - 17 mg/dL CBC (07/25/2023) ???WBC - 9.1 k/mm3???RBC - 3.94 m/mm3???Hgb - 11.5 Gm/dL???Hct - 35.8 %???MCV - 90.9 femtoliters???MCH - 29.2 pg???MCHC - 32.1 g/dL???Platelet Count - 160 k/mm3???RDW-SD - 43.0 femtoliters???MPV - 10.4 femtoliters???Nucleated RBC (Automated) - 0.0 #/100 WBC'S???Abs. NRBC - 0.0 k/mm3 Creatinine (07/25/2023) ???Creatinine-Blood - 0.78 mg/dL???Estimated GFR Creatinine - 81 ML/MIN/1.73 M2 Electrolytes (07/25/2023) ???Sodium - 133 mmol/L???Potassium - 5.3 mmol/L???Chloride - 99 mmol/L???Bicarbonate Level - 25 mmol/L???Anion Gap - 9 HOLD LAVENDER TUBE (07/25/2023) ???Hold Lavender Top - SPECIMEN DISCARDED AFTER 24 HOURS. Potassium Level (07/25/2023) ???Potassium - 4.4 mmol/L Allergies (NKA means No Known Allergies) epinephrine Levaquin??(pruritis, rash) Problems Active Problems??(7) Anxiety?? Anxiety with depression?? Depression?? Family history of breast disorder?? Lichen planus?? Osteoarthritis of left hip?? Tinnitus?? Education Materials Below is the list of Educational Leaflet Providered with your Discharge Instructions. WebMD Ignite Patient Education - Total Hip Replacement Discharge Instructions?? Valuables and Belongings I fully understand and agree that [facility] accepts no responsibility for all my personal property including clothing, toilet articles, radios, jewelry, dentures, hearing aids, rings, money, or any other property that is in my possession or is brought to me after admission. I understand certain valuables may be placed in a hospital safe for a short period of time. I understand that the hospital is not liable for loss or damage due to accident, fire, or other natural occurrence while said property is in the safe. I accept full responsibility for any personal property that I keep with me, and will not hold the hospital responsible in case of loss or disappearance. I acknowledge that i have been encouraged to send valuables and belongings home. ?? Date for Pt to Sign Valuables/Belongings: 07/24/23 10:44:00 ?? Other Discharge Information ? Case Management Discharge Plan?? Discharge Plan?? Discharge Agency Information?? Discharge Level of Care at Discharge: Homehealth/VNA Name of Agency #1: [facility] [phone] Discharge [facility] [phone] Agency Machine Binding Folder #1: intake ?? Service Categories #1: Physical Therapy, Correction ?? Service Comments #1: Agency will contact you within 24-48 hrs to arrange a visit ?? Pulmonary Rehab Status?? Pulmonary Rehab Discharge Status?? Respiratory Rate: 16 br/min ? Common Emergency Awareness Tips IS IT A STROKE? Act FAST and Check for these signs: FACE Does the face look uneven? ARM Does one arm drift down? SPEECH Does their speech sound strange? TIME Call at any sign of stroke ?? Heart Attack Signs Chest discomfort: Most heart attacks involve discomfort in the center of the chest and lasts more than a few minutes, or goes away and comes back. It can feel like uncomfortable pressure, squeezing, fullness or pain. Discomfort in upper body: Symptoms can include pain or discomfort in one or both arms, back, neck, jaw or stomach. Shortness of breath: With or without discomfort. Other signs: Breaking out in a cold sweat, nausea, or lightheaded. Remember, MINUTES DO MATTER. If you experience any of these heart attack warning signs, call to get immediate medical attention! ?? Smoking can increase your chances of developing chronic health problems and can cause harmful effects to other family members in your house. If you smoke, you are strongly encouraged to quit. Please call [facility] farmhopping Link at [phone] or [phone]-[facility] ([phone]) or log in to [email or web address] for referrals to smoking cessation programs. ?? 720 Suicide & Crisis Lifeline is available 02/10 if you or someone you know needs to find a reason to keep living. By calling 308 you'll be connected to a skilled, trained counselor at a crisis center in your area. INPATIENT DISCHARGE INSTRUCTIONS SIGNATURE PAGE MATA GRANDE Location:[facility] Registration Date and Time:07/24/2023 12:14 EDT Primary Care Physician: Cesar STACK, Ashok Monroy, Attending Physician: Manuela STACK, Asad Sethi, I MATA GRANDE, have received the above patient education materials/instructions and have verbalized understanding. If ambulance or transport services are being used I further acknowledge being given a choice of service. ?? If you need to contact me, please call me at this number: . Patient/Tick Sewer Name: Patient/Tick Sewer Signature: Relationship to Patient: Witness Name/Signature: Date: * Andrew VELAZQUEZ, Beth Martinez: PERFORM Event Display: Patient Education Leaflets Authored Date: [id number] Total Hip Replacement Discharge Instructions ?? 666 Total Hip Replacement Discharge Instructions ? Please read and review your Total Hip Replacement Book for detailed information ??? Your appetite may be decreased but try to maintain a good balanced diet Incision ?Your incision is closed with absorbable stitches and surgical glue. ?The dressing is waterproof. You may shower the next day. ??? Your dressing will stay on for 1-2 weeks ?You cannot go in a bath, pool, ocean, pond, batista or jacuzzi for 6 weeks. This is to reduce your risk of infection ? You may have some numbness around the incision. This is normal and will improve with time. Some patients have numbness that does not completely go away. ??? You may have skin discoloration (yellowish or bruising) around your incision which may develop. ??? Ice and elevation ? Ice is important to help keep swelling down. ?Keep your leg elevated as much as possible. ?Ice your hip 4 times a day for 20 minutes each time. Be sure not to put the ice/ice pack directly on your skin. Use a dishtowel or something similar between your skin and the ice. ??? Manuela Campo, and Ashley???[facility] patients: The blue wedge is to be used between your knees when sleeping and sitting in a chair for the first few weeks. This keeps your hip in the proper position ? Moving ? Moving is especially important. This helps to prevent blood clots. Take short frequent walks. ? Exercises as per physical therapy ??? No driving until approved by your surgeon ??? Continue to move your foot up and down, these exercises help to prevent blood clots and help to decrease swelling in your hip. ?? When to call the Surgeon?CALL [phone] ? If you have shortness of breath or chestpain, call 911 or go to the nearest emergency department. ??? If you have drainage and/or redness around your wound. ??? If you have a fever greater than 101.5 (38.5 degrees Celsius). ??? If you havepersistent calf pain or swelling (This could be a blood clot). ??? If your pain is worsening. ? If you have any difficulty with urination or burning with urination. ?? * Marysol Lima RN: PERFORM, SIGN, VERIFY Event Display: Case Management Discharge Plan Authored Date: Patient: MATA GRANDE Age: 73 years Sex: Female : 1950 Associated Diagnoses: None Author: Marysol Lima RN Discharge Plan Case Management Discharge Plan : Case Management Discharge Plan Data 07/24/2023 12:19 EDT Discharge Level of Care at Discharge Homehealth/VNA Discharge VNA/Hospice/Home Care [facility] [phone] Name of Agency #1 [facility] [phone] Agency Machine Binding Folder #1 intake Service Categories #1 Physical Therapy, Correction Service Comments #1 Agency will contact you within 24-48 hrs to arrange a visit Patient Care team information Care Team Personnel Name: Ashok Guerrero MD Position: [facility] Physician - Primary Care Member Role: PCP Address: Address: [address] [place] [address] Adult & Pediatric Medicine [address] Name: Savi Bonilla RN Position: S RN Member Role: Primary Care Nurse Name: Mayra Gonzalez RN Position: S RN Member Role: Primary Care Nurse Name: Renetta Barnes RN Position: S RN Member Role: Primary Care Nurse Name: Love Jameson RN Position: [facility] RN Member Role: Primary Care Nurse Care Team Related Persons Name: AKOSUA HENDERSON Address: [address] [place] [address]
--- OUTSIDE RECORDS SUMMARY | 2023-08-27 13:30 | XMS_ITS | Continuity of Care Document ---
Author Organization [facility] Address [address] [place] [address]- Care Team Providers Care Percussion Teacher Name Role Phone Cesar STACK, Ashok Monroy Primary Care Physician Encounter [facility] Date(s): 05/04/23 - 06/03/[address] [address] Attending Physician: AdmCristal cortés Admitting Physician: AdmtrCristal Referring Physician: Admtr, Ar8 Allergies, Adverse Reactions, Alerts Substance Reaction Severity Status epinephrine 1 Persistent Mild Resolved Levaquin pruritis rash Active 1headache, elevated bp Immunizations Given and Recorded Vaccine Date Status Refusal Reason RSV vaccine preF3, recombinant 1 04/25/23 Recorded SARS-CoV-2(COVID-19)mRNA-LNP vac([id number]) 12/27/22 Recorded influenza virus vaccine, inactivated 12/01/22 [...] inactivated 4 03/29/12 Gi juhi SARS-CoV-2 mRNA (tzbastn-zkgk-llpde) vax 08/04/21 Recorded SARS-CoV-2 (COVID-19) mRNA BNT-162b2 [...] 1Result Comment: [04/25/2023] mo giron 2Result Comment: [facility] [id number] 3[facility] 4Admin Note: vis sheet [...] Date: 03/01/23 Stop Date: 03/31/23 Status: Ordered clonazePAM 0.5 mg oral tablet [...] EST, Capsule Start Date: 04/25/19 Status: Ordered meclizine 12.5 mg oral tablet 1 tablet = 12.5 mg, By Mouth, 3 times a day, PRN for dizziness, # 30 tablet, 0 Refills, Maintenance, 06/01/23 13:20:00 EDT, Tablet, Partial fill upon patient request if the prescription is for a schedule II opioid drug. Start Date: 06/01/23 Status: Ordered Nardil 15 mg oral tablet See Instructions, 2 tablet by mouth twice daily, # 120 each, 11 Refills Start Date: 10/08/06 Status: Ordered Problem List Condition Confirmation Course Effective Dates Status H ealth Status Informant Family history of breast disorder Confirmed Active Anxiety with depression Confirmed Active Osteoarthritis of left hip Confirmed Active Tinnitus Confirmed Active Social History Social History Type Response Smoking Status Never smoker; Tobacc o user in household: No entered on: 06/05/13 Sex Female Patient Care team information Care Team Personnel Name: Ashok Guerrero MD Position: S Physician - Primary Care Member Role: PCP Address: Address: [address] [place] [address] Adult & Pediatric Medicine [place], [place] [address] Care Team Related Persons Name: AKOSUA HENDERSON Address: [address] [place] [address]
--- OUTSIDE RECORDS SUMMARY | 2023-08-27 13:30 | XMS_ITS | Continuity of Care Document ---
Author Organization [facility] Address [address] [place] [address]- Care Team Providers Care Senior Director Marketing Name Role Phone Cesar STACK, Ashok Monroy Primary Care Physician [phone] [place] [facility] [place] 02/15/23 - 03/17/23 [facility] [address] [place], [place] [address] Allergies, Adverse Reactions, Alerts Substance Reaction Severity Status epinephrine 1 Persistent Mild Resolved Levaquin pruritis rash Active 1headache, elevated bp Immunizations Given and Recorded Vaccine Date Status Refusal Reason SARS-CoV-2(COVID-19)mRNA-LNP vac([id number]) 12/27/22 Recorded influenza virus vaccine, inactivated 12/01/22 [...] inactivated 3 03/29/12 Gi juhi SARS-CoV-2 mRNA (dymesly-mhop-mkpoc) vax 08/04/21 Recorded SARS-CoV-2 (COVID-19) mRNA BNT-162b2 [...] Zoster Vaccine Live 10/25/12 Recorded 1Result Comment: [facility] [id number] 2[facility] 3Admin Note: vis sheet [...] Team Personnel Name: Ashok Guerrero MD Position: [facility] Physician - Primary Care Member Role: PCP Address: Address: [address] [place] [address] Adult & Pediatric [place], [place] [address] Name: Teresa Myers Position: [facility] Member Role: Primary Care Nurse Care Team Related Persons Name: AKOSUA HENDERSON Address: home [address] [place] [address]
--- OUTSIDE RECORDS SUMMARY | 2023-08-27 13:30 | XMS_ITS | Continuity of Care Document ---
Author Organization [facility] Address [address] [place] [address]- Care Team Providers Care Blue Line Operator Name Role Phone Ashok Guerrero MD Primary Care Physician [place] [facility] [place]14[place]22 - 12/14/22 [facility] [address] [place], [place] [address] Allergies, Adverse [...] inactivated 3 03/29/12 Gi juhi SARS-CoV-2 mRNA (vfillcy-svzs-xjgla) vax 08/04/21 Recorded SARS-CoV-2 (COVID-19) mRNA BNT-162b2 [...] Zoster Vaccine Live 10/25/12 Recorded 1Result Comment: [facility] [id number] 2Location History: [facility] 3Admin Note: vis sheet [...] Primary Care Member Role: PCP Address: Address: [address] [place] [address] Adult & Pediatric [place], [place] [address] Name: Teresa Myers Position: [facility] Member Role: Primary Care Nurse Care Team Related Persons Name: AKOSUA HENDERSON Address: home [address] [place] [address]
--- OUTSIDE RECORDS SUMMARY | 2023-08-27 13:30 | XMS_ITS | Continuity of Care Document ---
Author Organization [facility] Address [address] [place] [address]- Care Team Providers Care Eyelet Cutter Name Role Phone Cesar STACK, Ashok Monroy Primary Care Physician [place] [facility] [place]06[place]23 [place] 03/08/23 [facility] [address] [place], [place] [address] Allergies, Adverse Reactions, Alerts Substance Reaction Severity Status epinephrine 1 Persistent Mild Resolved Levaquin pruritis rash Active 1headache, elevated bp Immunizations Given and Recorded Vaccine Date Status Refusal Reason SARS-CoV-2(COVID-19)mRNA-LNP vac([id number]) 12/27/22 Recorded influenza virus vaccine, inactivated 12/01/22 [...] inactivated 3 03/29/12 Gi juhi SARS-CoV-2 mRNA (vilbinl-kqjz-sjgnp) vax 08/04/21 Recorded SARS-CoV-2 (COVID-19) mRNA BNT-162b2 [...] Zoster Vaccine Live 10/25/12 Recorded 1Result Comment: [facility] [id number] 2[facility] 3Admin Note: vis sheet [...] prescription i... Start Date: 03/01/23 Status: Ordered benzonatate 100 mg oral capsule 1 capsule = 100 mg, By Mouth, 3 times a day, PRN Cough, for 7 days, # 21 capsule, 0 Refills, Acute 03/14/23 14:09:00 EST, 03/07/23 14:09:00 EST, Capsule, [facility], Partial fill upon patient request if the prescription is for a schedule II o... Start Date: 03/07/23 Stop Date: 03/14/23 Status: Ordered clonazePAM 0.5 mg oral tablet [...] 11 Refills Start Date: 10/08/06 Status: Ordered predniSONE 10 mg oral tablet See Instructions, 4 tab x 3d, 3 tab x 2d, 2 tab x 2d. First dose now, then in AM daily. Take w/food, # 20 tablet, 0 Refills, Acute 03/11/23 13:00:00 EST, 03/01/23 12:59:00 EST, [facility], Partial fill upon patient request if the prescription... Start Date: 03/01/23 Stop Date: 03/11/23 Status: Ordered Problem List Condition Confirmation Course Effective Dates Status Health [facility] Informant Family history of breast disorder Confirmed Active Anxiety with depression Confirmed Active Social History Social History Type Response Smoking Status Never smoker; Tobacc o user in household: No entered on: 06/05/13 Sex Female Patient Care team information Care Team Personnel Name: Ashok Guerrero MD Position: [facility] Physician - Primary Care Member Role: PCP Address: Address: [address] [place] [address] Adult [place] [address]- Name: Teresa Myers Position: [facility] Member Role: Primary Care Nurse Care Team Related Persons Name: AKOSUA HENDERSON Address: home [address] [place] [address]
--- OUTSIDE RECORDS SUMMARY | 2023-08-27 13:30 | XMS_ITS | Continuity of Care Document ---
Author Organization [facility] Address [address] [place] [address]- Care Team Providers Care Vb Developer Name Role Phone Ashok Guerrero MD Primary Care Physician En[place] [facility] Date(s): 03/14/23 - 03/21/23 [facility] [address] [place], [place] [address] Encounter Diagnosis RSV infection(Discharge Diagnosis) - 03/14/23 Attending Physician: Ashok Guerrero MD Allergies, Adverse Reactions, Alerts Substance Reaction Severity Status epinephrine 1 Persistent Mild Resolved Levaquin pruritis rash Active 1headache, elevated bp Immunizations Given and Recorded Vaccine Date Status Refusal Reason SARS-CoV-2(COVID-19)mRNA-LNP vac([id number]) 12/27/22 Recorded influenza virus vaccine, inactivated 12/01/22 [...] inactivated 3 03/29/12 Gi juhi SARS-CoV-2 mRNA (ounccjv-pgdu-pudah) vax 08/04/21 Recorded SARS-CoV-2 (COVID-19) mRNA BNT-162b2 [...] 10/25/12 Recorded 1Result Comment: [facility] [id number] 2[facility] 3Admin Note: vis sheet [...] Confirmed Active Anxiety with depression Confirmed Active Diagnosis Diagnosis Type Effective Dates Health Status Cl inical Service Informant RSV infection Discharge Diagnosis 03/14/23 Vital Signs Most recent to oldest [Reference Range]: 1 Height 166.14 cm (03/14/23 4:04 PM) Weight 76 kg (03/14/23 4:04 PM) Oxygen Saturation [94-100 %] 96 % (03/14/23 4:04 PM) Pulse Rate [55-90 bpm] 86 bpm (03/14/23 4:04 PM) Body Mass Index [18.5-24.99 kg/m2] 27.53 kg/m2 *H* (03/14/23 4:04 PM) Blood Pressure [90-138/55-84 mm Hg] 135/ 77mm Hg (03/14/23 4:04 PM) Mode of Delivery (Oxygen) Room air (03/14/23 4:04 PM) Blood pressure sites Arm, left (03/14/23 4:04 PM) Dry Weight 76 kg (03/14/23 4:04 PM) Weight Obtained Via Standing scale (03/14/23 4:04 PM) Dry Weight Obtained Via Standing scale (03/14/23 4:04 PM) Social History Social History Type Response Smoking Status Never smoker; Tobacc o user in household: No entered on: 06/05/13 Sex Female Patient Care team information Care Team Personnel Name: Ashok Guerrero MD Position: [facility] Physician - Primary Care Member Role: PCP Address: Address: [address] [place] [address] Adult [place] [address]- [place] Name: Teresa Myers Position: [facility] Member Role: Primary Care Nurse Care Team Related Persons Name: AKOSUA HENDERSON Address: [address] [place] [address]
--- OUTSIDE RECORDS SUMMARY | 2023-08-27 13:30 | XMS_ITS | Continuity of Care Document ---
Author Organization [facility] Address [address] [place] [address]- Care Team Providers Care Manager Facility Name Role Phone Ashok Guerrero MD Primary Care Physician [id number] Date(s): 06/20/23 - 06/20/[address] [address]- Discharge Disposition: A-D/C Home Attending Physician: Hamilton Howard MD Admitting Physician: Hamilton Howard MD Referring Physician: Not on Staff, Referring MD Allergies, Adverse Reactions, Alerts Substance Reaction Severity Status epinephrine 1 Persistent Mild Resolved Levaquin pruritis rash Active 1headache, elevated bp Immunizations Given and Recorded Vaccine Date Status Refusal Reason RSV vaccine preF3, recombinant 1 04/25/23 Recorded SARS-CoV-2(COVID-19)mRNA-LNP vac([id number]) 12/27/22 Recorded influenza virus vaccine, inactivated 12/01/22 [...] inactivated 4 03/29/12 Gi juhi SARS-CoV-2 mRNA (fgnnnpd-bgcl-puslh) vax 08/04/21 Recorded SARS-CoV-2 (COVID-19) mRNA BNT-162b2 [...] 1Result Comment: [04/25/2023] mo giron 2Result Comment: [facility] [id number] [facility] 4Admin Note: vis sheet [...] Date: 03/01/23 Stop Date: 03/31/23 Status: Ordered cephalexin monohydrate 500 mg oral capsule 1 capsule = 500 mg, By Mouth, 3 times a day, for 7 days, # 21 capsule, 0 Refills, Acute 06/27/23 16:44:00 EDT, 06/20/23 16:44:00 EDT, Capsule, [facility], Partial fill upon patient request if the prescription is for a schedule II opioid drug.... Start Date: 06/20/23 Stop Date: 06/27/23 Status: Ordered clonazePAM 0.5 mg oral tablet [...] left hip Confirmed Active Tinnitus Confirmed Active Vital Signs Most recent to oldest [Reference Range]: 1 2 3 Height 165 cm (06/20/23 4:44 PM) 165 cm (06/20/23 1:43 PM) Weight 77.7 kg (06/20/23 4:44 PM) 77.7 kg (06/20/23 1:43 PM) Oxygen Saturation [94-100 %] 96 % (06/20/23 4:44 PM) 97 % (06/20/23 1:43 PM) 98 % (06/20/23 1:42 PM) Pulse Rate [55-90 bpm] 73 bpm (06/20/23 4:44 PM) 69 bpm (06/20/23 1:43 PM) 80 bpm (06/20/23 1:42 PM) Body Mass Index [18.5-24.99 kg/m2] 28.54 kg/m2 *H* (06/20/23 4:44 PM) Blood Pressure [90-138/55-84 mm Hg] 134/75mm Hg (06/20/23 4:44 PM) 111/71mm Hg (06/20/23 1:43 PM) Respiratory Rate [16-30 br/min] 17 br/min (06/20/23 4:44 PM) 17 br/min (06/20/23 1:43 PM) Temperature [96.8-100.4 DegF] 97.7 DegF (06/20/23 1:43 PM) Mode of Delivery (Oxygen) Room air (06/20/23 4:44 PM) Room air (06/20/23 1:43 PM) Blood pressure sites Arm, left (06/20/23 4:44 PM) Temperature Route Temporal (06/20/23 1:43 PM) Dry Weight 77.7 kg (06/20/23 4:44 PM) 77.7 kg (06/20/23 1:43 PM) Weight Obtained Via Standing scale (06/20/23 1:43 PM) Social History Social History Type Response Smoking Status Never smoker; Tobacc o user in household: No entered on: 06/05/13 Sex Female Note * Hamilton Howard MD: PERFORM, SIGN, VERIFY Event Display: Patient Education Handout Authored Date: [id number] * Hamilton Howard MD: PERFORM Event Display: Patient Education Leaflets Authored Date: [id number] Blood in the Urine ?? [id number] Blood in the Urine Blood in the urine (hematuria) has many possible causes. If it occurs after an injury (such as a car accident or fall), it's most often a sign of bruising to the kidney or bladder. Common causes of blood in the urine include urinary tract infections, kidney stones, inflammation, tumors, or certain other diseases of the kidney or bladder. Menstruation can cause blood to appear in the urine sample,but it's not coming from the urinary tract. If only a tiny (trace) amount of blood is present, it will show up on the urine test, even though the urine may be yellow and not pink or red. This may occur with any of the above conditions, as wellas heavy exercise or high fever. In this case, your healthcare provider may want to repeat the urine test on another day. This will show if there's still blood in the urine. If there is, then other tests can be done to find out the cause. Home care Follow these home care guidelines: ??? If your urine doesn't look bloody (pink, brown, or red) thenyou don't need to restrict your activity in any way. ??? If you can see blood in your urine, rest and don't do any strenuous activity until your next exam. Don't use aspirin, blood thinners, or antiplatelet or anti- inflammatory medicines. These include ibuprofen and naproxen. These thin the blood and may increase bleeding. Call your healthcare provider to talk about using these medicines. ?? Follow-up care Follow up with your healthcare provider, or as advised. If you were injured and had blood in your urine, you should have a repeat urine test in 1 to 2 days. Contact your provider for this test. A radiologist will review any X-rays that were taken. You'll be told of any new findings that may affect your care. ?? When to get medical advice Call your healthcare provider right away if any of these occur: ??? Bright red blood or blood clotsin the urine (if you didn't have this before) ??? Weakness, dizziness, or fainting ??? New groin, belly, or back pain ??? Fever of 100.4??F (38??C) or higher, or as advised by your provider ??? Repeated vomiting ??? Bleeding from the nose or gums, or easy bruising ?? Last Reviewed Date: 2021 ?? [id number] [employer]. All rights reserved. This information is not intended as a substitute for professional medical care. Always follow your healthcare professional's instructions. ?? Patient Care team information Care Team Personnel Name: Ashok Guerrero MD Position: [facility] Physician - Primary Care Member Role: PCP Address: Address: [address] [place] [address] Adult & [place] [address]- Care Team Related Persons Name: AKOSUA HENDERSON Address: home [address] [place] [address]
--- OUTSIDE RECORDS SUMMARY | 2023-08-27 13:30 | XMS_ITS | Continuity of Care Document ---
Author Organization [facility] Address [address] [place] [address]- Care Team Providers Care Quality Assurance Supervisor Body Name Role Phone Ashok Guerrero MD Primary Care Physician [phone] Encounter [facility] Date(s): 04/25/23 - 05/25/23 [facility] [address] [place] [address]- [place] Allergies, Adverse Reactions, Alerts Substance Reaction Severity Status epinephrine 1 Persistent Mild Resolved Levaquin pruritis rash Active 1headache, elevated bp Immunizations Given and Recorded Vaccine Date Status Refusal Reason RSV vaccine preF3, recombinant 1 04/25/23 Recorded SARS-CoV-2(COVID-19)mRNA-LNP vac([id number]) 12/27/22 Recorded influenza virus vaccine, inactivated 12/01/22 [...] inactivated 4 03/29/12 Gi juhi SARS-CoV-2 mRNA (yiqeydl-rsmt-plasn) vax 08/04/21 Recorded SARS-CoV-2 (COVID-19) mRNA BNT-162b2 [...] 1Result Comment: [04/25/2023] [facility] 2Result Comment: [facility] [id number] 3[facility] 4Admin Note: vis sheet [...] Primary Care Member Role: PCP Address: Address: [address] [place] [address] Adult & [place] [address]- Care Team Related Persons Name: AKOSUA HENDERSON Address: home [address] [place] [address]
--- OUTSIDE RECORDS SUMMARY | 2023-08-27 13:30 | XMS_ITS | Continuity of Care Document ---
Author Organization [facility] Address [address] [place] [address]- Care Team Providers Care Senior Sales Associate Name Role Phone Cesar STACK, Ashok Monroy Primary Care Physician Encounter [facility] Date(s): 01/09/23 - 02/08/23 [facility] [address] [place], [place] [address] Allergies, Adverse Reactions, Alerts Substance Reaction Severity Status epinephrine 1 Persistent Mild Resolved Levaquin pruritis rash Active 1headache, elevated bp Immunizations Given and Recorded Vaccine Date Status Refusal Reason SARS-CoV-2(COVID-19)mRNA-LNP vac([id number]) 12/27/22 Recorded influenza virus vaccine, inactivated 12/01/22 [...] inactivated 3 03/29/12 Gi juhi SARS-CoV-2 mRNA (eiqhlii-azlh-yqfit) vax 08/04/21 Recorded SARS-CoV-2 (COVID-19) mRNA BNT-162b2 [...] 10/25/12 Recorded 1Result Comment: [facility] [id number] 2[facility] 3Admin Note: vis sheet [...] Team Personnel Name: Ashok Guerrero MD Position: [facility] Physician - Primary Care Member Role: PCP Address: Address: [address] [place] [address] Adult [place] [address]- Name: Teresa Myers Position: [facility] [place] Member Role: Primary Care Nurse Care Team Related Persons Name: AKOSUA HENDERSON Address: home [address] [place] [address]
--- OUTSIDE RECORDS SUMMARY | 2023-08-27 13:31 | XMS_ITS | Continuity of Care Document ---
Author Organization [facility] Address [address] [place] [address]- Care Team Providers Care Grapple Skidder Operator Name Role Phone Ashok Guerrero MD Primary Care Physician Encounter [facility] Date(s): 06/01/23 - 07/01/23 [facility] [address] [place], [place] [address] Attending Physician: Cristal Kumar Admitting Physician: AdmCristal cortés Referring Physician: [id number] Allergies, Adverse Reactions, Alerts Substance Reaction Severity Status epinephrine 1 Persistent Mild Resolved Levaquin pruritis rash Active 1headache, elevated bp Immunizations Given and Recorded Vaccine Date Status Refusal Reason RSV vaccine preF3, recombinant 1 04/25/23 Recorded SARS-CoV-2(COVID-19)mRNA-LNP vac([id number]) 12/27/22 Recorded influenza virus vaccine, inactivated 12/01/22 [...] inactivated 4 03/29/12 Gi juhi SARS-CoV-2 mRNA (mtsvlcr-nxed-tkvbk) vax 08/04/21 Recorded SARS-CoV-2 (COVID-19) mRNA BNT-162b2 [...] 1Result Comment: [04/25/2023] [facility] 2Result Comment: [facility] [id number] 3[facility] 4Admin Note: vis sheet [...] Primary Care Member Role: PCP Address: Address: [address] [place] [address] Adult & [place] [address]- Care Team Related Persons Name: AKOSUA HENDERSON Address: home [address] [place] [address]
--- OUTSIDE RECORDS SUMMARY | 2023-08-27 13:31 | XMS_ITS | Continuity of Care Document ---
Author Organization [facility] Address [address] [facility] [place] [address]- Care Team Providers Care Mine Safety Manager Name Role Phone Cesar STACK, Ashok Monroy Primary Care Physician Encounter 11/30/22 - 12/07/22 [facility] [address], [address] [place] [address]- Attending Physician: Yumiko Moss MD Admitting Physician: Yumiko Moss MD Referring Physician: Yumiko Moss MD Allergies, Adverse Reactions, Alerts Substance Reaction [...] inactivated 3 03/29/12 Gi juhi SARS-CoV-2 mRNA (iqgzlyi-cmvj-cqrhs) vax 08/04/21 Recorded SARS-CoV-2 (COVID-19) mRNA BNT-162b2 [...] [facility] [id number] 2[facility] 3Admin Note: vis sheet [...] depression Confirmed Active Severe obesity Confirmed Active Results Radiology Reports * Exam Date Time Procedure Performing Provider Status 11/30/22 3:17 PM MM Digital Mammo Screening Whitney , Apri l; Auth (Verified) Notes: (MM Digital Mammo Screening) Reason For Exam: Z12.31 SCREENING RESULT: MM Digital Mammo Screening PROCEDURE: MM Digital Mammo Screening INDICATION: Screening for breast cancer. No known palpable abnormalities. History of remote benign right excisional biopsy. Scar indicated in the lateral aspect of the breast on PenRad. COMPARISON: [facility] and [facility] dating back to 10/20/2019. TECHNIQUE: Full-field digital CC and MLO 3D tomosynthesis images of both breasts were acquired. Computer-aided detection (CAD) was utilized in the interpretation of this study. DENSITY: The breast tissue is heterogeneously dense, which may obscure masses. FINDINGS: No suspicious masses, suspicious microcalcifications, or areas of architectural distortion are seen in either breast to suggest malignancy. IMPRESSION: No mammographic evidence of malignancy. RECOMMENDATION: Annual mammographic screening BI-RADS: 1 (Negative) Lay letter mailed to patient WSN: [id number] Ordering Physician: Yumiko Moss MD Dictated By: Liz Sultana MD, I Dictated Date/Time: 11/30/22 4:17 pm Reviewed By: Liz Sultana MD, I Signed By: Liz Sultana MD, I Signed Date/Time: 11/30/22 4:17 pm Transcribed By: MAXINE Recreation Director Date/Time: 11/30/22 4:14 pm Birads: Social History Social History Type Response Smoking Status Never smoker; Tobacc o user in household: No entered on: 06/05/13 Sex Female Patient Care team information Care Team Personnel Name: Ashok Guerrero MD Position: S Physician - Primary Care Member Role: PCP Address: Address: [address] [place] [address] Adult & Pediatric Medicine [place], [place] [address] Care Team Related Persons Name: AKOSUA HENDERSON Address: home [address] [place] [address]
--- OUTSIDE RECORDS SUMMARY | 2023-08-27 13:31 | XMS_ITS | Continuity of Care Document ---
Author Organization [facility] Address [address] [place] [address]- Care Team Providers Care Manager Law Name Role Phone Cesar STACK, Ashok Monroy Primary Care Physician [phone] Encounter [facility] Date(s): 07/13/23 - 08/12/23 [facility] [address] [place], [place] [address] Allergies, Adverse Reactions, Alerts Substance Reaction Severity Status epinephrine 1 Persistent Mild Active Levaquin pruritis rash Active 1headache, elevated bp Immunizations Given and Recorded Vaccine Date Status Refusal Reason RSV vaccine preF3, recombinant 1 04/25/23 Recorded SARS-CoV-2(COVID-19)mRNA-LNP vac([id number]) 12/27/22 Recorded influenza virus vaccine, inactivated 12/01/22 [...] 03/11/13 Re corded influenza virus vaccine, inactivated 03/29/12 Gi juhi SARS-CoV-2 mRNA (vgixdzi-flbc-rrfga) vax 08/04/21 Recorded SARS-CoV-2 (COVID-19) mRNA BNT-162b2 [...] 1Result Comment: [04/25/2023] mo giron 2Result Comment: [facility] [id number] 3[facility] 4Admin Note: vis sheet given. Medications acetaminophen 325 mg oral tablet 650 mg, By Mouth, Every 6 hours, May take OTC not to exceed 3000 mg/day, Refills 0, Maintenance, 07/25/23 7:23:00 EDT, Partial fill upon patient request if the prescription is for a schedule II opioid drug. Start Date: 07/25/23 Status: Ordered Aerochamber See Instructions, # 1 each, Maintenance, [...] 11 Refills Start Date: 10/08/06 Status: Ordered pantoprazole 40 mg oral delayed release tablet [...] Team Personnel Name: Ashok Guerrero MD Position: [facility] Physician - Primary Care Member Role: PCP Address: Address: [address] [place] [address] Adult & [place] [address]- Name: Savi Bonilla RN Position: S RN Member Role: Primary Care Nurse Name: Mayra Gonzalez RN Position: [facility] RN Member Role: Primary Care Nurse Name: Renetta Barnes RN Position: [facility] RN Member Role: Primary Care Nurse Name: Love Jameson RN Position: [facility] RN Member Role: Primary Care Nurse Care Team Related Persons Name: AKOSUA HENDERSON Address: home [address] [place] [address]
--- OUTSIDE RECORDS SUMMARY | 2023-08-27 13:31 | XMS_ITS | Continuity of Care Document ---
Author Organization [facility] Address [address] [place] [address]- Care Team Providers Care Transplant Immunologist Name Role Phone Cesar STACK, Ashok Monroy Primary Care Physician [phone] [id number] 07/09/23 - 07/16/23 [facility] [address] [place], [place] [address] Attending Physician: Taz Malik DO Referring Physician: Asad Roy MD Allergies, Adverse Reactions, Alerts Substance Reaction Severity Status epinephrine 1 Persistent Mild Active Levaquin pruritis rash Active 1headache, elevated bp Immunizations Given and Recorded Vaccine Date Status Refusal Reason RSV vaccine preF3, recombinant 1 04/25/23 Recorded SARS-CoV-2(COVID-19)mRNA-LNP vac([id number]) 12/27/22 Recorded influenza virus vaccine, inactivated 12/01/22 [...] vaccine, inactivated 03/29/12 Gi juhi SARS-CoV-2 mRNA (avxskpz-xrwq-gshfl) vax 08/04/21 Recorded SARS-CoV-2 (COVID-19) mRNA BNT-162b2 [...] 1Result Comment: [04/25/2023] [facility] 2Result Comment: [facility] [id number] 3[facility] 4Admin Note: vis sheet given. Medications Aerochamber See Instructions, # 1 each, Maintenance, Use as directed with all inhalors. Dx: acute bronchitis with bronchospasm, 03/01/23 12:59:00 EST, Supply, 166.14, cm, 03/01/23 12:03:00 EST, Height, 75, kg, 01/30/23 13:42:00 EST, Dry Weight Start Date: 03/01/23 Status: Ordered Sunshine Allergy 60 mg oral tablet 1 tablet = 60 mg, By Mouth, 2 times a day, PRN as needed for allergy symptoms, # 20 tablet, 0 Refills, Maintenance, 07/16/23 15:06:00 EDT, Tablet, Partial fill upon patient request if the prescription is for a schedule II opioid drug. Start Date: 07/16/23 Status: Ordered ciclopirox 0.77% topical cream 0 [...] EST, Capsule Start Date: 04/25/19 Status: Ordered l-methylfolate 15 mg oral tablet = 15 mg, By Mouth, Daily, # 30 tablet, 0 Refills, Maintenance, 07/09/23 18:47:00 EDT, Tablet, Partial fill upon patient request if the prescription is for a schedule II opioid drug. Start Date: 07/09/23 Status: Ordered Nardil 15 mg oral tablet See Instructions, 2 tablet by mouth twice daily, # 120 each, 11 Refills Start Date: 10/08/06 Status: Ordered Problem List Condition Confirmation Course Effective Dates Status H ealth Status Informant Family history of breast disorder Confirmed Active Lichen planus Confirmed Active Anxiety with depression Confirmed Active Osteoarthritis of left hip Confirmed Active Tinnitus Confirmed Active Procedures Procedure Date Related Diagnosis Body Site Status Amblyopia surgery as child Completed Appendectomy Completed Vital Signs Most recent to oldest [Reference Range]: 1 Height 165 cm (07/09/23 2:51 PM) Weight 76.4 kg (07/09/23 2:51 PM) Oxygen Saturation [94-100 %] 97 % (07/09/23 2:51 PM) Pulse Rate [55-90 bpm] 72 bpm (07/09/23 2:51 PM) Body Mass Index [18.5-24.99 kg/m2] 28.06 kg/m2 *H* (07/09/23 2:51 PM) Blood Pressure [90-138/55-84 mm Hg] 128/ 50mm Hg (07/09/23 2:51 PM) Respiratory Rate [16-30 br/min] 16 br/mi n (07/09/23 2:51 PM) Mode of Delivery (Oxygen) Room air (07/09/23 2:51 PM) Blood pressure sites Arm, left (07/09/23 2:51 PM) Weight Obtained Via Standing scale (07/09/23 2:51 PM) Social History Social History Type Response Smoking Status Never smoker; Tobacc o user in household: No entered on: 06/05/13 Sex Female EKG study * Event Display: ECG 12-Lead Authored Date: Please click on pdf link to open report * Event Display: ECG 12-Lead Authored Date: Ventricular Rate: 70 BPM Atrial Rate: 70 BPM P-R Interval: 164 ms QRS Duration: 80 ms Q-T Interval: 392 ms QTC Calculation(Bazett): 423 ms P [place]: 58 degrees R [place]: 46 degrees T [place]: 60 degrees Normal sinus rhythm Normal ECG When compared with ECG of 01-JUL-2021 15:21, No significant change was found Confirmed by SABRINA NOVAK ([id number]) on 07/09/2023 3:58:49 PM Lorraine: SABRINA NOVAK Patient Care team information Care Team Personnel Name: Ashok Guerrero MD Position: S Physician - Primary Care Member Role: PCP Address: Address: [address] [place] [address] Adult & [place] [address]- Care Team Related Persons Name: AKOSUA HENDERSON Address: home [address] [place] [address]
--- OUTSIDE RECORDS SUMMARY | 2023-08-27 13:31 | XMS_ITS | Continuity of Care Document ---
Author Organization [facility] Address [address] [place] [address]- Care Team Providers Care Surface Mount Technology Operator Name Role Phone Cesar STACK, Ashok Monroy Primary Care Physician Encounter [facility] Date(s): 02/15/23 - 03/17/23 [facility] [address] [place], [place] [address] Allergies, Adverse Reactions, Alerts Substance Reaction Severity Status epinephrine 1 Persistent Mild Resolved Levaquin pruritis rash Active 1headache, elevated bp Immunizations Given and Recorded Vaccine Date Status Refusal Reason SARS-CoV-2(COVID-19)mRNA-LNP vac([id number]) 12/27/22 Recorded influenza virus vaccine, inactivated 12/01/22 [...] inactivated 3 03/29/12 Gi juhi SARS-CoV-2 mRNA (vucstsc-hdiq-vtpar) vax 08/04/21 Recorded SARS-CoV-2 (COVID-19) mRNA BNT-162b2 [...] [facility] [id number] 2[facility] 3Admin Note: vis sheet [...] Team Personnel Name: Ashok Guerrero MD Position: [facility] Physician - Primary Care Member Role: PCP Address: Address: [address] [place] [address] Adult & Pediatric Medicine [place], [place] [address] Name: Teresa Myers Position: [facility] Member Role: Primary Care Nurse Care Team Related Persons Name: AKOSUA HENDERSON Address: home [address] [place] [address]
--- OUTSIDE RECORDS SUMMARY | 2023-08-27 13:31 | XMS_ITS | Continuity of Care Document ---
Author Organization [facility] Address [address] [place] [address]- Care Team Providers Care Telecommunication Engineer Name Role Phone Ashok Guerrero MD Primary Care Physician Encounter [facility] Date(s): 06/20/23 - 07/20/23 [facility] [address] [place], [place] [address] Allergies, Adverse Reactions, Alerts Substance Reaction Severity Status epinephrine 1 Persistent Mild Active Levaquin pruritis rash Active 1headache, elevated bp Immunizations Given and Recorded Vaccine Date Status Refusal Reason RSV vaccine preF3, recombinant 1 04/25/23 Recorded SARS-CoV-2(COVID-19)mRNA-LNP vac([id number]) 12/27/22 Recorded influenza virus vaccine, inactivated 12/01/22 [...] inactivated 4 03/29/12 Gi juhi SARS-CoV-2 mRNA (rhidjho-fefw-qqfop) vax 08/04/21 Recorded SARS-CoV-2 (COVID-19) mRNA BNT-162b2 [...] 1Result Comment: [04/25/2023] mo giron 2Result Comment: [facility] [id number] 3[facility] 4Admin Note: vis sheet [...] Primary Care Member Role: PCP Address: Address: [address] [place] [address] Adult & [place] [address]- Care Team Related Persons Name: AKOSUA HENDERSON Address: home [address] [place] [address]
--- OUTSIDE RECORDS SUMMARY | 2023-08-27 13:31 | XMS_ITS | Continuity of Care Document ---
Author Organization [facility] Address [address] [place] [address]- Care Team Providers Care Ore Crushing Dust Collector Name Role Phone Ashok Guerrero MD Primary Care Physician [phone] [id number] Date(s): 03/28/23 - 06/25/[address] [address]- Encounter Diagnosis Pain in left hip(Final) - Discharge Disposition: A-D/C Home Attending Physician: Ashok Guerrero MD Admitting Physician: Ashok Guerrero MD Referring Physician: Ashok Guerrero MD Allergies, Adverse Reactions, Alerts Substance Reaction Severity Status epinephrine 1 Persistent Mild Resolved Levaquin pruritis rash Active 1headache, elevated bp Immunizations Given and Recorded Vaccine Date Status Refusal Reason RSV vaccine preF3, recombinant 1 04/25/23 Recorded SARS-CoV-2(COVID-19)mRNA-LNP vac([id number]) 12/27/22 Recorded influenza virus vaccine, inactivated 12/01/22 [...] inactivated 4 03/29/12 Gi juhi SARS-CoV-2 mRNA (havgxvm-eddw-ebuni) vax 08/04/21 Recorded SARS-CoV-2 (COVID-19) mRNA BNT-162b2 [...] 1Result Comment: [04/25/2023] [facility] 2Result Comment: [facility] [id number] 3[facility] 4Admin Note: vis sheet [...] Primary Care Member Role: PCP Address: Address: [address] [place] [address] Adult & Pediatric Medicine [place], [place] [address] Care Team Related Persons Name: AKOSUA HENDERSON Address: home [address] [place] [address]
--- OUTSIDE RECORDS SUMMARY | 2023-08-27 13:32 | XMS_ITS | Continuity of Care Document ---
Author Organization [facility] Address [address] [place] [address]- Care Team Providers Care Information Technology Associate Name Role Phone Cesar STACK, Ashok Monroy Primary Care Physician [phone] Encounter [facility] Date(s): 03/23/23 - 04/22/23 [facility] [address] [place], [place] [address] Allergies, Adverse Reactions, Alerts Substance Reaction Severity Status epinephrine 1 Persistent Mild Resolved Levaquin pruritis rash Active 1headache, elevated bp Immunizations Given and Recorded Vaccine Date Status Refusal Reason SARS-CoV-2(COVID-19)mRNA-LNP vac([id number]) 12/27/22 Recorded influenza virus vaccine, inactivated 12/01/22 [...] inactivated 3 03/29/12 Gi juhi SARS-CoV-2 mRNA (lkzjqkj-pxiv-yqdzf) vax 08/04/21 Recorded SARS-CoV-2 (COVID-19) mRNA BNT-162b2 [...] Vaccine Live 10/25/12 Recorded 1Result Comment: [facility] [id number] 2[facility] 3Admin Note: vis sheet [...] Primary Care Member Role: PCP Address: Address: [address] [place] [address] Adult & [place] [address]- Care Team Related Persons Name: AKOSUA HENDERSON Address: home [address] [place] [address]
--- OUTSIDE RECORDS SUMMARY | 2023-08-27 13:32 | XMS_ITS | Continuity of Care Document ---
Author Organization [facility] Address [address] [place] [address]- Care Team Providers Care Family Practice Medical Doctor Name Role Phone Ashok Guerrero MD Primary Care Physician Encounter [facility] Date(s): 03/07/23 - 04/06/23 [facility] [address] [place] [address]- Attending Physician: Cristal Kumar Admitting Physician: AdmCristal cortés Referring Physician: Admtr, Ar8 Allergies, Adverse Reactions, Alerts Substance Reaction Severity Status epinephrine 1 Persistent Mild Resolved Levaquin pruritis rash Active 1headache, elevated bp Immunizations Given and Recorded Vaccine Date Status Refusal Reason SARS-CoV-2(COVID-19)mRNA-LNP vac([id number]) 12/27/22 Recorded influenza virus vaccine, inactivated 12/01/22 [...] inactivated 3 03/29/12 Gi juhi SARS-CoV-2 mRNA (snxwusa-ndla-djfru) vax 08/04/21 Recorded SARS-CoV-2 (COVID-19) mRNA BNT-162b2 [...] Zoster Vaccine Live 10/25/12 Recorded 1Result Comment: [facility] [id number] 2[facility] 3Admin Note: vis sheet [...] Care Member Role: PCP Address: Address: [address] [place] [address] Adult [place] [address]- Care Team Related Persons Name: AKOSUA HENDERSON Address: home [address] [place] [address]
--- OUTSIDE RECORDS SUMMARY | 2023-08-27 13:32 | XMS_ITS | Continuity of Care Document ---
Author Organization [facility] Address [address] [place] [address]- Care Team Providers Care Cmm Inspector Name Role Phone Ashok Guerrero MD Primary Care Physician Encounter [facility] Date(s): 07/09/23 - 08/08/[address] [address] Attending Physician: Admmilana, Cristal Admitting Physician: AdmtrCristal Referring Physician: Admtr, Ar8 Allergies, Adverse Reactions, Alerts Substance Reaction Severity Status epinephrine 1 Persistent Mild Active Levaquin pruritis rash Active 1headache, elevated bp Immunizations Given and Recorded Vaccine Date Status Refusal Reason RSV vaccine preF3, recombinant 1 04/25/23 Recorded SARS-CoV-2(COVID-19)mRNA-LNP vac([id number]) 12/27/22 Recorded influenza virus vaccine, inactivated 12/01/22 [...] inactivated 4 03/29/12 Gi juhi SARS-CoV-2 mRNA (ukclbis-qett-abpkb) vax 08/04/21 Recorded SARS-CoV-2 (COVID-19) mRNA BNT-162b2 [...] 1Result Comment: [04/25/2023] [facility] giron 2Result Comment: [facility] [id number] 3[facility] 4Admin Note: vis sheet [...] Team Personnel Name: Ashok Guerrero MD Position: [facility] Physician - Primary Care Member Role: PCP Address: Address: [address] [place] [address] Adult & Pediatric [place], [place] [address] Name: Savi Bonilla RN Position: [facility] RN Member Role: Primary Care Nurse Name: Mayra Gonzalez RN Position: [facility] RN Member Role: Primary Care Nurse Name: Renetta Barnes RN Position: [facility] RN Member Role: Primary Care Nurse Name: Love Jameson RN Position: [facility] RN Member Role: Primary Care Nurse Care Team Related Persons Name: AKOSUA HENDERSON Address: [address] [address]
--- OUTSIDE RECORDS SUMMARY | 2023-08-27 13:32 | XMS_ITS | Continuity of Care Document ---
Author Organization [facility] Address [address] [place] [address]- Care Team Providers Care Contract Admin Name Role Phone Ashok Guerrero MD Primary Care Physician Encounter [facility] Date(s): 03/30/23 - 04/29/23 [facility] [address] [place] [address]- Attending Physician: AdmCristal cortés Admitting Physician: AdmtrCristal Referring Physician: Admtr, Ar8 Allergies, Adverse Reactions, Alerts Substance Reaction Severity Status Levaquin pruritis rash Active epinephrine 1 Persistent Mild Resolved 1headache, elevated bp Immunizations Given and Recorded Vaccine Date Status Refusal Reason RSV vaccine preF3, recombinant 1 04/25/23 Recorded SARS-CoV-2(COVID-19)mRNA-LNP vac([id number]) 12/27/22 Recorded influenza virus vaccine, inactivated 12/01/22 [...] vaccine, inactivated 03/29/12 Gi juhi SARS-CoV-2 mRNA (gwdeowj-tlxf-bcykt) vax 08/04/21 Recorded SARS-CoV-2 (COVID-19) mRNA BNT-162b2 [...] 1Result Comment: [04/25/2023] [facility] 2Result Comment: [facility] [id number] 3[facility] 4Admin Note: vis sheet [...] Care Member Role: PCP Address: Address: [address] [place] [address] Adult [place] [address]- Care Team Related Persons Name: AKOSUA HENDERSON Address: home [address] [place] [address]
--- OUTSIDE RECORDS SUMMARY | 2023-08-27 13:32 | XMS_ITS | Continuity of Care Document ---
Author Organization [facility] Address [address] [place] [address]- Care Team Providers Care County Engineer Name Role Phone Cesar STACK, Ashok Monroy Primary Care Physician Encounter [facility] Date(s): 07/09/23 - 08/08/23 [facility] [address] [place], [place] [address] Attending Physician: AdmCristal cortés Admitting Physician: AdmtrCristal Referring Physician: AdmtrCristal Allergies, Adverse Reactions, Alerts Substance Reaction Severity Status epinephrine 1 Persistent Mild Active Levaquin pruritis rash Active 1headache, elevated bp Immunizations Given and Recorded Vaccine Date Status Refusal Reason RSV vaccine preF3, recombinant 1 04/25/23 Recorded SARS-CoV-2(COVID-19)mRNA-LNP vac([id number]) 12/27/22 Recorded influenza virus vaccine, inactivated 12/01/22 [...] inactivated 4 03/29/12 Gi juhi SARS-CoV-2 mRNA (gjvsjgk-hhvr-twyia) vax 08/04/21 Recorded SARS-CoV-2 (COVID-19) mRNA BNT-162b2 [...] Comment: [04/25/2023] [facility] 2Result Comment: [facility] [id number] 3[facility] 4Admin Note: vis sheet [...] Team Personnel Name: Ashok Guerrero MD Position: [facility] Physician - Primary Care Member Role: PCP Address: Address: [address] [place] [address] Adult & Pediatric Medicine [place], [place] [address] Name: Savi Bonilla RN Position: [facility] RN Member Role: Primary Care Nurse Name: Mayra Gonzalez RN Position: [facility] RN Member Role: Primary Care Nurse Name: Renetta Barnes RN Position: [facility] RN Member Role: Primary Care Nurse Name: Love Jameson RN Position: [facility] RN Member Role: Primary Care Nurse Care Team Related Persons Name: AKOSUA HENDERSON Address: [address] [address]
--- OUTSIDE RECORDS SUMMARY | 2023-08-27 13:32 | XMS_ITS | Continuity of Care Document ---
Author Organization [facility] Address [address] [place] [address]- Care Team Providers Care Car Shunter Name Role Phone Ashok Guerrero MD Primary Care Physician Encounter [facility] Date(s): 03/01/23 - 03/08/23 [facility] [address] [place], [place] [address] Attending Physician: Rashad Will MD Referring Physician: Ashok Guerrero MD Allergies, Adverse Reactions, Alerts Substance Reaction Severity Status epinephrine 1 Persistent Mild Resolved Levaquin pruritis rash Active 1headache, elevated bp Immunizations Given and Recorded Vaccine Date Status Refusal Reason SARS-CoV-2(COVID-19)mRNA-LNP vac([id number]) 12/27/22 Recorded influenza virus vaccine, inactivated 12/01/22 [...] inactivated 3 03/29/12 Gi juhi SARS-CoV-2 mRNA (rjalfwi-fqav-cciuu) vax 08/04/21 Recorded SARS-CoV-2 (COVID-19) mRNA BNT-162b2 [...] Zoster Vaccine Live 10/25/12 Recorded 1Result Comment: [facility] [id number] 2[facility] 3Admin Note: vis sheet [...] Acute 03/11/23 13:00:00 EST, 03/01/23 12:59:00 EST, [facility], Partial fill upon patient request if the prescription... Start Date: 03/01/23 Stop Date: 03/11/23 Status: Ordered Problem List Condition Confirmation Course Effective Dates Status Health St [facility] Informant Family history of breast disorder Confirmed Active Anxiety with depression Confirmed Active Vital Signs Most recent to oldest [Reference Range]: 1 Height 166.14 cm (03/01/23 12:03 PM) Oxygen Saturation [94-100 %] 95 % (03/01/23 12:03 PM) Pulse Rate [55-90 bpm] 79 bpm (03/01/23 12:03 PM) Blood Pressure [90-138/55-84 mm Hg] 111/ 62mm Hg (03/01/23 12:03 PM) Respiratory Rate [16-30 br/min] 25 br/mi n (03/01/23 12:03 PM) Temperature [96.8-100.4 DegF] 96.3 DegF *L* (03/01/23 12:03 PM) Mode of Delivery (Oxygen) Room air (03/01/23 12:03 PM) Blood pressure sites Arm, left (03/01/23 12:03 PM) Temperature Route Temporal (03/01/23 12:03 PM) Social History Social History Type Response Smoking Status Never smoker; Tobacc o user in household: No entered on: 06/05/13 Sex Female Note * Yumiko Renteria: PERFORM, SIGN, VERIFY Event Display: Patient Education/Instruction Authored Date: [id number] [facility] *[facility] Clinical Summary Name MATA GRANDE Age 72 Years 1950 PCP Ashok Guerrero MD PCP Visit Date 03/01/2023 10:53:00 Additional Instructions: Scheduled Appointments?? Future Appointments ?No Future Appointments Scheduled Follow-Up Instructions ?? Diagnosis Medications: Please continue your medications until treatment is completed or stopped by your provider. Discuss any questions related to medications with your provider. New Medications [facility], [address] [place], [place] [id number], [phone] Albuterol (albuterol CFC free 90 mcg/inh inhalation aerosol) 1 puff(s) Inhalation every 4 hours as needed cough, wheeze, SOB for 30 Days. use with spacer chamber. May increase to 1 puff every 2 hours if needed, but avoid taking 2 puffs together.. Refills: 0. Next Dose: Azithromycin (Azithromycin 5 Day Dose Pack 250 mg oral tablet) as directed on package labeling 2 tablets first day then 1 tablet daily for 4 more days. Refills: 0. Next Dose: Durable Medical Equipment (Aerochamber) Use as directed with all inhalors. Dx: acute bronchitis with bronchospasm. Refills: 0. Next Dose: PredniSONE (predniSONE 10 mg oral tablet) 4 tab x 3d, 3 tab x 2d, 2 tab x 2d. First dose now, then in AM daily. Take w/food. Refills: 0. Next Dose: Medications to Continue with No Changes These medications were not printed or sent to your pharmacy Clonazepam (clonazePAM 0.5 mg oral tablet) one half or 1 tablet By Mouth 3 times a day; as needed Anxiety. Next Dose: [place]-3 Polyunsaturated Fatty Acids (Fish Oil 1000 mg oral capsule) 1 capsule Oral twice a day. Next Dose: Phenelzine (Nardil 15 mg oral tablet) See Instructions. 4 tablets by mouth daily. Refills: 11. Next Dose: Allergy Info:?? Levaquin; epinephrine Medications Given This Visit Medication Dose Route Albuterol (albuterol 2.5mg / 3mL (0.083%) (OP)) 1.5 mL Neb Future Orders ?COVID-19, RSV, and Flu A/B, Rapid PCR? Order Date:03/01/23?- Complete on or after?03/01/23 Vital Signs Height 166.14 cm Weight BMI Blood Pressure 111 mm Hg/62 mm Hg Temperature 96.3 DegF Pulse Rate 79 bpm Respiratory Rate 25 br/min 02 Sat Mode of Delivery 95 %/Room air You can now view a summary of your hospital visit from the comfort of your home through a free online portal called [email or web address]. [email or web address] is a website that allows you to securely view your medical information including discharge summary, medications and follow-up visits. ??You can alsosend a secure electronic message to your doctor???s office to request appointments, renew medications or just ask a question. You can enroll at [email or web address] or register during your next office visit. Disclaimer:?? The information provided is of a general nature and is intended to be used in conjunction with the recommendations and advice of your health care practitioner. ??Every effort has been made to ensure that the information provided is accurate and complete at the time it is provided to you however, as your needs change, or, as new ??information becomes available, different or additional instructions may be required. If you have questions, please consult with your primary care provider or pharmacist, as appropriate. ??This information is not intended to serve as substitution for assessment and evaluation by a qualified health care provider. If you do not have a primary care provider, you may find a [facility] provider by calling [facility] [employer] Link at [phone]. [facility], in keeping with [facility] guidance, no longer requires face masks for staff, patientsor visitors in most situations. Similar to time spent indoors at other locations, there is the chance that you were exposed to respiratory viruses during your time with us (such as flu or COVID-19).? If you develop symptoms concerning for a viral respiratory infection, please seek testing (and treatment if indicated) from your medical provider or home test kit. For information about the plan of care including goals and instructions for your diagnosis, please see the patient education orders section of this document. Patient Education Materials?? The content of this educational material or handout may have been modified, supplemented, or adapted from its original content and format to support your individualized medical care. Patient Care team information Care Team Personnel Name: Ashok Guerrero MD Position: [facility] Physician - Primary Care Member Role: PCP Address: Address: [address] [place] [address] Adult & [place] [address]- Name: Teresa Myers Position: [facility] ARAVIND PORTILLO Member Role: Primary Care Nurse Care Team Related Persons Name: AKOSUA HENDERSON Address: home [address] [place] [address]
--- OUTSIDE RECORDS SUMMARY | 2023-08-27 13:32 | XMS_ITS | Continuity of Care Document ---
Author Organization [facility] Address [address] [place] [address]- Care Team Providers Care Plating Department Helper Name Role Phone Ashok Guerrero MD Primary Care Physician [phone] [facility] Date(s): 06/01/23 - 06/08/23 [facility] [address] [place], [place] [address] [[email or web address] Encounter Diagnosis Vertigo(Discharge Diagnosis) - 06/01/23 Tinnitus(Discharge Diagnosis) - 06/01/23 Anxiety with depression(Discharge Diagnosis) - 06/01/23 Osteoarthritis of left hip(Discharge Diagnosis) - 06/01/23 Attending Physician: Ashok Guerrero MD Allergies, Adverse Reactions, Alerts Substance Reaction Severity Status epinephrine 1 Persistent Mild Resolved Levaquin pruritis rash Active 1headache, elevated bp Immunizations Given and Recorded Vaccine Date Status Refusal Reason RSV vaccine preF3, recombinant 1 04/25/23 Recorded SARS-CoV-2(COVID-19)mRNA-LNP vac([id number]) 12/27/22 Recorded influenza virus vaccine, inactivated 12/01/22 [...] inactivated 4 03/29/12 Gi juhi SARS-CoV-2 mRNA (vbfqmzk-hwrx-ugjgh) vax 08/04/21 Recorded SARS-CoV-2 (COVID-19) mRNA BNT-162b2 [...] Live 10/25/12 Recorded 1Result Comment: [04/25/2023] [facility] 2Result Comment: [facility] [id number] 3[facility] 4Admin Note: vis sheet [...] a schedule II opioid drug. Start Date: 6/24/21 Status: Ordered Fish Oil 1000 mg oral [...] left hip Confirmed Active Tinnitus Confirmed Active Diagnosis Diagnosis Type Effective Dates Health Status Clinical Service Informant Vertigo Discharge Diagnosis 06/01/23 Tinnitus Discharge Diagnosis 06/01/23 Anxiety with depression Discharge Diagnosis 06/01/23 Osteoarthritis of left hip Discharge Diagnosis 06/01/23 Vital Signs Most recent to oldest [Reference Range]: 1 Height 166.14 cm (06/01/23 1:10 PM) Weight 76.5 kg (06/01/23 1:10 PM) Oxygen Saturation [94-100 %] 96 % (06/01/23 1:10 PM) Pulse Rate [55-90 bpm] 82 bpm (06/01/23 1:10 PM) Body Mass Index [18.5-24.99 kg/m2] 27.71 kg/m2 *H* (06/01/23 1:10 PM) Blood Pressure [90-138/55-84 mm Hg] 116/ 68mm Hg (06/01/23 1:10 PM) Mode of Delivery (Oxygen) Room air (06/01/23 1:10 PM) Blood pressure sites Arm, left (06/01/23 1:10 PM) Weight Obtained Via Standing scale (06/01/23 1:10 PM) Social History Social History Type Response Smoking Status Never smoker; Tobacc o user in household: No entered on: 06/05/13 Sex Female Note * Cardinal , Kandy: PERFORM, SIGN, VERIFY Event Display: Patient Education/Instruction Authored Date: [id number] [facility] Clinical Summary Name MATA GRANDE Age 73 Years 1950 PCP Ashok Guerreor MD PCP Visit Date 06/01/2023 13:04:00 Patient Instructions cautious activity, try meclizine 12.5mg three times a day as needed for dizziness; keep appointmentfor hearing and orthopedics as scheduled; call if question or problem Additional Instructions: Scheduled Appointments?? Future Appointments ?No Future Appointments Scheduled Follow-Up Instructions ?? Diagnosis Medications: Please continue your medications until treatment is completed or stopped by your provider. Discuss any questions related to medications with your provider. Medications to Continue Taking That Have Changed These medications were not printed or sent to your pharmacy - Phenelzine (Nardil 15 mg oral tablet) See Instructions. 2 tablet by mouth twice daily. Refills: 11. Next Dose: Medications to Continue with No Changes These medications were not printed or sent to your pharmacy Albuterol (albuterol CFC free 90 mcg/inh inhalation aerosol) 1 puff(s) Inhalation every 4 hours as needed cough, wheeze, SOB for 30 Days. use with spacer chamber. May increase to 1 puff every 2 hours if needed, but avoid taking 2 puffs together.. Refills: 0. Next Dose: Clonazepam (clonazePAM 0.5 mg oral tablet) one half or 1 tablet By Mouth 3 times a day; as needed Anxiety. Next Dose: Durable Medical Equipment (Aerochamber) Use as directed with all inhalors. Dx: acute bronchitis with bronchospasm. Refills: 0. Next Dose: Meclizine (meclizine 12.5 mg oral tablet) 1 tab(s) Oral 3 times a day as needed for dizziness. Next Dose: [place]-3 Polyunsaturated Fatty Acids (Fish Oil 1000 mg oral capsule) 1 capsule Oral twice a day. Next Dose: No Longer Take the Following Medications Azithromycin (Azithromycin 5 Day Dose Pack 250 mg oral tablet) as directed on package labeling 2 tablets first day then 1 tablet daily for 4 more days. Refills: 0. Allergy Info:?? Levaquin; epinephrine Medications Given This Visit Future Orders ?No future orders Future Orders ?No future orders Vital Signs Height 166.14 cm Weight 76.5 kg BMI 27.71 kg/m2 Blood Pressure 116 mm Hg/68 mm Hg Temperature Pulse Rate 82 bpm Respiratory Rate 02 Sat Mode of Delivery 96 %/Room air You can now view a summary of your hospital visit from the comfort of your home through a free online portal called [employer] is a website that allows you to securely view your medical information including discharge summary, medications and follow-up visits. ??You can alsosend a secure electronic message to your doctor???s office to request appointments, renew medications or just ask a question. You can enroll at [email or web address] or register during your next office visit. [...] care provider, you may find a [facility] provider by calling [facility] [employer] Link at [phone]. [facility], in keeping with [facility] guidance, no longer requires face masks [...] Primary Care Member Role: PCP Address: Address: [address] [place] [address] Adult [place] [address]- Care Team Related Persons Name: AKOSUA HENDERSON Address: home [address] [place] [id number]
--- OUTSIDE RECORDS SUMMARY | 2023-08-27 13:32 | XMS_ITS | Continuity of Care Document ---
Author Organization [facility] Address [address] [place] [address]- Care Team Providers Care Barrel Line Operator Name Role Phone Ashok Guerrero MD Primary Care Physician Encounter [facility] [place] Date(s): 03/07/23 - 03/14/23 [facility] [address] [place] [address]- Encounter Diagnosis Cough(Discharge Diagnosis) - 03/07/23 RSV bronchitis(Discharge Diagnosis) - 03/07/23 Attending Physician: Jeremie STACK, Abebe Kumar Referring Physician: Ashok Guerrero MD Allergies, Adverse Reactions, Alerts Substance Reaction Severity Status epinephrine 1 Persistent Mild Resolved Levaquin pruritis rash Active 1headache, elevated bp Immunizations Given and Recorded Vaccine Date Status Refusal Reason SARS-CoV-2(COVID-19)mRNA-LNP vac([id number]) 12/27/22 Recorded influenza virus vaccine, inactivated 12/01/22 Michael rded influenza virus vaccine, inactivated 01/18/22 Michael rded influenza virus vaccine, inactivated 01/11/21 Michael rded influenza virus vaccine, inactivated 1 12/08/19 Gi juhi influenza virus vaccine, inactivated 01/08/18 Michael rded influenza virus vaccine, inactivated 12/22/16 Give n influenza virus vaccine, inactivated 02/23/16 Michale rded influenza virus vaccine, inactivated 2 03/11/13 Re corded influenza virus vaccine, inactivated 3 03/29/12 Gi juhi SARS-CoV-2 mRNA ([id number]) vax 08/04/21 Recorded SARS-CoV-2 (COVID-19) mRNA BNT-162b2 [...] Zoster Vaccine Live 10/25/12 Recorded 1Result Comment: [facility] [id number] [facility] 3Admin Note: vis sheet [...] Dates Health Status Cl inical Service Informant Cough Discharge Diagnosis 03/07/23 RSV bronchitis Discharge Diagnosis 03/07/23 Vital Signs Most recent to oldest [Reference Range]: 1 Height 166.14 cm (03/07/23 1:34 PM) Oxygen Saturation [94-100 %] 96 % (03/07/23 1:34 PM) Pulse Rate [55-90 bpm] 75 bpm (03/07/23 1:34 PM) Blood Pressure [90-138/55-84 mm Hg] 145/ 74mm Hg *H* (03/07/23 1:34 PM) Respiratory Rate [16-30 br/min] 18 br/mi n (03/07/23 1:34 PM) Temperature [96.8-100.4 DegF] 98.4 DegF (03/07/23 1:34 PM) Mode of Delivery (Oxygen) Room air (03/07/23 1:34 PM) Blood pressure sites Arm, left (03/07/23 1:34 PM) Temperature Route Oral (03/07/23 1:34 PM) Social History Social History Type Response Smoking Status Never smoker; Tobacc o user in household: No entered on: 06/05/13 Sex Female Note * Yumiko Renteria: PERFORM, SIGN, VERIFY Event Display: Patient Education/Instruction Authored Date: [id number] [facility] *[facility] Clinical Summary Name MATA GRANDE Age 72 Years 1950 PCP Cesar STACK, Ashok Monroy PCP Visit Date 03/07/2023 12:01:00 Additional Instructions: Scheduled Appointments?? Future Appointments ?No Future Appointments Scheduled Follow-Up Instructions ?? Diagnosis Acute bronchitis due to respiratory syncytial virus; Cough, unspecified Medications: Please continue your medications until treatment is completed or stopped by your provider. Discuss any questions related to medications with your provider. New Medications [facility], [address], [place] [id number], [phone] Benzonatate (benzonatate 100 mg oral capsule) 1 capsule Oral 3 times a day as needed Cough for 7 Days. Refills: 0. Next Dose: Medications to Continue [...] 4 more days. Refills: 0. Next Dose: Clonazepam (clonazePAM 0.5 mg oral tablet) one half or 1 tablet By Mouth 3 times a day; as needed Anxiety. Next Dose: Durable Medical Equipment (Aerochamber) Use as directed with all inhalors. Dx: acute bronchitis with bronchospasm. Refills: 0. Next Dose: Burlison-3 Polyunsaturated Fatty Acids (Fish Oil 1000 mg oral capsule) 1 capsule Oral twice a day. Next Dose: Phenelzine (Nardil 15 mg oral tablet) See Instructions. 4 tablets by mouth daily. Refills: 11. Next Dose: PredniSONE (predniSONE 10 mg oral tablet) 4 tab x 3d, 3 tab x 2d, 2 tab x 2d. First dose now, then in AM daily. Take w/food. Refills: 0. Next Dose: Allergy Info:?? Levaquin; epinephrine Medications Given This Visit Future Orders ?Chest 2 Views Frontal and Lat? Order Date:03/07/23?- Complete on or after?03/07/23 Vital Signs Height 166.14 cm Weight BMI Blood Pressure 145 mm Hg/74 mm Hg Temperature 98.4 DegF Pulse Rate 75 bpm Respiratory Rate 18 br/min 02 Sat Mode of Delivery 96 %/Room air You can now view a summary of your hospital visit from the comfort of your home through a free online portal called [employer]. [employer] is a website that allows you to securely view your medical information including discharge summary, medications and follow-up visits. ??You can alsosend a secure electronic message to your doctor???s office to request appointments, renew medications or just ask a question. You can enroll at [email or web address] or register during your next office visit. [...] primary care provider, you may find a [facility] provider by calling [facility] [employer] Link at [phone]. [facility], in keeping with [facility] guidance, no longer requires face masks [...] Team Personnel Name: Ashok Guerrero MD Position: [facility] Physician - Primary Care Member Role: PCP Address: Address: [address] [place] [address] Adult & Pediatric Medicine [place], [place] [address] Name: Teresa Myers Position: [facility] Member Role: Primary Care Nurse Care Team Related Persons Name: AKOSUA HENDERSON Address: [address] [address]
--- OUTSIDE RECORDS SUMMARY | 2023-08-27 13:32 | XMS_ITS | Continuity of Care Document ---
Author Organization [facility] Address [address] [place] [address]- Care Team Providers Care Supervisor Cab Name Role Phone Cesar STACK, Ashok Monroy Primary Care Physician Encounter [facility] [place] Date(s): 03/14/23 - 04/13/23 [facility] [address] [place], [place] [address] Attending Physician: Admtr, Ar8 Admitting Physician: Admtr, Ar8 Referring Physician: Admtr, Ar8 Allergies, Adverse Reactions, Alerts Substance Reaction Severity Status epinephrine 1 Persistent Mild Resolved Levaquin pruritis rash Active 1headache, elevated bp Immunizations Given and Recorded Vaccine Date Status Refusal Reason SARS-CoV-2(COVID-19)mRNA-LNP vac([id number]) 12/27/22 Recorded influenza virus vaccine, inactivated 12/01/22 [...] inactivated 3 03/29/12 Gi juhi SARS-CoV-2 mRNA ([id number]) vax 08/04/21 Recorded SARS-CoV-2 (COVID-19) mRNA BNT-162b2 [...] Zoster Vaccine Live 10/25/12 Recorded 1Result Comment: [facility] [id number] [facility] 3Admin Note: vis sheet [...] Personnel Name: Cesar STACK, Ashok Monroy Position: [facility] Physician - Primary Care Member Role: PCP Address: Address: [address] [place] [address] Adult & [place] [address]- Care Team Related Persons Name: AKOSUA HENDERSON Address: home [address] [place] [address]
--- OUTSIDE RECORDS SUMMARY | 2023-08-27 13:32 | XMS_ITS | Continuity of Care Document ---
Author Organization [facility] Address [address] [place] [address]- Care Team Providers Care Vault Installer Name Role Phone Ashok Guerrero MD Primary Care Physician [phone] Encounter [facility] [place] Date(s): 01/30/23 - 02/06/23 [facility] [address] [place], [place] [address] Encounter Diagnosis Medicare annual wellness visit, subsequent(Discharge Diagnosis) - 01/30/23 Osteoarthritis(Discharge Diagnosis) - 01/30/23 Anxiety with depression(Discharge Diagnosis) - 01/30/23 Attending Physician: Ashok Guerrero MD Allergies, Adverse Reactions, Alerts Substance Reaction Severity Status epinephrine 1 Persistent Mild Resolved Levaquin pruritis rash Active 1headache, elevated bp Immunizations Given and Recorded Vaccine Date Status Refusal Reason SARS-CoV-2(COVID-19)mRNA-LNP vac([id number]) 12/27/22 Recorded influenza virus vaccine, inactivated 12/01/22 [...] inactivated 3 03/29/12 Gi juhi SARS-CoV-2 mRNA ([id number]-ntan-krfnf) vax 08/04/21 Recorded SARS-CoV-2 (COVID-19) mRNA BNT-162b2 [...] Zoster Vaccine Live 10/25/12 Recorded 1Result Comment: [facility] [id number] [facility] 3Admin Note: vis sheet [...] Condition Confirmation Course Effective Dates Status Health at Informant Family history of breast disorder Confirmed Active Anxiety with depression Confirmed Active Severe obesity Confirmed Active Diagnosis Diagnosis Type Effective Dates Health Status Clinical Service Informant Medicare annual wellness visit, subsequent Discharge Diagnosis 01/30/23 Osteoarthritis Discharge Diagnosis 01/30/23 Anxiety with depression Discharge Diagnosis 01/30/23 Vital Signs Most recent to oldest [Reference Range]: 1 Height 66.14 cm (01/30/23 1:42 PM) Weight 75 kg (01/30/23 1:42 PM) Oxygen Saturation [94-100 %] 96 % (01/30/23 1:42 PM) Pulse Rate [55-90 bpm] 56 bpm (01/30/23 1:42 PM) Body Mass Index [18.5-24.99 kg/m2] 171.4 5 kg/m2 *>HHI* (01/30/23 1:42 PM) Blood Pressure [90-138/55-84 mm Hg] 121/ 69mm Hg (01/30/23 1:42 PM) Mode of Delivery (Oxygen) Room air (01/30/23 1:42 PM) Blood pressure sites Arm, left (01/30/23 1:42 PM) Dry Weight 75 kg (01/30/23 1:42 PM) Weight Obtained Via Standing scale (01/30/23 1:42 PM) Dry Weight Obtained Via Standing scale (01/30/23 1:42 PM) Social History Social History Type Response Smoking Status Never smoker; Tobacc o user in household: No entered on: 06/05/13 Sex Female Note * Debo Dempsey: PERFORM, SIGN, VERIFY Event Display: Patient Education/Instruction Authored Date: [id number] [facility] *[facility] Clinical Summary Name MATA GRANDE Age 72 Years 1950 PCP Ashok Guerrero MD PCP Visit Date 01/30/2023 13:20:00 Patient Instructions continue current medication, supplements, diet, and low impact exercise; orthopedic follow up regarding your hip symptoms; call if any question or problem Additional Instructions: Scheduled Appointments?? [...] by mouth daily. Refills: 11. Next Dose: Medications to Continue with No Changes These medications were not printed or sent to your pharmacy Clonazepam (clonazePAM 0.5 mg oral tablet) one half or 1 tablet By Mouth 3 times a day; as needed Anxiety. Next Dose: Sikes-3 Polyunsaturated Fatty Acids (Fish Oil 1000 mg oral capsule) 1 capsule Oral twice a day. Next Dose: No Longer Take the Following Medications Meloxicam (meloxicam 15 mg oral tablet) 1 tab(s) Oral Daily. Tizanidine (tiZANidine 2 mg oral tablet) 1 tab(s) Oral 3 times a day as needed muscle pain or spasm. Allergy Info:?? Levaquin; epinephrine Medications Given This Visit Future Orders ?No future orders Vital Signs Height 66.14 cm Weight 75 kg BMI 171.45 kg/m2 Blood Pressure 121 mm Hg/69 mm Hg Temperature Pulse Rate 56 bpm Respiratory Rate 02 Sat Mode of Delivery 96 %/Room air You can now view a summary of your hospital visit from the comfort of your home through a free online portal called [employer]. [employer] is a website that allows you to securely view your medical information including discharge summary, medications and follow-up visits. ??You can alsosend a secure electronic message to your doctor???s office to request appointments, renew medications or just ask a question. You can enroll at [email or web address] or register during your next office [...] primary care provider, you may find a [facility] provider by calling [facility] [employer] Link at [phone]. [facility], in keeping with [facility] [place] [facility] guidance, no longer requires face masks for [...] Team Personnel Name: Ashok Guerrero MD Position: [facility] Physician - Primary Care Member Role: PCP Address: Address: [address] [place] [address] Adult & Pediatric Medicine [place], [place] [address] Name: Teresa Myers Position: [facility] Member Role: Primary Care Nurse Care Team Related Persons Name: AKOSUA HENDERSON Address: home [address] [place] [id number]
--- OUTSIDE RECORDS SUMMARY | 2023-08-27 13:32 | XMS_ITS | Continuity of Care Document ---
Author Organization [facility] Address [address] [place] [address]- Care Team Providers Care Halver Machine Operator Name Role Phone Ashok Guerrero MD Primary Care Physician [place] [facility] [place] Date(s): 03/06/23 - 04/05/23 [facility] [address] [place], [place] [address] Allergies, Adverse Reactions, Alerts Substance Reaction Severity Status epinephrine 1 Persistent Mild Resolved Levaquin pruritis rash Active 1headache, elevated bp Immunizations Given and Recorded Vaccine Date Status Refusal Reason SARS-CoV-2(COVID-19)mRNA-LNP vac([id number]) 12/27/22 Recorded influenza virus vaccine, inactivated 12/01/22 [...] inactivated 3 03/29/12 Gi juhi SARS-CoV-2 mRNA ([id number]-mmnf-lazqa) vax 08/04/21 Recorded SARS-CoV-2 (COVID-19) mRNA BNT-162b2 [...] Zoster Vaccine Live 10/25/12 Recorded 1Result Comment: [facility] [id number] [facility] 3Admin Note: vis sheet [...] Personnel Name: Cesar STACK, Ashok Monroy Position: [facility] Physician - Primary Care Member Role: PCP Address: Address: [address] [place] [address] Adult [place] [address]- Care Team Related Persons Name: AKOSUA HENDERSON Address: home [address] [place] [address]
--- OUTSIDE RECORDS SUMMARY | 2023-08-27 13:33 | XMS_ITS | Continuity of Care Document ---
Author Organization [facility] Address [address] [place] [address]- Care Team Providers Care Phys Assistant Name Role Phone Cesar STACK, Ashok Monroy Primary Care Physician Encounter [facility] [place] Date(s): 03/20/23 - 04/19/23 [facility] [address] [place], [place] [address] Allergies, Adverse Reactions, Alerts Substance Reaction Severity Status epinephrine 1 Persistent Mild Resolved Levaquin pruritis rash Active 1headache, elevated bp Immunizations Given and Recorded Vaccine Date Status Refusal Reason SARS-CoV-2(COVID-19)mRNA-LNP vac([id number]) 12/27/22 Recorded influenza virus vaccine, inactivated 12/01/22 [...] inactivated 3 03/29/12 Gi juhi SARS-CoV-2 mRNA ([id number]-ogeo-bljsc) vax 08/04/21 Recorded SARS-CoV-2 (COVID-19) mRNA BNT-162b2 [...] Recorded 1Result Comment: [facility] [id number] [facility] 3Admin Note: vis sheet [...] Care Member Role: PCP Address: Address: [address] [place] [address] Adult & [place] [address]- Care Team Related Persons Name: AKOSUA HENDERSON Address: [address] [place] [address]
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
== END 2023-08-27 14:52 | disposition home or self-care (01) ==
LOC: HO.HOP 13:27
PROVIDERS: PCP Internal Medicine; Visit Provider Psychiatry & Neurology Psychiatry
DX: F33.41 Major depressive disorder, recurrent, in partial remission (principal); F41.1 Generalized anxiety disorder
CPT/HCPCS: 90833; 99213

== ENCOUNTER → 2023-08-27 13:27 | Outpatient (BNVA) | payer MEDICARE, SELFPAY | PROVIDERS: PCP Internal Medicine; Visit Provider Psychiatry & Neurology Psychiatry | DX: F33.41 Major depressive disorder, recurrent, in partial remission (principal); F41.1 Generalized anxiety disorder | CPT/HCPCS: 99212 ==

== ENCOUNTER → 2023-09-11 10:15 | Outpatient (BNV) | payer MEDICARE, SELFPAY | PROVIDERS: Visit Provider Clinical Nurse Specialist Psychiatric/Mental Health | DX: F33.1 Major depressive disorder, recurrent, moderate (principal); F41.1 Generalized anxiety disorder | CPT/HCPCS: 90792 ==

== ENCOUNTER 2023-09-12 13:59 | Outpatient (REF) | payer MEDICARE, SELFPAY ==
[2023-09-12 14:44] LABS: Hematocrit 37.4 % (37.0-47.0); Hemoglobin 11.8 g/dl (12.0-16.0)
[2023-09-12 15:14] LABS: Iron 45 mcg/dL (30-160); Percent Iron Saturation 18 % (15-50); Total Iron Binding Capacity 252 mcg/dL (228-428); Unsaturated Iron Binding 207 ug/dL
[2023-09-12 15:31] LABS: Ferritin 184 ng/mL (10-250); TSH reflex Free T4 1.25 uIU/mL (0.32-4.0); Vitamin D 25-OH Total 14.1 ng/mL (>30)
[2023-09-12 15:40] LABS: Folate 16.2 ng/mL (> or = 4.0); Vitamin B12 217 pg/mL (200-900)
== END 2023-09-12 14:00 | disposition home or self-care (01) ==
LOC: HO.LAB 13:59
PROVIDERS: PCP Internal Medicine; Visit Provider Clinical Nurse Specialist Psychiatric/Mental Health
DX: R53.83 Other fatigue (principal); F32.A Depression, unspecified
CPT/HCPCS: 36415; 82306; 82607; 82728; 82746; 83540; 84443; 85014; 85018

== ENCOUNTER 2023-09-17 09:45 | Outpatient (RCR) | payer MEDICARE, SELFPAY ==
--- NOTE | 2023-09-07 11:58 | HO.PHP ---
[facility] staff called Yaneth because she did not show by 9:15. Call was placed to her cell phone which went directly to [employer]. Emergency contact Mark Anthony was called who returned my call stating that her cell phone does not have good cell service. He provided me with their home phone which was updated. She stated she was planning to come to program for 10am because she received an email stating this. After speaking with her directly, she stated that she went on to the [facility] portal which reflected this information. Staff told her they have come to find the patient portal does not always relay the correct information we follow in the program. Staff told her the program is 9-2 M-F for 10-12 days, and we will provide her with a discharge date. Yaneth was receptive to this. She told this t/w she will be in attendance on Sunday. No safety concerns, just a miscommunication.
[2023-09-10 10:42] VITALS: BP 111/69; PULSE 80; TEMP 36.8
[2023-09-10 10:47] VITALS: BMI 28.0
--- NOTE | 2023-09-10 12:59 | PC.ADMIT ---
Patient is a 73 year old female who was referred to [facility] by her psychiatrist Dr Escobedo d/t increased depression and anxiety s/p L hip replaced in July 2023. Patient stated she has to force herself to do things as she finds little pleasure in activities. She reports she has no structure in her day and lacks social interactions with others. She wakes up in the morning with increased anxiety. Feels she has no purpose. She reports she ruminates on feeling depressed and questioning why she has to deal with depression. Patient currently is alert and oriented x4. She is calm and cooperative. Her thoughts are clear and logical. She is help seeking and wants support to help stabilize her mood. She presented with depressed mood and anxious affect. She denied SI. She was given a copy of her safety plan if needed. She denied any substance use. She reports taking her medications as prescribed. Medications reconciled with patient and patient's pharmacy. She reports she is no longer on Pantoprazole as she was prescribed this temporarily s/p hip surgery.
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
--- NOTE | 2023-09-14 11:37 | HO.PHPPROGNO ---
Subjective Subjective Date of Service: 09/14/23 Reason For Visit: depression Healthcare Proxy: No Guardianship: No Medical Problems Affecting Mental Status: No Interim History: Patient seen psychiatric follow-up at the [facility] program. Is singer songwriter knows the patient from outpatient practice. Patient has been increasingly depressed intermittently hopeless helpless does normally have strategies for managing but recently had surgery and felt quite unsupported by her with whom she has a conflictual relationship that dear to trigger recent depressive episode. Nardil was increased 75 mg did have some response to Seroquel past did not do well on Abilify does generally do well treatment support Mental Status Exam Mental Status Exam Patient Appearance: Well Grooomed and Appropriate Patient Orientation: Person, Place and Time Level of Consciousness: Awake, Appropriate and Alert Patient Behavior: Appropriate Mood Description: Anxious, Flat, Sad and Apprehensive Affect Description: Constricted, Flat and Sad Patient Cognition Impaired: No Ability to Follow Directions: Fair Speech Pattern: Clear, Appropriate and Soft-Spoken Memory Description: Intact Hallucinations: None Delusions: Not Present Thought Process: Intact and Goal Oriented Thought Content: positive for Intact and positive for Goal Oriented Depressive Symptoms: Increased Anxiety, Insomnia, Diff. Making Decisions, Loss of Int. in Activity, Hopelessness and Loss of Energy Judgement: Fair Judgement and Insight: Has been somewhat self blaming feeling overwhelmed why do I have to deal with this denies active SI was able to discuss option of ECT if needed Diagnostics Vital Signs (24Hr): BMI result Body Mass Index 28.0 Assessment & Plan Assessment & Plan (1) Major depressive disorder, recurrent, moderate: Status: Acute Code(s): F33.1 - Major depressive disorder, recurrent, moderate (2) Generalized anxiety disorder: Status: Acute Code(s): F41.1 - Generalized anxiety disorder (3) Stress due to marital problems: Status: Acute Code(s): Z63.0 - Problems in relationship with spouse or partner Plan Clinically depressed recent increase in Nardil 75 mg which she has been at that those previously. Conflictual relationship with her who at times can be quite critical and verbally abusive can be quite involved in her depressive episodes. We did discuss option of ECT which was quite helpful previously supportive therapy helping manage current situation through PHP she hopefully will be helpful in having patient manage current situation she did state that things were going better at home and went depressed tends to ruminate on the fact that she has a history of clinical depression Seroquel can be used for augmentation which was helpful previously denies any active self-harming thoughts Patient educated on: diagnosis, medication risk/benefits, ECT and therapeutic strategies Informed Consent: further education needed Reason for contiued partial hosp. stay Substantial Risk for: inability to function and rapid decompensation Certification I certify that partial hospital treatment is medically necessary due to the symptoms and problems resulting from the patient's mental illness and the failure to treat the patient at the partial hospital level of care would likely result in the patient requiring inpatient psychiatric care which could not be prevented at a less intensive level of care. Total time managing care of this patient today __37__ minutes. Discharge Plan Discharge Attending provider: Bernice Disla Medications: No Action clonazepam [Klonopin] 0.5 mg tablet 0.25 mg PO TID PRN (Reason: anxiety) 30 Days Qty: 30 1RF quetiapine 25 mg tablet 25 mg PO BEDTIME Qty: 30 1RF cholecalciferol (vitamin D3) 50 mcg (2,000 unit) capsule 50 mcg PO DAILY Qty: 30 0RF mecobalamin (vitamin B12) 1,000 mcg tablet,chewable 1,000 mcg PO DAILY omega-3 fatty acids [Fish Oil Concentrate] 1,000 mg Capsule 1,000 mg PO BID levomefolate calcium [L-Methylfolate] 15 mg Tablet 15 mg PO DAILY phenelzine 15 mg tablet See Rx Instructions PO DIRECTED 90 Days Qty: 450 1RF Rx Instructions: Take 2 tablets by mouth in the morning, 2 tablets by mouth in the afternoon, 1 tablet by mouth at bedtime. Print Language: Kiswahili
--- NOTE | 2023-09-17 10:02 | HO.PHP ---
[facility] staff member met with Yaneth after community meeting due to her making a statement around how this weekend was challenging for her and she wanted to get assessed but her encouraged her to hold off. Yaneth also stated that she spoke with the Med provider noting she would like to do inpatient level of care on Sunday. [facility] staff member asked Yaneth if she was struggling with SI over the weekend, in which she noted that she doesn't want to live anymore and is tired of trying. Yaneth did not report a plan or intent and is feeling a lack of motivation. Yaneth also noted difficulties with being able to get out of bed and function. Yaneth feels guilt around putting her through this as well. [facility] staff asked Yaneth if she still wants to get assessed. Yaneth expressed that she would like to get assessed because she feels she needs inpatient level of care. Yaneth feels as though she is more depressed then individuals in this group and needs more support at this time. [facility] staff suggested that once she gets evaluated, if they clear her to return to [facility], she is more then welcome to come back. Yaneth stated she wants to go inpatient. Yaneth appeared adamant about needing a higher service setting. [facility] staff member voiced that she will have her get evaluated but she cannot state that she will be placed inpatient. [facility] staff member encouraged Yaneth to be honest with the care team around how she has been feeling. Yaneth was receptive. Yaneth was brought to the ED and then met with an individual in triage.
--- NOTE | 2023-09-17 10:03 | PC.NURSE ---
Per [facility] staff patient requested to go to the emergency room to be evaluated by crisis, see note by Juju Holman. Patient reportedly told staff when asked if she was experiencing SI she stated she is tired of trying and does not want to do this anymore and what is the point of living. She reportedly wanted to go to the ER for a crisis evaluation over the weekend but her would not let her. Staff escorted patient to the ER for crisis evaluation without incident. Notified Kathy Magana and completed nurse to nurse with Destini VELAZQUEZ in the ED. Dr Escobedo is aware.
== END 2023-09-17 23:59 | disposition home or self-care (01) ==
LOC: HO.PHPA 09:45
PROVIDERS: Visit Provider Psychiatry & Neurology Psychiatry
DX: F33.2 Major depressive disorder, recurrent severe without psychotic features (principal); F41.1 Generalized anxiety disorder; Z79.899 Other long term (current) drug therapy; Z63.0 Problems in relationship with spouse or partner
CPT/HCPCS: 90791; 90853

== ENCOUNTER 2023-09-17 09:50 | Emergency (ER) | payer MEDICARE, SELFPAY ==
[2023-09-17 09:52] VITALS: BP 130/63; PULSE 83; RESP 18; TEMP 37.1; O2SAT 95; BMI 28.0
--- NOTE | 2023-09-17 09:56 | ECG_ITS ---
Test Reason : QTc Check Blood Pressure : / mmHG Vent. Rate : 079 BPM Atrial Rate : 079 BPM P-R Int : 154 ms QRS Dur : 076 ms QT Int : 354 ms P-R-T Axes : 059 033 044 degrees QTc Int : 405 ms Normal sinus rhythm Normal ECG When compared with ECG of 24-SEP-2020 10:21, Criteria for Septal infarct are no longer Present Referred By: Generic ED Physician Electronically Signed By:Ritesh Ferro
--- NOTE | 2023-09-17 10:09 | ED.PSYCH ---
HPI - Psych General Chief Complaint: Psychiatric Symptoms Stated Complaint: Crisis Time Seen by Provider: 09/17/23 10:07 Source: patient Mode of arrival: ambulatory Limitations: no limitations History of Present Illness ED Provider: Lexus MARTIN HPI Narrative: This is a 73-year-old female history of major depression, generalized anxiety, recent left sided hip replacement at [facility] presents to the emergency department with complaints of depression due to increasing life stressors and lower back pain. Patient denies visual, auditory and tactile hallucinations. No suicidal or homicidal ideation. Denies drugs, alcohol and tobacco. Patient reports she has been having this back pain for a while , reports it is rated a 5/10 anterior lower back worse with movement better at rest. Denies blunt trauma to this area. Patient denies fevers, chills, chest pain, shortness of breath, nausea, vomiting, abdominal pain, numbness, tingling, saddle anesthesias, urinary/bowel incontinence/retention. Related Data Home Medications ?Medication ?Instructions ?Recorded ?Confirmed levomefolate calcium 15 mg tablet 15 mg PO DAILY 09/10/23 09/10/23 (L-Methylfolate) omega-3 fatty acids 1,000 mg 1,000 mg PO BID 09/10/23 09/10/23 capsule mecobalamin (vitamin B12) 1,000 1,000 mcg PO DAILY 09/14/23 mcg chewable tablet Previous Rx's ?Medication ?Instructions ?Recorded phenelzine 15 mg tablet See Rx Instructions PO DIRECTED 08/27/23 3 months #450 tabs clonazepam 0.5 mg tablet (Klonopin) 0.25 mg (1/2 x 0.5 mg) PO TID PRN 09/11/23 anxiety 30 days #30 tabs cholecalciferol (vitamin D3) 50 50 mcg PO DAILY #30 caps 09/14/23 mcg (2,000 unit) capsule quetiapine 25 mg tablet 25 mg PO BEDTIME #30 tabs 09/14/23 Allergies Allergy/AdvReac Type Severity Reaction Status Date / Time levofloxacin [From Levaquin] Allergy Rash Verified 09/17/23 09:55 tyramine Allergy Hypertensio Uncoded 07/13/23 16:11 n Review of Systems Review of Systems: Yes all other systems are reviewed and are negative PMFSH Past Medical History Attestation statement: The following information was validated with the patient. Source: old records reviewed and nursing notes reviewed Medical History Major depressive disorder, recurrent, in full remission Major depressive disorder, recurrent episode, in partial remission with seasonal pattern Generalized anxiety disorder Major depressive disorder, recurrent severe without psychotic features Surgical History History of hip replacement History of appendectomy Family History Family History Mother Breast cancer HTN (hypertension) Social History Social History Household Members: Spouse Housing: House Do you presently have visiting nurse or other home services: No Alcohol intake: never Comment: fell 2-3 weeks ago Patient Tobacco Use Status: Never used Tobacco e-Cigarette/Vaping Use: Never Used Second Hand Smoke Exposure: No Advance Directives: No Advance Directives Information Provided: Yes Do you have a plan to hurt others: No Plan service: No Sexual orientation: Straight/Heterosexual Physical Exam Vital Signs: Vital Signs: Last Vital Signs Temp 98.7 F 09/17/23 09:52 Pulse 83 09/17/23 09:52 Resp 18 09/17/23 09:52 BP 130/63 09/17/23 09:52 Pulse Ox 95 09/17/23 09:52 O2 Del Method Room Air 09/17/23 09:52 BMI result Body Mass Index 28.0 vss Appearance: Alert.? Oriented X3.? No acute distress.? Head: Normocephalic, atraumatic, no step-offs or deformities Eyes: Pupils equal, round and reactive to light.? ENT: Pharynx normal.? Neck: Normal inspection.? Neck supple.? CVS: Normal heart rate and rhythm.? Pulses normal.? Respiratory: No respiratory distress.? Breath sounds normal.? Abdomen: Soft and nontender.? Skin: Skin warm and dry.? Normal skin color.? Normal skin turgor.? Extremities: No lower extremity edema.? No calf ttp. 5/5 strength to bilateral upper and lower extremities Back: b/l lumbar paraspinous musclee ttp to L1-L4 b/l. No midline pain. Neuro: Oriented X 3.? No motor deficit.? No sensory deficit. CN 2-12 intact . Ambulating with steady gait normal coordination. No saddle anesthesia Course Reevaluation(s) Reevaluation #1: CBC with a baseline leukopenia. Chemistry no acute findings needing intervention. UA with evidence of infection. P.o. Ceftin ordered. At this time patient to be placed into physician observation to allow more time to be evaluated by care team. At time observation started patient common cooperative no acute distress will continue to monitor Time: 10:52 Medications Administered Discontinued Medications Generic Name Dose Route Start Last Admin Trade Name Fremayra PRN Reason Stop Dose Admin Acetaminophen 975 mg 09/17/23 10:12 09/17/23 10:49 Acetaminophen 325 Mg Tablet PO 09/17/23 10:13 975 mg ONCE ONE Administration Lidocaine 1 patch 09/17/23 10:12 09/17/23 10:50 Lidocaine 4 % Patch Adh..Patch TRANSDERMA 09/17/23 10:13 1 patch ONCE ONE Administration Protocol Medical Decision Making Medical Decision Making [facility] Narrative: 1013 73-year-old female presents with depression and lower back pain. Longstanding history of major depression and anxiety. No red flag symptoms with back pain Physical exam b/l lumbar paraspinous musclee ttp to L1-L4 b/l. No midline pain. History and physical exam concerning for lumbar paraspinous muscle spasm/tenderness, unlikely cauda equina, cord compression, epidural abscess. Depression likely longstanding major depression. No signs of suicidal ideation, homicidal ideation. Less likely bipolar schizophrenia. Plan medical clearance evaluation by behavioral health team. Differential Diagnosis Differential Diagnoses: The differential diagnosis associated with the presentation includes History and physical exam concerning for lumbar paraspinous muscle spasm/tenderness, unlikely cauda equina, cord compression, epidural abscess. Depression likely longstanding major depression. No signs of suicidal ideation, homicidal ideation. Less likely bipolar schizophrenia. Admission/Observation Consideration of admission/observation: Escalation of care including admission/observation considered Lab Data 09/17/23 10:07 09/17/23 10:07 Labs: Lab Results 09/17/23 09/17/23 Range/Units 10:07 10:14 WBC 4.5 L (4.8-10.8) X10*3/uL RBC 4.19 L (4.20-5.50) X10*6/uL Hgb 12.4 (12.0-16.0) g/dl Hct 38.8 (37.0-47.0) % MCV 92.6 (80.0-98.0) fL MCH 29.6 (27.0-33.0) pg MCHC 32.0 (31.0-35.0) g/dl RDW 14.3 (11.0-16.0) % Plt Count 199 (160-400) X10*3/uL MPV 10.3 (9.4-12.3) fL Immature Gran % (Auto) 0.2 (0.0-0.4) % Neut % (Auto) 61.8 (45-73) % Lymph % (Auto) 24.6 (20-40) % [place] % (Auto) 10.0 (2-11) % Eos % (Auto) 2.5 (0-4) % Baso % (Auto) 0.9 (0-2) % Lymph # (Auto) 1.1 L (1.2-4.9) X10*3/uL [place] # (Auto) 0.5 (0.1-1.2) X10*3/uL Eos # (Auto) 0.1 (0.0-0.4) X10*3/uL Baso # (Auto) 0.0 (0.0-0.2) X10*3/uL Abs Immat Gran (auto) 0.01 (0.00-0.03) X10*3/uL Absolute Neuts (auto) 2.8 (2.0-8.3) x10*3/uL Absolute Nucleated RBC 0.000 (0.0-0.012) X10*3/uL Nucleated RBC % (auto) 0.0 (0.0-0.2) /100WBC Sodium 135 (135-145) mmol/L Potassium 4.8 (3.3-5.1) mmol/L Chloride 101 (96-108) mmol/L Carbon Dioxide 27 (22-29) mmol/L Anion Gap 12 (12-20) BUN 13 (9-16) mg/dL Creatinine 0.72 (0.5-1.4) mg/dL Estim Creat Clear Calc 73.1 Estimated GFR > 60 Random Glucose 89 (60-115) mg/dL Calcium 9.4 (8.4-10.2) mg/dL Total Bilirubin 0.4 (0.0-1.0) mg/dL AST 11 (5-31) U/L ALT 8 (0-31) U/L Alkaline Phosphatase 101 (39-117) U/L Total Protein 6.8 (6.5-8.0) g/dL Albumin 4.0 (3.5-5.0) g/dL Urine Color Yellow Urine Appearance Cloudy Urine pH 6.5 (5.0-9.0) Ur Specific [place] 1.015 (1.005-1.025) Urine Protein Negative (Neg-Trace) mg/dL Urine Glucose (UA) Negative (Negative) mg/dL Urine Ketones Negative (Negative) mg/dL Urine Blood Trace H (Negative) Urine Nitrite Positive H (Negative) Ur Leukocyte Esterase Trace H (Negative) Urine RBC 0-2 (0-2) /HPF Urine WBC 0-5 (0-5) /HPF Ur Squamous Epith Cells 3-5 (0-2) /HPF Urine Bacteria 4+ (None Seen) Hyaline Casts 0-2 (0-2) /LPF Critical Care Time Critical Care Time Critical Care Time: No Discharge Plan Discharge Clinical Impression: Depression, Lumbar back pain, UTI (urinary tract infection) Patient Disposition: Still a Patient Transfer Details: DC on ceftin please Prescriptions: No Action clonazepam [Klonopin] 0.5 mg tablet 0.25 mg PO TID PRN (Reason: anxiety) 30 Days Qty: 30 1RF quetiapine 25 mg tablet 25 mg PO BEDTIME Qty: 30 1RF cholecalciferol (vitamin D3) 50 mcg (2,000 unit) capsule 50 mcg PO DAILY Qty: 30 0RF mecobalamin (vitamin B12) 1,000 mcg tablet,chewable 1,000 mcg PO DAILY omega-3 fatty acids [Fish Oil Concentrate] 1,000 mg Capsule 1,000 mg PO BID levomefolate calcium [L-Methylfolate] 15 mg Tablet 15 mg PO DAILY phenelzine 15 mg tablet See Rx Instructions PO DIRECTED 90 Days Qty: 450 1RF Rx Instructions: Take 2 tablets by mouth in the morning, 2 tablets by mouth in the afternoon, 1 tablet by mouth at bedtime. Print Language: [place]
[2023-09-17 10:21] LABS: MANUAL DIFF FLAG NO
[2023-09-17 10:22] LABS: Basophils Percent Auto 0.9 % (0-2); Eosinophils Absolute Auto 0.1 X10*3/uL (0.0-0.4); Eosinophils Percent Auto 2.5 % (0-4); Hematocrit 38.8 % (37.0-47.0); Hemoglobin 12.4 g/dl (12.0-16.0); Imm Gran Abs Auto 0.01 X10*3/uL (0.00-0.03); Imm Gran Pct Auto 0.2 % (0.0-0.4); Lymphocytes Absolute Auto 1.1 X10*3/uL (1.2-4.9); Lymphocytes Percent Auto 24.6 % (20-40); Mean Corpuscular Hemoglobin 29.6 pg (27.0-33.0); Mean Corpuscular Volume 92.6 fL (80.0-98.0); Mean Platelet Volume 10.3 fL (9.4-12.3); Monocytes Absolute Auto 0.5 X10*3/uL (0.1-1.2); Neutrophils Absolute Auto 2.8 x10*3/uL (2.0-8.3); Neutrophils Percent Auto 61.8 % (45-73); Platelet Count 199 X10*3/uL (160-400); Red Blood Count 4.19 X10*6/uL (4.20-5.50); Red Cell Distribution Width 14.3 % (11.0-16.0); White Blood Count 4.5 X10*3/uL (4.8-10.8)
[2023-09-17 10:24] LABS: Appearance Urine Cloudy; Color Urine Yellow; Glucose Urine UA Negative (Negative); Leukocyte Esterase Urine Trace (Negative); Nitrite Urine Positive (Negative); PH 6.5 (5.0-9.0); Specific Gravity - Urine 1.015 (1.005-1.025); UMIC TRIGGER UACC YES; Urine Blood Trace (Negative); Urine Ketones Negative (Negative); Urine Protein Negative (Neg-Trace)
[2023-09-17 10:28] LABS: Bacteria Urine 4+ (None Seen); Hyaline Casts Urine 0-2 /LPF (0-2); RBC Urine 0-2 /HPF (0-2); UACC Culture Trigger YES; WBC Urine 0-5 /HPF (0-5)
[2023-09-17 10:35] LABS: Alanine Aminotransferase 8 U/L (0-31); Alkaline Phosphatase 101 U/L (39-117); Anion Gap 12 (12-20); Aspartate Amino Transferase 11 U/L (5-31); Bilirubin Total 0.4 mg/dL (0.0-1.0); Blood Urea Nitrogen 13 mg/dL (9-16); Calcium 9.4 mg/dL (8.4-10.2); Carbon Dioxide 27 mmol/L (22-29); Chloride 101 mmol/L (96-108); Creatinine Clr Calc Pharmacy 73.1; Estimated Glomerular Filt Rate > 60; Glucose Random 89 mg/dL (60-115); Potassium 4.8 mmol/L (3.3-5.1); Sodium 135 mmol/L (135-145); Total Protein 6.8 g/dL (6.5-8.0)
[2023-09-17] MEDS: Acetaminophen 325 MG TABLET 975 MG PO (10:49)
[2023-09-17] MEDS: Lidocaine 4 % Patch ADH..PATCH 1 PATCH TRANSDERMA (10:50)
[2023-09-17 10:58] VITALS: BP 130/63; PULSE 83; RESP 18; TEMP 37.1; O2SAT 95
[2023-09-17] MEDS: cefuroxime axetiL 250 MG TABLET PO (11:31)
[2023-09-17] MEDS: LORazepam 1 MG TABLET PO (14:04)
[2023-09-17 17:35] VITALS: BP 134/68; PULSE 80; RESP 16; TEMP 36.9; O2SAT 95
== END 2023-09-17 17:36 | disposition home or self-care (01) ==
PROVIDERS: Emergency Provider Emergency Medicine; PCP Internal Medicine
DX: F33.1 Major depressive disorder, recurrent, moderate (principal); N39.0 Urinary tract infection, site not specified; F41.9 Anxiety disorder, unspecified; F43.9 Reaction to severe stress, unspecified; M25.552 Pain in left hip; M54.50 Low back pain, unspecified; R94.31 Abnormal electrocardiogram [ECG] [EKG]; Z79.899 Other long term (current) drug therapy
CPT/HCPCS: 36415; 80053; 81001; 85025; 87086; 87088; 87186; 93005; 99285

== ENCOUNTER → 2023-09-17 09:56 | Outpatient (BNV) | payer MEDICARE, SELFPAY | PROVIDERS: Emergency Provider Emergency Medicine; PCP Internal Medicine; Visit Provider Internal Medicine Cardiovascular Disease | DX: Z51.81 Encounter for therapeutic drug level monitoring (principal) | CPT/HCPCS: 93010 ==

== ENCOUNTER 2023-09-20 11:11 | Inpatient (IN) | payer MEDICARE, SELFPAY ==
--- NOTE | 2023-09-20 11:28 | ED.GENADULT ---
HPI - General Adult General Chief complaint: Psychiatric Symptoms Stated complaint: Crisis depression Time Seen by Provider: 09/20/23 11:28 Source: patient Mode of arrival: ambulatory Limitations: no limitations History of Present Illness ED Provider: Shruti Ortega PA-C HPI narrative: Patient is a 73 year old assigned female at with a history of MDD and NATE presenting to the emergency department today with increased depression. Patient states that over the last 3 weeks she has been feeling much more depressed and is currently combating life stressors with her . Patient denies any dizziness, lightheadedness, abdominal pain, nausea, vomiting, fever, chills, blurry vision, double vision, loss of vision, chest pain, difficulty breathing, shortness of breath, back pain, night sweats, pain with urination, increased urinary frequency, increased urinary urgency, blood in her urine or stool, syncope or a near syncopal episode, recent trauma or falls, bowel incontinence, bladder incontinence, or any other complaints at this time. Onset (ago): week(s) (3) Relieving factors: none Exacerbating factors: none Associated symptoms: denies other symptoms Treatments prior to arrival: none Related Data Home Medications ?Medication ?Instructions ?Recorded ?Confirmed levomefolate calcium 15 mg tablet 15 mg PO DAILY 09/10/23 09/20/23 (L-Methylfolate) omega-3 fatty acids 1,000 mg 1,000 mg PO BID 09/10/23 09/20/23 capsule mecobalamin (vitamin B12) 1,000 1,000 mcg PO DAILY 09/14/23 mcg chewable tablet Previous Rx's ?Medication ?Instructions ?Recorded phenelzine 15 mg tablet See Rx Instructions PO DIRECTED 08/27/23 3 months #450 tabs clonazepam 0.5 mg tablet (Klonopin) 0.25 mg (1/2 x 0.5 mg) PO TID PRN 09/11/23 anxiety 30 days #30 tabs cholecalciferol (vitamin D3) 50 50 mcg PO DAILY #30 caps 09/14/23 mcg (2,000 unit) capsule quetiapine 25 mg tablet 25 mg PO BEDTIME #30 tabs 09/14/23 cephalexin 500 mg capsule 500 mg PO QID 7 days #28 caps 09/17/23 Allergies Allergy/AdvReac Type Severity Reaction Status Date / Time levofloxacin [From Levaquin] Allergy Rash Verified 09/20/23 11:39 tyramine Allergy Hypertensio Uncoded 09/20/23 11:39 n Review of Systems Constitutional: Constitutional: Reports no additional constitutional complaints, Denies chills, Denies fever(s) and Denies night sweats Eyes: Eyes: Reports no additional eye complaints, Denies blurry vision, Denies change in vision, Denies diplopia, Denies eye discharge, Denies loss of vision and Denies eye pain ENT: Denies dizziness Cardiovascular: Cardiovascular: Reports no additional cardiovascular complaints, Denies chest pain, Denies lightheadedness, Denies Loss of Consciousness and Denies dyspnea Respiratory: Respiratory: Reports no additional respiratory complaints and Denies dyspnea Gastrointestinal: Gastrointestinal: Reports no additional gastrointestinal complaints, Denies abdominal pain, Denies melena, Denies hematochezia, Denies change in bowel habits and Denies change in stool character Genitourinary: Genitourinary: Denies hematuria, Denies urinary frequency, Denies dysuria, Denies urinary incontinence, Denies urinary hesitancy and Denies urinary urgency Musculoskeletal: Musculoskeletal: Reports no additional musculoskeletal complaints, Denies numbness and Denies tingling Neurologic: Denies dizziness, Denies loss of vision, Denies numbness and Denies tingling Psychiatric: Psychiatric: Reports no additional psychiatric complaints Endocrine: Endocrine: Reports no additional endocrine complaints Hematologic/Lymphatic: Hematologic/Lymphatic: Reports no additional hematologic/lymphatic complaints Allergic/Immunologic: Allergic/Immunologic: Reports no additional allergic/immunologic complaints PMFSH Past Medical History Attestation statement: The following information was validated with the patient. Source: old records reviewed and nursing notes reviewed Medical History Stress due to marital problems Major depressive disorder, recurrent, in full remission Major depressive disorder, recurrent episode, in partial remission with seasonal pattern Generalized anxiety disorder Major depressive disorder, recurrent severe without psychotic features Surgical History History of hip replacement History of appendectomy Family History Family History Mother Breast cancer HTN (hypertension) Social History Social History Household Members: Spouse Housing: House Do you presently have visiting nurse or other home services: No Alcohol intake: never Comment: fell 2-3 weeks ago Patient Tobacco Use Status: Never used Tobacco Smoked in Last 30 Days: No e-Cigarette/Vaping Use: Never Used Second Hand Smoke Exposure: No Use of substances other than those prescribed or required for medical reasons: No Advance Directives: No Advance Directives Information Provided: Yes Do you have a plan to hurt others: No Plan service: No Sexual orientation: Straight/Heterosexual Physical Exam ED Vital Signs: Vital Signs - 24 hr 09/20/23 11:37 Temperature 98.1 F Pulse Rate 76 Respiratory Rate 14 Blood Pressure 136/63 Pulse Oximetry 97 Oxygen Delivery Method Room Air BMI result Body Mass Index 27.8 Const General: cooperative, no acute distress, alert and awake Nutritional Appearance: well nourished Orientation/consciousness: patient oriented x3 Limitations: no limitations HENMT Head: Yes normal to inspection and Yes atraumatic Ears: hearing grossly normal bilaterally and external ears normal General nose exam: Normal external nose present, no nasal discharge noted and no epistaxis Face and sinus: Yes normal facial exam, No abrasion and No laceration Mouth: Normal oral and palatal mucosa present, no drooling and no muffled voice Eyes General: appearance normal, both eyes and all related structures Periorbital: periorbital findings normal Eyelids: Yes eyelids normal Conjunctivae: conjunctivae normal Pupils: Equal, round and reactive pupils present EOM: EOMs intact bilaterally Neck Neck: Yes normal visual inspection, Yes full ROM and Yes no lymphadenopathy Chest Chest palpation & inspection: normal inspection of the chest Resp Effort & Inspection: normal respiratory effort and able to speak in complete sentences GI Inspection: Yes normal to inspection Neuro General: patient oriented x3 and moves all extremities Cranial nerves: Yes Equal, round and reactive pupils present Cognition (Neuro): normal cognition Extrem General: Yes normal to inspection, Yes full ROM and Yes capillary refill normal Psych Appearance: grossly normal Mental Status: mental status grossly normal Affect: Sad affect present Attitude: Guarded attititude/behavior present Thought content: Normal thought content present Medical Decision Making Medical Decision Making MDM Narrative: Patient is a 73 year old assigned female at with a history of MDD and NATE presenting to the emergency department today with increased depression. Patient's physical exam was as noted in the physical exam portion of this note. Patient's blood work was unremarkable. I explained my physical exam findings as well as all test results to the patient. I answered all questions asked by the patient. Patient's disposition will be determined after CARE team evaluation. Differential Diagnosis Differential Diagnoses: The differential diagnosis associated with the presentation includes Depression Admission/Observation Consideration of admission/observation: Escalation of care including admission/observation considered Patient's disposition will be determined after CARE team evaluation. Lab Data [facility] Lab Attestation statement: I reviewed the patient's lab results. My interpretation of these results are in the [facility] Rationale portion of this note. 09/20/23 12:32 09/20/23 12:33 Labs: Lab Results 09/20/23 09/20/23 Range/Units 12:32 12:33 WBC 3.8 L (4.8-10.8) X10*3/uL RBC 4.35 (4.20-5.50) X10*6/uL Hgb 12.7 (12.0-16.0) g/dl Hct 39.6 (37.0-47.0) % MCV 91.0 (80.0-98.0) fL MCH 29.2 (27.0-33.0) pg MCHC 32.1 (31.0-35.0) g/dl RDW 13.8 (11.0-16.0) % Plt Count 198 (160-400) X10*3/uL MPV 9.9 (9.4-12.3) fL Immature Gran % (Auto) 0.5 H (0.0-0.4) % Neut % (Auto) 62.5 (45-73) % Lymph % (Auto) 23.7 (20-40) % [place] % (Auto) 10.4 (2-11) % Eos % (Auto) 2.1 (0-4) % Baso % (Auto) 0.8 (0-2) % Lymph # (Auto) 0.9 L (1.2-4.9) X10*3/uL [place] # (Auto) 0.4 (0.1-1.2) X10*3/uL Eos # (Auto) 0.1 (0.0-0.4) X10*3/uL Baso # (Auto) 0.0 (0.0-0.2) X10*3/uL Abs Immat Gran (auto) 0.02 (0.00-0.03) X10*3/uL Absolute Neuts (auto) 2.3 (2.0-8.3) x10*3/uL Absolute Nucleated RBC 0.000 (0.0-0.012) X10*3/uL Nucleated RBC % (auto) 0.0 (0.0-0.2) /100WBC Sodium 134 L (135-145) mmol/L Potassium 4.5 (3.3-5.1) mmol/L Chloride 99 (96-108) mmol/L Carbon Dioxide 28 (22-29) mmol/L Anion Gap 12 (12-20) BUN 13 (9-16) mg/dL Creatinine 0.70 (0.5-1.4) mg/dL Estim Creat Clear Calc 75.1 Estimated GFR > 60 Random Glucose 101 (60-115) mg/dL Calcium 9.3 (8.4-10.2) mg/dL Total Bilirubin 0.4 (0.0-1.0) mg/dL AST 12 (5-31) U/L ALT 8 (0-31) U/L Alkaline Phosphatase 106 (39-117) U/L Total Protein 6.9 (6.5-8.0) g/dL Albumin 4.2 (3.5-5.0) g/dL Salicylates < 5.0 L (15-30) mg/dL Acetaminophen < 3 (<30) mcg/mL Ethyl Alcohol < 10 mg/dL Independent Interpretation I performed an independent interpretation of an: EKG Discharge Plan Discharge Clinical Impression: Depression Patient Disposition: Still a Patient Prescriptions: No Action clonazepam [Klonopin] 0.5 mg tablet 0.25 mg PO TID PRN (Reason: anxiety) 30 Days Qty: 30 1RF quetiapine 25 mg tablet 25 mg PO BEDTIME Qty: 30 1RF cholecalciferol (vitamin D3) 50 mcg (2,000 unit) capsule 50 mcg PO DAILY Qty: 30 0RF mecobalamin (vitamin B12) 1,000 mcg tablet,chewable 1,000 mcg PO DAILY omega-3 fatty acids [Fish Oil Concentrate] 1,000 mg Capsule 1,000 mg PO BID levomefolate calcium [L-Methylfolate] 15 mg Tablet 15 mg PO DAILY cephalexin 500 mg capsule 500 mg PO QID 7 Days Qty: 28 0RF Patient Comments: recent uti phenelzine 15 mg tablet See Rx Instructions PO DIRECTED 90 Days Qty: 450 1RF Rx Instructions: Take 2 tablets by mouth in the morning, 2 tablets by mouth in the afternoon, 1 tablet by mouth at bedtime. Interventions: [place]-Suicide Risk Severity Scale Last Done: 09/20/23 12:17 Print Language: Setswana
--- NOTE | 2023-09-20 11:29 | ECG_ITS ---
Test Reason : medical clearance Blood Pressure : / mmHG Vent. Rate : 069 BPM Atrial Rate : 069 BPM P-R Int : 172 ms QRS Dur : 088 ms QT Int : 384 ms P-R-T Axes : 069 055 055 degrees QTc Int : 411 ms Normal sinus rhythm Right atrial enlargement Septal infarct , age undetermined Abnormal ECG When compared with ECG of 17-SEP-2023 09:55, No significant change was found Referred By: Shruti Ortega Electronically Signed By:Ritesh Ferro
[2023-09-20 11:37] VITALS: BP 136/63; PULSE 76; RESP 14; TEMP 36.7; O2SAT 97; BMI 27.8
[2023-09-20 12:38] LABS: MANUAL DIFF FLAG NO
[2023-09-20 12:43] LABS: Basophils Percent Auto 0.8 % (0-2); Eosinophils Absolute Auto 0.1 X10*3/uL (0.0-0.4); Eosinophils Percent Auto 2.1 % (0-4); Hematocrit 39.6 % (37.0-47.0); Hemoglobin 12.7 g/dl (12.0-16.0); Imm Gran Abs Auto 0.02 X10*3/uL (0.00-0.03); Imm Gran Pct Auto 0.5 % (0.0-0.4); Lymphocytes Absolute Auto 0.9 X10*3/uL (1.2-4.9); Lymphocytes Percent Auto 23.7 % (20-40); Mean Corpuscular HGB Conc 32.1 g/dl (31.0-35.0); Mean Corpuscular Hemoglobin 29.2 pg (27.0-33.0); Mean Platelet Volume 9.9 fL (9.4-12.3); Monocytes Absolute Auto 0.4 X10*3/uL (0.1-1.2); Monocytes Percent Auto 10.4 % (2-11); Neutrophils Absolute Auto 2.3 x10*3/uL (2.0-8.3); Neutrophils Percent Auto 62.5 % (45-73); Platelet Count 198 X10*3/uL (160-400); Red Blood Count 4.35 X10*6/uL (4.20-5.50); Red Cell Distribution Width 13.8 % (11.0-16.0); White Blood Count 3.8 X10*3/uL (4.8-10.8)
[2023-09-20 12:53] LABS: Alanine Aminotransferase 8 U/L (0-31); Albumin Level 4.2 g/dL (3.5-5.0); Alkaline Phosphatase 106 U/L (39-117); Anion Gap 12 (12-20); Aspartate Amino Transferase 12 U/L (5-31); Bilirubin Total 0.4 mg/dL (0.0-1.0); Blood Urea Nitrogen 13 mg/dL (9-16); Calcium 9.3 mg/dL (8.4-10.2); Carbon Dioxide 28 mmol/L (22-29); Chloride 99 mmol/L (96-108); Creatinine Clr Calc Pharmacy 75.1; Estimated Glomerular Filt Rate > 60; Ethanol < 10 mg/dL; Glucose Random 101 mg/dL (60-115); Potassium 4.5 mmol/L (3.3-5.1); Sodium 134 mmol/L (135-145); Total Protein 6.9 g/dL (6.5-8.0)
[2023-09-20 12:54] LABS: Acetaminophen LAB < 3 mcg/mL (<30); Salicylate < 5.0 mg/dL (15-30)
[2023-09-20] MEDS: Acetaminophen 325 MG TABLET 975 MG PO (14:22)
[2023-09-20 14:46] LABS: Appearance Urine Clear; Color Urine Yellow; Glucose Urine UA Negative (Negative); Leukocyte Esterase Urine Trace (Negative); Nitrite Urine Negative (Negative); UMIC TRIGGER UA YES; Urine Blood Negative (Negative); Urine Ketones Negative (Negative); Urine Protein Negative (Neg-Trace)
[2023-09-20 14:49] LABS: Bacteria Urine None Seen (None Seen); Hyaline Casts Urine 0-2 /LPF (0-2); RBC Urine 0-2 /HPF (0-2); WBC Urine 0-5 /HPF (0-5)
[2023-09-20 14:56] LABS: Amphetamine Screen Urine Not Detected (Not Detect); Barbiturates, Urine Not Detected (Not Detect); Benzodiazepines Screen Urine Not Detected (Not Detect); Buprenorphine Scr Not Detected (Not Detect); Cannabinoid Screen Urine Not Detected (Not Detect); Cocaine Screen Urine Not Detected (Not Detect); Fentanyl, urine Not Detected (Not Detect); Methadone Screen, Urine Not Detected (Not Detect); Opiate Screen Urine Not Detected (Not Detect); Oxycodone Screen Urine Not Detected (Not Detect); Phencyclidine Screen Urine Not Detected (Not Detect)
[2023-09-20 15:18] VITALS: BP 140/65; PULSE 77; RESP 16; TEMP 36.4; O2SAT 97
[2023-09-20 15:37] VITALS: BMI 27.7
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
[2023-09-20] MEDS: Cyanocobalamin (Vitamin B-12) 1,000 MCG/ML VIAL 1000 MCG IM (16:56)
[2023-09-20] MEDS: clonazePAM 0.5 MG TABLET 0.25 MG PO ×2 (16:56→21:28)
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
[2023-09-20 20:05] VITALS: BP 136/66; PULSE 76; RESP 16; TEMP 36.3; O2SAT 94
[2023-09-20] MEDS: QUEtiapine Fumarate 25 MG TABLET 37.5 MG PO (20:23)
[2023-09-20] MEDS: Acetaminophen 325 MG TABLET 650 MG PO (20:23)
[2023-09-20] MEDS: QUEtiapine Fumarate 25 MG TABLET 12.5 MG PO (20:31)
[2023-09-21] MEDS: QUEtiapine Fumarate 25 MG TABLET 12.5 MG PO (07:22)
[2023-09-21 07:34] VITALS: BP 129/71; PULSE 78; RESP 14; TEMP 36.3; O2SAT 96
[2023-09-21 08:56] LABS: Alanine Aminotransferase 9 U/L (0-31); Albumin Level 4.1 g/dL (3.5-5.0); Alkaline Phosphatase 103 U/L (39-117); Anion Gap 12 (12-20); Aspartate Amino Transferase 14 U/L (5-31); Bilirubin Total 0.4 mg/dL (0.0-1.0); Blood Urea Nitrogen 13 mg/dL (9-16); Calcium 9.9 mg/dL (8.4-10.2); Carbon Dioxide 29 mmol/L (22-29); Chloride 101 mmol/L (96-108); Cholesterol 174 mg/dL (<200); Creatinine Clr Calc Pharmacy 77.1; Estimated Glomerular Filt Rate > 60; Glucose Fasting 98 mg/dL (60-99); HDL Cholesterol 72 mg/dL (>40); LDL Cholesterol Calculated 91 mg/dL (<100); Potassium 4.4 mmol/L (3.3-5.1); Sodium 138 mmol/L (135-145); Triglycerides 57 mg/dL (<150)
[2023-09-21] MEDS: clonazePAM 0.5 MG TABLET 0.25 MG PO (08:59)
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
[2023-09-21 19:25] VITALS: BP 131/73; PULSE 76; RESP 16; TEMP 36.5; O2SAT 100
[2023-09-21] MEDS: QUEtiapine Fumarate 50 MG TABLET PO (21:15)
[2023-09-22] MEDS: clonazePAM 0.5 MG TABLET 0.25 MG PO (03:30)
[2023-09-22 08:00] VITALS: BP 119/58; PULSE 88; RESP 20; TEMP 36.3; O2SAT 97
[2023-09-22] MEDS: QUEtiapine Fumarate 25 MG TABLET 12.5 MG PO ×3 (09:29→21:12)
--- NOTE | 2023-09-22 11:23 | P.PNPSI_ITS ---
Subjective Subjective Date of Service: 09/22/23 Reason For Visit: Severe Agitated Depression Subjective Notes: Conditional Voluntary Interim History: Patient depressed anxious ruminating. Leaning toward separation at other times fearful of abandonment. Anxious ruminating hopeful regarding ECT has additional supports in the community trying to assess the level of dysfunction and difficulty in her marriage. Mental Status Exam Mental Status Exam Narrative: quite sad looking Patient Appearance: Well Grooomed and Fatigued Patient Orientation: Person, Place and Time Level of Consciousness: Awake, Appropriate and Alert Patient Behavior: Appropriate Mood Description: Depressed, Fearful, Anxious, Flat, Sad and Apprehensive Affect Description: Constricted, Fearful, Flat and Sad Patient Cognition Impaired: No Ability to Follow Directions: Fair Speech Pattern: Clear, Appropriate and Soft-Spoken Memory Description: Intact Hallucinations: None Delusions: Not Present Thought Process: Intact and Goal Oriented Thought Content: positive for Intact, positive for Perseveration, positive for Preoccupation and positive for Slowed Thinking Depressive Symptoms: Increased Anxiety, Insomnia, Diff. Making Decisions, Increased Irritability, Crying Spells, Loss of Int. in Activity, Feelings of Worthlessness, Hopelessness and Loss of Energy Judgement: Fair Judgement and Insight: understands her current fragility impairs her decision making no active si but intermittantly hopeless helpless r Diagnostics Vital Signs (24Hr): Vital Signs - 24 hr 09/21/23 19:25 09/22/23 08:00 Temperature 97.7 F 97.3 F Pulse Rate 76 88 Respiratory Rate 16 20 Blood Pressure 131/73 119/58 L Pulse Oximetry 100 97 Oxygen Delivery Method Room Air Room Air BMI result Body Mass Index 27.7 Labs 09/20/23 12:32 09/21/23 08:35 Labs: Laboratory Results - last 48 hr 09/20/23 09/20/23 09/20/23 12:32 12:33 14:37 WBC 3.8 L RBC 4.35 Hgb 12.7 Hct 39.6 MCV 91.0 MCH 29.2 MCHC 32.1 RDW 13.8 Plt Count 198 MPV 9.9 Immature Gran % (Auto) 0.5 H Neut % (Auto) 62.5 Lymph % (Auto) 23.7 [place] % (Auto) 10.4 Eos % (Auto) 2.1 Baso % (Auto) 0.8 Lymph # (Auto) 0.9 L [place] # (Auto) 0.4 Eos # (Auto) 0.1 Baso # (Auto) 0.0 Abs Immat Gran (auto) 0.02 Absolute Neuts (auto) 2.3 Absolute Nucleated RBC 0.000 Nucleated RBC % (auto) 0.0 Sodium 134 L Potassium 4.5 Chloride 99 Carbon Dioxide 28 Anion Gap 12 BUN 13 Creatinine 0.70 Estim Creat Clear Calc 75.1 Estimated GFR > 60 Random Glucose 101 Fasting Glucose Calcium 9.3 Total Bilirubin 0.4 AST 12 ALT 8 Alkaline Phosphatase 106 Total Protein 6.9 Albumin 4.2 Triglycerides Cholesterol LDL Cholesterol, Calc HDL Cholesterol Urine Color Yellow Urine Appearance Clear Urine pH 6.0 Ur Specific [place] 1.010 Urine Protein Negative Urine Glucose (UA) Negative Urine Ketones Negative Urine Blood Negative Urine Nitrite Negative Ur Leukocyte Esterase Trace H Urine RBC 0-2 Urine WBC 0-5 Ur Squamous Epith Cells 11-20 Urine Bacteria None Seen Hyaline Casts 0-2 Salicylates < 5.0 L Urine Opiates Screen Not Detected Ur Buprenorphine Scrn Not Detected Ur Oxycodone Screen Not Detected Urine Methadone Screen Not Detected Urine Fentanyl Screen Not Detected Acetaminophen < 3 Ur Barbiturates Screen Not Detected Ur Phencyclidine Scrn Not Detected Ur Amphetamines Screen Not Detected U Benzodiazepines Scrn Not Detected Urine Cocaine Screen Not Detected U Marijuana (THC) Screen Not Detected Ethyl Alcohol < 10 09/21/23 08:35 WBC RBC Hgb Hct MCV MCH MCHC RDW Plt Count MPV Immature Gran % (Auto) Neut % (Auto) Lymph % (Auto) [place] % (Auto) Eos % (Auto) Baso % (Auto) Lymph # (Auto) [place] # (Auto) Eos # (Auto) Baso # (Auto) Abs Immat Gran (auto) Absolute Neuts (auto) Absolute Nucleated RBC Nucleated RBC % (auto) Sodium 138 Potassium 4.4 Chloride 101 Carbon Dioxide 29 Anion Gap 12 BUN 13 Creatinine 0.68 Estim Creat Clear Calc 77.1 Estimated GFR > 60 Random Glucose Fasting Glucose 98 Calcium 9.9 D Total Bilirubin 0.4 AST 14 ALT 9 Alkaline Phosphatase 103 Total Protein 7.0 Albumin 4.1 Triglycerides 57 Cholesterol 174 LDL Cholesterol, Calc 91 HDL Cholesterol 72 Urine Color Urine Appearance Urine pH Ur Specific [place] Urine Protein Urine Glucose (UA) Urine Ketones Urine Blood Urine Nitrite Ur Leukocyte Esterase Urine RBC Urine WBC Ur Squamous Epith Cells Urine Bacteria Hyaline Casts Salicylates Urine Opiates Screen Ur Buprenorphine Scrn Ur Oxycodone Screen Urine Methadone Screen Urine Fentanyl Screen Acetaminophen Ur Barbiturates Screen Ur Phencyclidine Scrn Ur Amphetamines Screen U Benzodiazepines Scrn Urine Cocaine Screen U Marijuana (THC) Screen Ethyl Alcohol Medications Medications Current Medications Acetaminophen (Acetaminophen 325 Mg Tablet) 650 mg PO Q6H PRN PRN Reason: Headache/Pain Mild Scale (1-3) Last Admin: 09/20/23 20:23 Dose: 650 mg Al Hydroxide/Mg Hydroxide (Magnesium Hydrox/Alum Hydrox 30 Ml Oral.Susp) 30 ml PO Q6H PRN PRN Reason: Heartburn/Nausea Clonazepam (Clonazepam 0.5 Mg Tablet) 0.25 mg PO TID PRN PRN Reason: anxiety Last Admin: 09/22/23 03:30 Dose: 0.25 mg Magnesium Hydroxide (Milk Of Magnesia 30 Ml Oral.Susp) 30 ml PO DAILY PRN PRN Reason: Constipation Pt Own (Phenelzine Sulfate 15 Mg Tablet ) 15 mg PO BEDTIME [facility] Last Admin: 09/21/23 21:15 Dose: 15 mg Pt Own (Phenelzine Sulfate 15 Mg Tablet ) 30 mg PO BID@0900,1300 [facility] Last Admin: 09/22/23 09:28 Dose: 30 mg Quetiapine Fumarate (Quetiapine Fumarate 25 Mg Tablet) 12.5 mg PO Q4H PRN PRN Reason: anxiety/restlessness Last Admin: 09/21/23 07:22 Dose: 12.5 mg Quetiapine Fumarate (Quetiapine Fumarate 50 Mg Tablet) 50 mg PO BEDTIME [facility] Last Admin: 09/21/23 21:15 Dose: 50 mg Quetiapine Fumarate (Quetiapine Fumarate 25 Mg Tablet) 12.5 mg PO BID@0830,1330 [facility] Last Admin: 09/22/23 09:29 Dose: 12.5 mg Allergies Allergies Allergy/AdvReac Type Severity Reaction Status Date / Time levofloxacin [From Levaquin] Allergy Rash Verified 09/20/23 11:39 tyramine Allergy Hypertensio Uncoded 09/20/23 11:39 n Assessment & Plan Assessment & Plan (1) Major depressive disorder, recurrent severe without psychotic features: Status: Acute Code(s): F33.2 - Major depressive disorder, recurrent severe without psychotic features (2) Generalized anxiety disorder: Status: Acute Code(s): F41.1 - Generalized anxiety disorder Plan Patient is admitted on conditional voluntary wishes to treatment hopeful that she be able to get better edge he will not. Able to take in information regarding both the biology of the situation in addition to dealing with current stressors in her life feeling overwhelmed and secure continue Seroquel for anxious depression get med consultation for stratification for ECT patient did tolerate ECT in previously with by being on MAO I patient requires current safety clarification where her marriage currently stands patient consider the other CT options at discharge. Discussed with patient ability when stable to transition to outpatient ECT treatment. 09/21/23 Discussed with anesthesia pt scheduled for ect had no difficulty with nardil and ect medications inc seroquel encourage relaxation strategies problem solving diff options if she chooses not to return right home no medical contraindications to ect 09/22/2023 Continue Nardil increase Seroquel ECT scheduled discussing supports post discharge if patient were not to return home Patient educated on: ECT and therapeutic strategies Informed Consent: understands Reason for continued inpatient stay Substantial Risk for: inability to function and rapid decompensation Time Spent With Patient Time: Total time managing care of this patient today ____ minutes.
[2023-09-22 20:00] VITALS: BP 137/58; PULSE 90; RESP 16; TEMP 36.2; O2SAT 96
[2023-09-22] MEDS: QUEtiapine Fumarate 50 MG TABLET PO (21:04)
[2023-09-23] MEDS: clonazePAM 0.5 MG TABLET 0.25 MG PO (00:31)
[2023-09-23 07:40] VITALS: BP 127/62; PULSE 78; RESP 14; TEMP 36.4; O2SAT 95
[2023-09-23] MEDS: QUEtiapine Fumarate 25 MG TABLET 12.5 MG PO ×3 (09:05→18:49)
[2023-09-23 20:00] VITALS: BP 124/60; PULSE 81; RESP 16; TEMP 36.4; O2SAT 96
[2023-09-23] MEDS: QUEtiapine Fumarate 50 MG TABLET PO (21:57)
[2023-09-23] MEDS: Mineral Oil/Petrolatum,White 106 GM Tube 1 APPL TOPICAL (21:59)
--- NOTE | 2023-09-23 23:56 | HO.PSYCHPN ---
Subjective Subjective Date of Service: 09/16/23 Reason For Visit: Severe Agitated Depression Subjective Notes: Conditional Voluntary Interim History: Pt seen in psychiatric follow uo depressed despondant stating has decided on diviorce hopeless re marriage tearful hoping re ect set for am Medication Compliance: Yes Mental Status Exam Mental Status Exam Patient Appearance: Well Grooomed Patient Orientation: Person, Place, Time and Situation Level of Consciousness: Awake and Appropriate Patient Behavior: Appropriate Mood Description: Depressed, Blunted and Apprehensive Affect Description: Appropriate and Constricted Patient Cognition Impaired: No Ability to Follow Directions: Good Speech Pattern: Clear Memory Description: Intact Hallucinations: None Delusions: Not Present Thought Process: Intact and Goal Oriented Thought Content: positive for Goal Oriented, positive for Preoccupation, negative for Suicidal Ideation or negative for Homicidal Ideation Depressive Symptoms: Increased Anxiety, Increased Irritability, Hopelessness, Increased Fatigue, Loss of Energy and Difficulty Concentrating Judgement: Good Diagnostics Vital Signs (24Hr): Vital Signs - 24 hr 09/23/23 07:40 09/23/23 20:00 Temperature 97.5 F 97.6 F Pulse Rate 78 81 Respiratory Rate 14 16 Blood Pressure 127/62 124/60 Pulse Oximetry 95 96 Oxygen Delivery Method Room Air Room Air BMI result Body Mass Index 27.7 Labs 09/20/23 12:32 09/21/23 08:35 Medications Medications Current Medications Acetaminophen (Acetaminophen 325 Mg Tablet) 650 mg PO Q6H PRN PRN Reason: Headache/Pain Mild Scale (1-3) Last Admin: 09/20/23 20:23 Dose: 650 mg Al Hydroxide/Mg Hydroxide (Magnesium Hydrox/Alum Hydrox 30 Ml Oral.Susp) 30 ml PO Q6H PRN PRN Reason: Heartburn/Nausea Clonazepam (Clonazepam 0.5 Mg Tablet) 0.25 mg PO TID PRN PRN Reason: anxiety Last Admin: 09/23/23 00:31 Dose: 0.25 mg Magnesium Hydroxide (Milk Of Magnesia 30 Ml Oral.Susp) 30 ml PO DAILY PRN PRN Reason: Constipation Multi-Ingred Cream/Lotion/Oil/Oint (Mineral Oil/Petrolatum,White 106 Gm Tube) 1 appl TOPICAL BID [facility]; Protocol Last Admin: 09/23/23 21:59 Dose: 1 appl Pt Own (Phenelzine Sulfate 15 Mg Tablet ) 15 mg PO BEDTIME [facility] Last Admin: 09/23/23 21:57 Dose: 15 mg Pt Own (Phenelzine Sulfate 15 Mg Tablet ) 30 mg PO BID@0900,1300 [facility] Last Admin: 09/23/23 13:30 Dose: 30 mg Quetiapine Fumarate (Quetiapine Fumarate 25 Mg Tablet) 12.5 mg PO Q4H PRN PRN Reason: anxiety/restlessness Last Admin: 09/23/23 18:49 Dose: 12.5 mg Quetiapine Fumarate (Quetiapine Fumarate 50 Mg Tablet) 50 mg PO BEDTIME [facility] Last Admin: 09/23/23 21:57 Dose: 50 mg Quetiapine Fumarate (Quetiapine Fumarate 25 Mg Tablet) 12.5 mg PO BID@0830,1330 [facility] Last Admin: 09/23/23 13:31 Dose: 12.5 mg Allergies Allergies Allergy/AdvReac Type Severity Reaction Status Date / Time levofloxacin [From Levaquin] Allergy Rash Verified 09/20/23 11:39 tyramine Allergy Hypertensio Uncoded 09/20/23 11:39 n Assessment & Plan Assessment & Plan (1) Major depressive disorder, recurrent severe without psychotic features: Status: Acute Code(s): F33.2 - Major depressive disorder, recurrent severe without psychotic features (2) Generalized anxiety disorder: Status: Acute Code(s): F41.1 - Generalized anxiety disorder Plan Patient is admitted on conditional voluntary wishes to treatment hopeful that she be able to get better edge he will not. Able to take in information regarding both the biology of the situation in addition to dealing with current stressors in her life feeling overwhelmed and secure continue Seroquel for anxious depression get med consultation for stratification for ECT patient did tolerate ECT in previously with by being on MAO I patient requires current safety clarification where her marriage currently stands patient consider the other CT options at discharge. Discussed with patient ability when stable to transition to outpatient ECT treatment. 09/21/23 Discussed with anesthesia pt scheduled for ect had no difficulty with nardil and ect medications inc seroquel encourage relaxation strategies problem solving diff options if she chooses not to return right home no medical contraindications to ect 09/22/2023 Continue Nardil increase Seroquel ECT scheduled discussing supports post discharge if patient were not to return home 09/23/23 ect scheduled for am cont nardil and seroquel discussed issues related to potential divorce Patient educated on: diagnosis and ECT Informed Consent: understands Reason for continued inpatient stay Substantial Risk for: inability to function and rapid decompensation Time Spent With Patient Time: Total time managing care of this patient today __30__ minutes.
[2023-09-24] VITALS (10 sets, daily range): BP systolic 124–169; BP diastolic 56–76; PULSE 75–87; RESP 16–19; TEMP 36.1–36.9; O2SAT 94–99
--- NOTE | 2023-09-24 07:50 | MHC.SHP ---
Pre-Procedural Eval Section A - 24 Hr Update-Section A only Date of Service: 09/24/23 The patient is an INPATIENT: Yes Changes since office visit: No Cold of Flu in the past 2 weeks, No New Medical Problems, No Changes in Medication and No Patient answered all questions The patient has been examined within 24 hours of the surgical procedure. The History & Physical has been completed within 30 days and I have reviewed it.: Yes Section B - Complete if H&P > 30 days Chief Complaint: Severe Agitated Depression Allergies: Allergies Allergy/AdvReac Type Severity Reaction Status Date / Time levofloxacin [From Levaquin] Allergy Rash Verified 09/20/23 11:39 tyramine Allergy Hypertensio Uncoded 09/20/23 11:39 n Review of Systems Sugical H&P ROS: Negative: Constitution and Yes, Specify: Psychiatric (depressed) Plan Diagnosis/Plan: Unchanged I have reviewed the history and physical and performed a pertinent physical examination on my patient. No changes have occurred unless specified. Time Spent With Patient Time: Total time managing care of this patient today ____ minutes.
--- NOTE | 2023-09-24 07:53 | HO.ECTPROC ---
ECT Procedure Note Diagnosis/Treatment Date of Service: 09/24/23 Diagnosis: Major Depressive Disorder Current Treatment Number: 1 Treatment: Series Interval Clinical Notes: depressed, though feeling a little better since admission. Says she's had ECT before and it was helpful and wants to proceed. Time: Total time managing care of this patient today ____ minutes. ECT Settings Device: THYMATRON DGx Electrode Placement: Right Unilateral Program/Pulse Width: 0.50 Energy Percent: 100 Seizure Duration By EEG (in seconds): 72 By Motor Observation (in seconds): 24 Medications Administration General Anesthetic: Etomidate (13) Muscle Relaxant: Succinylcholine (100) Ancillary Medications Analgesics: Torodol - Pre ECT Anti-emetics: Zofran - Pre ECT Miscillaneous Medications: Propofol (30) and Other (decadron 10mg and Benadryl 50mg) Airway Management Airway Management: Bag Mask Ventilation Treatment Recommendations No Changes Recommended: No change Electrode Placement: Right Unilateral Program/Pulse Width: 0.50 Energy Percent: 100 Notes: Pt had adequate seizure lasting about 72 seconds *Consider lowering to Energy % (?). Pt received Propofol 30mg to end seizure Pt had allergic reaction with flushing and hives on forhead, left side of face and chest Decadron 10mg and Benadryl 50mg given and reaction started to dissipate Discussed with anesthesiologist Dr. Hyman who recommends continuing with Etomidate and Succ next time, but waiting a bit each time to see if allergic reaction and having Decadron/Benadryl available if needed. Pt Tolerated Procedure w/o Issue: No
--- NOTE | 2023-09-24 10:04 | HO.PSYCHPN ---
Subjective Subjective Date of Service: 09/24/23 Reason For Visit: Severe Agitated Depression Subjective Notes: Conditional Voluntary Interim History: Reviewed with Dr. Escobedo. Active on unit. Social with peers. Pt reports feeling not good ; pt stated, I told my I won't be going back to him and he got upset. I told him I have to take care of myself . Pt denies SI/HI/VH/AH. She reports sleeping well last night. Medication Compliance: Yes Side effects from medications: No Attending Groups: Yes Review of Systems Constitutional: Reports as per HPI Eyes: Reports as per HPI Reports as per HPI Cardiovascular: Reports as per HPI Respiratory: Reports as per HPI Gastrointestinal: Reports as per HPI Genitourinary: Reports as per HPI Musculoskeletal: Reports as per HPI Skin/Breast: Reports as per HPI Reports as per HPI Psychiatric: Reports as per HPI Endocrine: Reports as per HPI Hematologic/Lymphatic: Reports as per HPI Allergic/Immunologic: Reports as per HPI Mental Status Exam Mental Status Exam Narrative: Pt is alert and oriented; behavior is cooperative, friendly and calm; dressed in casual attire; mood is described as not good ; eye contact appropriate; Speech is normal rate, volume and not pressured; thought process is organized; Thought content is on tx; denies SI/HI/VH/AH. Diagnostics Vital Signs (24Hr): Vital Signs - 24 hr 09/23/23 20:00 09/24/23 06:24 09/24/23 06:50 Temperature 97.6 F 97.3 F 97.2 F Pulse Rate 81 78 82 Respiratory Rate 16 16 16 Blood Pressure 124/60 124/59 L 134/61 Pulse Oximetry 96 98 97 Oxygen Delivery Method Room Air Room Air Oxygen Flow Rate 09/24/23 08:00 09/24/23 08:22 09/24/23 08:27 Temperature 97.5 F 98.5 F Pulse Rate 85 75 75 Respiratory Rate 16 16 18 Blood Pressure 143/73 H 169/76 H 157/75 H Pulse Oximetry 96 94 96 Oxygen Delivery Method Room Air Nasal Cannula with ETCO2 Nasal Cannula with ETCO2 Oxygen Flow Rate 2 2 09/24/23 08:32 09/24/23 08:47 09/24/23 09:00 Temperature 97.0 F Pulse Rate 75 87 87 Respiratory Rate 17 19 17 Blood Pressure 150/71 H 152/56 H 141/59 H Pulse Oximetry 97 99 95 Oxygen Delivery Method Nasal Cannula with ETCO2 Nasal Cannula with ETCO2 Room Air Oxygen Flow Rate 2 2 09/24/23 09:38 Temperature 97.5 F Pulse Rate 85 Respiratory Rate 16 Blood Pressure 143/73 H Pulse Oximetry 96 Oxygen Delivery Method Oxygen Flow Rate BMI result Body Mass Index 27.7 Labs 09/20/23 12:32 09/21/23 08:35 Medications Medications Current Medications Acetaminophen (Acetaminophen 325 Mg Tablet) 650 mg PO Q6H PRN PRN Reason: Headache/Pain Mild Scale (1-3) Last Admin: 09/20/23 20:23 Dose: 650 mg Al Hydroxide/Mg Hydroxide (Magnesium Hydrox/Alum Hydrox 30 Ml Oral.Susp) 30 ml PO Q6H PRN PRN Reason: Heartburn/Nausea Clonazepam (Clonazepam 0.5 Mg Tablet) 0.25 mg PO TID PRN PRN Reason: anxiety Last Admin: 09/23/23 00:31 Dose: 0.25 mg Magnesium Hydroxide (Milk Of Magnesia 30 Ml Oral.Susp) 30 ml PO DAILY PRN PRN Reason: Constipation Multi-Ingred Cream/Lotion/Oil/Oint (Mineral Oil/Petrolatum,White 106 Gm Tube) 1 appl TOPICAL BID [facility]; Protocol Last Admin: 09/23/23 21:59 Dose: 1 appl Pt Own (Phenelzine Sulfate 15 Mg Tablet ) 15 mg PO BEDTIME [facility] Last Admin: 09/23/23 21:57 Dose: 15 mg Pt Own (Phenelzine Sulfate 15 Mg Tablet ) 30 mg PO BID@0900,1300 [facility] Last Admin: 09/23/23 13:30 Dose: 30 mg Quetiapine Fumarate (Quetiapine Fumarate 25 Mg Tablet) 12.5 mg PO Q4H PRN PRN Reason: anxiety/restlessness Last Admin: 09/23/23 18:49 Dose: 12.5 mg Quetiapine Fumarate (Quetiapine Fumarate 50 Mg Tablet) 50 mg PO BEDTIME [facility] Last Admin: 09/23/23 21:57 Dose: 50 mg Quetiapine Fumarate (Quetiapine Fumarate 25 Mg Tablet) 12.5 mg PO BID@0830,1330 [facility] Last Admin: 09/23/23 13:31 Dose: 12.5 mg Allergies Allergies Allergy/AdvReac Type Severity Reaction Status Date / Time levofloxacin [From Levaquin] Allergy Rash Verified 09/20/23 11:39 tyramine Allergy Hypertensio Uncoded 09/20/23 11:39 n Assessment & Plan Assessment & Plan (1) Major depressive disorder, recurrent severe without psychotic features: Status: Acute Code(s): F33.2 - Major depressive disorder, recurrent severe without psychotic features (2) Generalized anxiety disorder: Status: Acute Code(s): F41.1 - Generalized anxiety disorder Plan Patient is admitted on conditional voluntary wishes to treatment hopeful that she be able to get better edge he will not. Able to take in information regarding both the biology of the situation in addition to dealing with current stressors in her life feeling overwhelmed and secure continue Seroquel for anxious depression get med consultation for stratification for ECT patient did tolerate ECT in previously with by being on MAO I patient requires current safety clarification where her marriage currently stands patient consider the other CT options at discharge. Discussed with patient ability when stable to transition to outpatient ECT treatment. 09/21/23 Discussed with anesthesia pt scheduled for ect had no difficulty with nardil and ect medications inc seroquel encourage relaxation strategies problem solving diff options if she chooses not to return right home no medical contraindications to ect 09/22/2023 Continue Nardil increase Seroquel ECT scheduled discussing supports post discharge if patient were not to return home 09/23: Continue current tx plan. Patient educated on: diagnosis, medication risk/benefits and therapeutic strategies Reason for continued inpatient stay Substantial Risk for: med/psych decompensation Time Spent With Patient Time: Total time managing care of this patient today _20___ minutes.
[2023-09-24] MEDS: QUEtiapine Fumarate 25 MG TABLET 12.5 MG PO ×3 (10:21→16:37)
[2023-09-24] MEDS: Mineral Oil/Petrolatum,White 106 GM Tube 1 APPL TOPICAL ×2 (10:28→21:14)
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
--- NOTE | 2023-09-24 10:45 | HO.POSTANES ---
Post Anesthesia Evaluation Post Anesthesia Evaluation Date of Service: 09/24/23 Vital Signs: Vital Signs Temp Pulse Resp BP Pulse Ox O2 Del Method O2 Flow Rate 09/24/23 09:38 97.5 F 85 16 143/73 H 96 09/24/23 09:00 97.0 F 87 17 141/59 H 95 Room Air 09/24/23 08:47 87 19 152/56 H 99 Nasal Cannula with ETCO2 2 09/24/23 08:32 75 17 150/71 H 97 Nasal Cannula with ETCO2 2 09/24/23 08:27 75 18 157/75 H 96 Nasal Cannula with ETCO2 2 09/24/23 08:22 98.5 F 75 16 169/76 H 94 Nasal Cannula with ETCO2 2 09/24/23 08:00 97.5 F 85 16 143/73 H 96 Room Air 09/24/23 06:50 97.2 F 82 16 134/61 97 Room Air 09/24/23 06:24 97.3 F 78 16 124/59 L 98 Anesthesia: General Mental Status: Awake Pain Control: Satisfactory Nausea/Vomiting: None Hydration: Adequate Anesthesia-Related Issues: No Anes. Related Issues
--- NOTE | 2023-09-24 13:21 | PC.NURSE ---
Per Dr. Escobedo, STAT COVID test from 09/20/2023 no longer needed at this time.
[2023-09-24] MEDS: clonazePAM 0.5 MG TABLET 0.25 MG PO ×2 (15:10→23:07)
[2023-09-24] MEDS: QUEtiapine Fumarate 50 MG TABLET PO (20:43)
[2023-09-25 07:30] VITALS: BP 121/56; PULSE 79; RESP 16; TEMP 36.4; O2SAT 96
[2023-09-25] MEDS: QUEtiapine Fumarate 25 MG TABLET 12.5 MG PO ×3 (09:30→20:32)
--- NOTE | 2023-09-25 09:31 | HO.POSTANES ---
Post Anesthesia Evaluation Post Anesthesia Evaluation Date of Service: 09/24/23 Vital Signs: Vital Signs Temp Pulse Resp BP Pulse Ox O2 Del Method 09/25/23 07:30 97.6 F 79 16 121/56 L 96 Room Air Anesthesia: General Mental Status: Awake Pain Control: Satisfactory Nausea/Vomiting: None Hydration: Adequate Anesthesia-Related Issues: No Anes. Related Issues
[2023-09-25] MEDS: Mineral Oil/Petrolatum,White 106 GM Tube 1 APPL TOPICAL ×2 (09:33→20:25)
[2023-09-25] MEDS: clonazePAM 0.5 MG TABLET 0.25 MG PO (10:42)
--- NOTE | 2023-09-25 17:07 | P.PNPSI_ITS ---
Subjective Subjective Date of Service: 09/25/23 Reason For Visit: Severe Agitated Depression Subjective Notes: Conditional Voluntary Healthcare Proxy: No Interim History: The patient has been more assertive somewhat more open to seeing if marital counseling could be beneficial. She not be returning home and will be staying with cousin. Mood depressed anxious ruminating hopeful regarding ECT Mental Status Exam Mental Status Exam Narrative: Pt is alert and oriented; behavior is cooperative, friendly and calm; dressed in casual attire; mood is described as not good ; anxious and ruminating eye contact appropriate; Speech is normal rate, volume and not pressured; thought process is organized; Thought content is on tx; denies SI/HI/VH/AH. Diagnostics Vital Signs (24Hr): Vital Signs - 24 hr 09/24/23 20:05 09/25/23 07:30 Temperature 97.5 F 97.6 F Pulse Rate 87 79 Respiratory Rate 18 16 Blood Pressure 128/58 L 121/56 L Pulse Oximetry 94 96 Oxygen Delivery Method Room Air Room Air BMI result Body Mass Index 27.7 Labs 09/20/23 12:32 09/21/23 08:35 Medications Medications Current Medications Acetaminophen (Acetaminophen 325 Mg Tablet) 650 mg PO Q6H PRN PRN Reason: Headache/Pain Mild Scale (1-3) Last Admin: 09/20/23 20:23 Dose: 650 mg Al Hydroxide/Mg Hydroxide (Magnesium Hydrox/Alum Hydrox 30 Ml Oral.Susp) 30 ml PO Q6H PRN PRN Reason: Heartburn/Nausea Clonazepam (Clonazepam 0.5 Mg Tablet) 0.25 mg PO TID PRN PRN Reason: anxiety Last Admin: 09/25/23 10:42 Dose: 0.25 mg Magnesium Hydroxide (Milk Of Magnesia 30 Ml Oral.Susp) 30 ml PO DAILY PRN PRN Reason: Constipation Multi-Ingred Cream/Lotion/Oil/Oint (Mineral Oil/Petrolatum,White 106 Gm Tube) 1 appl TOPICAL BID [facility]; Protocol Last Admin: 09/25/23 09:33 Dose: 1 appl Pt Own (Phenelzine Sulfate 15 Mg Tablet ) 15 mg PO BEDTIME [facility] Last Admin: 09/24/23 20:42 Dose: 15 mg Pt Own (Phenelzine Sulfate 15 Mg Tablet ) 30 mg PO BID@0900,1300 [facility] Last Admin: 09/25/23 13:19 Dose: 30 mg Quetiapine Fumarate (Quetiapine Fumarate 25 Mg Tablet) 12.5 mg PO Q4H PRN PRN Reason: anxiety/restlessness Last Admin: 09/24/23 16:37 Dose: 12.5 mg Quetiapine Fumarate (Quetiapine Fumarate 50 Mg Tablet) 50 mg PO BEDTIME [facility] Last Admin: 09/24/23 20:43 Dose: 50 mg Quetiapine Fumarate (Quetiapine Fumarate 25 Mg Tablet) 12.5 mg PO BID@0830,1330 [facility] Last Admin: 09/25/23 13:16 Dose: 12.5 mg Allergies Allergies Allergy/AdvReac Type Severity Reaction Status Date / Time levofloxacin [From Levaquin] Allergy Rash Verified 09/20/23 11:39 tyramine Allergy Hypertensio Uncoded 09/20/23 11:39 n Assessment & Plan Assessment & Plan (1) Major depressive disorder, recurrent severe without psychotic features: Status: Acute Code(s): F33.2 - Major depressive disorder, recurrent severe without psychotic features (2) Generalized anxiety disorder: Status: Acute Code(s): F41.1 - Generalized anxiety disorder Plan Patient is admitted on conditional voluntary wishes to treatment hopeful that she be able to get better edge he will not. Able to take in information regarding both the biology of the situation in addition to dealing with current stressors in her life feeling overwhelmed and secure continue Seroquel for anxious depression get med consultation for stratification for ECT patient did tolerate ECT in previously with by being on MAO I patient requires current safety clarification where her marriage currently stands patient consider the other CT options at discharge. Discussed with patient ability when stable to transition to outpatient ECT treatment. 09/21/23 Discussed with anesthesia pt scheduled for ect had no difficulty with nardil and ect medications inc seroquel encourage relaxation strategies problem solving diff options if she chooses not to return right home no medical contraindications to ect 09/22/2023 Continue Nardil increase Seroquel ECT scheduled discussing supports post discharge if patient were not to return home 09/23/23 ect scheduled for am cont nardil and seroquel discussed issues related to potential divorce 09/25/2023 Continue ECT patient try to imagine construct eventual safe for discharge plan dealing with significant marital relations history of recurrent severe depression more forthcoming regarding her struggles prescription restarted for rosacea Reason for continued inpatient stay Substantial Risk for: inability to function and rapid decompensation Time Spent With Patient Time: Total time managing care of this patient today ____ minutes.
[2023-09-25 20:00] VITALS: BP 126/59; PULSE 83; RESP 16; TEMP 36.4; O2SAT 96
[2023-09-25] MEDS: QUEtiapine Fumarate 50 MG TABLET PO (20:24)
[2023-09-25] MEDS: metroNIDAZOLE 0.75 % Gel 45 GM TUBE 1 APPL TOPICAL (20:45)
[2023-09-26] VITALS (11 sets, daily range): BP systolic 114–168; BP diastolic 56–85; PULSE 66–78; RESP 15–18; TEMP 35.9–36.9; O2SAT 94–99
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
--- NOTE | 2023-09-26 07:29 | MHC.SHP ---
Pre-Procedural Eval Section A - 24 Hr Update-Section A only Date of Service: 09/26/23 The patient is an INPATIENT: Yes Changes since office visit: Yes Changes in Medication and Yes Patient answered all questions; No Cold of Flu in the past 2 weeks and No New Medical Problems The patient has been examined within 24 hours of the surgical procedure. The History & Physical has been completed within 30 days and I have reviewed it.: Yes Section B - Complete if H&P > 30 days Chief Complaint: Severe Agitated Depression Allergies: Allergies Allergy/AdvReac Type Severity Reaction Status Date / Time levofloxacin [From Levaquin] Allergy Rash Verified 09/20/23 11:39 tyramine Allergy Hypertensio Uncoded 09/20/23 11:39 n Plan I have reviewed the history and physical and performed a pertinent physical examination on my patient. No changes have occurred unless specified. Time Spent With Patient Time: Total time managing care of this patient today ____ minutes.
--- NOTE | 2023-09-26 07:30 | HO.ECTPROC ---
ECT Procedure Note Diagnosis/Treatment Date of Service: 09/26/23 Diagnosis: Major Depressive Disorder Previous ECT Date: 09/24/23 Current Treatment Number: 2 Interval Clinical Notes: Pt depressed anxious flat co s/e with the last tx Time: Total time managing care of this patient today ____ minutes. ECT Settings Device: THYMATRON DGx Electrode Placement: Right Unilateral Program/Pulse Width: 0.50 Energy Percent: 60 Seizure Duration By EEG (in seconds): 59 Medications Administration General Anesthetic: Etomidate (16) Muscle Relaxant: Succinylcholine (100) Ancillary Medications Cardiovascular Medications: Glycopyrrolate (pre tx by anesthesia 0.1) Miscillaneous Medications: Propofol Airway Management Airway Management: Bag Mask Ventilation Treatment Recommendations No Changes Recommended: No change Notes: do not give zofran Pt Tolerated Procedure w/o Issue: Yes
--- NOTE | 2023-09-26 08:43 | HO.POSTANES ---
Post Anesthesia Evaluation Post Anesthesia Evaluation Date of Service: 09/26/23 Vital Signs: Vital Signs Temp Pulse Resp BP Pulse Ox O2 Del Method O2 Flow Rate 09/26/23 08:22 97 F 72 16 168/83 H 97 Room Air 09/26/23 08:07 71 15 159/83 H 99 Nasal Cannula with ETCO2 2 09/26/23 08:02 71 17 139/85 98 Nasal Cannula with ETCO2 2 09/26/23 07:57 69 16 132/78 97 Nasal Cannula with ETCO2 2 09/26/23 07:52 97 F 66 16 134/77 97 Nasal Cannula with ETCO2 2 09/26/23 06:24 96.7 F L 75 16 144/66 H 96 Room Air 09/26/23 06:01 97.3 F 71 16 134/64 95 09/26/23 03:33 98.4 F 78 16 123/56 L 94 Anesthesia: General Mental Status: Awake Pain Control: Satisfactory Nausea/Vomiting: None Hydration: Adequate Anesthesia-Related Issues: No Anes. Related Issues
[2023-09-26] MEDS: metroNIDAZOLE 0.75 % Gel 45 GM TUBE 1 APPL TOPICAL ×2 (09:06→21:23)
[2023-09-26] MEDS: QUEtiapine Fumarate 25 MG TABLET 12.5 MG PO ×3 (09:06→16:04)
[2023-09-26] MEDS: Mineral Oil/Petrolatum,White 106 GM Tube 1 APPL TOPICAL ×2 (09:09→21:21)
--- NOTE | 2023-09-26 09:42 | HO.PSYCHPN ---
Subjective Subjective Date of Service: 09/26/23 Reason For Visit: Severe Agitated Depression Subjective Notes: Conditional Voluntary Healthcare Proxy: No Guardianship: No Interim History: Pt rolled out of bed the other nite did not seem to be having problems ambulating. Patient is aware Nardil can lower her blood pressure and to stay hydrated this is a chronic issue she has manage. The patient met with pastoral counseling in this seem to be helpful ECT completed 2. We discussed potential transition to outpatient treatment tolerating ECT without difficulty Medication Compliance: Yes Mental Status Exam Mental Status Exam Narrative: Pt is alert and oriented; behavior is cooperative, friendly and calm; dressed in casual attire; mood is described as ok ; anxious and ruminating regarding her marriage question of divorce question of reconciliation eye contact appropriate; Speech is normal rate, volume and not pressured; thought process is organized; Thought content is on tx; denies SI/HI/VH/AH. Diagnostics Vital Signs (24Hr): Vital Signs - 24 hr 09/25/23 20:00 09/26/23 03:33 09/26/23 06:01 Temperature 97.6 F 98.4 F 97.3 F Pulse Rate 83 78 71 Respiratory Rate 16 16 16 Blood Pressure 126/59 L 123/56 L 134/64 Pulse Oximetry 96 94 95 Oxygen Delivery Method Room Air Oxygen Flow Rate 09/26/23 06:24 09/26/23 07:52 09/26/23 07:57 Temperature 96.7 F L 97 F Pulse Rate 75 66 69 Respiratory Rate 16 16 16 Blood Pressure 144/66 H 134/77 132/78 Pulse Oximetry 96 97 97 Oxygen Delivery Method Room Air Nasal Cannula with ETCO2 Nasal Cannula with ETCO2 Oxygen Flow Rate 2 2 09/26/23 08:00 09/26/23 08:02 09/26/23 08:07 Temperature 97.5 F Pulse Rate 77 71 71 Respiratory Rate 18 17 15 Blood Pressure 147/71 H 139/85 159/83 H Pulse Oximetry 98 98 99 Oxygen Delivery Method Room Air Nasal Cannula with ETCO2 Nasal Cannula with ETCO2 Oxygen Flow Rate 2 2 09/26/23 08:22 09/26/23 09:28 Temperature 97 F 97.5 F Pulse Rate 72 77 Respiratory Rate 16 Blood Pressure 168/83 H 147/71 H Pulse Oximetry 97 98 Oxygen Delivery Method Room Air Oxygen Flow Rate BMI result Body Mass Index 27.7 Labs 09/20/23 12:32 09/21/23 08:35 Medications Medications Current Medications Acetaminophen (Acetaminophen 325 Mg Tablet) 650 mg PO Q6H PRN PRN Reason: Headache/Pain Mild Scale (1-3) Last Admin: 09/20/23 20:23 Dose: 650 mg Al Hydroxide/Mg Hydroxide (Magnesium Hydrox/Alum Hydrox 30 Ml Oral.Susp) 30 ml PO Q6H PRN PRN Reason: Heartburn/Nausea Clonazepam (Clonazepam 0.5 Mg Tablet) 0.25 mg PO TID PRN PRN Reason: anxiety Last Admin: 09/25/23 10:42 Dose: 0.25 mg Magnesium Hydroxide (Milk Of Magnesia 30 Ml Oral.Susp) 30 ml PO DAILY PRN PRN Reason: Constipation Metronidazole (Metronidazole 0.75 % Gel 45 Gm Tube) 1 appl TOPICAL BID [facility] Last Admin: 09/26/23 09:06 Dose: 1 appl Multi-Ingred Cream/Lotion/Oil/Oint (Mineral Oil/Petrolatum,White 106 Gm Tube) 1 appl TOPICAL BID [facility]; Protocol Last Admin: 09/26/23 09:09 Dose: 1 appl Pt Own (Phenelzine Sulfate 15 Mg Tablet ) 15 mg PO BEDTIME [facility] Last Admin: 09/25/23 20:25 Dose: 15 mg Pt Own (Phenelzine Sulfate 15 Mg Tablet ) 30 mg PO BID@0900,1300 [facility] Last Admin: 09/26/23 09:06 Dose: 30 mg Quetiapine Fumarate (Quetiapine Fumarate 25 Mg Tablet) 12.5 mg PO Q4H PRN PRN Reason: anxiety/restlessness Last Admin: 09/25/23 20:32 Dose: 12.5 mg Quetiapine Fumarate (Quetiapine Fumarate 50 Mg Tablet) 50 mg PO BEDTIME [facility] Last Admin: 09/25/23 20:24 Dose: 50 mg Quetiapine Fumarate (Quetiapine Fumarate 25 Mg Tablet) 12.5 mg PO BID@0830,1330 [facility] Last Admin: 09/26/23 09:06 Dose: 12.5 mg Allergies Allergies Allergy/AdvReac Type Severity Reaction Status Date / Time levofloxacin [From Levaquin] Allergy Rash Verified 09/20/23 11:39 tyramine Allergy Hypertensio Uncoded 09/20/23 11:39 n Assessment & Plan Assessment & Plan (1) Major depressive disorder, recurrent severe without psychotic features: Status: Acute Code(s): F33.2 - Major depressive disorder, recurrent severe without psychotic features (2) Generalized anxiety disorder: Status: Acute Code(s): F41.1 - Generalized anxiety disorder Plan Patient is admitted on conditional voluntary wishes to treatment hopeful that she be able to get better edge he will not. Able to take in information regarding both the biology of the situation in addition to dealing with current stressors in her life feeling overwhelmed and secure continue Seroquel for anxious depression get med consultation for stratification for ECT patient did tolerate ECT in previously with by being on MAO I patient requires current safety clarification where her marriage currently stands patient consider the other CT options at discharge. Discussed with patient ability when stable to transition to outpatient ECT treatment. 09/21/23 Discussed with anesthesia pt scheduled for ect had no difficulty with nardil and ect medications inc seroquel encourage relaxation strategies problem solving diff options if she chooses not to return right home no medical contraindications to ect 09/22/2023 Continue Nardil increase Seroquel ECT scheduled discussing supports post discharge if patient were not to return home 09/23: Continue current tx plan. 09/26/2023 Continue ECT low-dose Seroquel for anxious depression Patient educated on: diagnosis, medication risk/benefits, ECT and therapeutic strategies Informed Consent: understands Reason for continued inpatient stay Substantial Risk for: inability to function and rapid decompensation Time Spent With Patient Time: Total time managing care of this patient today ____ minutes.
[2023-09-26] MEDS: Acetaminophen 325 MG TABLET 650 MG PO ×2 (13:28→21:26)
[2023-09-26] MEDS: QUEtiapine Fumarate 50 MG TABLET PO (21:21)
[2023-09-27] VITALS (7 sets, daily range): BP systolic 106–126; BP diastolic 55–67; PULSE 67–79; RESP 16–18; TEMP 36.3–36.7; O2SAT 94–97; BMI 28.1
--- NOTE | 2023-09-27 08:06 | HO.POSTANES ---
Post Anesthesia Evaluation Post Anesthesia Evaluation Date of Service: 09/26/23 Vital Signs: Vital Signs Temp Pulse Resp BP Pulse Ox O2 Del Method 09/27/23 07:32 97.4 F 70 18 110/56 L 94 Room Air Anesthesia: General Mental Status: Awake Pain Control: Satisfactory Hydration: Adequate Anesthesia-Related Issues: No Anes. Related Issues
[2023-09-27] MEDS: QUEtiapine Fumarate 25 MG TABLET 12.5 MG PO (09:12)
--- NOTE | 2023-09-27 11:20 | PC.NURSE ---
Yaneth's morning vitals were 110/56, complained of dizziness at [id number], BP was taken75/41, pt wa told to remain seated and hydrated, rechecked after 20 minutes an MD notified. orthos will be collected and seroquel discontinued.
--- NOTE | 2023-09-27 12:40 | HO.PSYCHPN ---
Subjective Subjective Date of Service: 09/27/23 Reason For Visit: Severe Agitated Depression Subjective Notes: Conditional Voluntary Interim History: Patient seen psychiatric follow-up patient trying to deal with issues related to her . Some issues with ambulation PT consult order was mildly hypotensive this morning given fluid Seroquel discontinued patient later alert cooperative Mental Status Exam Mental Status Exam Narrative: Pt is alert and oriented; behavior is cooperative, friendly and calm; dressed in casual attire; mood is described as ok ; anxious and ruminating regarding her marriage question of divorce question of reconciliation eye contact appropriate; Speech is normal rate, volume and not pressured; thought process is organized; Thought content is on treatment how she should handle discharge transition when feeling better; denies SI/HI/VH/AH. Alert no cognitive complaints Diagnostics Vital Signs (24Hr): Vital Signs - 24 hr 09/26/23 20:00 09/27/23 07:32 09/27/23 11:41 Temperature 97.3 F 97.4 F Pulse Rate 70 70 67 Respiratory Rate 16 18 Blood Pressure 114/56 L 110/56 L 126/60 Pulse Oximetry 98 94 Oxygen Delivery Method Room Air Room Air 09/27/23 11:42 09/27/23 11:42 Temperature Pulse Rate 76 79 Respiratory Rate Blood Pressure 121/59 L 126/67 Pulse Oximetry Oxygen Delivery Method BMI result Body Mass Index 28.1 Labs 09/20/23 12:32 09/21/23 08:35 Medications Medications Current Medications Acetaminophen (Acetaminophen 325 Mg Tablet) 650 mg PO Q6H PRN PRN Reason: Headache/Pain Mild Scale (1-3) Last Admin: 09/26/23 21:26 Dose: 650 mg Al Hydroxide/Mg Hydroxide (Magnesium Hydrox/Alum Hydrox 30 Ml Oral.Susp) 30 ml PO Q6H PRN PRN Reason: Heartburn/Nausea Clonazepam (Clonazepam 0.5 Mg Tablet) 0.25 mg PO TID PRN PRN Reason: anxiety Last Admin: 09/25/23 10:42 Dose: 0.25 mg Magnesium Hydroxide (Milk Of Magnesia 30 Ml Oral.Susp) 30 ml PO DAILY PRN PRN Reason: Constipation Metronidazole (Metronidazole 0.75 % Gel 45 Gm Tube) 1 appl TOPICAL BID [facility] Last Admin: 09/27/23 09:54 Dose: Not Given Multi-Ingred Cream/Lotion/Oil/Oint (Mineral Oil/Petrolatum,White 106 Gm Tube) 1 appl TOPICAL BID [facility]; Protocol Last Admin: 09/27/23 09:54 Dose: Not Given Pt Own (Phenelzine Sulfate 15 Mg Tablet ) 15 mg PO BEDTIME [facility] Last Admin: 09/26/23 21:22 Dose: 15 mg Pt Own (Phenelzine Sulfate 15 Mg Tablet ) 30 mg PO BID@0900,1300 [facility] Last Admin: 09/27/23 09:11 Dose: 30 mg Quetiapine Fumarate (Quetiapine Fumarate 25 Mg Tablet) 12.5 mg PO Q4H PRN PRN Reason: anxiety/restlessness Last Admin: 09/26/23 16:04 Dose: 12.5 mg Quetiapine Fumarate (Quetiapine Fumarate 25 Mg Tablet) 25 mg PO BEDTIME [facility] Allergies Allergies Allergy/AdvReac Type Severity Reaction Status Date / Time levofloxacin [From Levaquin] Allergy Rash Verified 09/20/23 11:39 tyramine Allergy Hypertensio Uncoded 09/20/23 11:39 n Assessment & Plan Assessment & Plan (1) Major depressive disorder, recurrent severe without psychotic features: Status: Acute Code(s): F33.2 - Major depressive disorder, recurrent severe without psychotic features (2) Generalized anxiety disorder: Status: Acute Code(s): F41.1 - Generalized anxiety disorder Plan Patient is admitted on conditional voluntary wishes to treatment hopeful that she be able to get better edge he will not. Able to take in information regarding both the biology of the situation in addition to dealing with current stressors in her life feeling overwhelmed and secure continue Seroquel for anxious depression get med consultation for stratification for ECT patient did tolerate ECT in previously with by being on MAO I patient requires current safety clarification where her marriage currently stands patient consider the other CT options at discharge. Discussed with patient ability when stable to transition to outpatient ECT treatment. 09/21/23 Discussed with anesthesia pt scheduled for ect had no difficulty with nardil and ect medications inc seroquel encourage relaxation strategies problem solving diff options if she chooses not to return right home no medical contraindications to ect 09/22/2023 Continue Nardil increase Seroquel ECT scheduled discussing supports post discharge if patient were not to return home 09/23: Continue current tx plan. 09/26/2023 Continue ECT low-dose Seroquel for anxious depression 09/27/20[address] 3. Discussed option of outpatient transition when stable physical therapy consult for ambulation Reason for continued inpatient stay Substantial Risk for: inability to function and rapid decompensation Time Spent With Patient Time: Total time managing care of this patient today ____ minutes.
[2023-09-27] MEDS: QUEtiapine Fumarate 25 MG TABLET PO (22:09)
[2023-09-28] VITALS (11 sets, daily range): BP systolic 115–178; BP diastolic 56–90; PULSE 62–96; RESP 16–19; TEMP 36.1–36.7; O2SAT 94–97
--- NOTE | 2023-09-28 08:49 | MHC.SHP ---
Pre-Procedural Eval Section A - 24 Hr Update-Section A only Date of Service: 09/28/23 The patient is an INPATIENT: Yes Changes since office visit: Yes New Medical Problems and Yes Patient answered all questions; No Cold of Flu in the past 2 weeks and No Changes in Medication The patient has been examined within 24 hours of the surgical procedure. The History & Physical has been completed within 30 days and I have reviewed it.: Yes Section B - Complete if H&P > 30 days Chief Complaint: Severe Agitated Depression Allergies: Allergies Allergy/AdvReac Type Severity Reaction Status Date / Time levofloxacin [From Levaquin] Allergy Rash Verified 09/20/23 11:39 tyramine Allergy Hypertensio Uncoded 09/20/23 11:39 n Plan I have reviewed the history and physical and performed a pertinent physical examination on my patient. No changes have occurred unless specified. Time Spent With Patient Time: Total time managing care of this patient today ____ minutes.
--- NOTE | 2023-09-28 08:50 | HO.ECTPROC ---
ECT Procedure Note Diagnosis/Treatment Date of Service: 09/28/23 Diagnosis: Major Depressive Disorder Previous ECT Date: 09/26/23 Current Treatment Number: 3 Treatment: Series Interval Clinical Notes: pt feeling better no self harm less ruminating using walker secondary hip pain on pending operative hip Time: Total time managing care of this patient today ____ minutes. ECT Settings Device: THYMATRON DGx Electrode Placement: Right Unilateral Program/Pulse Width: 0.50 Energy Percent: 55 Seizure Duration By EEG (in seconds): 51 Medications Administration General Anesthetic: Etomidate (12) Muscle Relaxant: Succinylcholine (100) Ancillary Medications Miscillaneous Medications: Propofol (30) Airway Management Airway Management: Bag Mask Ventilation Treatment Recommendations No Changes Recommended: No change Pt Tolerated Procedure w/o Issue: Yes
--- NOTE | 2023-09-28 09:03 | PC.NURSE ---
IVF order requested from aneteresita at 0815
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
--- NOTE | 2023-09-28 16:22 | P.PNPSI_ITS ---
Subjective Subjective Date of Service: 09/28/23 Reason For Visit: Severe Agitated Depression Subjective Notes: Conditional Voluntary Interim History: Patient tolerating ECT improved mood seems to be backing away from from who has been reaching out to the patient expressing remorse pros cons of returning home versus spending some time with her cousin reviewed Patient is using a rolling walker Medication Compliance: Yes Mental Status Exam Mental Status Exam Narrative: Pt is alert and oriented; behavior is cooperative, friendly and calm; dressed in casual attire; mood improved Appears less anxious. eye contact appropriate; Speech is normal rate, volume and not pressured; thought process is organized; Thought content is on returning home to live with her and improving marriage. Denies SI/HI/VH/AH. Some short-term memory appropriate post ECT Diagnostics Vital Signs (24Hr): Vital Signs - 24 hr 09/27/23 16:55 09/27/23 16:56 09/27/23 16:57 Temperature Pulse Rate 70 72 76 Respiratory Rate Blood Pressure 126/60 114/55 L 106/57 L Pulse Oximetry Oxygen Delivery Method Oxygen Flow Rate 09/27/23 20:00 09/28/23 08:11 09/28/23 09:52 Temperature 98.1 F 97.2 F 97.6 F Pulse Rate 72 77 62 Respiratory Rate 16 16 16 Blood Pressure 112/55 L 134/72 139/61 Pulse Oximetry 97 94 95 Oxygen Delivery Method Room Air Room Air Nasal Cannula with ETCO2 Oxygen Flow Rate 2 09/28/23 09:57 09/28/23 10:02 09/28/23 10:07 Temperature Pulse Rate 70 87 74 Respiratory Rate 19 19 19 Blood Pressure 130/56 L 155/90 H 162/73 H Pulse Oximetry 96 95 95 Oxygen Delivery Method Nasal Cannula with ETCO2 Room Air Room Air Oxygen Flow Rate 2 09/28/23 10:22 09/28/23 10:51 09/28/23 10:51 Temperature 98.1 F 97.5 F Pulse Rate 88 75 75 Respiratory Rate 17 18 Blood Pressure 154/74 H 178/78 H 178/78 H Pulse Oximetry 96 97 Oxygen Delivery Method Room Air Room Air Oxygen Flow Rate 09/28/23 10:53 09/28/23 10:55 09/28/23 11:01 Temperature 97.5 F Pulse Rate 82 96 75 Respiratory Rate 18 Blood Pressure 173/79 H 155/87 H 178/78 H Pulse Oximetry 97 Oxygen Delivery Method Oxygen Flow Rate BMI result Body Mass Index 28.1 Labs 09/20/23 12:32 09/21/23 08:35 Medications Medications Current Medications Acetaminophen (Acetaminophen 325 Mg Tablet) 650 mg PO Q6H PRN PRN Reason: Headache/Pain Mild Scale (1-3) Last Admin: 09/26/23 21:26 Dose: 650 mg Al Hydroxide/Mg Hydroxide (Magnesium Hydrox/Alum Hydrox 30 Ml Oral.Susp) 30 ml PO Q6H PRN PRN Reason: Heartburn/Nausea Magnesium Hydroxide (Milk Of Magnesia 30 Ml Oral.Susp) 30 ml PO DAILY PRN PRN Reason: Constipation Metronidazole (Metronidazole 0.75 % Gel 45 Gm Tube) 1 appl TOPICAL BID [facility] Last Admin: 09/28/23 10:58 Dose: Not Given Multi-Ingred Cream/Lotion/Oil/Oint (Mineral Oil/Petrolatum,White 106 Gm Tube) 1 appl TOPICAL BID [facility]; Protocol Last Admin: 09/28/23 10:58 Dose: Not Given Pt Own (Phenelzine Sulfate 15 Mg Tablet ) 15 mg PO BEDTIME [facility] Last Admin: 09/27/23 22:09 Dose: 15 mg Pt Own (Phenelzine Sulfate 15 Mg Tablet ) 30 mg PO BID@0900,1300 [facility] Last Admin: 09/28/23 13:26 Dose: 30 mg Quetiapine Fumarate (Quetiapine Fumarate 25 Mg Tablet) 12.5 mg PO Q4H PRN PRN Reason: anxiety/restlessness Last Admin: 09/26/23 16:04 Dose: 12.5 mg Quetiapine Fumarate (Quetiapine Fumarate 25 Mg Tablet) 25 mg PO BEDTIME [facility] Last Admin: 09/27/23 22:09 Dose: 25 mg Allergies Allergies Allergy/AdvReac Type Severity Reaction Status Date / Time levofloxacin [From Levaquin] Allergy Rash Verified 09/20/23 11:39 tyramine Allergy Hypertensio Uncoded 09/20/23 11:39 n Assessment & Plan Assessment & Plan (1) Major depressive disorder, recurrent severe without psychotic features: Status: Acute Code(s): F33.2 - Major depressive disorder, recurrent severe without psychotic features (2) Generalized anxiety disorder: Status: Acute Code(s): F41.1 - Generalized anxiety disorder Plan Patient is admitted on conditional voluntary wishes to treatment hopeful that she be able to get better edge he will not. Able to take in information regarding both the biology of the situation in addition to dealing with current stressors in her life feeling overwhelmed and secure continue Seroquel for anxious depression get med consultation for stratification for ECT patient did tolerate ECT in previously with by being on MAO I patient requires current safety clarification where her marriage currently stands patient consider the other CT options at discharge. Discussed with patient ability when stable to transition to outpatient ECT treatment. 09/21/23 Discussed with anesthesia pt scheduled for ect had no difficulty with nardil and ect medications inc seroquel encourage relaxation strategies problem solving diff options if she chooses not to return right home no medical contraindications to ect 09/22/2023 Continue Nardil increase Seroquel ECT scheduled discussing supports post discharge if patient were not to return home 09/23: Continue current tx plan. 09/26/2023 Continue ECT low-dose Seroquel for anxious depression 09/27/2023 [address] 3. Discussed option of outpatient transition when stable physical therapy consult for ambulation 09/1923 Continue ECT discharge planning patient appears to be leaning toward going home with her who is she expressing remorse and willing to do marital counseling with backup plan of staying with her cousin doing better with rolling walker PT consult Reason for continued inpatient stay Substantial Risk for: inability to function and rapid decompensation Time Spent With Patient Time: Total time managing care of this patient today ____ minutes.
[2023-09-28] MEDS: QUEtiapine Fumarate 25 MG TABLET PO (21:14)
[2023-09-29] MEDS: Acetaminophen 325 MG TABLET 650 MG PO (00:19)
[2023-09-29 08:16] VITALS: BP 118/56; PULSE 77
--- NOTE | 2023-09-29 08:16 | HO.PSYCHPN ---
Subjective Subjective Date of Service: 09/29/23 Reason For Visit: Severe Agitated Depression Interim History: met with patient. Discussed with Nursing. More social. Less depressed. Tolerating ECT. Reports feeling much better and looking forward to discharge early next week. Will be getting ECT on Sunday. Reports has agreed to couples therapy and also individual therapy and feeling very supported by this. Was asking about her potentially visiting prior to discharge, which patient may consider. Medication Compliance: Yes Side effects from medications: No Attending Groups: Yes Review of Systems Review of Systems Nothing acute Mental Status Exam Mental Status Exam Narrative: Pt is alert and oriented; behavior is cooperative, friendly and calm; dressed in casual attire; mood is described as ok ; Appears less anxious. eye contact appropriate; Speech is normal rate, volume and not pressured; thought process is organized; Thought content is on treatment, Discharge planning and marriage. Denies SI/HI/VH/AH. Alert no cognitive complaints Diagnostics Vital Signs (24Hr): Vital Signs - 24 hr 09/28/23 09:52 09/28/23 09:57 09/28/23 10:02 Temperature 97.6 F Pulse Rate 62 70 87 Respiratory Rate 16 19 19 Blood Pressure 139/61 130/56 L 155/90 H Pulse Oximetry 95 96 95 Oxygen Delivery Method Nasal Cannula with ETCO2 Nasal Cannula with ETCO2 Room Air Oxygen Flow Rate 2 2 09/28/23 10:07 09/28/23 10:22 09/28/23 10:51 Temperature 98.1 F Pulse Rate 74 88 75 Respiratory Rate 19 17 Blood Pressure 162/73 H 154/74 H 178/78 H Pulse Oximetry 95 96 Oxygen Delivery Method Room Air Room Air Oxygen Flow Rate 09/28/23 10:51 09/28/23 10:53 09/28/23 10:55 Temperature 97.5 F Pulse Rate 75 82 96 Respiratory Rate 18 Blood Pressure 178/78 H 173/79 H 155/87 H Pulse Oximetry 97 Oxygen Delivery Method Room Air Oxygen Flow Rate 09/28/23 11:01 09/28/23 20:00 Temperature 97.5 F 97.0 F Pulse Rate 75 90 Respiratory Rate 18 16 Blood Pressure 178/78 H 115/58 L Pulse Oximetry 97 95 Oxygen Delivery Method Room Air Oxygen Flow Rate BMI result Body Mass Index 28.1 Labs 09/20/23 12:32 09/21/23 08:35 Medications Medications Current Medications Acetaminophen (Acetaminophen 325 Mg Tablet) 650 mg PO Q6H PRN PRN Reason: Headache/Pain Mild Scale (1-3) Last Admin: 09/29/23 00:19 Dose: 650 mg Al Hydroxide/Mg Hydroxide (Magnesium Hydrox/Alum Hydrox 30 Ml Oral.Susp) 30 ml PO Q6H PRN PRN Reason: Heartburn/Nausea Magnesium Hydroxide (Milk Of Magnesia 30 Ml Oral.Susp) 30 ml PO DAILY PRN PRN Reason: Constipation Metronidazole (Metronidazole 0.75 % Gel 45 Gm Tube) 1 appl TOPICAL BID [facility] Last Admin: 09/28/23 21:16 Dose: Not Given Multi-Ingred Cream/Lotion/Oil/Oint (Mineral Oil/Petrolatum,White 106 Gm Tube) 1 appl TOPICAL BID [facility]; Protocol Last Admin: 09/28/23 21:16 Dose: Not Given Pt Own (Phenelzine Sulfate 15 Mg Tablet ) 15 mg PO BEDTIME [facility] Last Admin: 09/28/23 21:13 Dose: 15 mg Pt Own (Phenelzine Sulfate 15 Mg Tablet ) 30 mg PO BID@0900,1300 [facility] Last Admin: 09/28/23 13:26 Dose: 30 mg Quetiapine Fumarate (Quetiapine Fumarate 25 Mg Tablet) 12.5 mg PO Q4H PRN PRN Reason: anxiety/restlessness Last Admin: 09/26/23 16:04 Dose: 12.5 mg Quetiapine Fumarate (Quetiapine Fumarate 25 Mg Tablet) 25 mg PO BEDTIME [facility] Last Admin: 09/28/23 21:14 Dose: 25 mg Allergies Allergies Allergy/AdvReac Type Severity Reaction Status Date / Time levofloxacin [From Levaquin] Allergy Rash Verified 09/20/23 11:39 tyramine Allergy Hypertensio Uncoded 09/20/23 11:39 n Assessment & Plan Assessment & Plan (1) Major depressive disorder, recurrent severe without psychotic features: Status: Acute Code(s): F33.2 - Major depressive disorder, recurrent severe without psychotic features (2) Generalized anxiety disorder: Status: Acute Code(s): F41.1 - Generalized anxiety disorder Plan Patient is admitted on conditional voluntary wishes to treatment hopeful that she be able to get better edge he will not. Able to take in information regarding both the biology of the situation in addition to dealing with current stressors in her life feeling overwhelmed and secure continue Seroquel for anxious depression get med consultation for stratification for ECT patient did tolerate ECT in previously with by being on MAO I patient requires current safety clarification where her marriage currently stands patient consider the other CT options at discharge. Discussed with patient ability when stable to transition to outpatient ECT treatment. 09/21/23 Discussed with anesthesia pt scheduled for ect had no difficulty with nardil and ect medications inc seroquel encourage relaxation strategies problem solving diff options if she chooses not to return right home no medical contraindications to ect 09/22/2023 Continue Nardil increase Seroquel ECT scheduled discussing supports post discharge if patient were not to return home 09/23: Continue current tx plan. 09/26/2023 Continue ECT low-dose Seroquel for anxious depression 09/27/2023 [address] 3. Discussed option of outpatient transition when stable physical therapy consult for ambulation 09/29/2023: No changes Reason for continued inpatient stay Substantial Risk for: rapid decompensation Time Spent With Patient Time: Total time managing care of this patient today ____ minutes.
[2023-09-29 08:19] VITALS: BP 117/64; PULSE 89; RESP 18; TEMP 36.3; O2SAT 95
[2023-09-29 08:56] VITALS: BP 114/64; PULSE 98
[2023-09-29 19:59] VITALS: BP 114/58; PULSE 76; RESP 18; TEMP 36.2; O2SAT 96
[2023-09-29] MEDS: QUEtiapine Fumarate 25 MG TABLET PO (20:39)
[2023-09-30 07:30] VITALS: BP 115/56; PULSE 78; RESP 20; TEMP 36.5; O2SAT 93
--- NOTE | 2023-09-30 10:30 | HO.PSYCHPN ---
Subjective Subjective Date of Service: 09/30/23 Reason For Visit: Severe Agitated Depression Interim History: Overall eager for discharge this week- more social, less depressed. Will be getting ECT tomorrow. Still feeling positive that has agreed to couples therapy and also individual therapy and feeling very supported by this. Was asking about her potentially visiting prior to discharge, but also feels embarrassed about being depressed (now feeling better) and being admitted. Discussed stigma. Medication Compliance: Yes Side effects from medications: No Attending Groups: Yes Review of Systems Acute medical concerns: No Review of Systems Review of Systems Nothing acute Mental Status Exam Mental Status Exam Narrative: Pt is alert and oriented; behavior is cooperative, friendly and calm; dressed in casual attire; mood is described as ok ; Appears less anxious. eye contact appropriate; Speech is normal rate, volume and not pressured; thought process is organized; Thought content is on treatment, Discharge planning and marriage. Denies SI/HI/VH/AH. Alert no cognitive complaints Diagnostics Vital Signs (24Hr): Vital Signs - 24 hr 09/29/23 19:59 09/30/23 07:30 Temperature 97.1 F 97.7 F Pulse Rate 76 78 Respiratory Rate 18 20 Blood Pressure 114/58 L 115/56 L Pulse Oximetry 96 93 Oxygen Delivery Method Room Air Room Air BMI result Body Mass Index 28.1 Labs 09/20/23 12:32 09/21/23 08:35 Medications Medications Current Medications Acetaminophen (Acetaminophen 325 Mg Tablet) 650 mg PO Q6H PRN PRN Reason: Headache/Pain Mild Scale (1-3) Last Admin: 09/29/23 00:19 Dose: 650 mg Al Hydroxide/Mg Hydroxide (Magnesium Hydrox/Alum Hydrox 30 Ml Oral.Susp) 30 ml PO Q6H PRN PRN Reason: Heartburn/Nausea Magnesium Hydroxide (Milk Of Magnesia 30 Ml Oral.Susp) 30 ml PO DAILY PRN PRN Reason: Constipation Metronidazole (Metronidazole 0.75 % Gel 45 Gm Tube) 1 appl TOPICAL BID [facility] Last Admin: 09/30/23 09:05 Dose: Not Given Multi-Ingred Cream/Lotion/Oil/Oint (Mineral Oil/Petrolatum,White 106 Gm Tube) 1 appl TOPICAL BID [facility]; Protocol Last Admin: 09/30/23 09:05 Dose: Not Given Pt Own (Phenelzine Sulfate 15 Mg Tablet ) 15 mg PO BEDTIME [facility] Last Admin: 09/29/23 20:39 Dose: 15 mg Pt Own (Phenelzine Sulfate 15 Mg Tablet ) 30 mg PO BID@0900,1300 [facility] Last Admin: 09/30/23 08:51 Dose: 30 mg Quetiapine Fumarate (Quetiapine Fumarate 25 Mg Tablet) 12.5 mg PO Q4H PRN PRN Reason: anxiety/restlessness Last Admin: 09/26/23 16:04 Dose: 12.5 mg Quetiapine Fumarate (Quetiapine Fumarate 25 Mg Tablet) 25 mg PO BEDTIME [facility] Last Admin: 09/29/23 20:39 Dose: 25 mg Allergies Allergies Allergy/AdvReac Type Severity Reaction Status Date / Time levofloxacin [From Levaquin] Allergy Rash Verified 09/20/23 11:39 tyramine Allergy Hypertensio Uncoded 09/20/23 11:39 n Assessment & Plan Assessment & Plan (1) Major depressive disorder, recurrent severe without psychotic features: Status: Acute Code(s): F33.2 - Major depressive disorder, recurrent severe without psychotic features (2) Generalized anxiety disorder: Status: Acute Code(s): F41.1 - Generalized anxiety disorder Plan Patient is admitted on conditional voluntary wishes to treatment hopeful that she be able to get better edge he will not. Able to take in information regarding both the biology of the situation in addition to dealing with current stressors in her life feeling overwhelmed and secure continue Seroquel for anxious depression get med consultation for stratification for ECT patient did tolerate ECT in previously with by being on MAO I patient requires current safety clarification where her marriage currently stands patient consider the other CT options at discharge. Discussed with patient ability when stable to transition to outpatient ECT treatment. 09/21/23 Discussed with anesthesia pt scheduled for ect had no difficulty with nardil and ect medications inc seroquel encourage relaxation strategies problem solving diff options if she chooses not to return right home no medical contraindications to ect 09/22/2023 Continue Nardil increase Seroquel ECT scheduled discussing supports post discharge if patient were not to return home 09/23: Continue current tx plan. 09/26/2023 Continue ECT low-dose Seroquel for anxious depression 09/27/2023 [address] ECT 3. Discussed option of outpatient transition when stable physical therapy consult for ambulation 09/29/2023: No changes 09/29: no changes. ECT tomorrow Reason for continued inpatient stay Substantial Risk for: rapid decompensation Time Spent With Patient Time: Total time managing care of this patient today ____ minutes.
[2023-09-30 20:00] VITALS: BP 101/60; PULSE 80; RESP 16; TEMP 36.3; O2SAT 95
[2023-09-30] MEDS: QUEtiapine Fumarate 25 MG TABLET PO (20:36)
[2023-09-30] MEDS: Acetaminophen 325 MG TABLET 650 MG PO (20:36)
[2023-10-01] VITALS (10 sets, daily range): BP systolic 114–140; BP diastolic 55–64; PULSE 60–88; RESP 16–18; TEMP 35.8–36.4; O2SAT 94–99
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
[2023-10-01] MEDS: Lactated Ringers 1,000 ML 50 ML IVCONT (06:54)
--- NOTE | 2023-10-01 07:07 | MHC.SHP ---
Pre-Procedural Eval Section A - 24 Hr Update-Section A only Date of Service: 10/01/23 The patient is an INPATIENT: No Changes since office visit: No Cold of Flu in the past 2 weeks, No New Medical Problems, No Changes in Medication and No Patient answered all questions The patient has been examined within 24 hours of the surgical procedure. The History & Physical has been completed within 30 days and I have reviewed it.: Yes Section B - Complete if H&P > 30 days Chief Complaint: Severe Agitated Depression Allergies: Allergies Allergy/AdvReac Type Severity Reaction Status Date / Time levofloxacin [From Levaquin] Allergy Rash Verified 09/20/23 11:39 tyramine Allergy Hypertensio Uncoded 09/20/23 11:39 n Plan I have reviewed the history and physical and performed a pertinent physical examination on my patient. No changes have occurred unless specified. Time Spent With Patient Time: Total time managing care of this patient today ____ minutes.
--- NOTE | 2023-10-01 07:40 | P.PCN_ITS ---
ECT Procedure Note Diagnosis/Treatment Date of Service: 10/01/23 Diagnosis: Major Depressive Disorder Previous ECT Date: 09/28/23 Current Treatment Number: 4 Treatment: Series Interval Clinical Notes: The patient reported improvement of dysphoria with the last ECT. She deneis side effects with the previous ECT. ECT done as usual, no complications, woke up well. Propofol given after procue dure as usual. Time: Total time managing care of this patient today ____ minutes. ECT Settings Device: THYMATRON DGx Electrode Placement: Right Unilateral Program/Pulse Width: 0.50 Energy Percent: 55 Seizure Duration By EEG (in seconds): 40 By Motor Observation (in seconds): 17 Medications Administration General Anesthetic: Etomidate (12) Muscle Relaxant: Succinylcholine (100) Ancillary Medications Miscillaneous Medications: Propofol (30) Airway Management Airway Management: Bag Mask Ventilation Treatment Recommendations No Changes Recommended: No change Pt Tolerated Procedure w/o Issue: Yes
--- NOTE | 2023-10-01 14:40 | P.PNPSI_ITS ---
Subjective Subjective Date of Service: 10/01/23 Reason For Visit: Severe Agitated Depression Subjective Notes: Conditional Voluntary Interim History: pt much improved future oriemted some post ect word findind wishes to return home with her Medication Compliance: Yes Mental Status Exam Mental Status Exam Narrative: Pt is alert and oriented; behavior is cooperative, friendly and calm; dressed in casual attire; mood is described as ok ; Appears less anxious. eye contact appropriate; Speech is normal rate, volume and not pressured; thought process is organized; Thought content is on treatment, Discharge planning and marriage. Denies SI/HI/VH/AH. Alert no mild name finding s/p ect feels ok to return home Diagnostics Vital Signs (24Hr): Vital Signs - 24 hr 09/30/23 20:00 10/01/23 05:51 10/01/23 06:34 Temperature 97.4 F 97.6 F 96.5 F L Pulse Rate 80 73 81 Respiratory Rate 16 16 16 Blood Pressure 101/60 120/60 119/55 L Pulse Oximetry 95 95 98 Oxygen Delivery Method Room Air Room Air Oxygen Flow Rate 10/01/23 07:49 10/01/23 07:54 10/01/23 07:59 Temperature 97.3 F Pulse Rate 60 63 66 Respiratory Rate 16 18 18 Blood Pressure 140/58 H 114/56 L 123/60 Pulse Oximetry 99 95 95 Oxygen Delivery Method Nasal Cannula Room Air Oxygen Flow Rate 2 10/01/23 08:04 10/01/23 08:22 10/01/23 08:39 Temperature 97.3 F 97.0 F Pulse Rate 75 78 81 Respiratory Rate 18 18 16 Blood Pressure 136/64 134/64 138/62 Pulse Oximetry 95 97 94 Oxygen Delivery Method Room Air Oxygen Flow Rate 10/01/23 08:40 Temperature 97.0 F Pulse Rate 81 Respiratory Rate 16 Blood Pressure 138/62 Pulse Oximetry 94 Oxygen Delivery Method Oxygen Flow Rate BMI result Body Mass Index 28.1 Labs 09/20/23 12:32 09/21/23 08:35 Medications Medications Current Medications Acetaminophen (Acetaminophen 325 Mg Tablet) 650 mg PO Q6H PRN PRN Reason: Headache/Pain Mild Scale (1-3) Last Admin: 09/30/23 20:36 Dose: 650 mg Al Hydroxide/Mg Hydroxide (Magnesium Hydrox/Alum Hydrox 30 Ml Oral.Susp) 30 ml PO Q6H PRN PRN Reason: Heartburn/Nausea Magnesium Hydroxide (Milk Of Magnesia 30 Ml Oral.Susp) 30 ml PO DAILY PRN PRN Reason: Constipation Metronidazole (Metronidazole 0.75 % Gel 45 Gm Tube) 1 appl TOPICAL BID [facility] Last Admin: 10/01/23 09:05 Dose: Not Given Multi-Ingred Cream/Lotion/Oil/Oint (Mineral Oil/Petrolatum,White 106 Gm Tube) 1 appl TOPICAL BID ROSA; Protocol Last Admin: 10/01/23 09:05 Dose: Not Given Pt Own (Phenelzine Sulfate 15 Mg Tablet ) 15 mg PO BEDTIME [facility] Last Admin: 09/30/23 20:35 Dose: 15 mg Pt Own (Phenelzine Sulfate 15 Mg Tablet ) 30 mg PO BID@0900,1300 [facility] Last Admin: 10/01/23 13:18 Dose: 30 mg Quetiapine Fumarate (Quetiapine Fumarate 25 Mg Tablet) 12.5 mg PO Q4H PRN PRN Reason: anxiety/restlessness Last Admin: 09/26/23 16:04 Dose: 12.5 mg Quetiapine Fumarate (Quetiapine Fumarate 25 Mg Tablet) 25 mg PO BEDTIME [facility] Last Admin: 09/30/23 20:36 Dose: 25 mg Allergies Allergies Allergy/AdvReac Type Severity Reaction Status Date / Time levofloxacin [From Levaquin] Allergy Rash Verified 09/20/23 11:39 tyramine Allergy Hypertensio Uncoded 09/20/23 11:39 n Assessment & Plan Assessment & Plan (1) Major depressive disorder, recurrent severe without psychotic features: Status: Acute Code(s): F33.2 - Major depressive disorder, recurrent severe without psychotic features (2) Generalized anxiety disorder: Status: Acute Code(s): F41.1 - Generalized anxiety disorder Plan Patient is admitted on conditional voluntary wishes to treatment hopeful that she be able to get better edge he will not. Able to take in information regarding both the biology of the situation in addition to dealing with current stressors in her life feeling overwhelmed and secure continue Seroquel for anxious depression get med consultation for stratification for ECT patient did tolerate ECT in previously with by being on MAO I patient requires current safety clarification where her marriage currently stands patient consider the other CT options at discharge. Discussed with patient ability when stable to transition to outpatient ECT treatment. 09/21/23 Discussed with anesthesia pt scheduled for ect had no difficulty with nardil and ect medications inc seroquel encourage relaxation strategies problem solving diff options if she chooses not to return right home no medical contraindications to ect 09/22/2023 Continue Nardil increase Seroquel ECT scheduled discussing supports post discharge if patient were not to return home 09/23: Continue current tx plan. 09/26/2023 Continue ECT low-dose Seroquel for anxious depression 09/27/2023 [address] ECT 3. Discussed option of outpatient transition when stable physical therapy consult for ambulation 09/1923 Continue ECT discharge planning patient appears to be leaning toward going home with her who is she expressing remorse and willing to do marital counseling with backup plan of staying with her cousin doing better with rolling walker PT consult 09/30 d/c in am if stable cont some outpt ect as tolerated Reason for continued inpatient stay Substantial Risk for: inability to function and rapid decompensation Time Spent With Patient Time: Total time managing care of this patient today ____ minutes.
[2023-10-01] MEDS: metroNIDAZOLE 0.75 % Gel 45 GM TUBE 1 APPL TOPICAL (20:17)
[2023-10-01] MEDS: QUEtiapine Fumarate 25 MG TABLET PO (20:31)
[2023-10-02 08:00] VITALS: BP 115/60; PULSE 81; RESP 16; TEMP 36.4; O2SAT 95
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
== END 2023-10-02 11:15 | disposition home or self-care (01) | DRG 885 ==
LOC: HO.ED 13:01 → HO.PADLT16 13:58
PROVIDERS: Physician Assistant Medical; Psychiatry & Neurology Psychiatry; Admitting Provider Psychiatry & Neurology Psychiatry; Emergency Provider Emergency Medicine; PCP Internal Medicine; Visit Provider Psychiatry & Neurology Psychiatry
PROC: GZB4ZZZ Other Electroconvulsive Therapy (ICD-10-PCS; CPT 90870; principal; 2023-09-24 07:30)
DX: F33.2 Major depressive disorder, recurrent severe without psychotic features (principal); F41.1 Generalized anxiety disorder; Z63.0 Problems in relationship with spouse or partner; Z79.899 Other long term (current) drug therapy
CPT/HCPCS: 36415; 80053; 80061; 80143; 80179; 80307; 81001; 85025; 87086; 87088; 87186; 90870; 93005; 97161; 99285; J0330; J1100; J1200; J1596; J1885; J2405; J2704; J3420; J7120; S9485

== ENCOUNTER → 2023-09-20 11:29 | Outpatient (BNV) | payer MEDICARE, SELFPAY | PROVIDERS: Admitting Provider Psychiatry & Neurology Psychiatry; Emergency Provider Emergency Medicine; PCP Internal Medicine; Responsible Provider Registered Nurse; Visit Provider Internal Medicine Cardiovascular Disease | DX: R94.31 Abnormal electrocardiogram [ECG] [EKG] (principal) | CPT/HCPCS: 93010 ==

== ENCOUNTER → 2023-09-20 13:39 | Outpatient (BNV) | payer MEDICARE, SELFPAY | PROVIDERS: Admitting Provider Psychiatry & Neurology Psychiatry; Emergency Provider Emergency Medicine; PCP Internal Medicine; Responsible Provider Registered Nurse; Visit Provider Psychiatry & Neurology Psychiatry | DX: F33.2 Major depressive disorder, recurrent severe without psychotic features (principal); F41.1 Generalized anxiety disorder | CPT/HCPCS: 90792; 90870; 99231; 99232; 99238 ==

== ENCOUNTER → 2023-09-20 13:39 | Outpatient (BNV) | payer MEDICARE, SELFPAY | PROVIDERS: Admitting Provider Psychiatry & Neurology Psychiatry; Emergency Provider Emergency Medicine; PCP Internal Medicine; Responsible Provider Registered Nurse; Visit Provider Psychiatry & Neurology Psychiatry | DX: F33.2 Major depressive disorder, recurrent severe without psychotic features (principal) | CPT/HCPCS: 90870; 99231 ==

== ENCOUNTER → 2023-09-20 13:39 | Outpatient (BNV) | payer MEDICARE, SELFPAY | PROVIDERS: Admitting Provider Psychiatry & Neurology Psychiatry; Emergency Provider Emergency Medicine; PCP Internal Medicine; Responsible Provider Registered Nurse; Visit Provider Student in an Organized Health Care Education/Training Program | DX: F41.1 Generalized anxiety disorder (principal); F33.2 Major depressive disorder, recurrent severe without psychotic features; Z01.818 Encounter for other preprocedural examination | CPT/HCPCS: 99221 ==

== ENCOUNTER 2023-10-05 05:53 | Day surgery (SDC) | payer MEDICARE, SELFPAY ==
[2023-10-05] VITALS (7 sets, daily range): BP systolic 131–145; BP diastolic 55–63; PULSE 61–83; RESP 15–20; TEMP 35.7–36.3; O2SAT 95–100; BMI 27.0
--- NOTE | 2023-10-05 06:45 | HO.ANESPROP2 ---
[facility] Active Problems Active Problems: All Active Problems Depression (Acute) Stress due to marital problems (Acute) Major depressive disorder, recurrent, moderate (Acute) Hip arthritis (Acute) Major depressive disorder, recurrent episode, in partial remission with seasonal pattern (Acute) Major depressive disorder, recurrent, in full remission (Acute) Generalized anxiety disorder (Acute) Past Medical History Medical History Major depressive disorder, recurrent severe without psychotic features Stress due to marital problems Major depressive disorder, recurrent, in full remission Major depressive disorder, recurrent episode, in partial remission with seasonal pattern Generalized anxiety disorder Family History Family History Mother Breast cancer HTN (hypertension) Family history of problems with anesthesia: No Surgical History Surgical History History of hip replacement History of appendectomy History of Problems with Anesthesia: No Social History Social History Household Members: Spouse Housing: House Do you presently have visiting nurse or other home services: No Alcohol intake: never Comment: fell 2-3 weeks ago Patient Tobacco Use Status: Never used Tobacco e-Cigarette/Vaping Use: Never Used Second Hand Smoke Exposure: No Advance Directives: No Advance Directives Information Provided: Yes service: No Sexual orientation: Straight/Heterosexual Meds Allergies Allergy/AdvReac Type Severity Reaction Status Date / Time levofloxacin [From Levaquin] Allergy Rash Verified 09/20/23 11:39 tyramine Allergy Hypertensio Uncoded 09/20/23 11:39 n Active Medications: Current Medications Lactated Ringer's (Lr) 1,000 mls @ 50 mls/hr IVCONT .Q20H ROSA Home Medications ?Medication ?Instructions ?Recorded ?Confirmed ?Last Taken ?Type levomefolate calcium 15 mg tablet 15 mg PO DAILY 09/10/23 09/20/23 09/20/23 History (L-Methylfolate) omega-3 fatty acids 1,000 mg 1,000 mg PO BID 09/10/23 09/20/23 09/20/23 History capsule Exam Height,Weight and Vital Signs: Height 5 ft 6 in Weight 75.75 kg Last Vital Signs Temp 96.3 F L 10/05/23 06:30 Pulse 83 10/05/23 06:30 Resp 17 10/05/23 06:30 BP 139/63 10/05/23 06:30 Pulse Ox 96 10/05/23 06:30 O2 Del Method Room Air 10/05/23 06:30 Airway Mallampati Class: II TM Dist: >3cm Neck ROM: Full Heart: rrr Lungs: cta Assessment and Plan Assessment Anesthesia Assessment: Anesthesia Plan Discussed and Chart Reviewed Final Anesthetic Review Family History of Problems with Anesthesia: No History of Problems with Anesthesia: No NPO: Yes ASA Class: III Final Preanesthetic Review: No Changes in Pt Med Stat, Meds/Allgs Chart Reviewed and Consent Obtained/Reviewed Patient Risk: Intermediate Procedure Risk: Intermediate Anesthetic Plan Anesthetic Plan: GA Disposition: Standard PACU
--- NOTE | 2023-10-05 07:27 | MHC.SHP ---
Pre-Procedural Eval Section A - 24 Hr Update-Section A only Date of Service: 10/05/23 Section B - Complete if H&P > 30 days Chief Complaint: depression Details of Present Illness: recurrent depression Relevant Family History (Specify if Yes): No Relevant Social History: None Present Medications: see Short Stay Collaborative assessment Medical History: Significant History (recent hip surgery) Allergies: Allergies Allergy/AdvReac Type Severity Reaction Status Date / Time levofloxacin [From Levaquin] Allergy Rash Verified 09/20/23 11:39 tyramine Allergy Hypertensio Uncoded 09/20/23 11:39 n Review of Systems Sugical H&P ROS: Negative: Constitution, Cardiovascular, Respiratory and Neurological and Yes, Specify: Psychiatric (improved ) Exam Surgical H&P Exam: Normal: Heart, Normal: Lungs and Normal: Neurological Exam Comment: 139/69 83 Plan Diagnosis/Plan: Unchanged I have reviewed the history and physical and performed a pertinent physical examination on my patient. No changes have occurred unless specified. Time Spent With Patient Time: Total time managing care of this patient today ____ minutes.
--- NOTE | 2023-10-05 07:29 | HO.ECTPROC ---
ECT Procedure Note Diagnosis/Treatment Date of Service: 10/05/23 Diagnosis: Major Depressive Disorder Previous ECT Date: 09/28/23 Current Treatment Number: 5 Treatment: Series Interval Clinical Notes: Patient states things are going well as an outpatient mild short-term memory dysfunction is hopeful this can be her last ECT pros cons risks benefits reviewed patient will trying to transition to as needed. Time: Total time managing care of this patient today ____ minutes. ECT Settings Device: THYMATRON DGx Electrode Placement: Right Unilateral Program/Pulse Width: 0.50 Energy Percent: 40 Seizure Duration By EEG (in seconds): 32 By Motor Observation (in seconds): 17 Medications Administration General Anesthetic: Etomidate (12) Muscle Relaxant: Succinylcholine (100) Ancillary Medications Miscillaneous Medications: Propofol (30) Airway Management Airway Management: Bag Mask Ventilation Treatment Recommendations No Changes Recommended: No change Pt Tolerated Procedure w/o Issue: Yes
== END 2023-10-05 08:52 | disposition home or self-care (01) ==
PROVIDERS: PCP Internal Medicine; Visit Provider Psychiatry & Neurology Psychiatry
PROC: (CPT 90870; principal; 2023-10-05 07:30)
DX: F33.2 Major depressive disorder, recurrent severe without psychotic features (principal); F41.1 Generalized anxiety disorder; Z63.0 Problems in relationship with spouse or partner
CPT/HCPCS: 90870; J0330; J1596; J1805; J2704

== ENCOUNTER → 2023-10-05 05:53 | Outpatient (BNV) | payer MEDICARE, SELFPAY | PROVIDERS: PCP Internal Medicine; Visit Provider Psychiatry & Neurology Psychiatry | DX: F33.2 Major depressive disorder, recurrent severe without psychotic features (principal) | CPT/HCPCS: 90870 ==

== ENCOUNTER → 2023-10-10 13:07 | Outpatient (BNVA) | payer MEDICARE, SELFPAY | PROVIDERS: PCP Internal Medicine; Visit Provider Psychiatry & Neurology Psychiatry ==

== ENCOUNTER 2023-11-07 13:01 | Outpatient (AMB) | payer MEDICARE, SELFPAY ==
--- OUTSIDE RECORDS SUMMARY | 2023-11-07 13:03 | XMS_ITS | Continuity of Care Document ---
Author Organization [facility] Address [address] [place] [address]- Care Team Providers Care Ribbon Sweatband Operator Name Role Phone Cesar STACK, Ashok Monroy Primary Care Physician [place] [facility] [place] - 10/17/23 [facility] [address] [place], [place] [address] En[facility] Diagnosis Depression(Discharge Diagnosis) - 10/10/23 Attending Physician: Dale Cazares MD Allergies, Adverse Reactions, Alerts Substance Reaction Severity Status epinephrine 1 Persistent Mild Active Levaquin pruritis rash Active 1headache, elevated bp Immunizations Given and Recorded Vaccine Date Status Refusal Reason RSV vaccine preF3, recombinant 1 04/25/23 Recorded SARS-CoV-2(COVID-19)mRNA-LNP vac([id number]) 12/27/22 Recorded influenza virus vaccine, inactivated 12/01/22 [...] inactivated 4 03/29/12 Gi juhi SARS-CoV-2 mRNA ([id number]) vax 08/04/21 Recorded SARS-CoV-2 (COVID-19) mRNA BNT-162b2 [...] 1Result Comment: [04/25/2023] [facility] 2Result Comment: [facility] [id number] 3Location History: [facility] 4Admin Note: vis sheet [...] Diagnosis Diagnosis Type Effective Dates Health Status Clini deven Service Informant Depression Discharge Diagnosis 10/10/23 Social History Social History Type Response Smoking Status Never smoker; Tobacc o user in household: No entered on: 06/05/13 Sex Female Patient Care team information Care Team Personnel Name: Ashok Guerrero MD Position: [facility] Physician - Primary Care Member Role: PCP Address: Address: [address] [place] [address] Adult & Pediatric Medicine [address] Name: Savi Bonilla RN Position: [facility] RN Member Role: Primary Care Nurse Name: Mayra Gonzalez RN Position: [facility] RN Member Role: Primary Care Nurse Name: Renetta Barnes RN Position: [facility] RN Member Role: Primary Care Nurse Name: Love Jameson RN Position: [facility] RN Member Role: Primary Care Nurse Care Team Related Persons Name: BETTIEBEKAHHAYDER GLOVERALD Address: [address] [address]
--- OUTSIDE RECORDS SUMMARY | 2023-11-07 13:04 | XMS_ITS | Continuity of Care Document ---
Author Organization [facility] Address [address] [place] [address]- Care Team Providers Care Loft Patternmaker Name Role Phone Cesar STACK, Ashok Monroy Primary Care Physician [place] [facility] [place]/23 [facility] [address] [place], [place] [email or web address] Allergies, Adverse Reactions, Alerts Substance Reaction Severity Status epinephrine 1 Persistent Mild Active Levaquin pruritis rash Active 1headache, elevated bp Immunizations Given and Recorded Vaccine Date Status Refusal Reason RSV vaccine preF3, recombinant 1 04/25/23 Recorded SARS-CoV-2(COVID-19)mRNA-LNP vac([id number]) 12/27/22 Recorded influenza virus vaccine, inactivated 12/01/22 [...] vaccine, inactivated 03/29/12 Gi juhi SARS-CoV-2 mRNA (znehfqx-tnla-zfyyo) vax 08/04/21 Recorded SARS-CoV-2 (COVID-19) mRNA BNT-162b2 [...] 1Result Comment: [04/25/2023] [facility] giron 2Result Comment: [facility] [id number] 3Location History[facility] 4Admin Note: vis sheet [...] Primary Care Member Role: PCP Address: Address: [address] [place] [address] Adult [place] [address]- Name: Savi Bonilla RN Position: S RN Member Role: Primary Care Nurse Name: Mayra Gonzalez RN Position: [facility] RN Member Role: Primary Care Nurse Name: Renetta Barnes RN Position: [facility] RN Member Role: Primary Care Nurse Name: Love Jameson RN Position: [facility] RN Member Role: Primary Care Nurse Care Team Related Persons Name: BETTIERONALDAKOSUA Address: home [address] [place] [address]
--- OUTSIDE RECORDS SUMMARY | 2023-11-07 13:05 | XMS_ITS | Continuity of Care Document ---
Author Organization [facility] Address [address] [place] [address]- Care Team Providers Care Loading Checker Name Role Phone Ashok Guerrero MD Primary Care Physician [phone] [facility] [place] Date(s): 10/02/23 - 11/01/23 [facility] [address] [place], [place] [address] Allergies, Adverse Reactions, Alerts Substance Reaction Severity Status epinephrine 1 Persistent Mild Active Levaquin pruritis rash Active 1headache, elevated bp Immunizations Given and Recorded Vaccine Date Status Refusal Reason RSV vaccine preF3, recombinant 1 04/25/23 Recorded SARS-CoV-2(COVID-19)mRNA-LNP vac([id number]) 12/27/22 Recorded influenza virus vaccine, inactivated 12/01/22 [...] inactivated 4 03/29/12 Gi juhi SARS-CoV-2 mRNA ([id number]-giqr-qjylr) vax 08/04/21 Recorded SARS-CoV-2 (COVID-19) mRNA BNT-162b2 [...] 1Result Comment: [04/25/2023] [facility] giron 2Result Comment: [facility] [id number] 3Location History[facility] 4Admin Note: vis sheet [...] Team Personnel Name: Ashok Guerrero MD Position: [facility] Physician - Primary Care Member Role: PCP Address: Address: [address] [place] [address] Adult [place] [address]- Name: Savi Bonilla RN Position: S RN Member Role: Primary Care Nurse Name: Mayra Gonzalez RN Position: [facility] RN Member Role: Primary Care Nurse Name: Renetta Barnes RN Position: [facility] RN Member Role: Primary Care Nurse Name: Love Jameson RN Position: [facility] RN Member Role: Primary Care Nurse Care Team Related Persons Name: BETTIERONALDAKOSUA Address: [address] [place] [address]
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
== END 2023-11-07 17:45 | disposition home or self-care (01) ==
LOC: HO.HOP 13:01
PROVIDERS: PCP Internal Medicine; Visit Provider Psychiatry & Neurology Psychiatry
DX: F33.42 Major depressive disorder, recurrent, in full remission (principal); F41.1 Generalized anxiety disorder
CPT/HCPCS: 99214

== ENCOUNTER → 2023-11-07 13:01 | Outpatient (BNVA) | payer MEDICARE, SELFPAY | PROVIDERS: PCP Internal Medicine; Visit Provider Psychiatry & Neurology Psychiatry | DX: F33.42 Major depressive disorder, recurrent, in full remission (principal); F41.1 Generalized anxiety disorder | CPT/HCPCS: 99212 ==

== ENCOUNTER 2024-01-07 11:02 | Outpatient (AMB) | payer MEDICARE, SELFPAY ==
--- OUTSIDE RECORDS SUMMARY | 2024-01-07 11:04 | XMS_ITS | Continuity of Care Document ---
Author Organization [facility] Address [address] [place] [address]- Care Team Providers Care Processing Manager Name Role Phone Cesar STACK, Ashok Monroy Primary Care Physician [place] [facility] [place] 11/19/23 - 12/19/23 [facility] [address] [place], [place] [address] Allergies, Adverse Reactions, Alerts Substance Reaction Severity Status epinephrine 1 Persistent Mild Active Levaquin pruritis rash Active 1headache, elevated bp Immunizations Given and Recorded Vaccine Date Status Refusal Reason RSV vaccine preF3, recombinant 1 04/25/23 Recorded SARS-CoV-2(COVID-19)mRNA-LNP vac([id number]) 12/27/22 Recorded influenza virus vaccine, inactivated 12/01/22 [...] vaccine, inactivated 03/29/12 Gi juhi SARS-CoV-2 mRNA ([id number]-[id number]-wxqlx) vax 08/04/21 Recorded SARS-CoV-2 (COVID-19) mRNA BNT-162b2 [...] 1Result Comment: [04/25/2023] [facility] giron 2Result Comment: [facility] [id number] 3Location History[facility] 4Admin Note: vis sheet [...] Care Member Role: PCP Address: Address: [address] [place] [address] Adult & [place] [address]- Name: Savi Bonilla RN Position: S RN Member Role: Primary Care Nurse Name: Mayra Gonzalez RN Position: S RN Member Role: Primary Care Nurse Name: Renetta Barnes RN Position: [facility] RN Member Role: Primary Care Nurse Name: Love Jameson RN Position: [facility] RN Member Role: Primary Care Nurse Care Team Related Persons Name: BETTIEBEKAHAKOSUA GLOVER Address: [address] [place] [address]
--- OUTSIDE RECORDS SUMMARY | 2024-01-07 11:04 | XMS_ITS | Continuity of Care Document ---
Author Organization [facility] Address [address] [place] [address]- Care Team Providers Care Portrait Studio Photographer Name Role Phone Cesar STACK, Ashok Monroy Primary Care Physician [phone] [place] [facility] [place]23 [place] 12/09/23 [facility] [address] [place], [place] [address] Allergies, Adverse Reactions, Alerts Substance Reaction Severity Status epinephrine 1 Persistent Mild Active Levaquin pruritis rash Active 1headache, elevated bp Immunizations Given and Recorded Vaccine Date Status Refusal Reason RSV vaccine preF3, recombinant 1 04/25/23 Recorded SARS-CoV-2(COVID-19)mRNA-LNP vac([id number]) 12/27/22 Recorded influenza virus vaccine, inactivated 12/01/22 [...] inactivated 4 03/29/12 Gi juhi SARS-CoV-2 mRNA ([id number]-tgnx-eipzj) vax 08/04/21 Recorded SARS-CoV-2 (COVID-19) mRNA BNT-162b2 [...] Comment: [facility] [id number] 3Location History[facility] 4Admin Note: vis sheet [...] Primary Care Member Role: PCP Address: Address: [address] [place] [address] Adult [place] [address]- Name: Savi Bonilla RN Position: S RN Member Role: Primary Care Nurse Name: Mayra Gonzalez RN Position: S RN Member Role: Primary Care Nurse Name: Renetta Barnes RN Position: [facility] RN Member Role: Primary Care Nurse Name: Love Jameson RN Position: [facility] RN Member Role: Primary Care Nurse Care Team Related Persons Name: BETTIEBEKAHAKOSUA GLOVER Address: home [address] [place] [address]
--- OUTSIDE RECORDS SUMMARY | 2024-01-07 11:06 | XMS_ITS | Continuity of Care Document ---
Author Organization [facility] Address [address] [place] [address]- Care Team Providers Care Pc Maintenance Technician Name Role Phone Ashko Guerrero MD Primary Care Physician Encounter [facility] Date(s): 10/04/23 - 11/09/23 [facility] [address] [place], [place] [address] Attending Physician: Dale Cazares MD Allergies, Adverse Reactions, Alerts Substance Reaction Severity Status epinephrine 1 Persistent Mild Active Levaquin pruritis rash Active 1headache, elevated bp Immunizations Given and Recorded Vaccine Date Status Refusal Reason RSV vaccine preF3, recombinant 1 04/25/23 Recorded SARS-CoV-2(COVID-19)mRNA-LNP vac([id number]) 12/27/22 Recorded influenza virus vaccine, inactivated 12/01/22 [...] inactivated 4 03/29/12 Gi juhi SARS-CoV-2 mRNA ([id number]) vax 08/04/21 Recorded SARS-CoV-2 (COVID-19) mRNA BNT-162b2 [...] 1Result Comment: [04/25/2023] mo giron 2Result Comment: [facility] [id number] 3Location [facility] 4Admin Note: vis sheet [...] Primary Care Member Role: PCP Address: Address: [address] [place] [address] Adult [place] [address]- Name: Savi Bonilla RN Position: S RN Member Role: Primary Care Nurse Name: Myara Gonzalez RN Position: S RN Member Role: Primary Care Nurse Name: Renetta Barnes RN Position: S RN Member Role: Primary Care Nurse Name: Love Jameson RN Position: [facility] RN Member Role: Primary Care Nurse Care Team Related Persons Name: BETTIERONALDHAYDERAKOSUA Address: [address] [place] [address]
--- OUTSIDE RECORDS SUMMARY | 2024-01-07 11:06 | XMS_ITS | Continuity of Care Document ---
Author Organization [facility] Address [address] [place] [address]- Care Team Providers Care Marine Consultant Name Role Phone Ashok Guerrero MD Primary Care Physician En[place] [facility] [place] Date(s): 10/10/23 - 11/09/23 [facility] [address] [place], [place] [address] Attending Physician: Cristal Kumar Admitting Physician: AdmCristal cortés Referring Physician: AdmtrCristal Allergies, Adverse Reactions, Alerts Substance Reaction Severity Status epinephrine 1 Persistent Mild Active Levaquin pruritis rash Active 1headache, elevated bp Immunizations Given and Recorded Vaccine Date Status Refusal Reason RSV vaccine preF3, recombinant 1 04/25/23 Recorded SARS-CoV-2(COVID-19)mRNA-LNP vac([id number]) 12/27/22 Recorded influenza virus vaccine, inactivated 12/01/22 [...] vaccine, inactivated 03/29/12 Gi juhi SARS-CoV-2 mRNA ([id number]) vax 08/04/21 Recorded SARS-CoV-2 (COVID-19) mRNA BNT-162b2 [...] 1Result Comment: [04/25/2023] mo giron 2Result Comment: [facility] [id number] 3[facility] 4Admin Note: vis sheet [...] household: No entered on: 06/05/13 Sex Female Hospital Consult note * Event Display: Inpatient Consult Note, Non-BH Authored Date: * Event Display: Inpatient Consult Note, Non-BH Authored Date: * Event Display: Inpatient Consult Note, Non-BH Authored Date: EKG study * Event Display: EKG Authored Date: Laboratory * Event Display: Non BH Lab Results Authored Date: * Event Display: Laboratory Result Scanned Authored Date: Patient Care team information Care Team Personnel Name: Ashok Guerrero MD Position: [facility] Physician - Primary Care Member Role: PCP Address: Address: [address] [place] [address] Adult & Pediatric [address] Name: Savi Bonilla RN Position: [facility] RN Member Role: Primary Care Nurse Name: Mayra Gonzalez RN Position: [facility] RN Member Role: Primary Care Nurse Name: Renetta Barnes RN Position: [facility] RN Member Role: Primary Care Nurse Name: Love Jameson RN Position: [facility] RN Member Role: Primary Care Nurse Care Team Related Persons Name: AKOSUA HENDERSON Address: [address] [address]
--- OUTSIDE RECORDS SUMMARY | 2024-01-07 11:07 | XMS_ITS | Continuity of Care Document ---
Author Organization [facility] Address [address] [place] [address]- Care Team Providers Care Ballast Inspector Name Role Phone Cesar STACK, Ashok Monroy Primary Care Physician [phone] [place] [facility] [place]13[place]23 [place]13/23 [facility] [address] [place], [place] [address] Allergies, Adverse Reactions, Alerts Substance Reaction Severity Status epinephrine 1 Persistent Mild Active Levaquin pruritis rash Active 1headache, elevated bp Immunizations Given and Recorded Vaccine Date Status Refusal Reason RSV vaccine preF3, recombinant 1 04/25/23 Recorded SARS-CoV-2(COVID-19)mRNA-LNP vac([id number]) 12/27/22 Recorded influenza virus vaccine, inactivated 12/01/22 [...] vaccine, inactivated 03/29/12 Gi juhi SARS-CoV-2 mRNA ([id number]) vax 08/04/21 Recorded SARS-CoV-2 (COVID-19) mRNA BNT-162b2 [...] 1Result Comment: [04/25/2023] mo giron 2Result Comment: [facility] [id number] [facility] 4Admin Note: vis sheet [...] Primary Care Member Role: PCP Address: Address: [address] [place] [address] Adult [place] [address]- Name: Savi Bonilla RN Position: S RN Member Role: Primary Care Nurse Name: Mayra Gonzalez RN Position: [facility] RN Member Role: Primary Care Nurse Name: Renetta Barnes RN Position: [facility] RN Member Role: Primary Care Nurse Name: Love Jameson RN Position: [facility] RN Member Role: Primary Care Nurse Care Team Related Persons Name: BETTIERONALDAKOSUA Address: home [address] [place] [address]
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
== END 2024-01-07 14:11 | disposition home or self-care (01) ==
LOC: HO.HOP 11:03
PROVIDERS: PCP Internal Medicine; Visit Provider Psychiatry & Neurology Psychiatry
DX: F41.1 Generalized anxiety disorder (principal); F33.42 Major depressive disorder, recurrent, in full remission
CPT/HCPCS: 90833; 99213

== ENCOUNTER → 2024-01-07 11:02 | Outpatient (BNVA) | payer MEDICARE, SELFPAY | PROVIDERS: PCP Internal Medicine; Visit Provider Psychiatry & Neurology Psychiatry | DX: F33.42 Major depressive disorder, recurrent, in full remission (principal); F41.1 Generalized anxiety disorder; Z71.89 Other specified counseling | CPT/HCPCS: 99212 ==

== ENCOUNTER 2024-02-05 15:23 | Outpatient (AMB) | payer MEDICARE, SELFPAY ==
--- OUTSIDE RECORDS SUMMARY | 2024-02-05 15:25 | XMS_ITS | Continuity of Care Document ---
Author Organization [facility] Address [address] [place] [address]- Care Team Providers Care Therapy Director Name Role Phone Cesar STACK, Ashok Monroy Primary Care Physician [phone] [id number] Date[facility] 12[facility]18[facility] - 01/26/[address] [address] Attending Physician: Asad Roy MD Admitting Physician: Asad Roy MD Referring Physician: Asad Roy MD Encounter Type: Pre-Outpt Allergies, Adverse Reactions, Alerts Substance Criticality Severity Reaction Reaction Severity Status epinephrine 1 Unable to assess criticality Persistent Mild Active Levaquin pruritis rash Active 1headache, elevated bp Immunizations Given and Recorded Vaccine Date Status Refusal Reason RSV vaccine preF3, recombinant 1 04/25/23 Recorded SARS-CoV-2(COVID-19)mRNA-LNP vac([id number]) 12/27/22 Recorded influenza virus vaccine, inactivated 12/01/22 [...] inactivated 4 03/29/12 Gi juhi SARS-CoV-2 mRNA ([id number]) vax 08/04/21 Recorded SARS-CoV-2 (COVID-19) mRNA BNT-162b2 [...] Vaccine Live 10/25/12 Recorded 1Result Comment: [04/25/2023] [facility]: [facility] [id number] 3Location [facility] 4Admin Note: vis sheet given. Medications acetaminophen 325 mg oral tablet 650 mg, By Mouth, Every 6 hours, May take OTC not to exceed 3000 mg/day, Refills 0, Maintenance, 07/25/23 7:23:00 AM EDT, Partial fill upon patient request if the prescription is for a schedule II opioid drug. Start Date: 07/25/23 Status: Ordered Repeat number: 1 Aerochamber See Instructions, # 1 each, Maintenance, Use as directed with all inhalors. Dx: acute bronchitis with bronchospasm, 03/01/23 12:59:00 PM EST, Supply, 166.14, cm, 03/01/23 12:03:00 EST, Height, 75, kg, 01/30/23 13:42:00 EST, Dry Weight Start Date: 03/01/23 Status: Ordered Quantity: 1.0 Unit: each Repeat number: 1 Aspirin Tablet 325 mg, By Mouth, 2 times a day, Refills 0, Maintenance, 07/25/23 7:23:00 AM EDT, Partial fill upon patient request if the prescription is for a schedule II opioid drug. Start Date: 07/25/23 Status: Ordered Repeat number: 1 celecoxib 200 mg oral capsule = 200 mg, By Mouth, Daily, 0 Refills, Maintenance, 07/25/23 7:23:00 AM EDT, Capsule, Partial fill upon patient request if the prescription is for a schedule II opioid drug. Start Date: 07/25/23 Status: Ordered Repeat number: 1 ciclopirox 0.77% topical cream 0 Refills, Maintenance, 07/09/23 6:46:00 PM EDT, Partial fill upon patient request if the prescription is for a schedule II opioid drug. Start Date: 07/09/23 Status: Ordered Repeat number: 1 Clobetasol (Eqv-Temovate) 0.05% topical cream 0 Refills, Maintenance, 07/09/23 6:46:00 PM EDT, Partial fill upon patient request if the prescription is for a schedule II opioid drug. Start Date: 07/09/23 Status: Ordered Repeat number: 1 clonazePAM 0.5 mg oral tablet See Instructions, PRN Anxiety, one half or 1 tablet By Mouth 3 times a day, 0 Refills, Maintenance,09/02/20 2:32:00 PM EDT, Tablet, Partial fill upon patient request if the prescription is for a schedule II opioid drug. Start Date: 09/02/20 Status: Ordered Repeat number: 1 Colace Capsule 100 mg, 1, capsule, By Mouth, 2 times a day, Refills 0, Maintenance, 07/25/23 7:23:00 AM EDT, Partial fill upon patient request if the prescription is for a schedule II opioid drug. Start Date: 07/25/23 Status: Ordered Repeat number: 1 MiraLax Powder 1 pack/packet = 17 Gm, By Mouth, Daily, PRN Constipation, 0 Refills, Maintenance, 07/25/23 7:23:00 AM EDT, Powder, Partial fill upon patient request if the prescription is for a schedule II opioid drug. Start Date: 07/25/23 Status: Ordered Repeat number: 1 Nardil 15 mg oral tablet See Instructions, 2 tablet by mouth twice daily, # 120 each, 11 Refills Start Date: 10/08/06 Status: Ordered Quantity: 120.0 Unit: each Repeat number: 12 pantoprazole 40 mg oral delayed release tablet = 40 mg, By Mouth, Daily, 0 Refills, Maintenance, 07/25/23 7:23:00 AM EDT, EC Tablet Start Date: 07/25/23 Status: Ordered Repeat number: 1 senna 187 mg oral tablet 1 tablet = 8.6 mg, By Mouth, Daily at bedtime, PRN as needed for constipation, 0 Refills, Maintenance, 07/25/23 7:23:00 AM EDT, Tablet, Partial fill upon patient request if the prescription is for a schedule II opioid drug. Start Date: 07/25/23 Status: Ordered Repeat number: 1 Problem List Condition Confirmation Course Effective Dates Status H ealth Status Informant Family history of breast disorder Confirmed Active Lichen planus Confirmed Active Anxiety with depression Confirmed Active Osteoarthritis of left hip Confirmed Active Tinnitus Confirmed Active Social History Social History Type Response Smoking Status Never smoker; Tobacc o user in household: No entered on: 06/05/13 Sex Female Sex Representation Female (finding) Patient Care team information Care Team Personnel Name: Ashok Guerrero MD Position: [facility] Physician - Primary Care Member Role: PCP Address: [address] [place] [address] Adult & Pediatric Medicine [address] Telecom: Name: Savi Bonilla RN Position: [facility] RN Member Role: Primary Care Nurse Name: Mayra Gonzalez RN Position: [facility] RN Member Role: Primary Care Nurse Name: Renetta Barnes RN Position: [facility] RN Member Role: Primary Care Nurse Name: Love Jameson RN Position: [facility] RN Member Role: Primary Care Nurse Care Team Related Persons Name: AKOSUA HENDERSON Insurance Providers Guarantor name: MATA MCGOVERN BEATRIZ Health Plan Information #: 1 Payer: MEDICARE PART B OUTPT Member Number: [id number] Policy Number: NA Group Number: NA Health Plan Information #: 2 Payer: MEDEX Member Number: [id number] Policy Number: NA Group Number: NA
--- OUTSIDE RECORDS SUMMARY | 2024-02-05 15:27 | XMS_ITS | Continuity of Care Document ---
Author Organization [facility] Address [address] [place] [address]- Care Team Providers Care Distillation Operator Name Role Phone Cesar STACK, Ashok Monroy Primary Care Physician [phone] [facility] Date(s): 12/27/23 - 01/26/[address] [address] Attending Physician: Cristal Kumar Admitting Physician: Cristal Kumar Referring Physician: Cristal Kumar Encounter Type: Triage Allergies, Adverse Reactions, Alerts Substance Criticality Severity Reaction Reaction Severity Status epinephrine 1 Unable to assess criticality Persistent Mild Active Levaquin pruritis rash Active 1headache, elevated bp Immunizations Given and Recorded Vaccine Date Status Refusal Reason RSV vaccine preF3, recombinant 1 04/25/23 Recorded SARS-CoV-2(COVID-19)mRNA-LNP vac([id number]) 12/27/22 Recorded influenza virus vaccine, inactivated 12/01/22 [...] inactivated 4 03/29/12 Gi juhi SARS-CoV-2 mRNA ([id number]) vax 08/04/21 Recorded SARS-CoV-2 (COVID-19) mRNA BNT-162b2 [...] Vaccine Live 10/25/12 Recorded 1Result Comment: [04/25/2023] [facility]: [facility] [id number] 3[facility] 4Admin Note: vis sheet [...] Team Personnel Name: Ashok Guerrero MD Position: [facility] Physician - Primary Care Member Role: PCP Address: [address] [place] [address] Adult & Pediatric Medicine [address] Telecom: Name: Savi Bonilla RN Position: [facility] RN Member Role: Primary Care Nurse Name: Mayra Gonzalez RN Position: [facility] RN Member Role: Primary Care Nurse Name: Renetta Barnes RN Position: [facility] RN Member Role: Primary Care Nurse Name: Love Jameson RN Position: [facility] RN Member Role: Primary Care Nurse Care Team Related Persons Name: AKOSUA HENDERSON Insurance Providers Guarantor name: MATA MCGOVERN BEATRIZ Health Plan Information #: 1 Payer: MEDICARE PART B OUTPT Member Number: NA Policy Number: NA Group Number: NA Health Plan Information #: 2 Payer: MEDEX Member Number: NA Policy Number: NA Group Number: NA
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
== END 2024-02-05 15:59 | disposition home or self-care (01) ==
LOC: HO.HOP 15:23
PROVIDERS: PCP Internal Medicine; Visit Provider Psychiatry & Neurology Psychiatry
DX: F33.2 Major depressive disorder, recurrent severe without psychotic features (principal); F41.1 Generalized anxiety disorder
CPT/HCPCS: 90833; 99213

== ENCOUNTER → 2024-02-05 15:23 | Outpatient (REF) | payer MEDICARE, SELFPAY ==
[2024-02-05 17:15] LABS: Mean Platelet Volume 11.7 fL (9.4-12.3); PLT CLUMP 1; Red Cell Distribution Width 13.6 % (11.0-16.0); SCAN SMEAR FLAG 1
[2024-02-05 17:17] LABS: Basophils Percent Auto 0.4 % (0-2); Eosinophils Absolute Auto 0.1 X10*3/uL (0.0-0.4); Eosinophils Percent Auto 2.1 % (0-4); Hematocrit 41.7 % (37.0-47.0); Hemoglobin 13.6 g/dl (12.0-16.0); Imm Gran Abs Auto 0.02 X10*3/uL (0.00-0.03); Imm Gran Pct Auto 0.4 % (0.0-0.4); Lymphocytes Absolute Auto 1.2 X10*3/uL (1.2-4.9); Lymphocytes Percent Auto 25.2 % (20-40); MANUAL DIFF FLAG SCAN; Mean Corpuscular HGB Conc 32.6 g/dl (31.0-35.0); Mean Corpuscular Hemoglobin 29.7 pg (27.0-33.0); Monocytes Absolute Auto 0.4 X10*3/uL (0.1-1.2); Monocytes Percent Auto 8.9 % (2-11); Red Blood Count 4.58 X10*6/uL (4.20-5.50)
[2024-02-05 17:49] LABS: Alanine Aminotransferase 17 U/L (0-31); Albumin Level 4.3 g/dL (3.5-5.0); Alkaline Phosphatase 100 U/L (39-117); Anion Gap 16 (12-20); Aspartate Amino Transferase 20 U/L (5-31); Bilirubin Total 0.4 mg/dL (0.0-1.0); Blood Urea Nitrogen 18 mg/dL (9-16); Calcium 9.9 mg/dL (8.4-10.2); Carbon Dioxide 27 mmol/L (22-29); Chloride 97 mmol/L (96-108); Estimated Glomerular Filt Rate > 60; Glucose Random 93 mg/dL (60-115); Sodium 135 mmol/L (135-145)
[2024-02-05 18:01] LABS: TSH reflex Free T4 1.69 uIU/mL (0.32-4.0)
[2024-02-05 18:12] LABS: Folate > 20.0 ng/mL (> or = 4.0); Vitamin B12 493 pg/mL (200-900)
[2024-02-05 18:14] LABS: Platelet Count 156 X10*3/uL (160-400); White Blood Count 4.8 X10*3/uL (4.8-10.8)
[2024-02-05 18:18] LABS: SLIDE REVIEW VERIFIED
== END ==
LOC: HO.CARD 15:23
PROVIDERS: PCP Internal Medicine; Visit Provider Psychiatry & Neurology Psychiatry
DX: Z01.818 Encounter for other preprocedural examination (principal); F33.1 Major depressive disorder, recurrent, moderate
CPT/HCPCS: 36415; 80053; 82607; 82746; 84443; 85025

== ENCOUNTER → 2024-02-06 13:58 | Outpatient (REF) | payer MEDICARE, SELFPAY ==
--- NOTE | 2024-02-06 14:04 | ECG_ITS ---
Test Reason : major depression episode Blood Pressure : / mmHG Vent. Rate : 082 BPM Atrial Rate : 082 BPM P-R Int : 162 ms QRS Dur : 080 ms QT Int : 364 ms P-R-T Axes : 050 055 051 degrees QTc Int : 425 ms Normal sinus rhythm Normal ECG When compared with ECG of 20-SEP-2023 17:31, No significant change was found Referred By: Delvin Escobedo Electronically Signed By:KATELIN VALENTINE
== END ==
LOC: HO.CARD 13:58
PROVIDERS: PCP Internal Medicine; Visit Provider Psychiatry & Neurology Psychiatry
DX: Z01.818 Encounter for other preprocedural examination (principal); F33.1 Major depressive disorder, recurrent, moderate
CPT/HCPCS: 93005

== ENCOUNTER → 2024-02-06 14:04 | Outpatient (BNV) | payer MEDICARE, SELFPAY | PROVIDERS: PCP Internal Medicine; Visit Provider Internal Medicine | DX: F33.9 Major depressive disorder, recurrent, unspecified (principal) | CPT/HCPCS: 93010 ==

== ENCOUNTER 2024-02-13 15:22 | Outpatient (REF) | payer MEDICARE, SELFPAY ==
[2024-02-13 18:03] LABS: TSH reflex Free T4 1.71 uIU/mL (0.32-4.0)
[2024-02-14 19:37] LABS: Triiodothyronine T3 Free 3.2 pg/mL (2.3-4.2)
[2024-02-23 15:54] LABS: FT4 by Equilib. Dialysis 1.6 ng/dL (0.9-2.2)
== END 2024-02-13 15:23 | disposition home or self-care (01) ==
LOC: HO.LAB 15:22
PROVIDERS: PCP Internal Medicine; Visit Provider Psychiatry & Neurology Psychiatry
DX: F33.2 Major depressive disorder, recurrent severe without psychotic features (principal); F41.1 Generalized anxiety disorder
CPT/HCPCS: 36415; 84439; 84443; 84481; 99212

== ENCOUNTER 2024-02-13 15:22 | Outpatient (AMB) | payer MEDICARE, SELFPAY ==
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
== END 2024-02-13 16:30 | disposition home or self-care (01) ==
LOC: HO.HOP 15:22
PROVIDERS: PCP Internal Medicine; Visit Provider Psychiatry & Neurology Psychiatry
DX: F33.2 Major depressive disorder, recurrent severe without psychotic features (principal); F41.1 Generalized anxiety disorder
CPT/HCPCS: 90833; 99213

== ENCOUNTER 2024-02-21 13:30 | Outpatient (AMB) | payer MEDICARE, SELFPAY ==
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
== END 2024-02-21 14:20 | disposition home or self-care (01) ==
LOC: HO.HOP 13:30
PROVIDERS: PCP Internal Medicine; Visit Provider Psychiatry & Neurology Psychiatry
DX: F33.2 Major depressive disorder, recurrent severe without psychotic features (principal); F41.1 Generalized anxiety disorder
CPT/HCPCS: 90833; 99213

== ENCOUNTER → 2024-02-21 13:30 | Outpatient (BNVA) | payer MEDICARE, SELFPAY ==
--- NOTE | 2024-02-29 13:49 | PM.EVENT ---
Event Note Date of Service: 02/29/24 Event Note: Reviewed patient's chart and case discussed with the patient over the phone. She continues to have significant anxiety rumination perhaps somewhat less depressed. No active SI. Patient remains on Nardil. She has been followed by her pressure controller appears to have some type of vascular question abnormality in her right eye. May require a procedure. Asked for records from ophthalmology an MRI and MRA. Change Seroquel to olanzapine 2.5 at bedtime may take additional 1 tab daily as needed for anxiety Time Spent With Patient Time: Total time managing care of this patient today ____ minutes.
== END ==
PROVIDERS: PCP Internal Medicine; Visit Provider Psychiatry & Neurology Psychiatry
DX: F33.2 Major depressive disorder, recurrent severe without psychotic features (principal); F41.1 Generalized anxiety disorder; Z71.89 Other specified counseling
CPT/HCPCS: 99212; 99499

== ENCOUNTER 2024-03-03 13:25 | Outpatient (AMB) | payer MEDICARE, SELFPAY ==
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
== END 2024-03-03 14:12 | disposition home or self-care (01) ==
LOC: HO.HOP 13:25
PROVIDERS: PCP Internal Medicine; Visit Provider Psychiatry & Neurology Psychiatry
DX: F33.2 Major depressive disorder, recurrent severe without psychotic features (principal); F41.1 Generalized anxiety disorder
CPT/HCPCS: 99214

== ENCOUNTER → 2024-03-03 13:25 | Outpatient (BNVA) | payer MEDICARE, SELFPAY | PROVIDERS: PCP Internal Medicine; Visit Provider Psychiatry & Neurology Psychiatry | DX: F33.2 Major depressive disorder, recurrent severe without psychotic features (principal); F41.1 Generalized anxiety disorder | CPT/HCPCS: 99212 ==

== ENCOUNTER 2024-03-18 12:42 | Outpatient (REF) | payer MEDICARE, SELFPAY ==
[2024-03-18 14:28] LABS: Alanine Aminotransferase 32 U/L (0-31); Albumin Level 3.7 g/dL (3.5-5.0); Alkaline Phosphatase 102 U/L (39-117); Anion Gap 11 (12-20); Aspartate Amino Transferase 28 U/L (5-31); Bilirubin Total 0.3 mg/dL (0.0-1.0); Blood Urea Nitrogen 17 mg/dL (9-16); Calcium 9.3 mg/dL (8.4-10.2); Carbon Dioxide 23 mmol/L (22-29); Chloride 108 mmol/L (96-108); Estimated Glomerular Filt Rate > 60; Glucose Random 93 mg/dL (60-115); Potassium 4.7 mmol/L (3.3-5.1); Sodium 137 mmol/L (135-145); Total Protein 6.5 g/dL (6.5-8.0)
[2024-03-18 14:37] LABS: TSH reflex Free T4 0.31 uIU/mL (0.32-4.0)
[2024-03-18 16:15] LABS: Free T4 (Free Thyroxine) 0.52 ng/dL (0.71-1.85)
[2024-03-19 21:09] LABS: Triiodothyronine T3 Free 5.2 pg/mL (2.3-4.2)
== END 2024-03-18 12:43 | disposition home or self-care (01) ==
LOC: HO.LAB 12:42
PROVIDERS: PCP Internal Medicine; Visit Provider Psychiatry & Neurology Psychiatry
DX: Z01.818 Encounter for other preprocedural examination (principal); E07.9 Disorder of thyroid, unspecified; F33.2 Major depressive disorder, recurrent severe without psychotic features
CPT/HCPCS: 36415; 80053; 84439; 84443; 84481; 99212

== ENCOUNTER 2024-03-18 12:42 | Outpatient (AMB) | payer MEDICARE, SELFPAY ==
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
== END 2024-03-18 12:51 | disposition home or self-care (01) ==
LOC: HO.HOP 12:42
PROVIDERS: PCP Internal Medicine; Visit Provider Psychiatry & Neurology Psychiatry
DX: F33.41 Major depressive disorder, recurrent, in partial remission (principal); F41.1 Generalized anxiety disorder
CPT/HCPCS: 99214

== ENCOUNTER 2024-04-29 11:38 | Outpatient (AMB) | payer MEDICARE, SELFPAY ==
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
--- OUTSIDE RECORDS SUMMARY | 2024-04-29 12:49 | XMS_ITS | Data Portability ---
Author Organization [place] - [facility], Allergy Address [address] [place] [phone] Assessment Encounter Date Assessment Date Assessment LastModified by Organization Details LastModified Time 11/05/2023 11/05/2023 Recommendations: Follow up with referring provider. Amplification, pending medical clearance. [email or web address] Not available 11/05/2023 14:36:41 11/05/2023 11/05/2023 73-year-old female presents for evaluation of hearing loss and tinnitus. Cerumen impaction removed bilaterally. Bilateral tympanic membranes are intact with well aerated middle ear spaces. Audiometric testing demonstrated an asymmetric sensorineural hearing loss, worse on the right. We discussed observation as auditory thresholds are essentially stable in the past 6 months versus MRI of the IACs to rule out retrocochlear pathology. Patient elected to proceed with observation at this time. She will follow-up in 1 year for audiometric testing, or sooner with any sudden changes in her hearing or worsening tinnitus. Patient is a candidate for right-sided amplification and medical clearance was provided today. She will consider this. [email or web address] Not available 11/05/2023 15:08:19 Plan of Treatment Reminders Order Date Submit Date Provider Last Modified By Organization Details Last Modified Time Details Appointments None record ed. Lab None record ed. Referral None record ed. Procedures None record ed. Surgeries None record ed. Imaging None record ed. Medication Orders None record ed. Patient TargetsNo targets recorded. Patient InstructionsNo instructions recorded. Reason for Referral None Reported. Results Created Date Observation Date Name Description Value Unit Range Abnormal Flag Note LastModifiedBy Organization Detail LastModifiedTime 11/06/19 24 audio gram No observ ation record ed. [email or web address] Not Available 10/11 09:01:41 11/06/19 24 05/07/2023 audio gram No observ ation record ed. [email or web address] Not Available 11:24:20 Result Notes None recorded. Problems Name Problem SNOMED Code Status Onset Date Resolution Date Notes Provider Name and Address Organization Details Recorded Time Sensorineur al hearing loss of bilateral ears 223215380 Active 2023 INEZ BOSTON, AUD [address] [facility],[place] [address], [place], [phone], [place] - [facility] 14:34:52 Impacted cerumen of bilateral ears 7349963483115 108 Active 2023 OMEGA SAMAYOA PA-C [address] [facility],[place] [address], [place], [phone], [place] - [facility] 15:06:50 Problem Notes None recorded. Procedures Surgical History Date Name Laterality Status Provider Name and Address Organization Details Recorded Time 11/05/19 24 Comp Audio with Tymps (02077 & 84518) completed INEZ BOSTON, AUD [address] [facility],[place] [address], [place], [address], [place] - [facility] 11/05/2023 14:35:51 11/05/19 24 Cerumen removal without microscope bilat completed OMEGA SAMAYOA PA-C [address] [facility],[address], [address], [place] - [facility] 11/05/2023 15:06:46 Appendectomy completed Shilpi Joshi [place] - [facility] 11/05/2023 14:18:48 total replacement of left hip joint completed Shilpi Joshi [place] - [facility] 11/05/2023 14:19:20 Cerv cancer screen docd completed Shilpi Joshi [place] - [facility] 11/05/2023 14:19:37 localization mammography completed Shilpi Joshi [place] - [facility] 11/05/2023 14:19:49 colonoscopy completed Shilpi Joshi [place] - [facility] 11/05/2023 14:20:10 Imaging Results Imaging Date Name Status LastModified by Organiz ation Details LastModified Time 11/06/2023 audiogram completed [email or web address] Information n ot available 11/06/2023 09:01:41 05/07/2023 audiogram completed [email or web address] Information not available 11/06/2023 11:24:20 Procedure Notes None recorded. Medical Equipment None Reported. Allergies No known drug allergies Medications Name Sig Start Date Stop Date Status Note LastModified by Organization Details LastModified Time quetiapine 25 mg tablet active Not Available Not Available No t Available celecoxib 200 mg capsule active Not Available Not Available N ot Available prednisone 10 mg tablet active Not Available Not Available No t Available doxycycline hyclate 100 mg capsule active Not Available Not Available Not Available azithromycin 250 mg tablet active Not Available Not Availabl e Not Available phenelzine 15 mg tablet active Not Available Not Available No t Available ondansetron HCl 4 mg tablet active Not Available Not Available Not Available clonazepam 0.5 mg tablet active Not Available Not Available No t Available clobetasol 0.05 % topical cream active Not Available Not Available Not Available cephalexin 500 mg capsule active Not Available Not Available N ot Available pantoprazole 40 mg tablet,delayed release active Not Available Not Available Not Available albuterol sulfate HFA 90 mcg/actuation aerosol inhaler active Not Available Not Available Not Available fluticasone propionate 50 mcg/actuation nasal spray,suspensi on active Not Available Not Available Not Available amoxicillin 875 mg-potassium clavulanate 125 mg tablet active Not Available Not Availabl e Not Available oxycodone 5 mg tablet TAKE 1 TO 2 TABLETS BY MOUTH EVERY 4 HOURS NEEDED FOR SEVERE PAIN active Not Available Not Available No t Available ciclopirox 0.77 % topical cream active Not Available Not Available Not Available Vitals Date Recorded Body height Body mass index (BMI) Body weight Provider Name and Address Organization Details Last Updated DateTime 11/05/2023 167.64 cm 27.1 kg/m2 72807.52 g Shilpi Joshi [place] - [facility] 11/05/2023 14:46:38 Social History Question Answer Notes LastModified by Organizat ion Details LastModified Time Tobacco Smoking Status Former Smoker Shilpi bal [place] - [facility] 11/05/2023 14:22:40 What Is Your Level Of Alcohol Consumption? None Information not available 11/05/2023 Sex: Unknown Functional Status None recorded. Mental Status None recorded. Family History Nothing Reported. Medical History Condition Response Anxiety Y Depression Y Gynecological HistoryNo gynecological history recorded. Obstetrics History GPAL:G 0 P 0 0 0 0 Immunizations Vaccine Type Date Status Note Provider Nam e and Address Organization Details Recorded Time influenza nasal, unspecified formulation 3 completed Shilpi bal [place] - [facility] 11/05/2023 14:18:20 Past Encounters Encounter ID Performer Location Encounter Start Date Encounter Closed Date Diagnosis/Indication Diagnosis SNOMED-CT Code Diagnosis ICD10 Code Diagnosis Note [id number] OMEGA SAMAYOA PA-C [facility] [address] [address] 11/05/2023 13:32:06 11/05/2023 15:00:04 Impacted cerumen of bilateral ears [id number] 288140 H61.23 Sensorineu ral hearing loss of bilateral ears 853821577 H90.3 [id number] GALEN AUSTIN [facility] [address] [address] 11/05/2023 14:28:50 11/06/2023 06:59:49 Sensorineural hearing loss of bilateral ears 146099566 H90.3 Audiologic al evaluation results: Right ear: {{Normal sloping Mi ld Moderat e Moderate ly-severe Severe Pro found Norm al auditory thresholds Mild rising to normal then sloping#}} to {{mild mod erate mode rately-sev ere* sever e profound with}} {{sensorin eural hearing loss with* cond uctive hearing loss with mixed hearing loss with}} {{excellen t good* fa ir poor no t measurable }} word recognitio n. Left ear: {{Normal sloping Mi ld Moderat e Moderate ly-severe Severe Pro found Norm al auditory thresholds Normal sloping at 6kHz#}} to {{mild mod erate mode rately-sev ere severe profound with a mild#}} {{sensorin eural hearing loss with* cond uctive hearing loss with mixed hearing loss with}} {{excellen t* good fa ir poor no t measurable }} word recognitio n. Tympanomet ry: Right Ear:{{Type A* Type As Type Ad Type C Type C, shallow & rounded Ty pe B Type B with large volume Cou ld not maintain a hermetic seal}} Left Ear:{{Type A* Type As Type Ad Type C Type C, shallow & rounded Ty pe B Type B with large volume Cou ld not maintain a hermetic seal}} Health Concerns Section Related Observation LastModified by Organization Detai ls LastModified Time None Recorded Concern Status LastModified by Organization Details LastModified Time None Recorded Advance Directives Directive None Recorded Payers Encounter Date Sequence Insurance Name Policy Number Policy Johnson Covered Member ID Johnson Member ID Guarantor Name 11/05/2023 1 [place] [employer] [address] [id number] 11/05/2023 2 [place] [id number] [address] [id number] 11/05/2023 1 [place] [place] [address] [id number] 11/05/2023 2 [place] [id number] [address] [id number] [place] Notes Date Note Type Note Provider Name and Address Organization Details Recorded Time 11/05/2023 text/html 73-year-old ramone rosenthal presents for evaluation of hearing loss. She reports gradual decline in her hearing over the past 6-12 months. Admits to tinnitus bilaterally, worse on the right. Denies otalgia, otorrhea, and vertigo. Had a hearing test at [facility] back in April which noted asymmetric hearing loss. She was referred for further evaluation. Denies prior otologic surgeries, but reports history of recurrent ear infections as a child. Reports that her father had significant hearing loss in his older age. OMEGA SAMAYOA PA-C [address] [place] [address], [phone], [facility] - [facility] 11/05/2023 15:08:58 11/05/2023 text/html Audiological Evaluation HPIReported bypatient.Hearing loss perceived:hearing loss in both ears: right ear worse Use of amplification or other hearing devices:none (does not use amplification) Tinnitus reported:right ear INEZ BOSTON, AUD [address] [facility],[place] [address], [place], [address], [facility] - [facility] 11/05/2023 14:36:46 OBGyn Episode No OBEpisode recorded.
--- OUTSIDE RECORDS SUMMARY | 2024-04-29 12:49 | XMS_ITS ---
Author Organization [facility] Address [address] [place] [address] Care Team Providers Care Band Nailer Name Role Phone Ashok Guerrero MD Primary Care Provider Calin Herrera [phone] REASON FOR VISIT PT Question?? Encounters Encounter Location Date Provider Diagnosis [facility] [address] [place] [address] 12/20/2022 Calin Le Plan Of Treatment No Information Progress Notes * Yaneth WADSWORTH SDOB: 1950 (72 yo F)Acc No.[id number]:12/20/2022 Patient:?Louise Wadsworth :1950???Age:72 Y???Sex:Female Address:[address] [place] [address], [phone] * true * Date:? Generated for Inési jonn/Cole/eTransmitting on:?04/29/2024 12:49 PM EST
--- OUTSIDE RECORDS SUMMARY | 2024-04-29 12:49 | XMS_ITS ---
Author Organization [facility] Address [address] [place] [address] Care Team Providers Care Primary Clinician Name Role Phone Ashok Guerrero MD Primary Care Provider Calin Herrera [phone] REASON FOR VISIT Bright red toe Encounters Encounter Location Date [facility] [address] [place] [address] 01/09/2023 Calin Le Plan Of Treatment No Information Progress Notes * Yaneth WADSWORTH SDOB: 1950 (72 yo F)Acc No.[id number]:01/09/2023 Patient:?Louise Wadsworth Alison :1950???Age:72 Y???Sex:Female Address:[address] [place] [address] [place], [address] * true * Date:? Generated for Inési jonn/Cole/eTransmitting on:?04/29/2024 12:49 PM EST
--- OUTSIDE RECORDS SUMMARY | 2024-04-29 12:49 | XMS_ITS | Patient Health Record ---
Author Organization [facility] Address [address] [facility] [place] [address] Care Team Providers Care Religious Education Teacher Name Role Phone Ashok Guerrero MD Primary Care Provider Calin Herrera Unavailable [phone] Allergies Allergen (clinical drug ingredient) Drug/Non Drug Allergy documented on EMR Reaction Allergy Type Onset Date Status ciprofloxacin Cipro Unknown Drug Allergy Act emil EPINEPHrine MAOI inhibitor Drug Allergy Active Levaquin Unknown Drug Allergy Active Novocain Unknown Drug Allergy Active codeine Codeine Unknown Drug Allergy Active morphine Morphine Unknown Drug Allergy Active Reason For Referral No Information Medications Medication SIG (Take, Route, Frequency, Duration) Notes Start Date End Date Status Nardil 15 MG 1 tablet Orally Thre e times a day for 30 day(s) Unknown Xanax 0.5 MG 1 tablet Orally prn Unknown Keflex Active clonazePAM 0.5 MG 1 tablet Orally Once a day PRN Active Fish Oil Active Phenelzine Sulfate 15 MG 1 tablet Orally Once a day Not-Taking Nardil 15 MG 1 tablet Orally Thre e times a day for 30 day(s) 2X A DAY Active Ciclopirox Olamine 0.77 % 1 application to affected area Externally Twice a day to effected areas on feet for 30 days Active Xanax 0.5 MG 1 tablet Orally prn Active Doxycycline Hyclate 100 MG 1 capsule Orally Once a day for 10 day(s) 11/29/2022 Not-Taking Social History Tobacco Use: Social History Observation Description Date Details (start date - stop date) Former Smoker NA - NA Tobacco Use/Smoking Question Answer Notes Are you a: former smoker Additional Findings: Tobacco Non-User Current no n-smoker Alcohol Screen Question Answer Notes Did you have a drink containing alcohol in the p ast year? No Points 0 Interpretation Negative Tobacco use other than smoking: Question Answer Notes Are you an other tobacco user? No Vital Signs Height 5ft 6in in 06/21/2023 Weight 167 lbs 06/21/2023 BMI 26.95 kg/m2 06/21/2023 Encounters Encounter Location Date Provider Diagnosis [facility] [address] [place] [address] 06/21/2023 Calin Le Tinea unguium B35.1 ; Pain in right toe(s) M79.674 ; Pain in left toe(s) M79.675 ; Skin disease L98.9 ; Tinea pedis B35.3 and Ingrowing nail L60.0 Assessments Encounter Date Diagnosis (ICD Code) Assessment Notes Treatment Notes Treatment Clinical Notes Section Notes 06/21/2023 Tinea unguium (ICD-10 - B35.1) 06/21/2023 Pain in right toe(s) (ICD-10 - M79.674) 06/21/2023 Pain in left toe(s) (ICD-10 - M79.675) 06/21/2023 Skin disease (ICD-10 - L98.9) 06/21/2023 Tinea pedis (ICD-10 - B35.3) 06/21/2023 Ingrowing nail (ICD-10 - L60.0) Plan Of Treatment No Information Insurance Providers Payer Name Payer Address Payer Phone Subscriber Number Group Number Insured Name Patient Relationship to Insured Coverage Start Date Coverage End Date Medicare National Govt Svcs Inc [address] [facility] [place] [address] [phone] [id number] PlassePr Yaneth nicolas Self - patient is the insured Medex Blue [facility] [address] [place] [address] [phone] [id number] PlassePr Yaneth nicoals Self - patient is the insured Medical (General) History Medical History History ICD Code back, hip, knee pain neuropathy chicken pox measles Anxiety Broken bones Depression Hammer toe 735.4 Onychomycosis 110.1 Pain in Limb 729.5 Surgical History Surgery Date(Month/Year) appendectomy breast biopsy Hospitalization History Reason Date(Month/Year) Wing Er- UTI- Keflex 06/20/23
--- OUTSIDE RECORDS SUMMARY | 2024-04-29 12:50 | XMS_ITS ---
[facility] [place] Address [address] [facility] [place] [address] Care Team Providers Care Polysomnographic Technician Name Role Phone Ashok Guerrero MD Primary Care Provider Calin Herrera Unavailable [phone] Allergies Allergen (clinical drug ingredient) Drug/Non Drug Allergy documented on EMR Reaction Allergy Type Onset Date Status ciprofloxacin Cipro Unknown Drug Allergy Act emil EPINEPHrine MAOI inhibitor Drug Allergy Active Levaquin Unknown Drug Allergy Active Novocain Unknown Drug Allergy Active codeine Codeine Unknown Drug Allergy Active morphine Morphine Unknown Drug Allergy Active REASON FOR VISIT PCP - 04/04 Medications Medication SIG (Take, Route, Frequency, Duration) Notes Start Date End Date Status Nardil 15 MG 1 tablet Orally Thre e times a day for 30 day(s) Unknown Xanax 0.5 MG 1 tablet Orally prn Unknown Nardil 15 MG 1 tablet Orally Thre e times a day for 30 day(s) 2X A DAY Active Xanax 0.5 MG 1 tablet Orally prn Active Doxycycline Hyclate 100 MG 1 capsule Orally Once a day for 10 day(s) 11/29/2022 Not-Taking Keflex Active clonazePAM 0.5 MG 1 tablet Orally Once a day PRN Active Fish Oil Active Phenelzine Sulfate 15 MG 1 tablet Orally Once a day Not-Taking Ciclopirox Olamine 0.77 % 1 application to affected area Externally Twice a day to effected areas on feet for 30 days Active Social History Tobacco Use: Social History Observation [...] 06/21/2023 Encounters Encounter Location Date Provider Diagnosis [facility] [address] [place] [address] 06/21/2023 Calin Le Tinea unguium B35.1 ; [...] nail (ICD-10 - L60.0) Plan Of Treatment Medication Medication Name Sig Start Date Stop Date Notes Ciclopirox Olamine 0.77 % 1 application to affected area Externally Twice a day to effected areas on feet for 30 days Next Appt Details Follow Up: prn, Reason: Progress Notes * Yaneth WADSWORTH SDOB: 1950 (73 yo F)Acc No.[id number]:06/21/2023 Progress Note Patient:?Louise Wadsworth blair Rosas Provider:?Calin Le DPM :1950???Age:73 Y???Sex:Female D ate:06/21/2023 Address:[address] [place] [address] [place] [id number] Pcp:Ashok Guerrero MD Subjective: * Chief Complaints: * ???PCP - 04/04 * HPI: ???Skin problems:?Nature:?discolored, itching.?Location:?Right , Forefoot.?Duration:?several months.?Onset/Cause:?unknown, denies injury.?Course:?worse.?Aggravated by:?any pressure, shoegear.?Treatments:?Topical antifungal-pt d/c use of af for past sev months--AMA .?Severity/Quality:?moderate.?Painful Nails:?Pt States Last PCP Visit:?Date:?03/12/2023 * ROS:?General/Constitutional:?Nausea?denies.?Vomiting?denies.?Hunger Thirst?denies.?Loss appetite?denies.?Chills?denies.?Fatigue?denies.?Fever?denies.?Night Sweats?denies.?Unexplained weight loss?denies.?Unexplained weight gain?denies.?HEENTM:?Dentures?denies.?Dizziness?denies.?Glasses/contacts?denies.?Retinopathy?de nies.?Blurred/double vision?denies.?TMJ?denies.?Discharge/drainage?denies.?Implants?denies.?Sore throat?denies.?Dental implants?denies.?Hard of hearing ?denies.?Difficulty chewing/swallowing/speaking?denies.?Nose bleeds?denies.?Sore mouth?denies.?Respiratory:?On Oxygen?denies.?Pneumonia/pleurisy?denies.?Bronchitis?denies.?Emphysema?denies.?C oughing?denies.?Cough blood?denies.?Shortness of breath?denies.?Wheezing?denies.?Cardiovascular:?Pacemaker?denies.?MVP?denies.?WPW?denies.?CHF?denies.?Heart attack?denies.?Septal defect?denies.?Rapid beat?denies.?Chest pain ?denies.?Atrial Fib.?denies.?Murmur/Palpitations?denies.?Gastrointestinal:?Hemorrhoids?denies.?Stomach/Abdominal pain?denies.?Dark blood stool?denies.?Irritable bowel ?denies.?Constipation?denies.?Diarrhea?denies.?Hematology:?Swelling?denies.?Clots?denies.?Varicose Veins?denies.?Bruising?denies.?Bleeding problem?denies.?Genitourinary:?Blood urine?denies.?Frequent/Painfu/urination/bladder control?denies.?Kidney stones?denies.?Infection (UTI)?denies.?Nephropathy?denies.?sex trans dis (STD)?denies.?Prostate?denies.?Musculoskeletal:?Hammertoes?denies.?Bunions?denies.?Back Pain?denies.?Muscle Cramps/ Resting?denies.?Muscle cramps / walking?denies.?Generalized aches and pains?admits.?Weakness?denies.?Integ.:?Arriola?denies.?Scars?denies.?Corns/calluses?denies.?Ingrown nails?denies.?Painful nails?admits.?Open Sores?denies.?Rashes?denies.?Neurologic:?Difficulty sleeping?denies.?Brain disorder?denies.?Numbness?denies.?Balance trouble?denies.?Confusion?denies.?Fainting/blackouts?denies.?Tingling?denies.?Tr emors?denies.? * Medical History:? * Surgical History:?appendecto my breast biopsy * Hospitalization/Major Diagno stic Procedure:? Er- UTI- Keflex 06/20/23 * Family History:?Mother: dece ased, diabetes, cancer, foot problems, hypertension, arthritis.?Father: , diabetes, , stroke, foot problems.? * Social History:?Tobacco Use:?Tobacco Use/Smoking?Are you a:?former smoker ?Additional Findings: Tobacco Non-User?Current non-smoker ?Tobacco use other than smoking?Are you an other tobacco user??No ???Drugs/Alcohol:?Drugs?Have you used drugs other than those for medical reasons in the past 12 months??No ?Alcohol Screen?Did you have a drink containing alcohol in the past year??No ?Points?0 ?Interpretation?Negative ???Miscellaneous:?no Caffeine. ?no Children. ?no Exercise, walking. ?Marital status: . 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 * Medications:?TakingKeflex Ci clopirox Olamine 0.77 % Cream 1 application to affected area Externally Twice a day to effected areas on feetclonazePAM 0.5 MG Tablet 1 tablet Orally Once a day, Notes: PRNFish Oil Nardil 15 MG Tablet 1 tablet Orally Three times a day, Notes: 2X A DAYXanax 0.5 MG Tablet 1 tablet Orally prnTaking Keflex Taking Ciclopirox Olamine 0.77 % Cream 1 application to affected area Externally Twice a day to effected areas on feetTaking clonazePAM 0.5 MG Tablet 1 tablet Orally Once a day, Notes: PRNTaking Fish Oil Taking Nardil 15 MG Tablet 1 tablet Orally Three times a day, Notes: 2X A DAYTaking Xanax 0.5 MG Tablet 1 tablet Orally prnNot-Taking/PRNPhenelzine Sulfate 15 MG Tablet 1 tablet Orally Once a dayDoxycycline Hyclate 100 MG Capsule 1 capsule Orally Once a dayNot-Taking/PRN Phenelzine Sulfate 15 MG Tablet 1 tablet Orally Once a dayNot-Taking/PRN Doxycycline Hyclate 100 MG Capsule 1 capsule Orally Once a dayUnknownNardil 15 MG Tablet 1 tablet Orally Three times a dayXanax 0.5 MG Tablet 1 tablet Orally prnMedication List reviewed and reconciled with the patientUnknown Nardil 15 MG Tablet 1 tablet Orally Three times a dayUnknown Xanax 0.5 MG Tablet 1 tablet Orally prnMedication List reviewed and reconciled with the patient * Allergies:?CiproLevaquinEPIN EPHrine: MAOI inhibitorMorphineCodeineNovocainyes[Allergies Verified] Objective: * Vitals:?Ht: 5ft 6in, Wt:167, BMI:26.95, Shoe size:9.5. * Examination: ???Nails: ?NAILS are:?elongated,overgrown,dystrophic,greater than 3mm thick,discolored and friable with crumbly malodorous subungual debris, with pain on palpation, 1-5 B/L; severe onycholysis t5 nail.?General Examination: ?GENERAL APPEARANCE:?pleasant, alert, well nourished, well developed, well hydrated, with good attention to hygene/body habitus, and in no acute distress.?ORIENTED:?person,place, and time.?Neurological: ?SENSORY:?neurological exam reveals intact sensorium, pain sensation normal, vibration sensation intact, pinprick sensation is normal in the lower extremities, anesthesia, burning, tingling, B/L.?Vascular: ?DP PULSES:? 2/4, B/L.?PT PULSES:? 1/4, B/L.?CAPILLARY FILL TIME:?3 secs. per digit. B/L.?SKIN TEMPERTURE GRADIENT OF THE LOWER EXTERMITIES:?normal, B/L.?HAIR GROWTH/TEXTURE/ELASTICITY/TURGOR:?normal, B/L.?PIGMENTATION:?normal, B/L.?EDEMA:?absent, B/L.?TELANGECTASIA:?absent, B/L.?Dermatologic: ?SKIN FINDINGS:? Skin shows sign(s) of, erythema, scaling, in a moccasin fashion, no fissure(s) present, B/L--resolving.?Orthopedic: ?MUSCLE STRENGTH:?5/5 all groups in a symmetrical fashion , B/L.?Ingrown Nail: ?INSPECTION:? Reveals nail incurvation, pain on palpation, groove hypertrophy, groove ischemia, Medial nail border, TA.? Assessment: * Assessment: 1.?Tinea unguium - B35.1 (Pr imary)?2.?Pain in right toe(s) - M79.674?3.?Pain in left toe(s) - M79.675?4.?Skin disease - L98.9?5.?Tinea pedis - B35.3?6.?Ingrowing nail - L60.0? Plan: * Treatment: * Procedure Codes:? * Preventive Medicine:? ??Counseling:?Discussion:?-13: Office or other outpatient visit for the evaluation and management of an established patient, which required a medically appropriate history and/or examination and LOW level of DECISION MAKING for: 1 STABLE ACUTE UNCOMPLICATED PROBLEM, 2 OR MORE MINOR PROBLEMS, OR 1 STABLE CHRONIC PROBLEM, THAT POSE(S) A LOW RISK FOR MORBIDITY/MORTALITY. The visit on the day of the encounter encompassed interpreting the data and educating the patient as to the nature of their condition, treatment options available according to their individual PMH, meds, allergies, and overall health/living conditions, as well as any potential risks or complications that may occur from a failure to adhere to, and participate in, the recommended course of therapy. The discussion included a complete verbal, and/or written explanation of the examination results, any x-rays taken, the proposed diagnosis, and outline of the treatment plan. A schedule for future care needs was also explained. The patient verbalized an understanding of the instructions at this time and agreed to be an active participant in their treatment. If the patient should think of any questions or concerns after the visit, I have encouraged the patient to call the office--pt to complky with toipical af for one yr.?Tinea Pedis:?Given recent successful results to treatment, The patient is to cont the rx cream as directed.? * Follow Up:?prn * Images: * Sign off status: Completed true * Provider:?Calin Le DPM Date:? 024 Generated for Adriel lunsford/Cole/Tin on:?04/29/2024 12:49 PM EST History and Physical Notes * HPI (History of Present Illness) Category Sub-Category Detail Notes Category Not es Painful Nails Pt States Last PCP Visit: Date:: 03/12/2023 Skin problems Nature: discolored, itching Location: Right , Forefoot Duration: several months Onset/Cause: unknown, denies inju ry Course: worse Aggravated by: any pressure, shoege ar Treatments: Topical antifungal-p t d/c use of af for past sev months--AMA Severity/Quality: moderate Examination Category Sub-Category Detail Notes Category Not es Ingrown Nail INSPECTION: Reveals nail inc urvation, pain on palpation, groove hypertrophy, groove ischemia, Medial nail border, TA Neurological SENSORY: neurological exa m reveals intact sensorium, pain sensation normal, vibration sensation intact, pinprick sensation is normal in the lower extremities, anesthesia, burning, tingling, B/L Dermatologic SKIN FINDINGS: Skin shows sign( s) of, erythema, scaling, in a moccasin fashion, no fissure(s) present, B/L--resolving Orthopedic MUSCLE STRENGTH: 5/5 all groups in a symmetrical fashion , B/L General Examination GENERAL APPEARANCE: pleasant , alert, well nourished, well developed, well hydrated, with good attention to hygene/body habitus, and in no acute distress ORIENTED: person,place, and ti me Vascular DP PULSES (B): 2/4, B/L PT PULSES (B): 1/4, B/L CAPILLARY FILL TIME: 3 secs. per digit. B/L TEMPERTURE GRADIENT (C): normal, B/L TROPHIC CONDITION-TEXTURE/ELASTICITY/TUR GOR/HAIR GROWTH (B): normal, B/L EDEMA (C): absent, B/L TELANGECTASIA: absent, B/L PIGMENTATION: normal, B/L Nails NAILS are: elongated,overgr own,dystrophic,greater than 3mm thick,discolored and friable with crumbly malodorous subungual debris, with pain on palpation, 1-5 B/L; severe onycholysis t5 nail
== END 2024-04-29 12:29 | disposition home or self-care (01) ==
LOC: HO.HOP 11:38
PROVIDERS: PCP Internal Medicine; Visit Provider Psychiatry & Neurology Psychiatry
DX: F41.1 Generalized anxiety disorder (principal); F33.41 Major depressive disorder, recurrent, in partial remission
CPT/HCPCS: 99214

== ENCOUNTER → 2024-04-29 11:38 | Outpatient (BNVA) | payer MEDICARE, SELFPAY | PROVIDERS: PCP Internal Medicine; Visit Provider Psychiatry & Neurology Psychiatry | DX: F41.1 Generalized anxiety disorder (principal); F33.2 Major depressive disorder, recurrent severe without psychotic features; E07.9 Disorder of thyroid, unspecified | CPT/HCPCS: 99212 ==

== ENCOUNTER 2024-05-07 08:26 | Outpatient (REF) | payer MEDICARE, SELFPAY ==
--- OUTSIDE RECORDS SUMMARY | 2024-05-07 08:57 | XMS_ITS ---
Author Organization [facility] Address [address] [place] [address] Care Team Providers Care Wood Setter Name Role Phone Ashok Guerrero MD Primary Care Provider Calin Herrera [phone] REASON FOR VISIT PT Question?? Encounters Encounter Location Date Provider Diagnosis [facility] [address] [place] [address] 12/20/2022 Calin Le Plan Of Treatment No Information Progress Notes * Yaneth WADSWORTH SDOB: 1950 (72 yo F)Acc No.[id number]:12/20/2022 Patient:?Louise Wadsworth :1950???Age:72 Y???Sex:Female Address:[address] [place] [address], [address] * true * Date:? Generated for Inési jonn/Cole/eTransmitting on:?05/07/2024 08:57 AM EST
--- OUTSIDE RECORDS SUMMARY | 2024-05-07 08:57 | XMS_ITS ---
Author Organization [facility] [place] Address [address] [facility] [place] [address] Care Team Providers Care Receiving Lead Name Role Phone Ashok Guerrero MD Primary Care Provider Calin Herrera Unavailable [phone] Allergies Allergen (clinical drug ingredient) Drug/Non Drug [...] 06/21/2023 Encounters Encounter Location Date Provider Diagnosis [facility] [address] [place] [address] 06/21/2023 Calin Le Tinea unguium B35.1 ; [...] Yaneth WADSWORTH SDOB: 1950 (73 yo F)Acc No.[id number]:06/21/2023 Progress Note Patient:?Louise Wadsworth blair Rosas Provider:?Calin Le DPM :1950???Age:73 Y???Sex:Female D ate:06/21/2023 Address:[address] [place] [address] [id number] Pcp:Ashok Guerrero MD Subjective: * Chief Complaints: [...] Exercise, walking. ?Marital status: . 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 * Medications:?TakingKeflex Ci clopirox Olamine 0.77 % [...] DPM Date:? 024 Generated for Adriel lunsford/Cole/Tin on:?05/07/2024 08:57 AM EST History and Physical Notes * HPI [...]
--- OUTSIDE RECORDS SUMMARY | 2024-05-07 08:57 | XMS_ITS ---
Author Organization [facility] Address [address] [facility] [place] [address] Care Team Providers Care Panel Assembler Name Role Phone Ashok Guerrero MD Primary Care Provider Calin Herrera [phone] REASON FOR VISIT Bright red toe Encounters Encounter Location Date [facility] [address] [place] [address] 01/09/2023 Calin Le Plan Of Treatment No Information Progress Notes * Yaneth WADSWORTH SDOB: 1950 (72 yo F)Acc No.[id number]:01/09/2023 Patient:?Louise Wadsworth Alison :1950???Age:72 Y???Sex:Female Address:[address] [place] [address] [facility] [place], [address] * true * Date:? Generated for Printi jonn/Cole/eTransmitting on:?05/07/2024 08:57 AM EST
--- OUTSIDE RECORDS SUMMARY | 2024-05-07 08:57 | XMS_ITS | Patient Health Record ---
Author Organization [facility] Address [address] [facility] [address] Care Team Providers Care Director Of Teaching And Learning Name Role Phone Ashok Guerrero MD Primary Care Provider Calin Herrera Unavailable [phone] Allergies Allergen (clinical drug ingredient) Drug/Non Drug [...] 06/21/2023 Encounters Encounter Location Date Provider Diagnosis [facility] [place] [address] [place] [address] 06/21/2023 Calin Le Tinea unguium B35.1 ; [...] Medicare National Govt Svcs Inc [address] [facility] [place] [address] [id number] PlassePr Yaneth nicolas Self - patient is the insured Medex Blue [facility] [address] [place] [address] [phone] [id number] PlassePr Yaneth nicolas Self - patient is the insured Medical (General) History Medical History History ICD Code back, hip, knee pain neuropathy chicken pox measles Anxiety Broken bones Depression Hammer toe 735.4 Onychomycosis 110.1 Pain in Limb 729.5 Surgical History Surgery Date(Month/Year) appendectomy breast biopsy Hospitalization History Reason Date(Month/Year) Wing Er- UTI- Keflex 06/20/23
[2024-05-07 10:12] LABS: Alanine Aminotransferase 13 U/L (0-31); Albumin Level 3.7 g/dL (3.5-5.0); Alkaline Phosphatase 112 U/L (39-117); Anion Gap 9 (12-20); Aspartate Amino Transferase 23 U/L (5-31); Bilirubin Total 0.4 mg/dL (0.0-1.0); Blood Urea Nitrogen 20 mg/dL (9-16); Calcium 9.5 mg/dL (8.4-10.2); Carbon Dioxide 31 mmol/L (22-29); Chloride 107 mmol/L (96-108); Estimated Glomerular Filt Rate > 60; Glucose Fasting 94 mg/dL (60-99); Sodium 142 mmol/L (135-145)
[2024-05-07 10:29] LABS: TSH reflex Free T4 0.46 uIU/mL (0.32-4.0)
== END 2024-05-07 08:27 | disposition home or self-care (01) ==
LOC: HO.HMGCLDS 08:26
PROVIDERS: PCP Internal Medicine; Visit Provider Psychiatry & Neurology Psychiatry
DX: F33.2 Major depressive disorder, recurrent severe without psychotic features (principal); E07.9 Disorder of thyroid, unspecified
CPT/HCPCS: 36415; 80053; 84443

== ENCOUNTER 2024-05-13 11:27 | Outpatient (AMB) | payer MEDICARE, SELFPAY ==
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
--- OUTSIDE RECORDS SUMMARY | 2024-05-13 14:30 | XMS_ITS | Data Portability ---
Author Organization [place] - [facility], Allergy Address [address] [place] [address] Assessment Encounter Date Assessment Date Assessment LastModified [...] was provided today. She will consider this. [email or web address] Not available 11/05/2023 15:08:19 Plan of Treatment [...] audio gram No observ ation record ed. [email or web address] Not Available 10/11 09:01:41 11/06/19 24 05/07/2023 audio gram No observ ation record ed. [email or web address] Not Available 11:24:20 Result Notes None recorded. Problems Name Problem SNOMED Code Status Onset Date Resolution Date Notes Provider Name and Address Organization Details Recorded Time Sensorineur al hearing loss of bilateral ears 180925107 Active 2023 INEZ BOSTON, AUD [address] [facility],[place] [address], [place], [address], [place] - [facility] 14:34:52 Impacted cerumen of bilateral ears 0156510923576 108 Active 2023 OMEGA SAMAYOA PA-C [address] [facility],[place] [address], [place], [address], [place] - [facility] 15:06:50 Problem Notes None recorded. Procedures Surgical History Date Name Laterality Status Provider Name and Address Organization Details Recorded Time 11/05/19 24 Comp Audio with Tymps (77462 & 86853) completed INEZ BOSTON, AUD [address] [facility],[place] [address], [place], [address], [place] - [facility] 11/05/2023 14:35:51 11/05/19 24 Cerumen removal without microscope bilat completed OMEGA SAMAYOA PA-C [address] [facility],[address], [address], [place] - [facility] 11/05/2023 15:06:46 Appendectomy completed Shilpi Joshi [place] - [facility] 11/05/2023 14:18:48 total replacement of left hip joint completed Shilpi Joshi [place] - [facility] 11/05/2023 14:19:20 Cerv cancer screen docd completed Shilpi Joshi [place] - [facility] 11/05/2023 14:19:37 localization mammography completed Shilpi Joshi [place] - [facility] 11/05/2023 14:19:49 colonoscopy completed Shilpi Joshi [place] - [facility] 11/05/2023 14:20:10 Imaging Results Imaging Date Name Status LastModified by Organiz ation Details LastModified Time 11/06/2023 audiogram completed [email or web address] Information n ot available 11/06/2023 09:01:41 05/07/2023 [...] Updated DateTime 11/05/2023 167.64 cm 27.1 kg/m2 77724.52 g Shilpi Joshi [place] - [facility] 11/05/2023 14:46:38 Social History Question Answer Notes LastModified by Organizat ion Details LastModified Time Tobacco Smoking Status Former Smoker Shilpi bal [place] - [facility] 11/05/2023 14:22:40 What Is Your Level Of Alcohol Consumption? None [email or web address] Information not available 11/05/2023 Sex: Unknown Functional [...] bal [place] - [facility] 11/05/2023 14:18:20 Past Encounters Encounter ID Performer Location Encounter Start Date Encounter Closed Date Diagnosis/Indication Diagnosis SNOMED-CT Code Diagnosis ICD10 Code Diagnosis Note [id number] OMEGA SAMAYOA PA-C [facility] [address] [address] 11/05/2023 13:32:06 11/05/2023 15:00:04 Impacted cerumen of bilateral ears 8580309491 628487 H61.23 Sensorineu ral hearing loss of bilateral ears 059846645 H90.3 [id number] GALEN AUSTIN [facility] [address] [address] 11/05/2023 14:28:50 11/06/2023 06:59:49 Sensorineural hearing loss of bilateral ears 319921063 H90.3 Audiologic al evaluation results: Right ear: [...] [employer] [address] [id number] [address] 11/05/2023 2 [place] [id number] [address] [id number] 11/05/2023 1 [place] [address] [id number] [address] 11/05/2023 2 [place] [id number] [address] [id number] Notes Date Note Type Note Provider Name and Address Organization Details Recorded Time 11/05/2023 text/html 73-year-old ramone rosenthal presents for evaluation of hearing loss. She reports gradual decline in her hearing over the past 6-12 months. Admits to tinnitus bilaterally, worse on the right. Denies otalgia, otorrhea, and vertigo. Had a hearing test at [facility] back in April which noted asymmetric hearing loss. She was referred for further evaluation. Denies prior otologic surgeries, but reports history of recurrent ear infections as a child. Reports that her father had significant hearing loss in his older age. OMEGA SAMAYOA PA-C [address] [place] [address], [phone], [facility] - [facility] 11/05/2023 15:08:58 11/05/2023 text/html Audiological Evaluation HPIReported bypatient.Hearing loss perceived:hearing loss in both ears: right ear worse Use of amplification or other hearing devices:none (does not use amplification) Tinnitus reported:right ear INEZ BOSTON, AUD [address] [facility],[place] [address], [place], [address], [facility] - [facility] 11/05/2023 14:36:46 OBGyn Episode No OBEpisode recorded.
--- OUTSIDE RECORDS SUMMARY | 2024-05-13 14:30 | XMS_ITS ---
Author Organization [facility] Address [address] [place] [address] Care Team Providers Care Service Cleaner Name Role Phone Ashok Guerrero MD Primary Care Provider Calin Herrera [phone] REASON FOR VISIT Bright red toe Encounters Encounter Location Date [facility] [address] [place] [address] 01/09/2023 Calin Le Plan Of Treatment No Information Progress Notes * Yaneth WADSWORTH SDOB: 1950 (72 yo F)Acc No.[id number]:01/09/2023 Patient:?Louise Wadsworth Alison :1950???Age:72 Y???Sex:Female Address:[address] [place] [address] [place], [address] * true * Date:? Generated for Adriel lunsford/Cole/eTransmitting on:?05/13/2024 02:30 PM EST
--- OUTSIDE RECORDS SUMMARY | 2024-05-13 14:30 | XMS_ITS | Patient Health Record ---
Author [facility] Address [address] [facility] [place] [address] Care Team Providers Care Bakery Products Checker Name Role Phone Ashok Guerrero MD Primary Care Provider Calin Herrera Unavailable [phone] Allergies Allergen (clinical drug ingredient) Drug/Non Drug [...] 06/21/2023 Encounters Encounter Location Date Provider Diagnosis [facility] [address] [place] [address] 06/21/2023 Calin Le Tinea unguium B35.1 ; [...] Medicare National [employer] [address] [facility] [place] [address] [id number] [address]asse[address] Yaneth nicolas Self - patient is the insured [employer] [facility] [address] [place] [address] [id number] [address] Yaneth nicolas Self - patient is the insured Medical (General) History Medical History History ICD Code back, hip, knee pain neuropathy chicken pox measles Anxiety Broken bones Depression Hammer toe 735.4 Onychomycosis 110.1 Pain in Limb 729.5 Surgical History Surgery Date(Month/Year) appendectomy breast biopsy Hospitalization History Reason Date(Month/Year) [facility]- UTI- Keflex 06/20/23
--- OUTSIDE RECORDS SUMMARY | 2024-05-13 14:30 | XMS_ITS ---
Author Organization [facility] [place] Address [address] [facility] [address] Care Team Providers Care Brass Cleaner Name Role Phone Ashok Guerrero MD Primary Care Provider Calin Herrera Unavailable [phone] Allergies Allergen (clinical drug ingredient) Drug/Non Drug [...] 06/21/2023 Encounters Encounter Location Date Provider Diagnosis [facility] [place] [address] [place] [address] 06/21/2023 Calin Le Tinea unguium B35.1 ; [...] Yaneth WADSWORTH SDOB: 1950 (73 yo F)Acc No.[id number]:06/21/2023 Progress Note Patient:?Louise Wadsworth blair Rosas Provider:?Calin Le DPM :1950???Age:73 Y???Sex:Female D ate:06/21/2023 Address:[address] [place] [address] [place]-[phone] Pcp:Ashok Guerrero MD Subjective: * Chief Complaints: [...] Exercise, walking. ?Marital status: . 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 * Medications:?TakingKeflex Ci clopirox Olamine 0.77 % [...] DPM Date:? 024 Generated for Adriel lunsford/Cole/Tin on:?05/13/2024 02:30 PM EST History and Physical Notes * [...]
--- OUTSIDE RECORDS SUMMARY | 2024-05-13 14:30 | XMS_ITS ---
Author Organization [facility] Address [address] [place] [address] Care Team Providers Care Drug And Alcohol Counselor Name Role Phone Ashok Guerrero MD Primary Care Provider Calin Herrera [phone] REASON FOR VISIT PT Question?? Encounters Encounter Location Date Provider Diagnosis [facility] [address] [place] [address] 12/20/2022 Calin Le Plan Of Treatment No Information Progress Notes * Yaneth WADSWORTH SDOB: 1950 (72 yo F)Acc No.[id number]:12/20/2022 Patient:?Louise Wadsworth :1950???Age:72 Y???Sex:Female Address:[address] [place] [address], [address] * true * Date:? Generated for Inési jonn/Cole/eTransmitting on:?05/13/2024 02:29 PM EST
== END 2024-05-13 12:48 | disposition home or self-care (01) ==
LOC: HO.HOP 11:27
PROVIDERS: PCP Internal Medicine; Visit Provider Psychiatry & Neurology Psychiatry
DX: F33.41 Major depressive disorder, recurrent, in partial remission (principal); F41.1 Generalized anxiety disorder
CPT/HCPCS: 90833; 99213

== ENCOUNTER → 2024-05-13 11:27 | Outpatient (BNVA) | payer MEDICARE, SELFPAY | PROVIDERS: PCP Internal Medicine; Visit Provider Psychiatry & Neurology Psychiatry | DX: F33.41 Major depressive disorder, recurrent, in partial remission (principal); F41.1 Generalized anxiety disorder | CPT/HCPCS: 99212 ==

== ENCOUNTER 2024-07-21 11:08 | Outpatient (AMB) | payer MEDICARE, SELFPAY ==
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
--- OUTSIDE RECORDS SUMMARY | 2024-07-21 11:56 | XMS_ITS | Data Portability ---
Author Organization [facility] [place] [facility], [facility] Address [address] [place] [address] Care Team Providers Care Director Of Clinical Services Name Role Phone ANI JACOBS Referring Provider [phone] Assessment Encounter Date Assessment Date Assessment LastModified by Organization Details LastModified Time 08/22/2023 08/22/2023 A:Pt appeared withfatigue during therex however able to complete reps. P: cont POC aformejester Not available 08/23/2023 12:43:43 08/29/2023 08/29/2023 A: improved tolerance with all strengthening ex's. good functional mobility and normal gait mechanics with walking. P: cont POC [email or web address] Not available 08/29/2023 11:37:24 09/03/2023 09/03/2023 A: Pt appeared with good body mechanics during therex. P: DC PT to HEP. [email or web address] Not available 09/04/2023 10:45:36 11/22/2023 11/22/2023 History: The patient is approximately 3 months status post a left total hip arthroplasty and presents for routine follow-up per our request. This is doing very well. She is not requiring any medication. She reports no recent x-rays or limitations in regards to her left hip replacement. Her biggest issue is increasing right-sided hip pain. Pain is localized in the groin. She takes Aleve for this pain with only modest relief. The right hip pain is causing limitations in activities and she is hoping to schedule a right hip replacement. PMH/PSH/MEDS/ALL/ FMH/SOC HX/ROS all reviewed in detail per my medical intake sheet. ROS: The patient denies fevers, chills, neurovascular changes, history of trauma. Exam: Vitals signs as noted. Alert and oriented x3. Appears well and in no acute distress. Extremities: Incision is well-healed. Calves are soft and nontender. No evidence of DVT. No lower extremity edema. Neurovascular status at baseline. Orthopedic Examination: Patient has a negative straight leg rise test bilaterally. Right Hip: Limited painful range of motion with pain referred to the groin and buttock. Left Hip: Full range of motion without pain. Antalgic gait pattern favoring the right side. Full strength and sensation distally. X-rays: Radiographs ordered and obtained today including an AP pelvis and frog lateral of the affected side. These radiographs demonstrate end stage osteoarthritis of the right hip. There is fmdi-mh-akta articulation, subchondral sclerosis, and osteophyte formation. Radiographs also demonstrate a well-positioned left total hip arthroplasty without evidence of fracture or dislocation. No subsidence or loosening is seen. Assessment: End-stage osteoarthritis of the right hip which has failed greater than 3 months of nonoperative treatment including medication and activity modification. The patient is in too much discomfort to participate in any meaningful physical therapy. The patient is doing well approximately 3 months s/p left NATALIE. For her left hip replacement, the patient will continue activity as tolerated. Home exercise program reviewed. The patient was advised to take occasional OTC acetaminophen or OTC NSAIDS for mild residual discomfort if they are not otherwise medically contraindicated. They are encouraged to discuss this with their PCPS. The potential benefits, risks, and side effects were explained at length. Total hip precautions discussed and reinforced. Need for antibiotic prophylaxis for dental visits discussed. The patient will follow-up annually or sooner if there are any problems. For her right hip osteoarthritis, the patient was thoroughly counseled today regarding their hip condition, its natural history and the options, both operative and non-operative. The nature of hip replacement surgery, the potential risks, benefits, and complications, the magnitude of the surgery, the intensity of postoperative recovery as well as its elective nature were explained at length today. Although it is impossible to list all of the possible complications of any operation or procedure, I explained that some of the major complications that may arise include the following: Blood loss requiring transfusion, infection (early or late), blood clots, dislocation, pain (persistent or new), scars numbness or tenderness, unequal leg lengths, weakness, stiffness, loss of motion, clicking of implant, calcification, fracture of bone, instability of leg, nerve damage (paralysis or numbness), blood vessel damage, implant loosening, implant breakage, wearing of the implant, need for future surgery, allergic reaction, metal toxicity, medical complications including confusion, heart attack, stroke, or ). Issues regarding life long dislocation, infection, and activity precautions were reviewed. The longevity of the implants was discussed. The pros and cons of the different bearing surfaces were explained. The patient understands the potential need for revision surgery. The patient also understands the potential complexity of a revision situation as well. A copy of my hip replacement information packet was given. We discussed performing the surgery in either an inpatient or outpatient setting as well as the pros and cons of both. The patient has elected to proceed in a inpatient setting. The patient will require clearance from a medical doctor prior to surgery. The patient wishes to schedule an elective total hip replacement at this time. Also while waiting for surgery, I have prescribed the patient meloxicam. The potential benefits as well as potential side effects and complications of utilizing this medication were explained at length. Next planned follow-up is at the history and physical. The patient knows I will be happy to meet with them again at any time in order to review any additional questions or concerns that they might have. [email or web address] Not available 11/23/2023 12:52:15 Plan of Treatment Reminders Order Date Submit Date Provider Last Modified By Organization Details Last Modified Time Details Appointments None recorded. Lab None recorded. Referral pain management referral - L2-3 DDD 2024 025 [email or web address] [facility], [address] [place] [address], [address], 5 16:07:28 physical therapist referral - Evaluate & RxLumbar Stabilizati on Program 2024 025 [facility], [address] [place] [address], [address], 5 16:07:28 Procedures None recorded. Surgeries None recorded. Imaging XR, hip + pelvis, unilateral, 2 or 3 view - rm 208 2V left hip pain S/P LTHR 2023 AL 2024 025 [email or web address] [facility], [address], [address], [place], [address], 5 16:07:28 XR, hip + pelvis, unilateral, 2 or 3 view - 209 lthr 2v 2023 024 [email or web address] [facility], [address], [place], [address], 4 12:55:32 Medication Orders meloxicam 15 mg tablet 2023 024 [email or web address] [facility] [address], [address] [place], [address], 4 14:07:32 amoxicillin 500 mg capsule [address] [facility] [address], [address] [place], [address], 4 14:07:32 Patient TargetsNo targets recorded. Patient InstructionsNo instructions recorded. Reason for Referral Pain Management Referral for Low back pain L2-3 DDD L2-3 DDD Referring Physician: Mark Anthony Giraldo, Orthopedic Surgery, Encounter Date: 06/27/2024 Physical Therapist Referral for Low back pain Evaluate & RxLumbar Stabilization Program Referring Physician: Mark Anthony Giraldo, Orthopedic Surgery, Encounter Date: 06/27/2024 Results Created Date Observation Date Name Description Value Unit Range Abnormal Flag Note LastModifiedBy Organization Detail LastModifiedTime 06/19/1906/19/2024 CBC WITH DIFFE RENTI AL/PL ATELE T WBC 4.0 x10e3 /uL 3.4-10 .8 normal Not Available [facility] ([facility]) [address] [facility], [place], [address], 06/19/2024 08:13:27 06/19/19 25 06/19/2024 CBC WITH DIFFE RENTI AL/PL ATELE T RBC 4.14 x10e6 /uL 3.77-5 .28 normal Not Available [facility] ([facility]) [address] [facility], [place], [address], 06/19/2024 08:13:27 06/19/1906/19/2024 CBC WITH DIFFE RENTI AL/PL ATELE T hemoglobin 12.1 g/dL 11.1-1 5.9 normal Not Available [facility] ([facility]) [address] [facility], [place], [address], 06/19/2024 08:13:27 06/19/19 25 06/19/2024 CBC WITH DIFFE RENTI AL/PL ATELE T hematocrit 37.4 % 34.0-4 6.6 normal Not Available [facility] ([facility]) [address] [facility], [place], [address], 06/19/2024 08:13:27 06/19/1906/19/2024 CBC WITH DIFFE RENTI AL/PL ATELE T MCV 90 fL 79-97 normal Not Available [facility] ([facility]) [address] [place], [address], 06/19/2024 08:13:27 06/19/19 25 06/19/2024 CBC WITH DIFFE RENTI AL/PL ATELE T MCH 29.2 pg 26.6-3 3.0 normal Not Available [facility] ([facility]) [address] [place], [address], 06/19/2024 08:13:27 06/19/19 25 06/19/2024 CBC WITH DIFFE RENTI AL/PL ATELE T MCHC 32.4 g/dL 31.5-3 5.7 normal Not Available [facility] ([facility]) [address] [place], [address], 06/19/2024 08:13:27 06/19/19 25 06/19/2024 CBC WITH DIFFE RENTI AL/PL ATELE T RDW 13.1 % 11.7-1 5.4 Not Available [facility] ([facility]) [address] [facility], [place], [address], 06/19/2024 08:13:27 06/19/19 25 06/19/2024 CBC WITH DIFFE RENTI AL/PL ATELE T platelets 199 x10e3 /uL 150-45 0 normal Not Available [facility] ([facility]) [address] [facility], [place], [address], 06/19/2024 08:13:27 06/19/19 25 06/19/2024 CBC WITH DIFFE RENTI AL/PL ATELE T neutrophils 52 % not estab. normal Not Available [facility] ([facility]) [address] [facility], [place], [address], 06/19/2024 08:13:27 06/19/19 25 06/19/2024 CBC WITH DIFFE RENTI AL/PL ATELE T lymphs 34 % not estab. normal Not Available [facility] ([facility]) [address] [facility], [place], [address], 06/19/2024 08:13:27 06/19/19 25 06/19/2024 CBC WITH DIFFE RENTI AL/PL ATELE T monocytes 11 % not estab. normal Not Available [facility] ([facility]) [address] [facility], [place], [address], 06/19/2024 08:13:27 06/19/19 25 06/19/2024 CBC WITH DIFFE RENTI AL/PL ATELE T eos 2 % not estab. normal Not Available [facility] ([facility]) [address] [place], [address], 06/19/2024 08:13:27 06/19/19 25 06/19/2024 CBC WITH DIFFE RENTI AL/PL ATELE T basos 1 % not estab. normal Not Available [facility] ([facility]) [address] [place], [address], 06/19/2024 08:13:27 06/19/19 25 06/19/2024 CBC WITH DIFFE RENTI AL/PL ATELE T immature cells SIDE LASTER STAPLE Not Available [facility] ([facility]) [address] [facility], [place], [address], 06/19/2024 08:13:27 06/19/19 25 06/19/2024 CBC WITH DIFFE RENTI AL/PL ATELE T neutrophils (absolute) 2.1 x10e3 /uL 1.4-7. 0 normal Not Available [facility] ([facility]) [address] [place], [address], 06/19/2024 08:13:27 06/19/19 25 06/19/2024 CBC WITH DIFFE RENTI AL/PL ATELE T lymphs (absolute) 1.4 x10e3 /uL 0.7-3. 1 normal Not Available [facility] ([facility]) [address] [place], [address], 06/19/2024 08:13:27 06/19/19 25 06/19/2024 CBC WITH DIFFE RENTI AL/PL ATELE T monocytes(ab solute) 0.4 x10e3 /uL 0.1-0. 9 normal Not Available [facility] ([facility]) [address] [place], [address], 06/19/2024 08:13:27 06/19/19 25 06/19/2024 CBC WITH DIFFE RENTI AL/PL ATELE T eos (absolute) 0.1 x10e3 /uL 0.0-0. 4 normal Not Available [facility] ([facility]) [address] [place], [address], 06/19/2024 08:13:27 06/19/19 25 06/19/2024 CBC WITH DIFFE RENTI AL/PL ATELE T baso (absolute) 0.0 x10e3 /uL 0.0-0. 2 normal Not Available [facility] ([facility]) [address] [facility], [place], [address], 06/19/2024 08:13:27 06/19/19 25 06/19/2024 CBC WITH DIFFE RENTI AL/PL ATELE T immature granulocytes 0 % not estab. Not Available [facility] ([facility]) [address] [facility], [place], [address], 06/19/2024 08:13:27 06/19/19 25 06/19/2024 CBC WITH DIFFE RENTI AL/PL ATELE T immature grans (abs) 0.0 x10e3 /uL 0.0-0. 1 Not Available [facility] ([facility]) [address] [facility], [place], [address], 06/19/2024 08:13:27 06/19/19 25 06/19/2024 CBC WITH DIFFE RENTI AL/PL ATELE T NRBC SIDE LASTER STAPLE Not Available [facility] ([facility]) [address] [facility], [place], [address], 06/19/2024 08:13:27 06/19/19 25 06/19/2024 CBC WITH DIFFE RENTI AL/PL ATELE T hematology comments: SIDE LASTER STAPLE Not Available [facility] ([facility]) [address] [facility], [place], [address], 06/19/2024 08:13:27 06/19/19 25 06/19/2024 SEDIM ENTAT ION RATE- WESTE RGREN sedimentatio n rate-westerg jeronimo 9 mm/HR 0-40 normal Not Available [facility] ([facility]) [address] [facility], [place], [address], 06/19/2024 08:13:28 06/19/19 25 06/19/2024 C-DUNG CTIVE PROTE IN, QUANT C-reactive protein, quant <1 mg/L 0-10 Not Available [facility] ([facility]) [address] [facility], [place], [address], 06/19/2024 08:13:29 08/22/19 24 08/21/2023 XR, hip, unila teral , 2 or 3 view http:/ [email or web address] ?Encry pted=s hAaTro YD8dLq bEUv6g %2BXZw aYqtaq 0bqfl% 2Fg9IQ a4ajBk vP9nXo QUaueC m3YtLR FvZlgJ JJ8mAn HZtai3 9a0101 AC0Kua XqBU6P eUC8mr 84%3D INTERFACE [facility] [address], [place], [address], 08/22/2023 13:00:04 11/09/19 24 05/18/2023 imagi ng/di bubbaos tic resul t No observ ation record ed. [email or web address] Not Available 10/12 07:29:52 11/22/19 24 11/22/2023 XR, hip + pelvi s, unila teral , 2 or 3 view http:/ [email or web address] ?Encry pted=s hAaTro YD8dLq bEUv6g %2BXZw aYqtaq 0bqfl% 2Fg9IQ a4ajBk vP9nXo QUaueC m3YtLR FvZlgJ JJ8mAn HZtai3 4q9084 AC0Kqa n6EWKO iKiQtr MwF INTERFACE [facility] [address], [place], [address], 11/22/2023 09:23:55 11/22/19 24 11/22/2023 XR, hip + pelvi s, unila teral , 2 or 3 view http:/ [email or web address] ?Encry pted=s hAaTro YD8dLq bEUv6g %2BXZw aYqtaq 0bqfl% 2Fg9IQ a4ajBk vP9nXo QUaueC m3YtLR FvZlgJ JJ8mAn HZtai3 6f0582 AC0Kqa n6EWKO iKiQtr MwF INTERFACE [facility] [address], [place], [address], 11/22/2023 09:23:57 06/28/19 25 06/27/2024 XR, hip + pelvi s, unila teral , 2 or 3 view http:/ [email or web address] ?Encry pted=s hAaTro YD8dLq bEUv6g %2BXZw aYqtaq 0bqfl% 2Fg9IQ a4ajBk vP9nXo QUaueC m3YtLR FvZlgJ JJ8mAn HZtai3 6v8442 AC0KqY 3WNUqu nKiQtr MwF INTERFACE [facility] [address], [place], [address], 06/27/2024 09:56:12 06/28/19 25 06/27/2024 XR, hip + pelvi s, unila teral , 2 or 3 view http:/ [email or web address] ?Encry pted=s hAaTro YD8dLq bEUv6g %2BXZw aYqtaq 0bqfl% 2Fg9IQ a4ajBk vP9nXo QUaueC m3YtLR FvZlgJ JJ8mAn HZtai3 7f8887 AC0KqY 3WNUqu nKiQtr MwF INTERFACE [facility] [address] [facility] [address], [place], [address], 06/27/2024 09:56:13 Result Notes None recorded. Problems Name Problem SNOMED Code Status Onset Date Resolution Date Notes Provider Name and Address Organization Details Recorded Time Osteoarth ritis of right hip joint 423742271466 107 Active 2023 ROCIO bal [place] - [facility] 09:36:50 Plantar fascial fibromato sis 90933919 Active 2015 Problem Code: M72.2; Problem Code Type: ICD-10; Status: 'A'; Not Available [facility] 12:12:22 Problem Notes None recorded. Procedures Surgical History Date Name Laterality Status Provider Name and Address Organization Details Recorded Time 4 09506 Therapeutic Exercise (1:1) completed Leia Palencia PTA [address] [facility], [place], [address], [facility] 09/03/2023 08:09:27 4 30917 Therapeutic Exercise (1:1) completed Radha Rico PT [address] [facility], [place], [address], [facility] 08/29/2023 11:03:17 4 07414 Therapeutic Exercise (1:1) completed Leia Palencia PTA [address], [place], [address], [facility] 08/22/2023 12:55:50 4 08107 Therapeutic Exercise (1:1) completed Leia Palencia PTA [address], [place], [address], [facility] 08/20/2023 11:05:49 4 44621 Therapeutic Exercise (1:1) completed Leia Palencia PTA [address], [place], [address], [facility] 08/15/2023 11:02:53 4 64870 Therapeutic Exercise (1:1) completed Leia Palencia PTA [address], [place], [address], [facility] 08/13/2023 10:56:50 4 25263 Therapeutic Exercise (1:1) completed Radha Rico PT [address] [facility], [place], [address], [facility] 08/09/2023 11:02:48 4 01462 Therapeutic Exercise (1:1) completed Radha Rico, PT [address], [place], [address], [facility] 08/07/2023 10:56:24 4 44125 Therapeutic Exercise (1:1) completed Radha Rico, PT [address], [place], [address], [facility] 08/03/2023 12:59:59 4 98586: Low complexity PT Eval completed Radha Rico, PT [address], [place], [address], [facility] 08/03/2023 13:00:01 4 G8417 BMI Above Upper Parameters, F/U Documented completed Radha Rico, PT [address], [place], [address], [facility] 08/03/2023 12:59:53 4 G8427 Current Medication Documented completed Radha Rico, PT [address], [place], [address], [facility] 08/03/2023 12:59:50 4 Hip Surgery completed ROCIO SHABAZZ [facility] 11/22/2023 09:12:25 4 02353 Therapeutic Exercise (1:1) completed Radha Rico, PT [address], [place], [address], [facility] 06/22/2023 09:51:36 4 98629: Low complexity PT Eval completed Radha Rico, PT [address], [place], [address], [facility] 06/22/2023 09:51:39 4 G8417 BMI Above Upper Parameters, F/U Documented completed Radha Rico, PT [address], [place], [address], [place] [facility] 06/22/2023 09:51:33 4 G8427 Current Medication Documented completed Radha Rico, PT [address], [place], [address], [place] [facility] 06/22/2023 09:51:30 Imaging Results Imaging Date Name Status LastModified by Organ [facility] Details LastModified Time 08/21/2023 XR, hip, unilateral, 2 or 3 view completed INTERFACE [facility] [address], [place], [address], 08/22/2023 13:00:04 05/18/2023 imaging/diag nostic result completed [email or web address] Information not available 11/09/2023 07:29:52 11/22/2023 XR, hip + pelvis, unilateral, 2 or 3 view completed INTERFACE [facility] [address], [place], [address], 11/22/2023 09:23:55 11/22/2023 XR, hip + pelvis, unilateral, 2 or 3 view completed INTERFACE [facility] [address], [place], [address], 11/22/2023 09:23:57 06/27/2024 XR, hip + pelvis, unilateral, 2 or 3 view completed INTERFACE [facility] [address], [place], [address], 06/27/2024 09:56:12 06/27/2024 XR, hip + pelvis, unilateral, 2 or 3 view completed INTERFACE [facility] [address], [place], [address], 06/27/2024 09:56:13 Procedure Notes None recorded. Medical Equipment None Reported. Allergies Allergen ID Allergen Name Allergen Category Reaction Reaction Severity Criticality Documentation Date Start Date Code Code System Note Provider Name and Address Organization Details Recorded Time 447997 epinephri ne medicatio n Not available Not available Not available 06/14/2023 3992 RxNorm ROCIO bal [place] - [facility] 4 09:39:08 70190 Levaquin medicatio n Not available Not available Not available 05/14/20232019 05291 2 RxNorm Not Available [facility] 4 12:44:54 Medications Name Sig Start Date Stop Date Status Note LastModified by Organization Details LastModified Time quetiapine 25 mg tablet active Not Available Not Available Not Available celecoxib 200 mg capsule 11/15 completed Not Available Not Available Not Available amoxicillin 500 mg capsule 4 pills 1 hour prior to DENTAL APPT active Not Available Not Available No t Available Colace 100 mg capsule 1 capsule twice a day by oral route. 11/15 completed Not Available Not Available Not Available prednisone 10 mg tablet 06/13 completed Not Available Not Available Not Available doxycycline hyclate 100 mg capsule 06/13 completed Not Available Not Available Not Available azithromycin 250 mg tablet 06/13 completed Not Available Not Available Not Available tizanidine 4 mg tablet 06/13 completed Not Available Not Available Not Available phenelzine 15 mg tablet Take 1 tablet every day by oral route. active Not Available Not Available No t Available meloxicam 15 mg tablet TAKE ONE TABLET BY MOUTH EVERY DAY AFTER MEALS active Not Available Not Available No t Available ondansetron HCl 4 mg tablet 11/15 completed Not Available Not Available Not Available clonazepam 0.5 mg tablet active Not Available Not Available Not Available clobetasol 0.05 % topical cream active Not Available Not Available Not Available aspirin 325 mg tablet,delay ed release 1 tablet twice a day by oral route. 11/15 completed Not Available Not Available Not Available cephalexin 500 mg capsule 11/15 completed Not Available Not Available Not Available pantoprazole 40 mg tablet,delay ed release 11/15 completed Not Available Not Available Not Available albuterol sulfate HFA 90 mcg/actuatio n aerosol inhaler 06/13 completed Not Available Not Available Not Available fluticasone propionate 50 mcg/actuatio n nasal spray,suspen fran 11/15 completed Not Available Not Available Not Available amoxicillin 875 mg-potassium clavulanate 125 mg tablet 06/13 completed Not Available Not Available Not Available oxycodone 5 mg tablet 11/15 completed Not Available Not Available Not Available ciclopirox 0.77 % topical cream 06/13 completed Not Available Not Available Not Available L-Methylfola te 15 mg tablet Take by oral route. active Not Available Not Available No t Available Adult [facility] 11/15 completed Not Available Not Available Not Available Vitals Date Recorded Body height Body mass index (BMI) Body weight Provider Name and Address Organization Details Last Updated DateTime 11/22/2023 165.1 cm 28 kg/m2 46062.52 g ROCIO SHABAZZ [facility] 11/22/2023 09:12:39 Date Recorded Body height Provider Name an d Address Organization Details Last Updated DateTime 06/27/2024 165.1 cm AVERY MANN [facility] 06/27/2024 09:44:46 Social History Question Answer Notes LastModified by [employer] ion Details LastModified Time Tobacco Smoking Status Former Smoker ROCIO bal [facility] 11/22/2023 09:12:19 When Did You Quit Smoking? 16+yearssinc elastcigaret te Information not available 11/22/2023 What Is Your Relationship Status? Information not available 11/22/2023 How Many Years Have You Smoked Tobacco? 2 Information not available 11/22/2023 Sex: Unknown Functional Status Question Answer Note LastModified by DPSIizYinYangMap Details LastModified Time How many times per week do you consume alcohol? Less than 1 time per week Information not available 11/22/2023 Do you use any illicit or recreational drugs? No Information not available 11/22/2023 Do you or have you ever used e-cigarettes or vape? Never used electronic cigarettes Information not available 11/22/2023 Mental Status None recorded. Family History Nothing Reported. Medical History No medical history recorded. Gynecological HistoryNo gynecological history recorded. Obstetrics History GPAL:G 0 P 0 0 0 0 Past Encounters Encounter ID Performer Location Encounter Start Date Encounter Closed Date Diagnosis/Indication Diagnosis SNOMED-CT Code Diagnosis ICD10 Code Diagnosis Note [id number] MD Rigoberto Rodríguez [facility] RIGOBERTO [place] [address] 06/14/2023 15:23:46 07/19/2023 09:51:05 Osteoarthritis of left hip joint 0652878617 49790 M16.12 [id number] Radha Rico, PT [facility] [address] [place] [address] 06/22/2023 08:58:42 06/22/2023 10:52:04 Osteoarthritis of left hip joint 1292343156 28268 M16.12 [id number] Clive Rosario APRN [facility] [place] [address]nd [address] [place] [address] 07/16/2023 09:59:18 08/08/2023 04:04:52 Osteoarthritis of left hip joint 8891122393 30903 M16.12 [id number] [facility] [address] [place] [address] 08/03/2023 10:59:51 08/03/2023 15:01:38 Follow-up orthopedic assessment 185046467 Z47.1 History of total replacement of left hip joint 4146247326 414416 Z96.720 [id number] Stephon Viera PA-C [facility] [place] [address] [facility] [place] [address] 08/07/2023 09:18:24 08/07/2023 10:29:28 History of total replacement of left hip joint 5452811154 085419 Z96.886 [id number] Radha Rico PT [facility] [address] [place] [address] 08/07/2023 10:42:21 08/07/2023 13:35:34 Follow-up orthopedic assessment 927696314 Z47.1 History of total replacement of left hip joint 7198664195 462260 Z96.964 [id number] Radha Rico PT [facility] [address] [place] [address] 08/09/2023 11:01:29 08/09/2023 12:32:01 Follow-up orthopedic assessment 598635554 Z47.1 History of total replacement of left hip joint 7675301679 641267 Z96.233 [id number] Leia li, SAPPHIRE STYLUS GRINDER [facility] [address] [place] [address] 08/13/2023 10:57:48 08/13/2023 11:44:43 Follow-up orthopedic assessment 410581084 Z47.1 History of total replacement of left hip joint 1988989765 001252 Z96.585 [id number] Leia li, SAPPHIRE STYL[employer] GRIND[employer] [facility] [address] [place] [address] 08/15/2023 10:57:50 08/15/2023 12:26:12 Follow-up orthopedic assessment 145879215 Z47.1 History of total replacement of left hip joint 5876805041 668368 Z96.589 [id number] Leia li, [employer]PHIRE STYL[employer] GRINDER [facility] [address] [place] [address] 08/20/2023 10:59:10 08/20/2023 12:25:31 Follow-up orthopedic assessment 449070888 Z47.1 History of total replacement of left hip joint 4466690947 870170 Z96.869 [id number] Stephon Viera PA-C [facility] 3rd floor [address] [place] [address] 08/21/2023 12:59:34 09/11/2023 08:13:43 History of total replacement of left hip joint 3030865262 105927 Z96.194 [id number] Leia li, SAPPHIRE [employer] GRINDER [facility] [address] [place] [address] 08/22/2023 12:59:42 08/22/2023 14:06:15 Follow-up orthopedic assessment 310271141 Z47.1 History of total replacement of left hip joint 2363212694 904093 Z96.999 [id number] Radha Rico, PT [facility] [address] [place] [address] 08/29/2023 10:57:23 08/29/2023 12:25:34 Follow-up orthopedic assessment 173480242 Z47.1 History of total replacement of left hip joint 1550790984 632886 Z96.042 [id number] Leia Joiner r, [employer]PH[employer] GRIND[employer] [facility] [address] [place] [address] 09/03/2023 14:55:22 09/03/2023 16:01:43 Follow-up orthopedic assessment 107124489 Z47.1 History of total replacement of left hip joint 1911235546 335797 Z96.628 [id number] [facility] [address] [address] [place] [address] 11/22/2023 09:03:02 12/13/2023 12:55:32 History of total replacement of left hip joint 7299183736 629102 Z96.642 Osteoarthr itis of right hip joint 3275457349 55346 M16.11 [id number] VERONICA Johnson - [facility] [address] [place] [address] 06/27/2024 09:24:48 07/07/2024 16:07:28 Pain of hip region 02816891 M25.552 Low back pain 663026796 M54.50 Health Concerns Section Related Observation LastModified by Organization Detai ls LastModified Time None Recorded Concern Status LastModified by Organization Details LastModified Time None Recorded Advance Directives Directive None Recorded Payers Encounter Date Sequence Insurance Name Policy Number Policy Johnson Covered Member ID Johnson Member ID Guarantor Name 08/22/2023 2 [place] [id number] [address] [id number] 08/22/2023 1 [place] [address] [id number] 08/29/2023 2 [place] [id number] [address] [id number] 08/29/2023 1 [place] [employer] [place] [address] [id number] 09/03/2023 2 [place] [id number] [address] [id number] 09/03/2023 1 [place] [place] [address] [id number] 11/22/2023 2 [place] [id number] [address] [id number] 11/22/2023 1 [place] [place] [address] [id number] [address] 06/27/2024 2 [place] [id number] [address] [id number] 06/27/2024 1 [place] [employer] [address] [id number] [address] Notes Date Note Type Note Provider Name and Address Organization Details Recorded Time 08/22/2023 text/html Pt reports she h ad a follow up with MD and was told she is progressing as expected. Leia Palencia, SAPPHIRE STYLUS GRINDER [address], [place], [address], [facility] 08/23/2023 12:45:12 08/29/2023 text/html feeling pretty g ood overall. Radha Rico, PT [address], [place], [address], [facility] 08/29/2023 11:44:54 09/03/2023 text/html Pt reports cont improvement in her hip, feeling just sore . Leia Palencia, SAPPHIRE [employer]YL[employer] GRINDER [address], [place], [address], [facility] 09/04/2023 10:46:01 06/27/2024 text/html I am seeing the patient today under the supervision of Dr. Reyes who was available but who did not see the patient.History: This pleasant woman presents today just under 1 year status post left total hip arthroplasty. Complaining of pain about the left hip. Does admit to some irritability with the right side. she sustained a fall 5 days prior to his visit. Pain is located posteriorly about the hip into the buttock region.PMH/PSH/MEDS /ALL/FMH/SOC HX/ROS are reviewed in detail per my medical intake sheet.General Exam: Vital signs are as noted belowMental status: Alert and lucid. Normal insight, affect and grooming.OUTSIDE PRODUCTION INSPECTOR: Gross motor coordination is intact. No spasticity or clonus noted.Extremities:C garcia are soft non tender, skin intact.Orthopedic Examination Right Hip: internal rotation to 10? ? ? external rotation 20? ? ? both pain and range. Flexion of greater than 100? ? ?. Full extension.Left Hip: Passive range of motion is pain-free throughout all planes. She is mildly positive straight leg raise on the left side. Tenderness to palpation over the left paraspinous muscles into the left buttock region. Full strength and sensation distally.X-rays: Radiographs 2 views of the left hip ordered obtained and reviewed today in the office reveal excellent implant interfaces of the left total hip arthroplasty. No fractures noted. Does have end-stage right hip arthritis with osteophytic spurring. she does have degenerative changes of her lumbar spine L2-3 levels.Assessment:G en. this is L2-3 left hip. Nothing worrisome left total hip arthroplasty. Recommend volar plating her spine and sports in regards to this. Recommended a course of physical therapy for lumbar stabilization program. Regards to the right hip would recommend follow-up with Dr. Roy per her request for booking of right total hip arthroplasty.PLAN: [ ][facility] speech recognition intake clinician software was used to create portions of this document. An attempt at proofreading has been made to minimize errors. Please call for corrections. Mark Anthony Giraldo PA-C [address] [facility] [address], [place], [address], [facility] 06/27/2024 13:40:35 OBGyn Episode No OBEpisode recorded.
--- OUTSIDE RECORDS SUMMARY | 2024-07-21 11:56 | XMS_ITS ---
Author Name [facility] Organization Unknown Encounters Encounter Type Encounter Reason Primary Diagnosis Location Date Ambulatory [facility] 07/25/2022 Ambulatory [facility] 07/25/2022
--- OUTSIDE RECORDS SUMMARY | 2024-07-21 11:56 | XMS_ITS | Data Portability ---
Author Organization [place] [facility], Allergy Address [address] [place] [address] Assessment Encounter Date Assessment Date Assessment LastModified [...] was provided today. She will consider this. [email or web address] Not available 11/05/2023 15:08:19 Plan of Treatment [...] audio gram No observ ation record ed. [email or web address] Not Available 10/11 09:01:41 11/06/19 24 05/07/2023 audio gram No observ ation record ed. [email or web address] Not Available 11:24:20 Result Notes None recorded. Problems Name Problem SNOMED Code Status Onset Date Resolution Date Notes Provider Name and Address Organization Details Recorded Time Sensorineur al hearing loss of bilateral ears 525584055 Active 2023 INEZ BOSTON, AUD [address] [facility],[place] [address], [place], [address], [place] - [facility] 14:34:52 Impacted cerumen of bilateral ears 1934962333652 108 Active 2023 OMEGA SAMAYOA PA-C [address] [facility],[place] [address], [place], [address], [place] - [facility] 15:06:50 Problem Notes None recorded. Procedures Surgical History Date Name Laterality Status Provider Name and Address Organization Details Recorded Time 11/05/19 24 Comp Audio with Tymps - 56098 & 97157 completed INEZ BOSTON, AUD [address] [facility],[place] [address], [place], [address], [place] - [facility] 11/05/2023 14:35:51 11/05/19 24 Cerumen removal without microscope bilat completed OMEGA SAMAYOA PA-C [address] [facility],[address], [address], [place] - [facility] 11/05/2023 15:06:46 Appendectomy completed Shilpi Joshi [place] - [facility] 11/05/2023 14:18:48 total replacement of left hip joint completed Shilpi Joshi [place] - [facility] 11/05/2023 14:19:20 Cerv cancer screen docd completed Shilpi Joshi [place] - [facility] 11/05/2023 14:19:37 localization mammography completed Shilpi Joshi [place] - [facility] 11/05/2023 14:19:49 colonoscopy completed Shilpi Joshi [place] - [facility] 11/05/2023 14:20:10 Imaging Results Imaging Date Name Status LastModified by Organiz ation Details LastModified Time 11/06/2023 audiogram completed Information n ot available 11/06/2023 09:01:41 05/07/2023 [...] Updated DateTime 11/05/2023 167.64 cm 27.1 kg/m2 38359.52 g Shilpi Joshi [place] - [facility] 11/05/2023 14:46:38 Social History None recorded. Functional Status Question Answer Note LastModified by Organization D etails LastModified Time What is your level of alcohol consumption? None [email or web address] Information not available 11/05/2023 Mental Status None recorded. Family History Nothing Reported. Medical History Condition Response Anxiety Y Depression Y Gynecological HistoryNo gynecological history recorded. Obstetrics History GPAL:G 0 P 0 0 0 0 Immunizations Vaccine Type Date Status Note Provider Nam e and Address Organization Details Recorded Time influenza nasal, unspecified formulation 3 completed Shilpi bal [place] - [facility] 11/05/2023 14:18:20 Past Encounters Encounter ID Performer Location Encounter Start Date Encounter Closed Date Diagnosis/Indication Diagnosis SNOMED-CT Code Diagnosis ICD10 Code Diagnosis Note [id number] OMEGA SAMAYOA PA-C [facility] [address] [facility] [place] [address] 11/05/2023 13:32:06 11/05/2023 15:00:04 Impacted cerumen of bilateral ears 5648283756 434769 H61.23 Sensorineu ral hearing loss of bilateral ears 167220553 H90.3 [id number] GALEN AUSTIN [facility] [address] [facility] [place] [address] 11/05/2023 14:28:50 11/06/2023 06:59:49 Sensorineural hearing loss of bilateral ears 264635222 H90.3 Audiologic al evaluation results: Right ear: [...] Recorded Advance Directives Directive None Recorded Payers Insurance Date Sequence Insurance Name Policy Number Policy Johnson Covered Member ID Johnson Member ID Guarantor Name 11/05/2023 1 [place] [employer] [id number] 11/05/2023 2 [place]) [id number] [address] [id number] Notes Date Note Type Note Provider Name and Address Organization Details Recorded Time 11/05/2023 text/html 73-year-old femsue rosenthal presents for evaluation of hearing loss. She reports gradual decline in her hearing over the past 6-12 months. Admits to tinnitus bilaterally, worse on the right. Denies otalgia, otorrhea, and vertigo. Had a hearing test at [facility] back in April which noted asymmetric hearing loss. She was referred for further evaluation. Denies prior otologic surgeries, but reports history of recurrent ear infections as a child. Reports that her father had significant hearing loss in his older age. OMEGA SAMAYOA PA-C [address], [address], [facility] - [facility] 11/05/2023 15:08:58 11/05/2023 text/html Audiological Evaluation HPIReported bypatient.Hearing loss perceived:hearing loss in both ears: right ear worse Use of amplification or other hearing devices:none (does not use amplification) Tinnitus reported:right ear GALEN AUSTIN [address] [facility],[address], [address], [facility] - [facility] 11/05/2023 14:36:46 OBGyn Episode No OBEpisode recorded.
--- OUTSIDE RECORDS SUMMARY | 2024-07-21 11:56 | XMS_ITS | Patient Health Record ---
Author Organization [facility] Address [address] [place] [address] Care Team Providers Care Stone Processing Machine Operator Name Role Phone Ashok Guerrero MD Primary Care Provider Calin Herrera Unavailable [phone] Allergies Allergen (clinical drug ingredient) Drug/Non Drug [...] Are you an other tobacco user? No Plan Of Treatment No Information Insurance Providers Payer Name Payer Address Payer Phone Subscriber Number Group Number Insured Name Patient Relationship to Insured Coverage Start Date Coverage End Date Medicare National [employer]t [employer] [address] [place] [phone] [id number] [employer] onYaneth plummer Self - patient is the insured [employer] [facility] [address] [place] [address] [phone] [id number] [employer] Yaneth nicolas Self - patient is the insured Medical (General) History Medical History History ICD Code back, hip, knee pain neuropathy chicken pox measles Anxiety Broken bones Depression Hammer toe 735.4 Onychomycosis 110.1 Pain in Limb 729.5 Surgical History Surgery Date(Month/Year) appendectomy breast biopsy Hospitalization History Reason Date(Month/Year) Er- UTI- Keflex 06/20/23
--- OUTSIDE RECORDS SUMMARY | 2024-07-21 11:57 | XMS_ITS ---
Author Organization [facility] [place] Address [address] [facility] [place] [address] Care Team Providers Care Jig Worker Name Role Phone Ashok Guerrero MD Primary Care Provider Calin Herrera Unavailable [phone] Allergies Allergen (clinical drug ingredient) Drug/Non Drug [...] 06/21/2023 Encounters Encounter Location Date Provider Diagnosis [facility] [place] [address] [place] [address] 06/21/2023 Calin Le Tinea unguium B35.1 ; [...] Yaneth WADSWORTH SDOB: 1950 (73 yo F)Acc No.[id number]:06/21/2023 Progress Note Patient:?Louise Wadsworth blair Rosas Provider:?Clain Le DPM :1950???Age:73 Y???Sex:Female D ate:06/21/2023 Address:[address] [place] [address] [place]-[phone] Pcp:Ashok Guerrero MD Subjective: * Chief Complaints: [...] Exercise, walking. ?Marital status: . 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 * Medications:?TakingKeflex Ci clopirox Olamine 0.77 % [...] DPM Date:? 024 Generated for Adriel lunsford/Cole/Tin on:?07/21/2024 11:56 AM EDT History and Physical Notes * HPI (History [...]
== END 2024-07-21 11:42 | disposition home or self-care (01) ==
LOC: HO.HOP 11:08
PROVIDERS: PCP Internal Medicine; Visit Provider Psychiatry & Neurology Psychiatry
DX: F41.1 Generalized anxiety disorder (principal); F33.42 Major depressive disorder, recurrent, in full remission; M16.10 Unilateral primary osteoarthritis, unspecified hip
CPT/HCPCS: 90833; 99213

== ENCOUNTER → 2024-07-21 11:08 | Outpatient (BNVA) | payer MEDICARE, SELFPAY | PROVIDERS: PCP Internal Medicine; Visit Provider Psychiatry & Neurology Psychiatry | DX: F41.1 Generalized anxiety disorder (principal); F33.42 Major depressive disorder, recurrent, in full remission; M16.10 Unilateral primary osteoarthritis, unspecified hip | CPT/HCPCS: 99212 ==

== ENCOUNTER 2024-08-07 08:54 | Outpatient (REF) | payer MEDICARE, SELFPAY ==
[2024-08-07 11:46] LABS: Alanine Aminotransferase 13 U/L (0-31); Albumin Level 4.2 g/dL (3.5-5.0); Alkaline Phosphatase 88 U/L (39-117); Anion Gap 10 (12-20); Aspartate Amino Transferase 20 U/L (5-31); Bilirubin Total 0.5 mg/dL (0.0-1.0); Blood Urea Nitrogen 16 mg/dL (9-16); Calcium 9.6 mg/dL (8.4-10.2); Carbon Dioxide 30 mmol/L (22-29); Chloride 107 mmol/L (96-108); Estimated Glomerular Filt Rate > 60; Glucose Fasting 87 mg/dL (60-99); Potassium 4.3 mmol/L (3.3-5.1); Sodium 143 mmol/L (135-145); TSH reflex Free T4 1.14 uIU/mL (0.32-4.0); Total Protein 6.8 g/dL (6.5-8.0)
== END 2024-08-07 08:55 | disposition home or self-care (01) ==
LOC: HO.HMGCLDS 08:54
PROVIDERS: PCP Internal Medicine; Visit Provider Psychiatry & Neurology Psychiatry
DX: E07.9 Disorder of thyroid, unspecified (principal); M16.10 Unilateral primary osteoarthritis, unspecified hip; F33.42 Major depressive disorder, recurrent, in full remission; F41.1 Generalized anxiety disorder; Z51.81 Encounter for therapeutic drug level monitoring
CPT/HCPCS: 36415; 80053; 84443

== ENCOUNTER 2024-09-01 13:28 | Outpatient (AMB) | payer MEDICARE, SELFPAY ==
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
--- OUTSIDE RECORDS SUMMARY | 2024-09-01 14:49 | XMS_ITS | Patient Health Record ---
[facility] Address [address] [place] [address] Care Team Providers Care Scrap Shear Operator Name Role Phone Ashok Guerrero MD Primary Care Provider Calin Herrera Unavailable [phone] Allergies Allergen (clinical drug ingredient) Drug/Non Drug [...] Inc [address] [place] [id number] [phone] [id number] PlassePr onYaneth plummer Self - patient is the insured [employer] [facility] [address] [place] [address] [phone] [id number] PlassePr Yaneth nicolas Self - patient is the insured Medical (General) History Medical History History ICD Code back, hip, knee pain neuropathy chicken pox measles Anxiety Broken bones Depression Hammer toe 735.4 Onychomycosis 110.1 Pain in Limb 729.5 Surgical History Surgery Date(Month/Year) appendectomy breast biopsy Hospitalization History Reason Date(Month/Year) Er- UTI- Keflex 06/20/23
== END 2024-09-01 17:14 | disposition home or self-care (01) ==
LOC: HO.HOP 13:28
PROVIDERS: PCP Internal Medicine; Visit Provider Psychiatry & Neurology Psychiatry
DX: F41.1 Generalized anxiety disorder (principal); F33.42 Major depressive disorder, recurrent, in full remission
CPT/HCPCS: 99214

== ENCOUNTER → 2024-09-01 13:28 | Outpatient (BNVA) | payer MEDICARE, SELFPAY | PROVIDERS: PCP Internal Medicine; Visit Provider Psychiatry & Neurology Psychiatry | DX: F41.1 Generalized anxiety disorder (principal); F33.42 Major depressive disorder, recurrent, in full remission | CPT/HCPCS: 99212 ==

== ENCOUNTER 2024-10-13 11:52 | Outpatient (AMB) | payer MEDICARE, SELFPAY ==
--- OUTSIDE RECORDS SUMMARY | 2024-10-13 12:39 | XMS_ITS | Encounter Summary ---
Author Organization [facility] Address [address] [address] Phone Care Team Providers Care Community Development Specialist Name Role Phone Ashok Guerrero MD Primary Care Provider [phone] Reason for Referral * Physical Therapy (Routine) - Closed Specialty Diagnoses / Procedures Referred By Contac t Referred To Contact Physical Therapy Diagnoses Encounter for rehabilitation Bernice Chacko MD Phone: tel: [address] [address] Phone: tel: Referral ID Status Reason Start Date Expiration Date Visits Re quested Visits Authorized [id number] Closed 03/11/2019 03/11/2020 99 99 Encounter Details Date Type Department Care Team (Latest Contact Info) Description 03/11/2019 Transcribe Orders [facility] [address] [place] [address] Bernice Chacko MD [address] [place] [phone] Encounter for rehabilitation (Primary Dx) Social History Tobacco Use Types Packs/Day Years Used Date Smoking Tobacco: Never Assessed Comments Unknown Sex and Gender Information Value Date Recorded Sex Assigned at Not on file Legal Sex Female 10:30 AM EST Gender Identity Not on file Sexual Orientation Not on file documented as of this encounter Plan of Treatment Scheduled Referrals Name Type Priority Associated Diagnoses Orde r Schedule Ambulatory referral to [facility] Physical Therapy Outpatient Referral Routine Encounter for rehabilitation Ordered: 03/11/2019 documented as of this encounter Visit Diagnoses Diagnosis Encounter for rehabilitation- Primary documented in this encounter Care Teams Community Development Specialist Relationship Specialty Start Date End Date Ashok Guerrero MD [address] [address] PCP - General Internal Medicine 03/11/19 documented as of this encounter Additional Source Comments The information contained in this document represents components of the legal health record. It is not the complete legal health record.[facility]
--- OUTSIDE RECORDS SUMMARY | 2024-10-13 12:39 | XMS_ITS | Patient Health Record ---
[facility] Address [address] [place] [address] Care Team Providers Care Dry Mill Worker Name Role Phone Ashok Guerrero MD Primary Care Provider Calin Herrera Unavailable [phone] Allergies Allergen (clinical drug ingredient) Drug/Non Drug [...] 1 tablet Orally Thre e times a day; Duration: 30 day(s) Unknown Xanax 0.5 MG 1 tablet Orally prn Unknown Keflex Active clonazePAM 0.5 MG 1 tablet Orally Once a day PRN Active Fish Oil Active Phenelzine Sulfate 15 MG 1 tablet Orally Once a day Not-Taking Nardil 15 MG 1 tablet Orally Thre e times a day; Duration: 30 day(s) 2X A DAY Active Ciclopirox Olamine 0.77 % 1 application to affected area Externally Twice a day to effected areas on feet; Duration: 30 days Active Xanax 0.5 MG 1 tablet Orally prn Active Doxycycline Hyclate 100 MG 1 capsule Orally Once a day; Duration: 10 day(s) 11/29/2022 Not-Taking Social History Tobacco [...] Medicare National Govt [employer] [address] [place] [address] [id number] PlassePr onYaneth plummer Self - patient is the [facility] [address] [place] [address] [id number] PlassePr Yaneth nicolas Self - patient is the insured Medical (General) History Medical History History ICD Code back, hip, knee pain neuropathy chicken pox measles Anxiety Broken bones Depression Hammer toe 735.4 Onychomycosis 110.1 Pain in Limb 729.5 Surgical History Surgery Date(Month/Year) appendectomy breast biopsy Hospitalization History Reason Date(Month/Year) Wing Er- UTI- Keflex 06/20/23
--- OUTSIDE RECORDS SUMMARY | 2024-10-13 12:39 | XMS_ITS ---
Author Name [facility] Organization Unknown Encounters Encounter Type Encounter Reason Primary Diagnosis Location Date Ambulatory [facility] 07/25/2022 Ambulatory [facility] 07/25/2022
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
== END 2024-10-13 12:36 | disposition home or self-care (01) ==
LOC: HO.HOP 11:52
PROVIDERS: PCP Internal Medicine; Visit Provider Psychiatry & Neurology Psychiatry
DX: F41.1 Generalized anxiety disorder (principal); F33.42 Major depressive disorder, recurrent, in full remission
CPT/HCPCS: 90833; 99213

== ENCOUNTER → 2024-10-13 11:52 | Outpatient (BNVA) | payer MEDICARE, SELFPAY | PROVIDERS: PCP Internal Medicine; Visit Provider Psychiatry & Neurology Psychiatry | DX: F33.42 Major depressive disorder, recurrent, in full remission (principal); F41.1 Generalized anxiety disorder | CPT/HCPCS: 99212 ==

== ENCOUNTER 2025-01-06 15:06 | Outpatient (AMB) | payer MEDICARE, SELFPAY ==
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
--- OUTSIDE RECORDS SUMMARY | 2025-01-06 19:31 | XMS_ITS | Data Portability ---
Author Organization [place] - [facility], Allergy Address [address] [place] [address] Assessment Encounter Date Assessment Date Assessment LastModified [...] was provided today. She will consider this. [email or web address] Not available 11/05/2023 15:08:19 Plan of Treatment [...] audio gram No observ ation record ed. [email or web address] Not Available 10/11 09:01:41 11/06/19 24 05/07/2023 audio gram No observ ation record ed. [email or web address] Not Available 11:24:20 Result Notes None recorded. Problems Name Problem SNOMED Code Status Onset Date Resolution Date Notes Provider Name and Address Organization Details Recorded Time Sensorineur al hearing loss of bilateral ears 956256852 Active 2023 INEZ BOSTON, AUD [address] [facility],[address] [address], [place], [address], [place] - [facility] 14:34:52 Impacted cerumen of bilateral ears 5599783238306 108 Active 2023 OMEGA SAMAYOA PA-C [address] [facility],[address] [address], [place], [address], [place] - [facility] 15:06:50 Problem Notes None recorded. Procedures Surgical History Date Name Laterality Status Provider Name and Address Organization Details Recorded Time 11/05/19 24 Comp Audio with Tymps - 72950 & 74397 completed INEZ BOSTON, AUD [address] [facility],[address] [address], [place], [address], [facility] - [facility] 11/05/2023 14:35:51 11/05/19 24 Cerumen removal without microscope bilat completed OMEGA SAMAYOA PA-C [address] [facility],[address], [address], [place] - [facility] 11/05/2023 15:06:46 Appendectomy completed Shilpi Joshi [place] - [facility] 11/05/2023 14:18:48 total replacement of left hip joint completed Shilpi Joshi [place] - [facility] 11/05/2023 14:19:20 Cerv cancer screen docd completed Shilpi Joshi [place] - [facility] 11/05/2023 14:19:37 localization mammography completed Shilpi Joshi [place] - [facility] 11/05/2023 14:19:49 colonoscopy completed Shilpi Joshi [place] - [facility] 11/05/2023 14:20:10 Imaging Results None recorded. Procedure Notes None recorded. Medical Equipment None [...] Updated DateTime 11/05/2023 167.64 cm 27.1 kg/m2 54597.52 g Shilpi Joshi [place] - [facility] 11/05/2023 14:46:38 Social History None recorded. Functional Status Question Answer Note LastModified by Organization D etails LastModified Time What is your level of alcohol consumption? None Information not available 11/05/2023 Mental Status None recorded. Family History Nothing Reported. Medical History Condition Response Anxiety Y Depression Y Gynecological HistoryNo gynecological history recorded. Obstetrics History GPAL:G 0 P 0 0 0 0 Immunizations Vaccine Type Date Status Note Provider Nam e and Address Organization Details Recorded Time influenza nasal, unspecified formulation 3 completed Shilpi bal [place] - [facility] 11/05/2023 14:18:20 Past Encounters Encounter ID Performer Location Encounter Start Date Encounter Closed Date Diagnosis/Indication Diagnosis SNOMED-CT Code Diagnosis ICD10 Code Diagnosis IMO Codes Diagnosis Note [id number] OMEGA SAMAYOA PA-C [facility] [address] [address] 11/05/2023 13:32:06 11/05/2023 15:00:04 Impacted cerumen of bilateral ears [id number] 813867 H61.23 Sensorineu ral hearing loss of bilateral ears 830659311 H90.3 [id number] GALEN AUSTIN [facility] [address] [address] 11/05/2023 14:28:50 11/06/2023 06:59:49 Sensorineural hearing loss of bilateral ears 408231122 H90.3 Audiologic al evaluation results: Right ear: Mild rising to normal then sloping to moderately -severe sensorineu ral hearing loss with good word recognitio n. Left ear: Normal sloping at 6kHz to a mild sensorineu ral hearing loss with excellent word recognitio n. Tympanomet ry: Right Ear:Type A Left Ear:Type A Health Concerns Section Related Observation LastModified by Organization Detai ls LastModified Time None Recorded Concern Status LastModified by Organization Details LastModified Time None Recorded Advance Directives Directive None Recorded Payers Insurance Date Sequence Insurance Name Policy Number Policy Johnson Covered Member ID Johnson Member ID Guarantor Name 11/05/2023 1 [place] [employer] [employer] [address] [id number] 11/05/2023 2 [place] [id number] [address] [id number] Notes Date Note Type Note Provider Name and Address Organization Details Recorded Time 11/05/2023 text/html ROS as noted in the HPI 73-year-old female presents for evaluation of hearing loss. She reports gradual decline in her hearing over the past 6-12 months. Admits to tinnitus bilaterally, worse on the right. Denies otalgia, otorrhea, and vertigo. Had a hearing test at [facility] back in April which noted asymmetric hearing loss. She was referred for further evaluation. Denies prior otologic surgeries, but reports history of recurrent ear infections as a child. Reports that her father had significant hearing loss in his older age. OMEGA SAMAYOA PA-C [address] [address], [place], [address], [facility] - [facility] 11/05/2023 15:08:58 11/05/2023 text/html Audiological Evaluation HPIReported by PatientHearing LossFor hearing loss perceived, patient reportshearing loss in both ears (right ear worse).TinnitusFor tinnitus reported, patient reportsright ear.Use of amplification or other hearing devicesFor use of amplification or other hearing devices, patient reportsnone (does not use amplification). GALEN AUSTIN [address] [address], [place], [address], [facility] 11/05/2023 14:36:46 OBGyn Episode No OBEpisode recorded.
--- OUTSIDE RECORDS SUMMARY | 2025-01-06 19:31 | XMS_ITS | Encounter Summary ---
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 Name Role Phone Ashok Guerrero MD Primary Care Provider [phone] Reason for Referral * Physical Therapy (Routine) - Closed Specialty Diagnoses / Procedures Referred By Contac t Referred To Contact Physical Therapy Diagnoses Encounter for rehabilitation Bernice Chacko MD Phone: tel: [address] [address] Phone: tel: Referral ID Status Reason Start Date Expiration Date Visits Re quested Visits Authorized [id number] Closed 03/11/2019 03/11/2020 99 99 Encounter Details Date Type Department Care Team (Latest Contact Info) Description 03/11/2019 Transcribe Orders [facility] [address] [place] [address] Bernice Chacko MD [address] [place] [id number] Encounter for rehabilitation (Primary Dx) Social History [...] Diagnoses Orde r Schedule Ambulatory referral to [facility] Physical Therapy Outpatient Referral Routine Encounter for rehabilitation Ordered: 03/11/2019 documented as of this encounter Visit Diagnoses Diagnosis Encounter for rehabilitation- Primary documented in this encounter Care Teams Field Artillery Operations Man Relationship Specialty Start Date End Date Ashok Guerrero MD [address] [address] PCP - General Internal Medicine 03/11/19 documented as of this encounter Additional Source Comments The information contained in this document represents components of the legal health record. It is not the complete legal health record.[facility]
--- OUTSIDE RECORDS SUMMARY | 2025-01-06 19:31 | XMS_ITS | Patient Health Record ---
Author 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 Name Role Phone Ashok Guerrero MD Primary Care Provider Goran Juan Unavailable [phone] Allergies Allergen (clinical drug ingredient) Drug/Non Drug Allergy documented on EMR Reaction Allergy Type Onset Date Status EPINEPHrine MAOI inhibitor Drug Allergy Active Levaquin Unknown Drug Allergy Active codeine Codeine Unknown Drug Allergy Active Reason For Referral No Information Medications Medication SIG (Take, Route, Frequency, Duration) Notes Start Date End Date Status OLANZapine 5 MG 1 tablet on the tong ue and allow to dissolve Orally Once a day Active Xanax 0.5 MG 1 tablet Orally prn Not-Taking Phenelzine Sulfate 15 MG 1 tablet Orally Once a day Not-Taking Fish Oil Active Ciclopirox 0.77 % 1 application thin f ilm topically to nails Externally Once a day; Duration: 30 days Active Nardil 15 MG 1 tablet Orally Thre e times a day; Duration: 30 day(s) 2X A DAY Active clonazePAM 0.5 MG 1 tablet Orally Once a day PRN Active Immunizations Vaccine Route Administration Date Status Comme nts Influenza Unknown 12/12/2023 Administered Social History Tobacco Use: Social History Observation Description Date Details (start date - stop date) Never Smoker NA - NA Alcohol Screen Question Answer Notes Did you have a drink containing alcohol in the p ast year? No Points 0 Interpretation Negative Tobacco use other than smoking: Question Answer Notes Are you an other tobacco user? No Tobacco Control (Standard) Question Answer Notes Tobacco use: Nonsmoker Additional Findings: Tobacco non-user Current no nsmoker AUDIT-C (Standard) Question Answer Notes Did you have a drink containing alcohol in the p ast year? No Points 0 Interpretation Negative Problems Problem Type SNOMED Code ICD Code Onset Dates Problem Status W/U Status Risk Notes Problem Onychomycosis (072114671) Onychomycosis (B35.1) Active confirmed Vital Signs Blood pressure diastolic 65 mm Hg 12/02/2024 Height 5ft 6in in 12/02/2024 Blood pressure systolic 128 mm Hg 12/02/2024 Weight 167 lbs 12/02/2024 BMI 26.95 kg/m2 12/02/2024 Encounters Encounter Location Date Provider Diagnosis [facility] [address] [place] [address] 12/02/2024 Goran Rosenbaum Pain in right toe(s) M79.674 and Onychomycosis B35.1 Assessments Encounter Date Diagnosis (ICD Code) Assessment Notes Treatment Notes Treatment Clinical Notes Section Notes 12/02/2024 Pain in right toe(s) (ICD-10 - M79.674) 12/02/2024 Onychomycosis (ICD-10 - B35.1) Plan Of Treatment Next Appt Details Provider Name:Goran Rosenbaum , 03/31/2025 10:45:00 AM, [address] [place] [address], [address], Insurance Providers Payer Name Payer Address Payer Phone Subscriber Number Group Number Insured Name Patient Relationship to Insured Coverage Start Date Coverage End Date Medicare National [employer] [address] [place] [address] [phone] [id number] [employer] Yaneth nicolas Self - [facility] is the insured [facility] [address] [place] [address] [id number] [employer] Yaneth nicolas Self - patient is the insured Medical (General) History Medical History History ICD Code back, hip, knee pain neuropathy chicken pox measles Anxiety Broken bones Depression Hammer toe 735.4 Onychomycosis 110.1 Pain in Limb 729.5 Surgical History Surgery Date(Month/Year) appendectomy breast biopsy Hospitalization History Reason Date(Month/Year) [facility]- UTI- Keflex 06/20/23
--- OUTSIDE RECORDS SUMMARY | 2025-01-06 19:31 | XMS_ITS | Clinical Summary ---
Author Organization [facility] Address [address] [address] Phone Care Team Providers Care Environmental Protection Geologist Name Role Phone Ashok Guerrero MD Primary Care Provider [phone] Social History Tobacco Use Types Packs/Day Years Used Date Smoking Tobacco: Never Assessed Education Answer Date Recorded Are you interested in more education? Not on brooke e 07/07/2022 Are you concerned about learning? Not on file 07/07/2022 No 07/07/2022 No 07/07/2022 Digital Access Answer Date Recorded No 08/05/2022 No 08/05/2022 No 08/05/2022 Reliable internet access at home? Not on file 08/05/2022 Device with a working camera? Not on file Comments Unknown Sex and Gender Information Value Date Recorded Sex Assigned at Not on file Legal Sex Female 10:30 AM EST Gender Identity Not on file Sexual Orientation Not on file Plan of Treatment Health Maintenance Due Date Last Done Comments Adult Td,Tdap Booster 1952 LIPID PANEL 1952 DEPRESSION SCREENING 1964 SMOKING Hx and SMOKELESS TOBACCO SCREENING 1965 HEPATITIS C SCREENING 1970 MAMMOGRAM 1992 COLOGUARD 1997 COLONOSCOPY 1997 COLORECTAL CANCER SCREENING 1997 FIT TEST 1997 FOBT 1997 SIGMOIDOSCOPY 1997 VIRTUAL COLONOSCOPY 1997 PNEUMOCOCCAL VACCINES (50+ years) (2 of 2 - PCV) 10/25/2013 10/25/2012 OSTEOPOROSIS SCREENING INITI AL (ONE-TIME) 2017 ZOSTER VACCINES (3 of 3) 11/12/2019 020, 10/25/2012 INFLUENZA VACCINE (#1) 2024 8, 02/23/2016, 03/11/2013 COVID-19 VACCINE (2 - 2024-2 6 season) 2024 06/09/2020 RSV VACCINE (1 - 1-dose 75+ series) 2027 HEPATITIS A VACCINES Aged Out No long er eligible based on patient's age to complete this topic HIB VACCINES Aged Out No longer eligi ble based on patient's age to complete this topic MENINGOCOCCAL VACCINES (ACWY) Aged Out No longer eligible based on patient's age to complete this topic MENINGOCOCCAL VACCINES (B) Aged Out N o longer eligible based on patient's age to complete this topic Medical Devices Not on file Insurance MEDICARE PART A & B [facility] MEDEX SUPPLEMENT MEDICARE PART A & B [employer] MEDEX SUPPLEMENT MEDICARE PART A & B [employer] MED[employer] SUPPLEMENT MEDICARE PART A & B [place] MEDEX SUPPLEMENT MEDICARE PART A & B [employer] MED[employer] SUPPLEMENT MEDICARE PART A & B [employer] MED[employer] SUPPLEMENT MEDICARE PART A & B [employer] SUPPLEMENT MEDICARE PART A & B [employer] SUPPLEMENT MEDICARE PART A & B [employer] MEDEX SUPPLEMENT Care Teams Environmental Protection Geologist Relationship Specialty Start Date End Date Ashok Guerrero MD [address] [address] PCP - General Internal Medicine 03/11/19 Additional Source Comments The information contained in this document represents components of the legal health record. It is not the complete legal health record.[facility]
--- OUTSIDE RECORDS SUMMARY | 2025-01-06 19:31 | XMS_ITS | Data Portability ---
Author Organization BANDAR Tano Srinivasan Arnoah [facility] Surgeons [facility], [facility] Address [address] [place] [address] Care Team Providers Care Oceanologist Name Role Phone SHELTONANI Rosas Referring Provider [phone] [facility] Primary Care Provider Assessment Encounter Date Assessment Date Assessment LastModified by Organization Details LastModified Time 08/29/2023 08/29/2023 A: improved tolerance with all [...] osteoarthritis of the right hip. There is ltip-xn-xjyu articulation, subchondral sclerosis, and osteophyte formation. Radiographs [...] might have. [email or web address] Not available 11/23/2023 12:52:15 12/18/2024 12/18/2024 History: Patient is a 74-year-old female presents today for reevaluation of right-sided hip pain. She said had hip pain for many years. She is already status post a left hip replacement in 2023 by me. This is doing well. Her right hip is causing 10/10 pain. She reports significant limitations in activities including difficulty with stairs and putting on socks and shoes. She reports a limp. She takes meloxicam for discomfort. Had injections in the past. PMH/PSH/MEDS/ALL/ FMH/SOC HX/ROS are reviewed in detail per my medical intake sheet. General Examination: Vital signs are as noted below Mental Status: Alert and lucid. Normal insight, affect and grooming. SEGMENT BLOCK LAYER: Gross motor coordination is intact. No spasticity or clonus noted. Extremities: Calves are soft nontender, skin intact Orthopedic Examination: Patient has a negative straight leg rise test bilaterally. Right Hip: Limited and painful range of motion with pain referred to the groin and buttock. No trochanteric tenderness. Antalgic gait pattern favoring the right side. Full strength and sensation distally. X-rays: Radiographs ordered and obtained today including an AP pelvis and frog lateral of the affected side. These radiographs demonstrate end stage osteoarthritis of the right hip. There is kmyw-rl-juhz articulation, subchondral sclerosis, and osteophyte formation. Assessment: End-stage osteoarthritis of the right hip which has failed greater than 3 months of nonoperative treatment including medication and activity modification. The patient is in too much discomfort to participate in any meaningful physical therapy. PLAN: The patient was thoroughly counseled today regarding their [...] elective total hip replacement at this time. Next planned follow-up is at the history and physical. The patient knows I will be happy to meet with them again at any time in order to review any additional questions or concerns that they might have. [email or web address] Not available 12/18/2024 12:18:43 Plan of Treatment Reminders Order Date Submit Date Provider Last Modified By Organization Details Last Modified Time Details Appointments SURG[facility] @ [facility] [place] 09:30A M Asad Roy MD Not available Not available Not available POST OP 15 2024 01:45P M Cordelia Hicks, SURVEY COORDINATOR Not available Not available Not available POST OP 15 2024 01:30P M Eduardo Darling, SERVICE PROVIDER Not available Not available Not available RECHECK 10 2025 01:30P M Asad Roy MD Not available Not available Not available Lab None recorded. Referral pain managemen t referral - L2-3 DDD 2024 025 [email or web address] [facility], [address] [place] [address], [address], 07/07/2024 16:07:28 physical therapist referral - Evaluate & Rx Lumbar Stabiliza tion Program 2024 025 [email or web address] [facility], [address] [place] [address], [address], 07/07/2024 16:07:28 Procedures None recorded. Surgeries None recorded. Imaging XR, hip + pelvis, unilatera l, 2 or 3 view - 208 r hip 2v with marker 2024 025 [email or web address] [facility], [address], [place], [address], 12/18/2024 13:05:39 XR, hip + pelvis, unilatera l, 2 or 3 view - rm 208 2V left hip pain S/P LTHR 2023 AL 2024 025 [email or web address] [facility], [address], [address], [place], [address], 07/07/2024 16:07:28 XR, hip + pelvis, unilatera l, 2 or 3 view - 209 lthr 2v 2023 024 [email or web address] [facility], [address], [address], [place], [address], 12/13/2023 12:55:32 Medication Orders meloxicam 15 mg tablet 2023 024 [email or web address] [facility], [address] [place], [address], 11/22/2023 14:07:32 amoxicill in 500 mg capsule [address] [facility] [address], [address] [place], [address], 11/22/2023 14:07:32 Patient TargetsNo targets recorded. Patient InstructionsNo [...] /uL 3.4-10 .8 normal Not Available [facility] ([facility]) [address] [place], [address], 06/19/2024 08:13:27 06/19/1906/19/2024 CBC WITH DIFFE RENTI AL/PL ATELE T RBC 4.14 x10e6 /uL 3.77-5 .28 normal Not Available [facility] ([facility]) [address] [place], [address], 06/19/2024 08:13:27 06/19/19 25 06/19/2024 CBC WITH DIFFE RENTI AL/PL ATELE T hemoglobin 12.1 g/dL 11.1-1 5.9 normal Not Available [facility] ([facility]) [address] [facility], [place], [address], 06/19/2024 08:13:27 06/19/1906/19/2024 CBC WITH DIFFE RENTI AL/PL ATELE T hematocrit 37.4 % 34.0-4 6.6 normal Not Available [facility] ([facility]) [address] [facility], [place], [address], 06/19/2024 08:13:27 06/19/19 25 06/19/2024 CBC WITH DIFFE RENTI AL/PL ATELE T MCV 90 fL 79-97 normal Not Available [facility] ([facility]) [address] [facility], [place], [address], 06/19/2024 08:13:27 06/19/19 25 06/19/2024 CBC WITH DIFFE RENTI AL/PL ATELE T MCH 29.2 pg 26.6-3 3.0 normal Not Available [facility] ([facility]) [address] [place], [address], 06/19/2024 08:13:27 06/19/1906/19/2024 CBC WITH DIFFE RENTI AL/PL ATELE T MCHC 32.4 g/dL 31.5-3 5.7 normal Not Available [facility] ([facility]) [address] [place], [address], 06/19/2024 08:13:27 06/19/1906/19/2024 CBC WITH DIFFE RENTI AL/PL ATELE T RDW 13.1 % 11.7-1 5.4 Not Available [facility] ([facility]) [address] [place], [address], 06/19/2024 08:13:27 06/19/19 25 06/19/2024 CBC WITH DIFFE RENTI AL/PL ATELE T platelets 199 x10e3 /uL 150-45 0 normal Not Available [facility] ([facility]) [address] [facility], [place], [address], 06/19/2024 08:13:27 06/19/19 25 06/19/2024 CBC WITH DIFFE RENTI AL/PL ATELE T neutrophils 52 % not estab. normal Not Available [facility] ([facility]) [address] [facility], [place], [address], 06/19/2024 08:13:27 06/19/19 25 06/19/2024 CBC WITH DIFFE RENTI AL/PL ATELE T lymphs 34 % not estab. normal Not Available [facility] ([facility]) [address] [facility], [place], [address], 06/19/2024 08:13:27 06/19/19 25 06/19/2024 CBC WITH DIFFE RENTI AL/PL ATELE T monocytes 11 % not estab. normal Not Available [facility] ([facility]) [address] [facility], [place], [address], 06/19/2024 08:13:27 06/19/19 25 06/19/2024 CBC WITH DIFFE RENTI AL/PL ATELE T eos 2 % not estab. normal Not Available [facility] ([facility]) [address] [facility], [place], [address], 06/19/2024 08:13:27 06/19/19 25 06/19/2024 CBC WITH DIFFE RENTI AL/PL ATELE T basos 1 % not estab. normal Not Available [facility] ([facility]) [address] [facility], [place], [address], 06/19/2024 08:13:27 06/19/19 25 06/19/2024 CBC WITH DIFFE RENTI AL/PL ATELE T immature cells SERVICE PROVIDER Not Available [facility] ([facility]) [address] [facility], [place], [address], 06/19/2024 08:13:27 06/19/19 25 06/19/2024 CBC WITH DIFFE RENTI AL/PL ATELE T neutrophils (absolute) 2.1 x10e3 /uL 1.4-7. 0 normal Not Available [facility] ([facility]) [address] [facility], [place], [address], 06/19/2024 08:13:27 06/19/19 25 06/19/2024 CBC WITH DIFFE RENTI AL/PL ATELE T lymphs (absolute) 1.4 x10e3 /uL 0.7-3. 1 normal Not Available [facility] ([facility]) [address] [place], [address], 06/19/2024 08:13:27 06/19/19 25 06/19/2024 CBC WITH DIFFE RENTI AL/PL ATELE T monocytes(ab solute) 0.4 x10e3 /uL 0.1-0. 9 normal Not Available [facility] ([facility]) [address] [facility], [place], [address], 06/19/2024 08:13:27 06/19/19 25 06/19/2024 CBC WITH DIFFE RENTI AL/PL ATELE T eos (absolute) 0.1 x10e3 /uL 0.0-0. 4 normal Not Available [facility] ([facility]) [address] [place], [address], 06/19/2024 08:13:27 06/19/19 25 06/19/2024 CBC WITH DIFFE RENTI AL/PL ATELE T baso (absolute) 0.0 x10e3 /uL 0.0-0. 2 normal Not Available [facility] ([facility]) [address] [place], [address], 06/19/2024 08:13:27 06/19/19 25 06/19/2024 CBC WITH DIFFE RENTI AL/PL ATELE T immature granulocytes 0 % not estab. Not Available [facility] ([facility]) [address] [facility], [place], [address], 06/19/2024 08:13:27 06/19/19 25 06/19/2024 CBC WITH DIFFE RENTI AL/PL ATELE T immature grans (abs) 0.0 x10e3 /uL 0.0-0. 1 Not Available [facility] ([facility]) [address] [facility], [place], [address], 06/19/2024 08:13:27 06/19/19 25 06/19/2024 CBC WITH DIFFE RENTI AL/PL ATELE T NRBC SERVICE PROVIDER Not Available [facility] ([facility]) [address] [place], [address], 06/19/2024 08:13:27 06/19/19 25 06/19/2024 CBC WITH DIFFE RENTI AL/PL ATELE T hematology comments: SERVICE PROVIDER Not Available [facility] ([facility]) [address] [facility], [place], [address], 06/19/2024 08:13:27 06/19/19 25 06/19/2024 SEDIM ENTAT ION RATE- WESTE RGREN sedimentatio n rate-westerg jeronimo 9 mm/HR 0-40 normal Not Available [facility] ([facility]) [address] [place], [address], 06/19/2024 08:13:28 06/19/19 25 06/19/2024 C-DUNG CTIVE PROTE IN, QUANT C-reactive protein, quant <1 mg/L 0-10 Not Available [facility] ([facility]) [address] [place], [address], 06/19/2024 08:13:29 12/18/19 25 12/17/2024 CBC WITH DIFFE RENTI AL/PL ATELE T WBC 3.7 x10e3 /uL 3.4-10 .8 normal Not Available [facility] ([facility]) [address] [place], [address], 12/18/2024 06:05:58 12/18/1912/17/2024 CBC WITH DIFFE RENTI AL/PL ATELE T RBC 4.15 x10e6 /uL 3.77-5 .28 normal Not Available [facility] ([facility]) [address] [facility], [place], [address], 12/18/2024 06:05:58 12/18/1912/17/2024 CBC WITH DIFFE RENTI AL/PL ATELE T hemoglobin 12.9 g/dL 11.1-1 5.9 normal Not Available [facility] ([facility]) [address] [place], [address], 12/18/2024 06:05:58 12/18/1912/17/2024 CBC WITH DIFFE RENTI AL/PL ATELE T hematocrit 38.6 % 34.0-4 6.6 normal Not Available [facility] ([facility]) [address] [place], [address], 12/18/2024 06:05:58 12/18/1912/17/2024 CBC WITH DIFFE RENTI AL/PL ATELE T MCV 93 fL 79-97 normal Not Available [facility] ([facility]) [address] [place], [address], 12/18/2024 06:05:58 12/18/1912/17/2024 CBC WITH DIFFE RENTI AL/PL ATELE T MCH 31.1 pg 26.6-3 3.0 normal Not Available [facility] ([facility]) [address] [place], [address], 12/18/2024 06:05:58 12/18/1912/17/2024 CBC WITH DIFFE RENTI AL/PL ATELE T MCHC 33.4 g/dL 31.5-3 5.7 normal Not Available [facility] ([facility]) [address] [facility], [place], [address], 12/18/2024 06:05:58 12/18/1912/17/2024 CBC WITH DIFFE RENTI AL/PL ATELE T RDW 12.7 % 11.7-1 5.4 Not Available [facility] ([facility]) [address] [facility], [place], [address], 12/18/2024 06:05:58 12/18/1912/17/2024 CBC WITH DIFFE RENTI AL/PL ATELE T platelets 175 x10e3 /uL 150-45 0 normal Not Available [facility] ([facility]) [address] [facility], [place], [address], 12/18/2024 06:05:58 12/18/1912/17/2024 CBC WITH DIFFE RENTI AL/PL ATELE T neutrophils 50 % not estab. normal Not Available [facility] ([facility]) [address] [facility], [place], [address], 12/18/2024 06:05:58 12/18/1912/17/2024 CBC WITH DIFFE RENTI AL/PL ATELE T lymphs 30 % not estab. normal Not Available [facility] ([facility]) [address] [facility], [place], [address], 12/18/2024 06:05:58 12/18/1912/17/2024 CBC WITH DIFFE RENTI AL/PL ATELE T monocytes 13 % not estab. normal Not Available [facility] ([facility]) [address] [facility], [place], [address], 12/18/2024 06:05:58 12/18/1912/17/2024 CBC WITH DIFFE RENTI AL/PL ATELE T eos 5 % not estab. normal Not Available [facility] ([facility]) [address] [facility], [place], [address], 12/18/2024 06:05:58 12/18/1912/17/2024 CBC WITH DIFFE RENTI AL/PL ATELE T basos 1 % not estab. normal Not Available [facility] ([facility]) [address] [facility], [place], [address], 12/18/2024 06:05:58 12/18/1912/17/2024 CBC WITH DIFFE RENTI AL/PL ATELE T immature cells SERVICE PROVIDER Not Available [facility] ([facility]) [address] [place], [address], 12/18/2024 06:05:58 12/18/1912/17/2024 CBC WITH DIFFE RENTI AL/PL ATELE T neutrophils (absolute) 1.9 x10e3 /uL 1.4-7. 0 normal Not Available [facility] ([facility]) [address] [place], [address], 12/18/2024 06:05:58 12/18/1912/17/2024 CBC WITH DIFFE RENTI AL/PL ATELE T lymphs (absolute) 1.1 x10e3 /uL 0.7-3. 1 normal Not Available [facility] ([facility]) [address] [place], [address], 12/18/2024 06:05:58 12/18/1912/17/2024 CBC WITH DIFFE RENTI AL/PL ATELE T monocytes(ab solute) 0.5 x10e3 /uL 0.1-0. 9 normal Not Available [facility] ([facility]) [address] [place], [address], 12/18/2024 06:05:58 12/18/19 25 12/17/2024 CBC WITH DIFFE RENTI AL/PL ATELE T eos (absolute) 0.2 x10e3 /uL 0.0-0. 4 normal Not Available [facility] ([facility]) [address] [place], [address], 12/18/2024 06:05:58 12/18/1912/17/2024 CBC WITH DIFFE RENTI AL/PL ATELE T baso (absolute) 0.0 x10e3 /uL 0.0-0. 2 normal Not Available [facility] ([facility]) [address] [facility], [place], [address], 12/18/2024 06:05:58 12/18/1912/17/2024 CBC WITH DIFFE RENTI AL/PL ATELE T immature granulocytes 0 % not estab. Not Available [facility] ([facility]) [address] [facility], [place], [address], 12/18/2024 06:05:58 12/18/1912/17/2024 CBC WITH DIFFE RENTI AL/PL ATELE T immature grans (abs) 0.0 x10e3 /uL 0.0-0. 1 Not Available [facility] ([facility]) [address] [facility], [place], [address], 12/18/2024 06:05:58 12/18/1912/17/2024 CBC WITH DIFFE RENTI AL/PL ATELE T NRBC SERVICE PROVIDER Not Available [facility] ([facility]) [address] [facility], [place], [address], 12/18/2024 06:05:58 12/18/1912/17/2024 CBC WITH DIFFE RENTI AL/PL ATELE T hematology comments: SERVICE PROVIDER Not Available [facility] ([facility]) [address] [facility], [place], [address], 12/18/2024 06:05:58 12/18/1912/17/2024 ELECT ROLYT E PANEL sodium 138 mmol/ L 134-14 4 normal Not Available [facility] ([facility]) [address] [facility], [place], [address], 12/18/2024 06:05:58 12/18/1912/17/2024 ELECT ROLYT E PANEL potassium 4.6 mmol/ L 3.5-5. 2 normal Not Available [facility] ([facility]) [address] [facility] [place], [address], 12/18/2024 06:05:58 12/18/1912/17/2024 ELECT ROLYT E PANEL chloride 101 mmol/ L 96-106 normal Not Available [facility] ([facility]) [address] [facility] [place], [address], 12/18/2024 06:05:58 12/18/1912/17/2024 ELECT ROLYT E PANEL carbon dioxide, total 26 mmol/ L 20-29 normal Not Available [facility] ([facility]) [address] [place], [address], 12/18/2024 06:05:58 12/18/1912/17/2024 BUN+C REAT BUN 21 mg/dL 8-27 normal Not Available [facility] ([facility]) [address] [place], [address], 12/18/2024 06:05:59 12/18/1912/17/2024 BUN+C REAT creatinine 0.78 mg/dL 0.57-1 .00 normal Not Available [facility] ([facility]) [address] [place], [address], 12/18/2024 06:05:59 12/18/1912/17/2024 BUN+C REAT eGFR 81 mL/mi n/1.7 3 >59 normal Not Available [facility] ([facility]) [address] [place], [address], 12/18/2024 06:05:59 12/18/19 25 12/17/2024 BUN+C REAT BUN/creatini ne ratio 27 12-28 normal Not Available [facility] ([facility]) [address] [place], [address], 12/18/2024 06:05:59 12/18/1912/18/2024 PROTH ROMBI N TIME (PT) INR 0.9 0.9-1. 2 Refer ence inter cortney is for non-a ntico agula erlin patie nts. Sugge sted INR thera peuti c range for Vitam in K antag onist thera py: Stand jeanette Dose (mode rate inten sity thera peuti c range ): 2.0 - 3.0 Highe r inten sity thera peuti c range 2.5 - 3.5 Not Available [facility] ([facility]) [address] [facility], [place], [address], 12/18/2024 06:05:59 12/18/1912/18/2024 PROTH ROMBI N TIME (PT) prothrombin time 9.8 sec 9.1-12 .0 normal Not Available [facility] ([facility]) [address] [facility], [place], [address], 12/18/2024 06:05:59 12/18/1912/18/2024 HEMOG LOBIN A1C hemoglobin A1C 4.9 % 4.8-5. 6 normal Predi abete s: 5.7 - 6.4 Diabe mervat: >6.4 Glyce magdi contr ol for adult s with diabe mervat: <7.0 Not Available [facility] ([facility]) [address] [place], [address], 12/18/2024 06:05:59 12/18/1912/18/2024 PTT, ACTIV ATED APTT 24 sec 24-33 normal This test has not been valid ated for monit oring unfra ction ated hepar in thera py. aPTT- based thera peuti c range s for unfra ction ated hepar in thera py have not been estab kristina pickett For gener al guide lines on Hepar in monit oring , refer to the [facility]. Not Available [facility] ([facility]) [address] [facility], [place], [address], 12/18/2024 06:05:59 12/18/19 25 12/17/2024 GLUCO SE glucose 78 mg/dL 70-99 normal Not Available [facility] ([facility]) [address] [facility], [place], [address], 12/18/2024 06:06:00 08/22/19 24 08/21/2023 XR, hip, unila teral , 2 or 3 view http:/ [email or web address] ?Encry pted=s hAaTro YD8dLq bEUv6g %2BXZw aYqtaq 0bqfl% 2Fg9IQ a4ajBk vP9nXo QUaueC m3YtLR FvZl [facility] 9e8517 AC0Kua XqBU6P eUC8mr 84%3D INTERFACE [facility] [address], [place], [address], 08/22/2023 13:00:04 11/09/19 24 05/18/2023 imagi ng/di agnos tic resul t No observ ation record ed. [email or web address] Not Available 10/12 07:29:52 11/22/19 24 11/22/2023 XR, hip + pelvi s, unila teral , 2 or 3 view http:/ [email or web address] ?Encry pted=s hAaTro YD8dLq bEUv6g %2BXZw aYqtaq 0bqfl% 2Fg9IQ a4ajBk vP9nXo QUaueC m3YtLR FvZlgJ JJ8mAn HZtai3 7n0088 AC0Kqa n6EWKO iKiQtr MwF INTERFACE [facility] [address], [place], [address], 11/22/2023 09:23:55 11/22/19 24 11/22/2023 XR, hip + pelvi s, unila teral , 2 or 3 view http:/ [email or web address] ?Encry pted=s hAaTro YD8dLq bEUv6g %2BXZw aYqtaq 0bqfl% 2Fg9IQ a4ajBk vP9nXo QUaueC m3YtLR FvZl JJ8mAn HZtai3 4v3705 AC0Kqa n6EWKO iKiQtr MwF INTERFACE [facility] [address], [place], [address], 11/22/2023 09:23:57 06/28/19 25 06/27/2024 XR, hip + pelvi s, unila teral , 2 or 3 view http:/ [email or web address] ?Encry pted=s hAaTro YD8dLq bEUv6g %2BXZw aYqtaq 0bqfl% 2Fg9IQ a4ajBk vP9nXo QUaueC m3YtLR FvZl JJ8mAn HZtai3 0g2327 AC0KqY 3WNUqu nKiQtr MwF INTERFACE [facility] [address], [place], [address], 06/27/2024 09:56:12 06/28/19 25 06/27/2024 XR, hip + pelvi s, unila teral , 2 or 3 view http:/ [email or web address] ?Encry pted=s hAaTro YD8dLq bEUv6g %2BXZw aYqtaq 0bqfl% 2Fg9IQ a4ajBk vP9nXo QUaueC m3YtLR FvZlgJ JJ8mAn HZtai3 3n9664 AC0KqY 3WNUqu nKiQtr MwF INTERFACE [facility] [address], [place], [address], 06/27/2024 09:56:13 12/19/1912/18/2024 XR, hip + pelvi s, unila teral , 2 or 3 view http:/ [email or web address] ?Encry pted=s hAaTro YD8dLq bEUv6g %2BXZw aYqtaq 0bqfl% 2Fg9IQ a4ajBk vP9nXo QUaueC m3YtLR FvZlgJ JJ8mAn HZtai3 2d0378 AC0Klb XuAVKO kKiQtr MwF INTERFACE [facility] [address], [place], [address], 12/18/2024 11:50:23 12/19/1912/18/2024 XR, hip + pelvi s, unila teral , 2 or 3 view http:/ [email or web address] ?Encry pted=s hAaTro YD8dLq bEUv6g %2BXZw aYqtaq 0bqfl% 2Fg9IQ a4ajBk vP9nXo QUaueC m3YtLR FvZlgJ JJ8mAn HZtai3 2b7530 AC0Klb XuAVKO kKiQtr MwF INTERFACE [facility] [address], [place], [address], 12/18/2024 11:50:25 Result Notes Documentation Provider Name and Address Organization Details Recorded Time Xr, Hip + Pelvis, Unilateral, 2 Or 3 View : [email or web address] Encrypted=mbKdDnrUT5nDviD Uv6g%1IRJhsEafgq7tqvf%2Fg 6UJr0yqTzqM9yOiYEojeMb4Iv TUReQheJTX8qAdQJzet27i140 2IB8Xium5NSAIyPzOkkNcF Not Available [facility] 11/22/2023 09:23: 56 Xr, Hip + Pelvis, Unilateral, 2 Or 3 View : [email or web address] Encrypted=teHlFvqVR7oTtaS Uv6g%1RMCxeOhajz2xbcs%2Fg 2BHy6qzEjlO4oVuHXhamXy6Fs KDGkOriSQG4iPtUFwdr58h202 5KP1Fidt0RJFGhJqPucFaK Not Available [facility] 11/22/2023 09:23: 58 Xr, Hip + Pelvis, Unilateral, 2 Or 3 View : [email or web address] Encrypted=xdQgPahDX8zHsmC Uv6g%9XCFsaKequi8gobq%2Fg 9DKy4dmUdkU2oZwMDzfxXm8Qw ZGOcPxtNVB3xXeFUmch26b558 5JC7SrN8YNWijaIiOshZrF Not Available [facility] 06/27/2024 09:56: 12 Xr, Hip + Pelvis, Unilateral, 2 Or 3 View : [email or web address] Encrypted=kwFrBfjVH2hZkyP Uv6g%5CAHrqKnwdo2emqd%2Fg 1TPs1qcBtkF7nKoPWhfdPz6Lb DDMxUuvSVU0nBoLUaaa42m481 5OQ4EwC3FOSlmsAxUtpCdO Not Available [facility] 06/27/2024 09:56: 13 Xr, Hip + Pelvis, Unilateral, 2 Or 3 View : [email or web address] Encrypted=vdBvVlqDN6mXjyS Uv6g%4NGRfaYjjnj0avlb%2Fg 3ULe1ctKpjV3pIkGOiadNq8Aj DRZeYfsTXZ4xWkTJhxn21l913 9WK3VyrYjNNXJnEvZroMiR Not Available [facility] 12/18/2024 11:50: 24 Xr, Hip + Pelvis, Unilateral, 2 Or 3 View : [email or web address] Encrypted=hsAkQvvSR5wYlkW Uv6g%5KHKbrZuequ1qkxi%2Fg 3FSa5csRtyO4gHuJZgyoYn8Un PPGrHjaKVC5fWgAEecu09n723 3QZ4NynMyCNKUiFsSsbJrX Not Available [facility] 12/18/2024 11:50: 25 Problems Name Problem SNOMED Code Status Onset Date Resolution Date Notes Provider Name and Address Organization Details Recorded Time Plantar fascial fibromato sis 15929729 Active 2015 Problem Code: M72.2; Problem Code Type: ICD-10; Status: 'A'; Not Available [facility] 4 12:12:22 Osteoarth ritis of right hip joint 532753239836 107 Active 2023 ROCIO bal [facility] 5 11:43:41 Problem Notes None recorded. Procedures Surgical History Date Name Laterality Status Provider Name and Address Organization Details Recorded Time 4 73491 Therapeutic Exercise (1:1) completed Leia Palencia, PRIMARY OPERATOR [address], [place], [address], [facility] 09/03/2023 08:09:27 4 66808 Therapeutic Exercise (1:1) completed Radha Rico, PT [address], [place], [address], [facility] [facility] 08/29/2023 11:03:17 4 91848 Therapeutic Exercise (1:1) completed Leia Palencia, PRIMARY OPERATOR [address], [place], [address], [facility] 08/22/2023 12:55:50 4 25045 Therapeutic Exercise (1:1) completed Leia Palencia, PRIMARY OPERATOR [address], [place], [address], [facility] 08/20/2023 11:05:49 4 08510 Therapeutic Exercise (1:1) completed Leia Palencia, PRIMARY OPERATOR [address], [place], [address], [facility] 08/15/2023 11:02:53 4 43184 Therapeutic Exercise (1:1) completed Leia Palencia, PRIMARY OPERATOR [address], [place], [address], [facility] 08/13/2023 10:56:50 4 16403 Therapeutic Exercise (1:1) completed Radha Rico, PT [address], [place], [address], [facility] 08/09/2023 11:02:48 4 55980 Therapeutic Exercise (1:1) completed Radha Rico, PT [address], [place], [address], [facility] 08/07/2023 10:56:24 4 76183 Therapeutic Exercise (1:1) completed Radha Rico, PT [address], [place], [address], [facility] 08/03/2023 12:59:59 4 20981: Low complexity PT Eval completed Radha Rico, PT [address], [place], [address], [facility] 08/03/2023 13:00:01 4 G8417 BMI Above Upper Parameters, F/U Documented completed Radha Rico, PT [address], [place], [address], [facility] 08/03/2023 12:59:53 4 G8427 Current Medication Documented completed Radha Rico, PT [address], [place], [address], [facility] 08/03/2023 12:59:50 4 Hip Surgery completed ROCIO SHABAZZ [facility] 11/22/2023 09:12:25 4 47917 Therapeutic Exercise (1:1) completed Radha Rico, PT [address], [place], [address], [facility] 06/22/2023 09:51:36 4 29700: Low complexity PT Eval completed Radha Rico, PT [address], [place], [address], [facility] 06/22/2023 09:51:39 4 G8417 BMI Above Upper Parameters, F/U Documented completed Radha Rico, PT [address], [place], [address], [facility] 06/22/2023 09:51:33 4 G8427 Current Medication Documented completed Radha Rico, PT [address], [place], [address], [facility] 06/22/2023 09:51:30 Imaging Results None recorded. Procedure Notes None recorded. Medical Equipment None Reported. Allergies Allergen ID Allergen Name Allergen Category Reaction Reaction Severity Criticality Documentation Date Start Date Code Code System Note Provider Name and Address Organization Details Recorded Time 254770 epinephri ne medicatio n Not available Not available Not available 06/14/2023 3992 [facility] 09:39:08 41596 Levaquin medicatio n Not available Not available Not available 05/14/20232019 77423 2 RxNorm Not Available [facility] 4 12:44:54 Medications Name Sig Start Date Stop Date Status Note LastModified by Organization Details LastModified Time quetiapine 25 mg tablet 06/23 completed Not Available Not Available Not Available celecoxib 200 mg capsule 11/15 completed Not Available Not Available Not Available amoxicillin 500 mg capsule 4 pills 1 hour prior to DENTAL APPT 06/23 completed Not Available Not Available Not Available Colace 100 mg capsule 1 capsule twice a day by oral route. 11/15 completed Not Available Not Available Not Available prednisone 10 mg tablet 06/13 completed Not Available Not Available Not Available doxycycline hyclate 100 mg capsule 06/13 completed Not Available Not Available Not Available azithromyci n 250 mg tablet 06/13 completed Not Available Not Available Not Available tizanidine 4 mg tablet 06/13 completed Not Available Not Available Not Available phenelzine 15 mg tablet Take 1 tablet every day by oral route. active Not Available Not Available No t Available meloxicam 15 mg tablet TAKE ONE TABLET BY MOUTH EVERY DAY AFTER MEALS 2024 active Not Available Not Available Not Avai lable ondansetron HCl 4 mg tablet 11/15 completed Not Available Not Available Not Available clonazepam 0.5 mg tablet active Not Available Not Available Not Available clobetasol 0.05 % topical cream active Not Available Not Available Not Available aspirin 325 mg tablet,slime yed release 1 tablet twice a day by oral route. 11/15 completed Not Available Not Available Not Available cephalexin 500 mg capsule 11/15 completed Not Available Not Available Not Available pantoprazol e 40 mg tablet,slime yed release 11/15 completed Not Available Not Available Not Available metronidazo le 0.75 % topical cream APPLY A THIN LAYER TO THE AFFECTED AREA(S) BY TOPICAL ROUTE 2 TIMES PER DAY IN THE MORNING AND EVENING active Not Available Not Available No t Available albuterol sulfate HFA 90 mcg/actuati on aerosol inhaler 06/13 completed Not Available Not Available Not Available fluticasone propionate 50 mcg/actuati on nasal spray,suspe nsion 11/15 completed Not Available Not Available Not Available amoxicillin 875 mg-potassiu m clavulanate 125 mg tablet 06/13 completed Not Available Not Available Not Available oxycodone 5 mg tablet 11/15 completed Not Available Not Available Not Available Estrace 0.01% (0.1 mg/gram) vaginal cream Insert by vaginal route. active Not Available Not Available No t Available ciclopirox 0.77 % topical cream 2024 active Not Available Not Available Not Avai lable L-Methylfol ate 15 mg tablet Take by oral route. active Not Available Not Available No t Available Adult [facility] 06/23 completed Not Available Not Available Not Available Vitals Date Recorded Body height Provider Name an d Address Organization Details Last Updated DateTime 06/27/2024 165.1 cm AVERY ADKINSAlan [facility] 06/27/2024 09:44:46 Date Recorded Body height Body mass index (BMI) Body weight Provider Name and Address Organization Details Last Updated DateTime 11/22/2023 165.1 cm 28 kg/m2 26811.52 mary CHAN HARIKA [facility] 11/22/2023 09:12:39 Date Recorded Body height Body mass index (BMI) Body weight Provider Name and Address Organization Details Last Updated DateTime 12/18/2024 165.1 cm 29.1 kg/m2 01718.66 mary SHABAZZ [facility] 12/18/2024 11:46:18 Social History Question Answer Notes LastModified by [employer] ion Details LastModified Time Tobacco Smoking Status [facility] 11/22/2023 09:12:19 When Did You Quit Smoking? 16+yearssinc elastcigaret te Information not available 11/22/2023 What Is Your Relationship Status? Information not available 11/22/2023 How Many Years Have You Smoked Tobacco? 4 Information not available 12/18/2024 Sex: Unknown Functional Status Question Answer Note LastModified by [employer] ion Details LastModified Time How many times per week do you consume alcohol? Less than 1 time per week Information not available 11/22/2023 Do you use any illicit or recreational drugs? No Information not available 11/22/2023 Do you or have you ever used any other forms of tobacco or nicotine? Yes Information not available 12/18/2024 Do you or have you ever used [...] ICD10 Code Diagnosis IMO Codes Diagnosis Note [id number] MD [address] [place] [address] 06/14/2023 15:23:46 07/19/2023 09:51:05 Osteoarthritis of left hip joint [id number] 72234 M16.12 [id number] Radha Rico PT [facility] [address] [place] [address] 06/22/2023 08:58:42 06/22/2023 10:52:04 Osteoarthritis of left hip joint 2688903372 05194 M16.12 [id number] Clive Rosario APRN [facility] [address]nd floor [address] [place] [address] 07/16/2023 09:59:18 08/08/2023 04:04:52 Osteoarthritis of left hip joint 8637909419 61248 M16.12 [id number] MACRINA Blairlow PT [address] [place] [address] 08/03/2023 10:59:51 08/03/2023 15:01:38 Follow-up orthopedic assessment 499859329 Z47.1 History of total replacement of left hip joint 7708281250 957456 Z96.180 [id number] Stephon Viera [facility]C [facility] [address] [place] [address] 08/07/2023 09:18:24 08/07/2023 10:29:28 History of total replacement of left hip joint 8285692662 064793 Z96.821 [id number] Radha Rico PT [facility] [address] [place] [address] 08/07/2023 10:42:21 08/07/2023 13:35:34 Follow-up orthopedic assessment 854733964 Z47.1 History of total replacement of left hip joint 0241123589 424964 Z96.224 [id number] Radha Rico PT [facility] [address] [place] [address] 08/09/2023 11:01:29 08/09/2023 12:32:01 Follow-up orthopedic assessment 619057187 Z47.1 History of total replacement of left hip joint 3953383395 215481 Z96.858 [id number] Leia li, PRIMARY OPERATOR [facility] [address] [place] [address] 08/13/2023 10:57:48 08/13/2023 11:44:43 Follow-up orthopedic assessment 664730121 Z47.1 History of total replacement of left hip joint 8314553864 112998 Z96.995 [id number] Leia li, PRIMARY OPERATOR [facility] [address] [place] [address] 08/15/2023 10:57:50 08/15/2023 12:26:12 Follow-up orthopedic assessment 952914419 Z47.1 History of total replacement of left hip joint 3116425597 640149 Z96.615 [id number] Leia li, PRIMARY OPERATOR [facility] [address] [place] [address] 08/20/2023 10:59:10 08/20/2023 12:25:31 Follow-up orthopedic assessment 612831098 Z47.1 History of total replacement of left hip joint 7028438386 181881 Z96.728 [id number] Stephon Viera PA-C [facility] 3rd floor [address] [facility] [place] [place] [address] 08/21/2023 12:59:34 09/11/2023 08:13:43 History of total replacement of left hip joint 6209976849 728409 Z96.038 [id number] Leia li, PRIMARY OPERATOR [facility] [address] [place] [address] 08/22/2023 12:59:42 08/22/2023 14:06:15 Follow-up orthopedic assessment 097576679 Z47.1 History of total replacement of left hip joint 3094287940 790515 Z96.523 [id number] Radha Rico, PT [facility] [address] [place] [address] 08/29/2023 10:57:23 08/29/2023 12:25:34 Follow-up orthopedic assessment 655798877 Z47.1 History of total replacement of left hip joint 7443648966 239295 Z96.284 [id number] Leia Rhys r, PRIMARY OPERATOR [facility] [address] [place] [address] 09/03/2023 14:55:22 09/03/2023 16:01:43 Follow-up orthopedic assessment 327620138 Z47.1 History of total replacement of left hip joint 7110382604 095985 Z96.302 [id number] MD Gabino Rodríguez [address] [place] [address] 11/22/2023 09:03:02 12/13/2023 12:55:32 History of total replacement of left hip joint 4720819925 126954 Z96.642 Osteoarthr itis of right hip joint 9993871413 18670 M16.11 [id number] VERONICA Johnson [address] [place] [address] 06/27/2024 09:24:48 07/07/2024 16:07:28 Pain of hip region 45889352 M25.552 [id number] Low back pain 985120595 M54.50 42021 [id number] MD CHANCE Rodríguez [address] [place] [address] 12/18/2024 11:06:54 12/29/2024 09:09:36 Osteoarthritis of right hip joint 8149480489 92301 M16.11 [id number] Health Concerns Section Related Observation LastModified by Organization Detai ls LastModified Time None Recorded Concern Status LastModified by Organization Details LastModified Time None Recorded Advance Directives Directive None Recorded Payers Insurance Date Sequence Insurance Name Policy Number Policy Johnson Covered Member ID Johnson Member ID Guarantor Name 12/19/2024 2 [place] [id number] [address] [id number] 12/19/2024 1 [place] [address] [id number] Notes Date Note Type Note Provider Name and Address Organization Details Recorded Time 08/29/2023 text/html feeling pretty good overall. Radha Rico, PT [address], [place], [address], [facility] 08/29/2023 11:44:54 09/03/2023 text/html Pt reports cont improvement in her hip, feeling just sore . Leia Palencia, PRIMARY OPERATOR [address], [place], [address], [facility] 09/04/2023 10:46:01 06/27/2024 text/html I am seeing [...] Alert and lucid. Normal insight, affect and grooming.SEGMENT BLOCK LAYER: Gross motor coordination is intact. No spasticity or clonus noted.Extremities:C garcia are soft non tender, skin intact.Orthopedic Examination Right Hip: internal rotation to 10 external rotation 20 both pain and range. Flexion of greater than 100 . Full extension.Left Hip: Passive range of motion [...] degenerative changes of her lumbar spine L2-3 levels.Assessment:Mary en. this is L2-3 left hip. Nothing worrisome left total hip arthroplasty. Recommend volar plating her spine and sports in regards to this. Recommended a course of physical therapy for lumbar stabilization program. Regards to the right hip would recommend follow-up with Dr. Manuela per her request for booking of right total hip arthroplasty.PLAN: [ ][facility] speech recognition circuit court judge software was used to create portions of this document. An attempt at proofreading has been made to minimize errors. Please call for corrections. Mark Anthony Giraldo PA-C [address] [facility] [address], [place], [address], [facility] 06/27/2024 13:40:35 OBGyn Episode No OBEpisode recorded.
== END 2025-01-06 15:57 | disposition home or self-care (01) ==
LOC: HO.HOP 15:06
PROVIDERS: PCP Internal Medicine; Visit Provider Psychiatry & Neurology Psychiatry
DX: F41.1 Generalized anxiety disorder (principal); F33.42 Major depressive disorder, recurrent, in full remission
CPT/HCPCS: 99214

== ENCOUNTER → 2025-01-06 15:06 | Outpatient (BNVA) | payer MEDICARE, SELFPAY | PROVIDERS: PCP Internal Medicine; Visit Provider Psychiatry & Neurology Psychiatry | DX: F41.1 Generalized anxiety disorder (principal); F33.42 Major depressive disorder, recurrent, in full remission | CPT/HCPCS: 99212 ==